=== PATIENT | male | born 1950 | race Caucasian/White ===

== ENCOUNTER → 2017-07-25 16:22 | Outpatient (CLI) | payer MEDICARE, OTHER, SELFPAY ==
[2017-07-25 18:49] LABS: Absolute Lymphocyte Count 0.92 X10^3/ul (0.83-4.51); Absolute Neutrophil Count 8.2 X10^3/uL (2.0-7.7); Basophil# 0.02 X10^3/uL; Basophil% 0.2 % (0-1); Eosinophil# 0.01 X10^3/uL; Eosinophils% 0.1 % (0-5); Hematocrit 38.4 % (40-54); Hemoglobin 12.5 g/dl (13.0-16.5); Lymphocyte # 0.92 X10^3/ul (4.0); Lymphocyte % 9.8 % (19-41); Mean Corp Hgb Conc 32.6 g/gl (32-36); Mean Corpuscular Hgb 31.5 pg (27.0-32.0); Mean Corpuscular Volume 96.7 fL (80-94); Mean Platelet Vol. 11.9 fl (6.2-12.0); Monocyte# 0.27 X10^3/uL; Monocyte% 2.9 % (0-10); Neutrophil # 8.15 X10^3/uL (2.7-7.7); Neutrophil % 86.5 % (47-70); Platelet Count 220 K/mm3 (150-450); RBC Distribution Width CV 15.6 % (11.6-14.6); RBC Distribution Width SD 52.8 fl (35.1-43.9); Red Blood Count 3.97 M/mm3 (4.6-6.2); White Blood Count 9.4 K/mm3 (4.4-11.0)
[2017-07-25 18:53] LABS: ALB/GLOB Ratio 1.2 RATIO (0.9-2.4); AST(SGOT) 24 U/L (15-37); Alanine Aminotransfer ALT/SGPT 33 U/L (16-61); Albumin, Serum 3.8 g/dL (3.2-5.0); Alkaline Phosphatase 80 U/L (45-117); Anion Gap 8 (5-15); BUN 20 mg/dL (7-18); BUN/Creat Ratio 25.3 RATIO (10-20); Calcium,Total 9.5 mg/dL (8.5-10.1); Chloride 109 mmol/L (98-107); Creatinine, Serum 0.79 mg/dL (0.70-1.30); EST Glomerular Filtration Rate 104 mL/min (>60); Est Glom Filt Rate - Afr Amer 126 mL/min (>60); Globulin 3.3 g/dL (2.2-4.2); Glucose 105 mg/dL (74-106); Potassium 4.1 mmol/L (3.5-5.1); Protein, Total 7.1 g/dL (6.4-8.2); Sodium Level 142 mmol/L (136-145)
[2017-07-25 18:59] LABS: POSITIVE COUNT NO; POSITIVE DIFFERENTIAL NO; POSITIVE MORPHOLOGY NO
== END ==
PROVIDERS: Family Provider Family Medicine; PCP Family Medicine; Visit Provider Internal Medicine Rheumatology
DX: M06.032 Rheumatoid arthritis without rheumatoid factor, left wrist (principal); Z79.899 Other long term (current) drug therapy; M50.30 Other cervical disc degeneration, unspecified cervical region; M51.87 Other intervertebral disc disorders, lumbosacral region
CPT/HCPCS: 36415; 80053; 85025

== ENCOUNTER → 2017-08-31 15:03 | Outpatient (CLI) | payer MEDICARE, OTHER, SELFPAY ==
--- NOTE | 2017-08-31 15:20 | HPBD_ITS ---
STUDY: DUAL ENERGY X-RAY ABSORPTIOMETRY / DXA REASON FOR EXAM: Male, 67 years old. KAY OF 1.5 INCHES HX OF SMOKING USES PREDNISONE DAILY HX OF TAKING ANTI-SEIZURE MEDS DOES LITTLE EXERCISE- HAS AN AMPUTATED LEG- LIMITED MOBILITY HX OF LUMBAR DISCECTOMY TECHNIQUE: Bone Mineral Density (BMD) measurements of lumbar spine and bilateral hips were obtained. COMPARISON: None. FINDINGS: Lumbar Spine (L1-L4): g/cm2 (1.081) / T-score (-1) / Z-score (-0.5) Findings are suggestive of normal bone density . Left Femoral Neck: g/cm2 (0.787) / T-score (-2.2) / Z-score (-1.1) consistent with severe osteopenia Right Femoral Neck: g/cm2 (0.548) / T-score (-4) / Z-score (-4.3) consistent with osteoporosis. HPBD/Dexa Bone Density Study (HP) IMPRESSION: The patient is considered osteoporotic as outlined below according to World Melo Organization (WHO) . Reference Information: The T-score is the number of standard deviations above or below the standard which is normal for young adults at their peak bone mineral density. The World Health Organization (WHO) interprets the T-scores as follows: Above -1 Normal bone density Between -1 and -2.5 Osteopenia Equal to / or below -2.5 Osteoporosis As a practical clinical guideline, osteopenia may be graded as follows: Mild -1 through -1.5 Moderate -1.6 through -2.0 Severe -2.1 through -2.4 The Z-score is the number of standard deviations above or below age-matched controls. A Z-score of less than -1.5 would be considered abnormal. References: 1. NIH Osteoporosis and Related Bone Diseases http://www.osteo.org 2. International Society for Clinical Densitometry http://www.iscd.org 3. National Osteoporosis Foundation http://www.nof.org Electronically Signed: Trent Hylton MD at 10:46 EDT Tel , Service support ,
== END ==
PROVIDERS: Family Provider Family Medicine; PCP Family Medicine; Visit Provider Orthopaedic Surgery
DX: M85.88 Other specified disorders of bone density and structure, other site (principal)
CPT/HCPCS: 77080

== ENCOUNTER → 2017-10-16 11:41 | Outpatient (CLI) | payer MEDICARE, OTHER, SELFPAY ==
[2017-10-16 14:01] LABS: Absolute Lymphocyte Count 1.49 X10^3/ul (0.83-4.51); Absolute Neutrophil Count 7.1 X10^3/uL (2.0-7.7); Basophil# 0.03 X10^3/uL; Basophil% 0.3 % (0-1); Eosinophil# 0.18 X10^3/uL; Eosinophils% 1.9 % (0-5); Hematocrit 37.1 % (40-54); Hemoglobin 12.1 g/dl (13.0-16.5); Lymphocyte # 1.49 X10^3/ul (4.0); Lymphocyte % 15.5 % (19-41); Mean Corp Hgb Conc 32.6 g/gl (32-36); Mean Corpuscular Hgb 31.6 pg (27.0-32.0); Mean Corpuscular Volume 96.9 fL (80-94); Mean Platelet Vol. 11.8 fl (6.2-12.0); Monocyte# 0.82 X10^3/uL; Monocyte% 8.5 % (0-10); Neutrophil # 7.09 X10^3/uL (2.7-7.7); Neutrophil % 73.5 % (47-70); Platelet Count 215 K/mm3 (150-450); RBC Distribution Width CV 14.2 % (11.6-14.6); Red Blood Count 3.83 M/mm3 (4.6-6.2); White Blood Count 9.6 K/mm3 (4.4-11.0)
[2017-10-16 14:03] LABS: POSITIVE COUNT NO; POSITIVE DIFFERENTIAL NO; POSITIVE MORPHOLOGY NO
[2017-10-16 14:30] LABS: ALB/GLOB Ratio 0.9 RATIO (0.9-2.4); AST(SGOT) 24 U/L (15-37); Alanine Aminotransfer ALT/SGPT 26 U/L (16-61); Albumin, Serum 3.4 g/dL (3.2-5.0); Alkaline Phosphatase 74 U/L (45-117); Anion Gap 9 (5-15); BUN 25 mg/dL (7-18); BUN/Creat Ratio 31.2 RATIO (10-20); Calcium,Total 9.5 mg/dL (8.5-10.1); Chloride 108 mmol/L (98-107); EST Glomerular Filtration Rate 103 mL/min (>60); Est Glom Filt Rate - Afr Amer 124 mL/min (>60); Globulin 3.8 g/dL (2.2-4.2); Glucose 77 mg/dL (74-106); Potassium 3.5 mmol/L (3.5-5.1); Protein, Total 7.2 g/dL (6.4-8.2); Sodium Level 141 mmol/L (136-145)
== END ==
PROVIDERS: Family Provider Family Medicine; PCP Family Medicine; Visit Provider Internal Medicine Rheumatology
DX: M06.032 Rheumatoid arthritis without rheumatoid factor, left wrist (principal); Z79.899 Other long term (current) drug therapy; M50.30 Other cervical disc degeneration, unspecified cervical region; M51.87 Other intervertebral disc disorders, lumbosacral region
CPT/HCPCS: 36415; 80053; 85025

== ENCOUNTER → 2017-12-27 14:44 | Outpatient (CLI) | payer MEDICARE, OTHER, SELFPAY ==
[2017-12-27 16:02] LABS: Absolute Lymphocyte Count 1.79 X10^3/ul (0.83-4.51); Absolute Neutrophil Count 5.4 X10^3/uL (2.0-7.7); Basophil# 0.03 X10^3/uL; Basophil% 0.4 % (0-1); Eosinophil# 0.41 X10^3/uL; Hematocrit 38.3 % (40-54); Hemoglobin 12.2 g/dl (13.0-16.5); Lymphocyte # 1.79 X10^3/ul (4.0); Lymphocyte % 21.6 % (19-41); Mean Corp Hgb Conc 31.9 g/gl (32-36); Mean Corpuscular Hgb 30.8 pg (27.0-32.0); Mean Corpuscular Volume 96.7 fL (80-94); Mean Platelet Vol. 11.4 fl (6.2-12.0); Monocyte# 0.66 X10^3/uL; Neutrophil # 5.36 X10^3/uL (2.7-7.7); Neutrophil % 64.8 % (47-70); Platelet Count 211 K/mm3 (150-450); RBC Distribution Width CV 15.5 % (11.6-14.6); RBC Distribution Width SD 52.4 fl (35.1-43.9); Red Blood Count 3.96 M/mm3 (4.6-6.2); White Blood Count 8.3 K/mm3 (4.4-11.0)
[2017-12-27 16:11] LABS: POSITIVE COUNT NO; POSITIVE DIFFERENTIAL NO; POSITIVE MORPHOLOGY NO
[2017-12-27 16:30] LABS: ALB/GLOB Ratio 1.1 RATIO (0.9-2.4); AST(SGOT) 25 U/L (15-37); Alanine Aminotransfer ALT/SGPT 31 U/L (16-61); Albumin, Serum 3.8 g/dL (3.2-5.0); Alkaline Phosphatase 92 U/L (45-117); BUN 22 mg/dL (7-18); BUN/Creat Ratio 29.2 RATIO (10-20); Calcium,Total 9.7 mg/dL (8.5-10.1); Chloride 106 mmol/L (98-107); Creatinine, Serum 0.75 mg/dL (0.70-1.30); EST Glomerular Filtration Rate 110 mL/min (>60); Est Glom Filt Rate - Afr Amer 133 mL/min (>60); Globulin 3.6 g/dL (2.2-4.2); Glucose 83 mg/dL (74-106); Potassium 3.7 mmol/L (3.5-5.1); Protein, Total 7.4 g/dL (6.4-8.2); Sodium Level 141 mmol/L (136-145)
[2017-12-27 16:31] LABS: Anion Gap 9 (5-15)
== END ==
PROVIDERS: Family Provider Family Medicine; PCP Family Medicine; Visit Provider Internal Medicine Rheumatology
DX: M06.032 Rheumatoid arthritis without rheumatoid factor, left wrist (principal); Z79.899 Other long term (current) drug therapy; M50.30 Other cervical disc degeneration, unspecified cervical region; M51.87 Other intervertebral disc disorders, lumbosacral region
CPT/HCPCS: 36415; 80053; 85025

== ENCOUNTER → 2018-02-20 10:04 | Outpatient (CLI) | payer MEDICARE, OTHER, SELFPAY ==
[2018-02-16 17:55] LABS: EST Glomerular Filtration Rate 102 mL/min (>60); Est Glom Filt Rate - Afr Amer 124 mL/min (>60)
--- NOTE | 2018-02-20 10:10 | MRI_ITS ---
STUDY: MR LEFT HIP ARTHROGRAPHY REASON FOR EXAM: Pain in groin, recent fall. TECHNIQUE: Standardized fat and water weighted pulse sequences were obtained in all 3 orthogonal planes after intra-articular instillation of dilute Magnevist. COMPARISON: Fluoroscopic view from arthrogram. FINDINGS: There is coxa plana and coxa magna (T2 coronal images 12-14) with deformity of the acetabulum, likely sequelae of Xpam-Jrfyh-Dkssmva disease. There is thinning of the articular cartilage (T2 coronal image 12). There is a tear of the left superior labrum (T1 coronal images 12, 13). There is no bone edema of the femoral neck and intratrochanteric region. There is a tear of the gluteus medius tendon at the greater trochanteric insertion (T2 coronal images 6, 7; T2 sagittal image 7). Normal gluteus minimus and iliopsoas tendons and distal insertions. There is mild left greater trochanteric bursitis (T2 coronal image 7). Normal ischial tuberosity. Normal origin of the hamstring tendons. Normal visualized iliac wing, sacroiliac joint, and sacral ala. There is contrast in the iliopsoas bursa and iliopsoas muscle. MRI/Lower Ext/Jt Only/W Contrast IMPRESSION: Left superior labral tear. 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 Tear of the left gluteus medius tendon with mild left greater trochanteric bursitis. Electronically Signed: Teo Bowers MD at 12:50 EDT Tel , Service support ,
--- NOTE | 2018-02-20 10:40 | RAD_ITS ---
CLINICAL HISTORY: Male, 67 years old. Chronic left hip pain. PROCEDURE: ARTHROGRAM - LEFT HIP CONSENT: The procedure as well as the benefits and possible complications including infection and bleeding were explained to the patient. Informed consent was obtained. FLUOROSCOPY TIME (if supplied): (25 seconds) minutes/seconds Injection Information: 10 cc of dilute Magnevist Number of images obtained: 1 TECHNIQUE: (All elements of maximal sterile barrier technique followed, including US elements as applicable) The patient was in the supine position. Skin was prepped and draped in usual sterile fashion. Following local anesthetic application and under direct fluoroscopic guidance, a 22-gauge spinal needle was placed into the left hip joint. 2 cc of Isovue-300 was injected for confirmation. Following this, 10 cc of dilute Magnevist was injected. The patient tolerated the procedure well. MRI will follow. RAD/Arthrogram Hip IMPRESSION: Left hip arthrogram with injection of 10 cc of dilute Magnevist for MRI examination. Electronically Signed: Cain Oliveros MD at 12:25 EDT Tel [phone], Service support ,
== END ==
PROVIDERS: Family Provider Family Medicine; PCP Family Medicine; Visit Provider Specialist
DX: M25.552 Pain in left hip (principal); G89.29 Other chronic pain
CPT/HCPCS: 27093; 36415; 73525; 73722; 82565; A9577; Q9967

== ENCOUNTER → 2018-03-26 12:03 | Outpatient (CLI) | payer MEDICARE, OTHER, SELFPAY ==
[2018-03-26 14:01] LABS: Absolute Lymphocyte Count 1.94 X10^3/ul (0.83-4.51); Absolute Neutrophil Count 4.4 X10^3/uL (2.0-7.7); Basophil# 0.05 X10^3/uL; Basophil% 0.6 % (0-1); Eosinophil# 0.81 X10^3/uL; Eosinophils% 10.4 % (0-5); Hematocrit 38.3 % (40-54); Hemoglobin 12.2 g/dl (13.0-16.5); Lymphocyte # 1.94 X10^3/ul (4.0); Lymphocyte % 24.8 % (19-41); Mean Corp Hgb Conc 31.9 g/gl (32-36); Mean Corpuscular Hgb 30.1 pg (27.0-32.0); Mean Corpuscular Volume 94.6 fL (80-94); Mean Platelet Vol. 11.9 fl (6.2-12.0); Monocyte# 0.59 X10^3/uL; Monocyte% 7.6 % (0-10); Neutrophil # 4.41 X10^3/uL (2.7-7.7); Neutrophil % 56.5 % (47-70); Platelet Count 235 K/mm3 (150-450); RBC Distribution Width CV 15.4 % (11.6-14.6); RBC Distribution Width SD 51.4 fl (35.1-43.9); Red Blood Count 4.05 M/mm3 (4.6-6.2); White Blood Count 7.8 K/mm3 (4.4-11.0)
[2018-03-26 14:07] LABS: POSITIVE COUNT NO; POSITIVE DIFFERENTIAL NO; POSITIVE MORPHOLOGY NO
[2018-03-26 14:30] LABS: ALB/GLOB Ratio 0.9 RATIO (0.9-2.4); AST(SGOT) 30 U/L (15-37); Alanine Aminotransfer ALT/SGPT 32 U/L (16-61); Albumin, Serum 3.4 g/dL (3.2-5.0); Alkaline Phosphatase 88 U/L (45-117); Anion Gap 9 (5-15); BUN 16 mg/dL (7-18); Calcium,Total 9.3 mg/dL (8.5-10.1); Chloride 110 mmol/L (98-107); Creatinine, Serum 0.76 mg/dL (0.70-1.30); EST Glomerular Filtration Rate 109 mL/min (>60); Est Glom Filt Rate - Afr Amer 132 mL/min (>60); Globulin 3.6 g/dL (2.2-4.2); Glucose 83 mg/dL (74-106); Potassium 3.8 mmol/L (3.5-5.1); Sodium Level 145 mmol/L (136-145)
== END ==
PROVIDERS: Family Provider Family Medicine; PCP Family Medicine; Referring Provider Internal Medicine Rheumatology; Visit Provider Internal Medicine Rheumatology
DX: M06.032 Rheumatoid arthritis without rheumatoid factor, left wrist (principal); Z79.899 Other long term (current) drug therapy; M50.30 Other cervical disc degeneration, unspecified cervical region; M51.87 Other intervertebral disc disorders, lumbosacral region
CPT/HCPCS: 36415; 80053; 85025

== ENCOUNTER → 2018-06-18 11:50 | Outpatient (CLI) | payer MEDICARE, OTHER, SELFPAY ==
[2018-06-18 14:22] LABS: Absolute Lymphocyte Count 2.68 X10^3/ul (0.83-4.51); Absolute Neutrophil Count 4.1 X10^3/uL (2.0-7.7); Basophil# 0.06 X10^3/uL; Basophil% 0.8 % (0-1); Eosinophil# 0.19 X10^3/uL; Eosinophils% 2.5 % (0-5); Hematocrit 40.2 % (40-54); Hemoglobin 12.9 g/dl (13.0-16.5); Lymphocyte # 2.68 X10^3/ul (4.0); Lymphocyte % 35.7 % (19-41); Mean Corp Hgb Conc 32.1 g/gl (32-36); Mean Corpuscular Hgb 30.5 pg (27.0-32.0); Mean Platelet Vol. 12.1 fl (6.2-12.0); Monocyte# 0.42 X10^3/uL; Monocyte% 5.6 % (0-10); Neutrophil # 4.12 X10^3/uL (2.7-7.7); Platelet Count 209 K/mm3 (150-450); RBC Distribution Width CV 15.1 % (11.6-14.6); RBC Distribution Width SD 50.3 fl (35.1-43.9); Red Blood Count 4.23 M/mm3 (4.6-6.2); White Blood Count 7.5 K/mm3 (4.4-11.0)
[2018-06-18 14:28] LABS: ALB/GLOB Ratio 0.9 RATIO (0.9-2.4); AST(SGOT) 22 U/L (15-37); Alanine Aminotransfer ALT/SGPT 29 U/L (16-61); Albumin, Serum 3.4 g/dL (3.2-5.0); Alkaline Phosphatase 85 U/L (45-117); Anion Gap 8 (5-15); BUN 25 mg/dL (7-18); BUN/Creat Ratio 34.3 RATIO (10-20); Chloride 108 mmol/L (98-107); Creatinine, Serum 0.73 mg/dL (0.70-1.30); EST Glomerular Filtration Rate 114 mL/min (>60); Est Glom Filt Rate - Afr Amer 138 mL/min (>60); Globulin 3.6 g/dL (2.2-4.2); Glucose 82 mg/dL (74-106); POSITIVE COUNT NO; POSITIVE DIFFERENTIAL NO; POSITIVE MORPHOLOGY NO; Potassium 3.6 mmol/L (3.5-5.1); Sodium Level 142 mmol/L (136-145)
== END ==
PROVIDERS: Family Provider Family Medicine; PCP Family Medicine; Referring Provider Internal Medicine Rheumatology; Visit Provider Internal Medicine Rheumatology
DX: M06.032 Rheumatoid arthritis without rheumatoid factor, left wrist (principal); Z79.899 Other long term (current) drug therapy; M50.30 Other cervical disc degeneration, unspecified cervical region; M51.87 Other intervertebral disc disorders, lumbosacral region; G56.01 Carpal tunnel syndrome, right upper limb
CPT/HCPCS: 36415; 80053; 85025

== ENCOUNTER → 2018-07-20 11:21 | Outpatient (CLI) | payer MEDICARE, OTHER, SELFPAY ==
[2018-07-06 13:06] VITALS: BMI 27.3
[2018-07-20 12:37] LABS: Albumin, Serum 3.7 g/dL (3.2-5.0)
== END ==
PROVIDERS: Family Provider Specialist; PCP Specialist; Referring Provider Specialist; Visit Provider Specialist
DX: Z01.812 Encounter for preprocedural laboratory examination (principal)
CPT/HCPCS: 36415; 82040

== ENCOUNTER 2018-07-25 09:35 | Inpatient (IN) | payer MEDICARE, OTHER, SELFPAY ==
[2018-07-06 13:06] VITALS: BP 119/65; PULSE 99; RESP 16; TEMP 37.3; O2SAT 96; BMI 27.3
--- NOTE | 2018-07-06 13:20 | SDCEKG_ITS ---
Test Reason : Blood Pressure : / mmHG Vent. Rate : 086 BPM Atrial Rate : 086 BPM P-R Int : 154 ms QRS Dur : 096 ms QT Int : 366 ms P-R-T Axes : 056 109 052 degrees QTc Int : 437 ms Sinus rhythm with occasional Premature ventricular complexes Low voltage QRS (limb leads) Rightward axis Borderline ECG Confirmed by YUNIOR MYERS, CLYDE ([id number]), subeditor SOFIA SARAVIA ([id number]) on 07/12/2018 8:21:25 AM Referred By: Peewee Daigle Confirmed By:CLYDE MOJICA MD
[2018-07-06 14:04] LABS: Absolute Neutrophil Count 9.3 X10^3/uL (2.0-7.7); Basophil# 0.02 X10^3/uL; Basophil% 0.2 % (0-1); Eosinophil# 0.14 X10^3/uL; Eosinophils% 1.4 % (0-5); Hemoglobin 12.5 g/dl (13.0-16.5); Lymphocyte % 5.8 % (19-41); Mean Corp Hgb Conc 31.3 g/gl (32-36); Mean Corpuscular Hgb 30.1 pg (27.0-32.0); Mean Corpuscular Volume 96.4 fL (80-94); Mean Platelet Vol. 10.7 fl (6.2-12.0); Monocyte# 0.25 X10^3/uL; Monocyte% 2.4 % (0-10); Neutrophil # 9.29 X10^3/uL (2.7-7.7); Neutrophil % 90.1 % (47-70); Platelet Count 250 K/mm3 (150-450); RBC Distribution Width CV 15.9 % (11.6-14.6); RBC Distribution Width SD 54.3 fl (35.1-43.9); Red Blood Count 4.15 M/mm3 (4.6-6.2); White Blood Count 10.3 K/mm3 (4.4-11.0)
[2018-07-06 14:06] LABS: Differential Indicated SCAN CRITERIA MET; POSITIVE COUNT NO; POSITIVE DIFFERENTIAL YES; POSITIVE MORPHOLOGY NO
[2018-07-06 14:21] LABS: Anion Gap 7 (5-15); BUN 12 mg/dL (7-18); BUN/Creat Ratio 16.8 RATIO (10-20); Calcium,Total 9.5 mg/dL (8.5-10.1); Chloride 109 mmol/L (98-107); Creatinine, Serum 0.71 mg/dL (0.70-1.30); EST Glomerular Filtration Rate 117 mL/min (>60); Est Glom Filt Rate - Afr Amer 142 mL/min (>60); Glucose 92 mg/dL (74-106); Potassium 4.1 mmol/L (3.5-5.1); Sodium Level 141 mmol/L (136-145)
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
[2018-07-06 16:00] LABS: Differential Comment SCANNED
--- NOTE | 2018-07-23 12:42 | CASEMGMT ---
Call placed to patient to discuss discharge needs after upcoming surgery. Patient plans to return home with assistance from and in laws. Patient does not have outpatient physical therapy set up, would prefer home health PT through [facility], wants to assist with setting up. Patient has a walker, shower seat, grab bars, and a toilet riser. Bed room and bathroom are on the 1st level of the home. There are 2 steps to get into home. Informed patient that RN-CM will follow up with patient after surgery. Denice Mandel LPN Clinical Support
[2018-07-25] VITALS (11 sets, daily range): BP systolic 94–123; BP diastolic 53–75; PULSE 68–96; RESP 16–18; TEMP 36.4–37.1; O2SAT 93–98; BMI 27.3; BMI 25.7
--- NOTE | 2018-07-25 | HIP_PTH ---
PATIENT: FRANCHESKA AGUERO MAYE LOC: 3 U#:[id number] AGE/SX: 67/M [place] [facility] [place]25/[address]: Dr. Uche Hernandez MD : [id number] BED: 1 DIS: 07/26/2018 SPEC #: [id number] RECD: 07/25/18 15:24 STATUS: KEARA REQ #: [id number] ASIA: 07/25/18 00:[address]: Peewee Daigle DEPT: SURGICAL PATHOLOGY RECD BY: Juarez Oneill ENTERED: 07/26/18 07:49 SP TYPE: TOTAL HIP OTHR DR: MD Dr. Romel Villa MD Dr. Prakash Chand, MD Dr. Steven Widmer, MD Tissues: Hip, NOS Procedures: Decalcification bone/plaque Surgery Specimen Level IV Comments: @ Ordering doctor for DEC edited from to @ by LOBO at 07/26/18 1503 @ Ordering doctor for SUIV edited from to @ by LOBO at 07/26/18 1503 @ Submitting doctor edited from to @ by LOBO at 07/26/18 1503 HEADER OPERATION: Total hip anterior approach PRE-OP DIAGNOSIS: Left hip osteoarthritis TISSUE SUBMITTED: Femoral head MICROSCOPIC DIAGNOSIS Left femoral head, total hip replacement/resection: Femoral head with degenerative osteoarthritic changes. Fragments of dense fibroconnective tissue. AMELIA:shannon 08/01/18 MICROSCOPIC DESCRIPTION Slides are reviewed. GROSS DESCRIPTION Received is one container designated bone and soft tissue, left femoral head. The specimen consists of a markedly deformed femoral head measuring 6 x 5 x 3 cm. The portion of femoral neck measures 0.5 cm in width. The articular surface displays prominent osteophyte formation and bone erosion. Also present in the specimen container are multiple irregular fragments of bone reamings and pink-yellow soft tissue measuring in aggregate 7 x 6 x 3 cm and predominantly consists of bone reamings. Chief Data Officer sections are submitted in two cassettes after decalcification as follows: 1 - soft tissue including bone reamings, 2 - femoral head. / AMELIA:shannon 07/26/18 TC:5 CPT: 94850, 65127
[2018-07-25] MEDS: Celecoxib 200 MG Capsule 400 MG PO (10:30)
[2018-07-25] MEDS: Acetaminophen 500 MG Tablet 1000 MG PO ×3 (10:31→21:48)
[2018-07-25] MEDS: oxyCODONE HCl Cr 10 MG Tablet PO (10:31)
[2018-07-25] MEDS: Vancomycin IV 1,000 MG/200 ML BAG 200 MG IV (10:33)
[2018-07-25] MEDS: Lactated Ringers 1,000 ML 999 ML IV (10:34)
[2018-07-25] MEDS: Cefazolin 2 GM in 0.9% Normal Saline 100 ML IV (11:39)
--- NOTE | 2018-07-25 12:00 | RAD_ITS ---
STUDY: X-RAY - LEFT HIP REASON FOR EXAM: Male, 67 years old. Hip replacement TECHNIQUE: 3 C-arm views of the hip. 2.8 seconds fluoroscopy time. COMPARISON: None. FINDINGS: 3 C-arm views show placement of a left hip arthroplasty refractory appearance. Correlate with procedure note. Electronically Signed: Steven Awad MD at 21:02 EST , Service support , RAD/Hip 1 view with Pelvis
--- NOTE | 2018-07-25 13:23 | PCM.OPRPT ---
Report of Operation Date of Procedure: 07/25/18 Pre-Operative Diagnosis: Left hip secondary osteoarthritis, history of Perthes disease Post-Operative Diagnosis: Left hip secondary osteoarthritis, history of Perthes disease Surgery/Procedure Performed:: Left direct anterior total hip replacement Description of Surgical Findings:: Stable hip manager of merchandising: Carlos Alberto Perez Type of Anesthesia:: General Anesthesiologist: Manjeet Ruff Special Medications: 2 g Ancef, 1 g TXA at incision, 1 g TXA closure, 10 mg Decadron, joint cocktail (5 mg Duramorph, 30 mL of 0.5% Ropivicaine, 1000 units of epinephrine, 30 mg of Toradol), IV vancomycin Specimen's removed: Bony cuts, femoral head was sent Estimated Blood Loss (mL): 150 Fluids Replaced: 1000 mL crystalloid Description of Procedure: Components used: 1. Accolade 2 [place] femoral stem size 2 127? 2. Abdon trident 2 acetabular shell size 46 mm 3. Abdon X3 polyethylene c 4. Abdon Biolox delta 32mm, -4mm femoral head Brief history operative indications: 67 yo M who failed conservative measures for their hip osteoarthritis. X-rays were consistent with osteoarthritis including joint space narrowing, osteophyte formation and subchondral cysts. Total hip replacement was discussed with the patient with risks and benefits including but not limited to blood loss, DVTs, PEs, neurovascular damage, dislocation, general risks of anesthesia including loss of life. Patient demonstrated an understanding medical clearance is obtained the patient was consented for surgery. Procedure: On the date of procedure the patient's L hip was marked in the preoperative area. Patient was then taken back to the operating room where anesthesia assumed control of the C-spine and airway and administered anesthetic. Patient was transferred to the operating table and placed in the supine position. The hips were placed at the break of the bed and a sacral bump was placed. The L lower extremity was then prepped out in a sterile fashion using chlorhexidine while the surgeon scrubbed. The PA was vital in the positioning of the patient. Upon reentering the room the L lower extremity was draped in the standard orthopedic fashion and the incision was marked. A timeout was called and everyone agreed upon the side, the site, the procedure be performed, antibody given, and patient's identity. At this time incision was made through skin, subcutaneous tissue, and fat down to fascia. The fascia was then incised and the TFL was retracted laterally. A retractor was placed on the lateral border of the femoral neck. Attention was directed to the inferior portion of the approach and all crossing vessels were identified and appropriately coagulated. A retractor was then placed on the medial portion of the femoral neck. The anterior capsule was then cleared of all soft tissue and then H shaped capsulotomy was made. The retractors were then placed inside the capsule. The femoral neck was identified and a cleanup cut was made. At this time a power corkscrew was used to remove the femoral head. Attention was then turned toward the acetabulum where the soft tissues were appropriately retracted and the acetabulum was sequentially reamed to 46 mm using fluoroscopy to guide the depth and coverage of the acetabular component. Once we are happy with our appropriate reaming, A 46 mm cup was then selected and impacted into place. Acetabular liner trial was then put into place. The position of the acetabular cup was then verified under live fluoroscopy. Attention was then turned to the femur. Soft tissue releases on the medial and lateral femoral neck were appropriately done, the leg was externally rotated and lateralized. A Singer retractor was placed medially and proximally to the greater trochanter this allowed appropriate visualization and exposure of the femoral canal. Rongeour was then used to remove excess lateral bone. A canal finder and entry broach were used to open the proximal canal. Once we verified we were down the femoral canal we subsequently broached up to a size 2 femur. The appropriate neck was placed in the previously selected head was trialed with a -4 mm neck. Traction was pulled and the hip was reduced with internal rotation. Once it was appropriately reduced and stability was checked. There was minimal shuck, equal leg lengths and appropriate stability with hyperextension and external rotation as well as with 90? flexion and internal rotation. Fluoroscopy was then also used to verify the position of the components and leg lengths ensuring that we did not over lengthen the patient. Based on the x-rays we lengthen the patient by about 2 cm that he has a amputation on the contralateral side. The trial components were then dislocated the proximal femur was again exposed and the components were removed from the wound. The final components were verified and opened. The wound was copiously irrigated out with normal saline. The acetabulum was again exposed and 2 screws were placed orthogonally in the acetabulum. A 32 mm liner was then impacted into place and acetabulum was checked for any residual debris. The mechanism was verified. Femur was again exposed and the final femoral component placed and impacted. Knee was cleaned and the femoral head was impacted into place traction and internal rotation were again used to reduce the hip. After adequate reduction the hip remained stable with appropriate leg lengths. The final components were once again checked with live fluoroscopy and were found to be satisfactory. The wound was then copiously irrigated with normal saline once more, and hemostasis was obtained. Closure was then done using #1 Vicryl runner to close the fascia. A 2-0 vicryl interuppted sutures were used to close the subcutaneous skin. A 3-0 Monocryl and Steri-Strips were used for final skin closure. A Silverlon dressing was placed. Patient was awakened by anesthesia and [facility] Patient was then transferred to the PACU for recovery. Postoperative plan: Patient will get 24 hours postop antibiotics. Patient will get in-house physical therapy and will be weight-bear as tolerated. Patient will follow up in office in 2 weeks for a wound check and x-rays. During the course of the procedure the physician facilities assistant played a vital role. His intimate knowledge of my steps in the procedure aided in safe and expedient completion of the procedure. The PA played a vital rolls in positioning particularly in obtaining the appropriate positioning of the sacral bump. The PA was also vital in the retraction of soft tissues during the exposure and especially the femoral work as this is a vital part of the procedure to prevent complications and fractures. The PA was also vital and protecting soft tissues during times of bony cuts and reaming. He also played a vital role in closure with my direct supervision. The PA was also important during reduction and dislocation of the joint and trials intraoperatively. Grafts/Implants Used: [place] Trident 2, Accolade 2 - Complications No intraoperative complications - Admit VTE Documentation VTE Present on Admission: No VTE Mechan Device Prophylaxis: SCD's, Thigh High YOUNG Hose VTE Pharm Prophylaxis ordered?: Yes
--- NOTE | 2018-07-25 14:11 | RAD_ITS ---
STUDY: X-RAY - LEFT HIP REASON FOR EXAM: Male, 67 years old. Postoperative TECHNIQUE: Frontal pelvis, crosstable lateral left hip. COMPARISON: 07/25/2017, 02/20/2018, 12/23/2014 FINDINGS: Development of dysplasia of the right hip joint with wide shallow acetabulum and chronic deformity of the femoral head. Amputation of the distal thigh on the right. Left hip arthroplasty. The prosthetic components appear to be normally seated and articulated. There is no acute fracture. Medullary olga hardware distal femur on the left. RAD/Hip Min 2 Views (Portable) IMPRESSION: Left hip arthroplasty components exhibit appropriate postsurgical features. Correlate with operative technique. Electronically Signed: Tesfaye Flores MD at 17:38 EST Tel , Service support ,
[2018-07-25] MEDS: Gabapentin 800 MG Tablet PO (16:56)
[2018-07-25] MEDS: Aspirin 81 MG TAB.CHEW PO (16:56)
[2018-07-25] MEDS: Hydroxychloroquine 200 MG Tablet PO (16:57)
[2018-07-25] MEDS: Cefazolin 1 GM/50 ML BAG IV (18:59)
[2018-07-25] MEDS: oxyCODONE 5 MG Tablet PO (19:56)
[2018-07-25] MEDS: Lactated Ringers 1,000 ML 75 ML IV (19:57)
--- NOTE | 2018-07-25 20:39 | CON.PCM_ITS ---
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 Qualifiers: Encounter type: subsequent encounter Qualified Code(s): T84.093D - Other mechanical complication of internal left knee prosthesis, subsequent encounter Reason for Consult Date of Consultation: 07/25/18 Reason for Consultation: For medical management after left hip replacement History of Present Illness: The patient is a 67 year old M with protracted history of rheumatological disease including Perthes disease, rheumatoid arthritis, right shoulder arthritis and rotator cuff with multiple joint surgeries in the past was admitted after elective left hip anterior total hip replacement. Patient denies chronic cardiac disease, pulmonary disease or GI issues. He denies a stroke Patient quit smoking about 30 years ago. Denies chest pain, shortness of breath, palpitation, abdominal pain. Denies lower urinary tract symptoms. Denies change in bowel movement. Past Medical History Past Medical History (Chronic Problems): Chronic Problems Osteomyelitis of toe of left foot (Chronic) Hallux rigidus, left foot (Chronic) Decubitus ulcer of foot, unstageable (Chronic) Failed total left knee replacement (Chronic) Allergies No Known Allergies Allergy (Verified 07/06/18 12:57) Home Medications: Ambulatory Orders Medication Instructions Recorded Folic Acid 1 tablet PO DAILY 11/08/13 Hydroxychloroquine [Plaquenil] 200 mg PO BIDCM 11/08/13 Gabapentin [Neurontin] 800 mg PO TID 04/07/15 Methotrexate 15 mg PO Q7D 12/11/15 Famotidine [Pepcid] 20 mg PO PRN PRN 07/06/18 Meloxicam [Mobic] 15 mg BC QODAY 07/06/18 Prednisone 10 mg PO DAILY PRN 07/06/18 traMADol [Ultram (G)] 100 mg PO TID 07/06/18 Surgical History: - - History of right below the knee amputation left knee replacement right rotator cuff repair right shoulder replacement left knee revision Smoking Status: Never smoker - *Family History Paternal History Items: No pertinent history Review of Systems Constitutional: Denies: Chills, Fever, Weight Change HEENT: Denies: Head Aches, Sinus Congestion, Sinus Drainage Cardiovascular: Denies: Chest Pain, Palpitations Respiratory: Denies: Cough, Shortness of breath at rest, Sputum production Gastrointestinal: Denies: Abdominal Pain, Nausea, Vomiting Genitourinary: Denies: Dysuria Musculoskeletal: Reports: Joint Pain, Joint stiffness, Joint Tenderness, Muscle pain Skin: Denies: Rash, Wounds Neurological: Denies: Numbness, Tingling, Focal weakness Psychiatric: Denies: Anxiety, Depression, Homicidal Ideations, Suicidal Ideations Hematologic/ Lymphatic: Denies: Easy Bruising, Easy Bleeding - Physical Exam General: Alert, Oriented x3, Cooperative HEENT: Atraumatic, PERRLA, EOMI, Normocephalic Neck: Supple, No JVD, Negative Carotid Bruits Lungs: Clear to auscultation, Normal air movement, No rhonchi, No wheeze, No rales Cardiovascular: Regular rate, Regular Rhythm, Normal S1, Normal S2, No murmurs Abdomen: Bowel Sounds Present, Soft, Non Tender, Non-Distended Extremities: No edema, Capillary Refill Less than 3 Seconds Skin: No rashes, No breakdown Musculoskeletal: Arthritic Changes, Tenderness - Mild expected tenderness over left hip joint. Left hip surgical dressing is dry. Neurological: Cranial nerves II-XII grossly intact Psych/Mental Status: Normal Affect, Appropriate Vital Signs Temp Pulse Resp BP Pulse Ox 98.8 F 68 18 94/54 L 95 07/25/18 19:50 07/25/18 19:50 07/25/18 19:50 07/25/18 19:50 07/25/18 19:50 Oxygen Flow Rate (L/min) 2 Oxygen Delivery Method Room Air Weight: 131 lb 13.383 oz Body Mass Index (BMI) 25.7 Intake and Output for Last 24 Hours 07/23/18 07/24/18 07/25/18 23:59 23:59 23:59 Intake Total 1500 / 1500 Output Total 0 / 0 Balance 1500 / 1500 Assessment/Plan The patient is a 67 year old M with protracted history of rheumatological disease including Perthes disease, rheumatoid arthritis, right shoulder arthritis and rotator cuff with multiple joint surgeries in the past was admitted after elective left hip anterior total hip replacement. Patient denies chronic cardiac disease, pulmonary disease or GI issues. He denies a stroke Patient quit smoking about 30 years ago. Denies chest pain, shortness of breath, palpitation, abdominal pain. Denies lower urinary tract symptoms. Denies change in bowel movement. 1. Advanced left hip osteoarthritis status post total hip replacement: Postop day 0. DVT prophylaxis as per orthopedic surgeon. PT and OT as ordered. Pain control. 2. Chronic rheumatological conditions: Perthe's Disease, osteoarthritis, rotator cuff tear and right shoulder replacement, left TKR, history of osteomyelitis and osteoporosis. 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 Patient had right leg amputation in 1996 after numerous surgeries on right leg for osteomyelitis. 3. DVT prophylaxis: On aspirin twice daily. Code Visit Inpatient E&M: 00089 Init Hosp L2
[2018-07-25] MEDS: Senna/Docusate Sodium 1 Tablet 2 TABLET PO (21:50)
[2018-07-26] MEDS: oxyCODONE 5 MG Tablet PO ×3 (00:06→11:57)
[2018-07-26] MEDS: Famotidine 20 MG Tablet PO (00:06)
[2018-07-26] MEDS: Cefazolin 1 GM/50 ML BAG IV (02:36)
[2018-07-26 02:38] VITALS: BP 106/65; PULSE 68; RESP 16; TEMP 36.9; O2SAT 100
[2018-07-26] MEDS: Acetaminophen 500 MG Tablet 1000 MG PO ×2 (05:05→13:35)
[2018-07-26 06:25] LABS: Hematocrit 32.1 % (40-54); Mean Corp Hgb Conc 31.2 g/gl (32-36); Mean Corpuscular Hgb 30.3 pg (27.0-32.0); Mean Corpuscular Volume 97.3 fL (80-94); Mean Platelet Vol. 11.9 fl (6.2-12.0); Platelet Count 174 K/mm3 (150-450); RBC Distribution Width CV 14.9 % (11.6-14.6); RBC Distribution Width SD 50.1 fl (35.1-43.9); White Blood Count 8.8 K/mm3 (4.4-11.0)
[2018-07-26 06:26] LABS: Scan Indicated on CBC? Y/N NO
[2018-07-26 06:43] LABS: Anion Gap 7 (5-15); BUN 16 mg/dL (7-18); BUN/Creat Ratio 23.2 RATIO (10-20); Calcium,Total 8.6 mg/dL (8.5-10.1); Chloride 109 mmol/L (98-107); Creatinine, Serum 0.69 mg/dL (0.70-1.30); EST Glomerular Filtration Rate 122 mL/min (>60); Est Glom Filt Rate - Afr Amer 147 mL/min (>60); Estimated Creatinine Clearance 51.39 ml/min; Glucose 82 mg/dL (74-106); Potassium 3.9 mmol/L (3.5-5.1); Sodium Level 141 mmol/L (136-145)
[2018-07-26 07:51] VITALS: BP 113/60; PULSE 96; RESP 18; TEMP 37.3; O2SAT 94
[2018-07-26] MEDS: Aspirin 81 MG TAB.CHEW PO (07:56)
[2018-07-26] MEDS: Folic Acid 1 MG Tablet PO (07:57)
[2018-07-26] MEDS: Gabapentin 800 MG Tablet PO ×2 (07:57→11:53)
[2018-07-26] MEDS: Hydroxychloroquine 200 MG Tablet PO (07:58)
[2018-07-26] MEDS: Senna/Docusate Sodium 1 Tablet 2 TABLET PO (07:59)
--- NOTE | 2018-07-26 08:57 | PN.ORTHO_ITS ---
Subjective: The patient was sitting in bed upon examination. Patient denies any chest pain, shortness of breath, dizziness, lightheadedness, nausea or vomiting, or calf pain. Pain is controlled on medications. No adverse overnight events. Overall patient has been doing well. Patient wants to try to go home today but will see how he does with physical therapy. Patient will require home health therapy. Objective: Vital signs stable and afebrile. Patient is able to plantarflex and dorsiflex actively. Sensation is intact to light touch to saphenous, sural, superficial and deep peroneal, and tibial distribution. Dressing is clean dry and intact. Negative Homans bilaterally, negative signs and symptoms of DVT. - Physical Exam General: Alert, Oriented x3, Cooperative, No apparent distress Vital Signs Temp Pulse Resp BP Pulse Ox 99.2 F H 96 18 113/60 94 07/26/18 07:51 07/26/18 07:51 07/26/18 07:51 07/26/18 07:51 07/26/18 07:51 Oxygen Flow Rate (L/min) 2 Oxygen Delivery Method Room Air Weight: 59.8 kg Body Mass Index (BMI) 25.7 Intake and Output for Last 24 Hours 07/24/18 07/25/18 07/26/18 23:59 23:59 23:59 Intake Total 1500 / 1500 674 / 674 Output Total 0 / 0 2650 / 2650 Balance 1500 / 1500 -1975 / Laboratory Tests Past 24 Hrs 07/26/18 07/26/18 05:50 05:50 WBC 8.8 RBC 3.30 L Hgb 10.0 L Hct 32.1 L MCV 97.3 H MCH 30.3 MCHC 31.2 L RDW 14.9 H RDW Differential 50.1 H Plt Count 174 MPV 11.9 Sodium 141 Potassium 3.9 Chloride 109 H Carbon Dioxide 25.0 Anion Gap 7 BUN 16 Creatinine 0.69 L Estim Creat Clear Calc 51.39 Est GFR (MDRD) Af Amer 147 Est GFR (MDRD) Non-Af 122 BUN/Creatinine Ratio 23.2 H Glucose 82 Calcium 8.6 Medical Necessity - Tobacco Use Smoking Status: Never smoker Assessment/Plan 1. S/P left direct anterior total hip arthroplasty POD #1 2. Continue Pain Medications: Tylenol and OxyIR 3. DVT Prophylaxis: Aspirin 81 mg twice daily for 4 weeks postoperatively 4. PT/OT: Weightbearing as tolerated 5. H & H: 10.0/32.1, asymptomatic 6. Encouraged Incentive Spirometry 7. Continue postoperative medical management per medicine 8. Disposition: Overall patient is doing well. Patient does wish to try to go home today if he tolerates physical therapy. Prescriptions will be E scribed to [facility]. Patient will follow-up per postop instructions. Patient will require home health physical therapy. If patient does well with physical therapy plan will be for discharge home today.
--- NOTE | 2018-07-26 09:04 | DCINST_ITS ---
Discharge Diet: No Restrictions Discharge Activity: May Not Drive - while taking narcotic pain medications. May shower in (days): 1 - Turned dressing away from water. Ice area for (Minutes): 20 - Every 1-2 hours while awake Weight Bearing Status: Weight bearing as tolerated Elevate: Operative Extremity Additional Activity Instructions:: Wear elastic stockings for 2 weeks. DO NOT use alcohol with narcotic pain medication. DO NOT make important decisions while taking narcotic medication. If you have problems with taking your medication (rash, itching, nausea, etc.) call the office at once. Call your doctor if your incision/area has: Increased Pain/ Swelling, Increased Redness, Foul Smelling Discharge Call your doctor if you observe: Fever of 101 or Higher Remove Dressing in (days):: 3 Allergies/Adverse Reactions: Allergies No Known Allergies Allergy (Verified 07/06/18 12:57) Medications to take at Discharge Folic Acid 1 tablet PO DAILY 11/08/13 Hydroxychloroquine [Plaquenil] 200 mg PO BIDCM 11/08/13 Gabapentin [Neurontin] 800 mg PO TID 04/07/15 Methotrexate 15 mg PO Q7D 12/11/15 Prednisone 10 mg PO DAILY PRN 07/06/18 Acetaminophen [Tylenol] 1,000 mg PO Q8 #90 tablet 07/26/18 Aspirin [Aspirin, Baby] 81 mg PO BIDCM tab.chew 07/26/18 Famotidine [Pepcid] 20 mg PO PRN PRN #30 tablet 07/26/18 Meloxicam [Mobic] 7.5 mg PO BID #0 tablet 07/26/18 Oxycodone [Oxyir] 5 - 10 mg PO Q4H PRN PRN 5 Days #60 tablet 07/26/18 Senna/Docusate Sodium [Senokot-S] 2 tablet PO BID tablet 07/26/18 The following prescriptions were given: Oxycodone [Oxyir] 5 - 10 mg PO Q4H PRN PRN 5 Days #60 tablet PRN Reason: Mod-Severe Pain (4-03/21) Acetaminophen [Tylenol] 1,000 mg PO Q8 #90 tablet Famotidine [Pepcid] 20 mg PO PRN PRN #30 tablet PRN Reason: GERD Primary Care Physician: Romel Jiang MD [Primary Care Provider] - Test Results: Test results from this visit will be discussed in further detail at your follow- up appointment, if applicable. Please Follow Up With: Carlos Alberto Perez PA-C When: 08/06/18 @ 3:00 pm
--- NOTE | 2018-07-26 09:17 | PCM.PN.HOSP ---
Subjective: Patient is a 67-year-old gentleman with significant past medical history including Perthes disease, rheumatoid arthritis as well as generalized osteoarthritis who underwent left hip arthroplasty on 07/25/2018. The hospitalist service was consulted to assist with management of patient medical comorbidities Objective: GENERAL: cooperative HEENT: Atraumatic; moist oral mucosa EYES; Anicteric, Normal Conjunctiva NECK; supple, normal thyroid, no distended JVD. RESPIRATORY: Diminished to auscultation bilaterally, CARDIOVASCULAR: Regular S1 S2, no audible murmurs GI: soft, non-tender, normoactive bowel sounds, : No Renal angle tenderness; EXTREMITIES: Right lower extremity prosthesis NEURO: Awake; no lateralizing signs. SKIN: No Rash PSYCH; Normal affect Vitals/I&O's: Vital Signs Temp Pulse Resp BP Pulse Ox 99.2 F H 96 18 113/60 94 07/26/18 07:51 07/26/18 07:51 07/26/18 07:51 07/26/18 07:51 07/26/18 07:51 Oxygen Flow Rate (L/min) 2 Oxygen Delivery Method Room Air Weight: 59.8 kg Body Mass Index (BMI) 25.7 Intake and Output for Last 24 Hours 07/24/18 07/25/18 07/26/18 23:59 23:59 23:59 Intake Total 1500 / 1500 674 / 674 Output Total 0 / 0 2650 / 2650 Balance 1500 / 1500 -1975 / Laboratory Results 07/26/18 05:50: WBC 8.8, RBC 3.30 L, Hgb 10.0 L, Hct 32.1 L, MCV 97.3 H, MCH 30.3, MCHC 31.2 L, RDW 14.9 H, RDW Differential 50.1 H, Plt Count 174, MPV 11.9 07/26/18 05:50: Sodium 141, Potassium 3.9, Chloride 109 H, Carbon Dioxide 25.0, Anion Gap 7, BUN 16, Creatinine 0.69 L, Estim Creat Clear Calc 51.39, Est GFR (MDRD) Af Amer 147, Est GFR (MDRD) Non-Af 122, BUN/Creatinine Ratio 23.2 H, Glucose 82, Calcium 8.6 Current Medications Acetaminophen (Tylenol) 1,000 mg PO Q8 [facility] Last Admin: 07/26/18 05:05 Dose: 1,000 mg [facility] Last Admin: 07/26/18 07:56 Dose: 81 mg Famotidine (Pepcid) 20 mg PO DAILY PRN PRN Reason: GERD Last Admin: 07/26/18 00:06 Dose: 20 mg [facility] Acid) [facility] Last Admin: 07/26/18 07:57 Dose: 1 mg Gabapentin (Neurontin) 800 mg PO TIDCM [facility] Last Admin: 07/26/18 07:57 Dose: 800 mg Hydroxychloroquine Sulfate ([facility]enil) [facility] Last Admin: 07/26/18 07:58 Dose: 200 mg Ketorolac Tromethamine (Toradol) 15 mg IV Q6H PRN PRN PRN Reason: MILD-MOD PAIN (1-5/10) Meloxicam (Mobic) 7.5 mg PO BID [facility] Methotrexate (Methotrexate) 15 mg PO Q7D [facility] Morphine Sulfate () 2 - 4 mg IV Q2H PRN PRN PRN Reason: SEVERE PAIN (6-10/10) Morphine Sulfate () 2 - 4 mg IV Q2H PRN PRN PRN Reason: SEVERE PAIN (6-10/10) Nutritional Formula (Lactose Free) (Ensure Clear) [facility] Last Admin: 07/25/18 16:58 Dose: 120 ml Ondansetron HCl (Zofran) 4 mg IV Q8H PRN PRN PRN Reason: NAUSEA Oxycodone HCl (Oxyir) 5 - 10 mg PO Q4H PRN PRN PRN Reason: MOD-SEVERE PAIN (4-10/10) Last Admin: 07/26/18 05:06 Dose: 10 mg Prednisone () 10 mg PO DAILY PRN PRN Reason: RHEUMATOID ARTHRITIS Promethazine HCl (Phenergan) 12.5 mg IM Q6H PRN PRN; Protocol PRN Reason: NAUSEA/VOMITING Senna/Docusate Sodium (Senokot-S, Lisy-Colace) 2 tablet PO BID [facility] Last Admin: 07/26/18 07:59 Dose: 2 tablet Sodium Chloride () 5 - 15 ml IV UD PRN PRN Reason: SALINE FLUSH Medical Necessity - Tobacco Use Smoking Status: Never smoker Assessment/Plan Patient is a 67-year-old gentleman with significant past medical history including Perthes disease, rheumatoid arthritis as well as generalized osteoarthritis who underwent left hip arthroplasty on 07/25/2018. The hospitalist service was consulted to assist with management of patient medical comorbidities 1. Status post left total hip arthroplasty on 07/25/2018 was admitted to regular nursing floor following his procedure. Patient postoperative management regarding pain management, DVT prophylaxis as well as PT OT orders advised by primary service 2. Rheumatoid arthritis patient is on Plaquenil and methotrexate did continue 3. Perthes disease 4. History of left total knee replacement 5. Prosthesis involving the right lower extremity 6. DVT prophylaxis as per primary service Active Medications Acetaminophen (Tylenol) 1,000 mg PO Q8 [facility] Last Admin: 07/26/18 05:05 Dose: 1,000 mg Aspirin ([facility]in, Baby) [facility] Last Admin: 07/26/18 07:56 Dose: 81 mg Famotidine (Pepcid) 20 mg PO DAILY PRN PRN Reason: GERD Last Admin: 07/26/18 00:06 Dose: 20 mg Folic Acid (Folic Acid) [facility] Last Admin: 07/26/18 07:57 Dose: 1 mg Gabapentin (Neurontin) 800 mg PO TIDCM [facility] Last Admin: 07/26/18 07:57 Dose: 800 mg Hydroxychloroquine Sulfate (Plaquenil) [facility] Last Admin: 07/26/18 07:58 Dose: 200 mg Ketorolac Tromethamine (Toradol) 15 mg IV Q6H PRN PRN PRN Reason: MILD-MOD PAIN (1-5/10) Meloxicam (Mobic) 7.5 mg PO BID [facility] Methotrexate (Methotrexate) 15 mg PO Q7D [facility] Morphine Sulfate () 2 - 4 mg IV Q2H PRN PRN PRN Reason: SEVERE PAIN (6-10/10) Morphine Sulfate () 2 - 4 mg IV Q2H PRN PRN PRN Reason: SEVERE PAIN (6-10/10) Nutritional Formula (Lactose Free) (Ensure Clear) 120 ml PO TIDCM [facility] Last Admin: 07/25/18 16:58 Dose: 120 ml Ondansetron HCl (Zofran) 4 mg IV Q8H PRN PRN PRN Reason: NAUSEA Oxycodone HCl (Oxyir) 5 - 10 mg PO Q4H PRN PRN PRN Reason: MOD-SEVERE PAIN (4-03/21) Last Admin: 07/26/18 05:06 Dose: 10 mg Prednisone () 10 mg PO DAILY PRN PRN Reason: RHEUMATOID ARTHRITIS Promethazine HCl (Phenergan) 12.5 mg IM Q6H PRN PRN; Protocol PRN Reason: NAUSEA/VOMITING Senna/Docusate Sodium (Senokot-S, Lisy-Colace) 2 tablet PO BID [facility] Last Admin: 07/26/18 07:59 Dose: 2 tablet Sodium Chloride () 5 - 15 ml IV UD PRN PRN Reason: SALINE FLUSH Code Visit Inpatient E&M: 41683 Subs Hosp L3
--- NOTE | 2018-07-26 09:26 | PN_ITS ---
Subjective: Patient is a 67-year-old gentleman with significant past medical history including Perthes disease, rheumatoid arthritis as well as generalized osteoarthritis who underwent left hip arthroplasty on 07/25/2018. The hospitalist service was consulted to assist with management of patient medical comorbidities Objective: GENERAL: cooperative HEENT: Atraumatic; moist oral mucosa EYES; Anicteric, Normal Conjunctiva NECK; supple, normal thyroid, no distended JVD. RESPIRATORY: Diminished to auscultation bilaterally, CARDIOVASCULAR: Regular S1 S2, no audible murmurs GI: soft, non-tender, normoactive bowel sounds, : No Renal angle tenderness; EXTREMITIES: Right lower extremity prosthesis NEURO: Awake; no lateralizing signs. SKIN: No Rash PSYCH; Normal affect Vitals/I&O's: Vital Signs Temp Pulse Resp BP Pulse Ox 99.2 F H 96 18 113/60 94 07/26/18 07:51 07/26/18 07:51 07/26/18 07:51 07/26/18 07:51 07/26/18 07:51 Oxygen Flow Rate (L/min) 2 Oxygen Delivery Method Room Air Weight: 59.8 kg Body Mass Index (BMI) 25.7 Intake and Output for Last 24 Hours 07/24/18 07/25/18 07/26/18 23:59 23:59 23:59 Intake Total 1500 / 1500 674 / 674 Output Total 0 / 0 2650 / 2650 Balance 1500 / 1500 -1975 / Laboratory Results 07/26/18 05:50: WBC 8.8, RBC 3.30 L, Hgb 10.0 L, Hct 32.1 L, MCV 97.3 H, MCH 30.3, MCHC 31.2 L, RDW 14.9 H, RDW Differential 50.1 H, Plt Count 174, MPV 11.9 07/26/18 05:50: Sodium 141, Potassium 3.9, Chloride 109 H, Carbon Dioxide 25.0, Anion Gap 7, BUN 16, Creatinine 0.69 L, Estim Creat Clear Calc 51.39, Est GFR (MDRD) Af Amer 147, Est GFR (MDRD) Non-Af 122, BUN/Creatinine Ratio 23.2 H, Glucose 82, Calcium 8.6 Current Medications Acetaminophen (Tylenol) 1,000 mg PO Q8 [facility] Last Admin: 07/26/18 05:05 Dose: 1,000 mg [facility] Last Admin: 07/26/18 07:56 Dose: 81 mg Famotidine (Pepcid) 20 mg PO DAILY PRN PRN Reason: GERD Last Admin: 07/26/18 00:06 Dose: 20 mg Folic Acid (Folic Acid) [facility] Last Admin: 07/26/18 07:57 Dose: 1 mg Gabapentin (Neurontin) 800 mg PO TIDCM [facility] Last Admin: 07/26/18 07:57 Dose: 800 mg Hydroxychloroquine Sulfate (Plaquenil) [facility] Last Admin: 07/26/18 07:58 Dose: 200 mg Ketorolac Tromethamine (Toradol) 15 mg IV Q6H PRN PRN PRN Reason: MILD-MOD PAIN (1-5/10) Meloxicam (Mobic) 7.5 mg PO BID [facility] Methotrexate (Methotrexate) 15 mg PO Q7D [facility] Morphine Sulfate () 2 - 4 mg IV Q2H PRN PRN PRN Reason: SEVERE PAIN (6-10/10) Morphine Sulfate () 2 - 4 mg IV Q2H PRN PRN PRN Reason: SEVERE PAIN (6-10/10) Nutritional Formula (Lactose Free) (Ensure Clear) [facility] Last Admin: 07/25/18 16:58 Dose: 120 ml Ondansetron HCl (Zofran) 4 mg IV Q8H PRN PRN PRN Reason: NAUSEA Oxycodone HCl (Oxyir) 5 - 10 mg PO Q4H PRN PRN PRN Reason: MOD-SEVERE PAIN (4-10/10) Last Admin: 07/26/18 05:06 Dose: 10 mg Prednisone () 10 mg PO DAILY PRN PRN Reason: RHEUMATOID ARTHRITIS Promethazine HCl (Phenergan) 12.5 mg IM Q6H PRN PRN; Protocol PRN Reason: NAUSEA/VOMITING Senna/Docusate Sodium (Senokot-S, Lisy-Colace) 2 tablet PO BID [facility] Last Admin: 07/26/18 07:59 Dose: 2 tablet Sodium Chloride () 5 - 15 ml IV UD PRN PRN Reason: SALINE FLUSH Medical Necessity - Tobacco Use Smoking Status: Never smoker Assessment/Plan Patient is a 67-year-old gentleman with significant past medical history including Perthes disease, rheumatoid arthritis as well as generalized osteoarthritis who underwent left hip arthroplasty on 07/25/2018. The hospitalist service was consulted to assist with management of patient medical comorbidities 1. Status post left total hip arthroplasty on 07/25/2018 was admitted to regular nursing floor following his procedure. Patient postoperative management regarding pain management, DVT prophylaxis as well as PT OT orders advised by primary service 2. Rheumatoid arthritis patient is on Plaquenil and methotrexate did continue 3. Perthes disease 4. History of left total knee replacement 5. Prosthesis involving the right lower extremity 6. DVT prophylaxis as per primary service Active Medications Acetaminophen (Tylenol) 1,000 mg PO Q8 [facility] Last Admin: 07/26/18 05:05 Dose: 1,000 mg Aspirin ([facility]in, Baby) [facility] Last Admin: 07/26/18 07:56 Dose: 81 mg Famotidine (Pepcid) 20 mg PO DAILY PRN PRN Reason: GERD Last Admin: 07/26/18 00:06 Dose: 20 mg Folic Acid (Folic Acid) [facility] Last Admin: 07/26/18 07:57 Dose: 1 mg Gabapentin (Neurontin) 800 mg PO TIDCM [facility] Last Admin: 07/26/18 07:57 Dose: 800 mg Hydroxychloroquine Sulfate (Plaquenil) [facility] Last Admin: 07/26/18 07:58 Dose: 200 mg Ketorolac Tromethamine (Toradol) 15 mg IV Q6H PRN PRN PRN Reason: MILD-MOD PAIN (1-5/10) Meloxicam (Mobic) 7.5 mg PO BID [facility] Methotrexate (Methotrexate) 15 mg PO Q7D [facility] Morphine Sulfate () 2 - 4 mg IV Q2H PRN PRN PRN Reason: SEVERE PAIN (6-10/10) Morphine Sulfate () 2 - 4 mg IV Q2H PRN PRN PRN Reason: SEVERE PAIN (6-10/10) Nutritional Formula (Lactose Free) (Ensure Clear) 120 ml PO TIDCM [facility] Last Admin: 07/25/18 16:58 Dose: 120 ml Ondansetron HCl (Zofran) 4 mg IV Q8H PRN PRN PRN Reason: NAUSEA Oxycodone HCl (Oxyir) 5 - 10 mg PO Q4H PRN PRN PRN Reason: MOD-SEVERE PAIN (4-03/21) Last Admin: 07/26/18 05:06 Dose: 10 mg Prednisone () 10 mg PO DAILY PRN PRN Reason: RHEUMATOID ARTHRITIS Promethazine HCl (Phenergan) 12.5 mg IM Q6H PRN PRN; Protocol PRN Reason: NAUSEA/VOMITING Senna/Docusate Sodium (Senokot-S, Lisy-Colace) 2 tablet PO BID [facility] Last Admin: 07/26/18 07:59 Dose: 2 tablet Sodium Chloride () 5 - 15 ml IV UD PRN PRN Reason: SALINE FLUSH Code Visit Inpatient E&M: 20510 Subs Hosp L3
--- NOTE | 2018-07-26 10:05 | CASEMGMT ---
CAROLEE MARMOLEJO Face to Face with patient for initial transition planning/care coordination assessment. RN JALEEL introduced self and role at [facility]. Patient sitting in chair, alert and oriented, at bedside. Patient willing to participate in assessment and is able to answer all questions appropriately. Care providers, pharmacy, and demographics verified. Patient wishes to discharge home with [facility] with [facility]. Patient has shower chair, raised toilet seat, lift chair, grab bars, walker, rollator, and nebulizer at home. Patient states he has no further needs or concerns at this time. RN CM sent referral to [facility] and they are able to accept the patient. CM to follow for discharge planning needs that may arise. Disposition Plan: Patient to discharge home with [facility], family support, and follow-up plans in place. Coarl BOLAÑOS, RN, CM
[2018-07-26] MEDS: Methotrexate 2.5 MG Tablet 15 MG PO (10:45)
[2018-07-26 13:30] VITALS: BP 114/67; PULSE 105; RESP 18; TEMP 38.5; O2SAT 100
[2018-07-26 13:32] VITALS: BP 114/67; PULSE 105; RESP 18; TEMP 38.5; O2SAT 100
--- NOTE | 2018-07-26 13:45 | NURSING ---
PTS TEMP 101.3 ORAL. SHREYA BRANDON NOTIFIED. INSTRUCTED TO HAVE PT MONITOR TEMPS @ HOME, CONTINUE SCHED TYLENOL & CALL OFFICE IF TEMP PERSISTS.
== END 2018-07-26 13:52 | disposition home health service (06) | DRG 470 ==
LOC: ACINP 09:39 → MS3 11:15
PROVIDERS: Admitting Provider Specialist; Family Provider Family Medicine; PCP Family Medicine; Referring Provider Specialist; Visit Provider Internal Medicine
PROC: 0SRB04A Replacement of Left Hip Joint with Ceramic on Polyethylene Synthetic Substitute, Uncemented, Open Approach (ICD-10-PCS; CPT 27284; principal; 2018-07-25 11:35)
DX: M16.12 Unilateral primary osteoarthritis, left hip (principal); M06.9 Rheumatoid arthritis, unspecified; M91.12 Juvenile osteochondrosis of head of femur [Legg-Calve-Perthes], left leg; Z96.652 Presence of left artificial knee joint; Z89.611 Acquired absence of right leg above knee
CPT/HCPCS: 36415; 73501; 73502; 76000; 80048; 85025; 85027; 87077; 87081; 88305; 88311; 93005; 97110; 97162; 97165; 97530; 99251; C1776; J7120; G0463; J2405; J8610

== ENCOUNTER → 2018-09-20 14:16 | Outpatient (CLI) | payer MEDICARE, OTHER, SELFPAY ==
[2018-07-25 15:52] VITALS: BMI 25.7
[2018-09-20 15:39] LABS: Absolute Neutrophil Count 7.5 X10^3/uL (2.0-7.7); Basophil# 0.03 X10^3/uL; Basophil% 0.3 % (0-1); Eosinophil# 0.03 X10^3/uL; Eosinophils% 0.3 % (0-5); Hematocrit 38.4 % (40-54); Hemoglobin 12.2 g/dl (13.0-16.5); Lymphocyte % 12.2 % (19-41); Mean Corp Hgb Conc 31.8 g/gl (32-36); Mean Corpuscular Volume 94.6 fL (80-94); Mean Platelet Vol. 11.8 fl (6.2-12.0); Monocyte# 0.33 X10^3/uL; Monocyte% 3.7 % (0-10); Neutrophil # 7.48 X10^3/uL (2.7-7.7); Neutrophil % 83.4 % (47-70); POSITIVE COUNT NO; POSITIVE DIFFERENTIAL NO; POSITIVE MORPHOLOGY NO; Platelet Count 250 K/mm3 (150-450); RBC Distribution Width CV 16.3 % (11.6-14.6); RBC Distribution Width SD 55.4 fl (35.1-43.9); Red Blood Count 4.06 M/mm3 (4.6-6.2)
[2018-09-20 16:00] LABS: ALB/GLOB Ratio 1.1 RATIO (0.9-2.4); AST(SGOT) 33 U/L (15-37); Alanine Aminotransfer ALT/SGPT 40 U/L (16-61); Albumin, Serum 4.2 g/dL (3.2-5.0); Alkaline Phosphatase 106 U/L (45-117); Anion Gap 9 (5-15); BUN 21 mg/dL (7-18); BUN/Creat Ratio 25.7 RATIO (10-20); Calcium,Total 10.3 mg/dL (8.5-10.1); Chloride 111 mmol/L (98-107); Creatinine, Serum 0.82 mg/dL (0.70-1.30); EST Glomerular Filtration Rate 100 mL/min (>60); Est Glom Filt Rate - Afr Amer 121 mL/min (>60); Globulin 3.8 g/dL (2.2-4.2); Glucose 108 mg/dL (74-106); Sodium Level 141 mmol/L (136-145)
== END ==
PROVIDERS: Family Provider Family Medicine; PCP Family Medicine; Referring Provider Internal Medicine Rheumatology; Visit Provider Internal Medicine Rheumatology
DX: M06.032 Rheumatoid arthritis without rheumatoid factor, left wrist (principal); Z79.899 Other long term (current) drug therapy; G56.01 Carpal tunnel syndrome, right upper limb; M50.30 Other cervical disc degeneration, unspecified cervical region; M51.87 Other intervertebral disc disorders, lumbosacral region
CPT/HCPCS: 36415; 80053; 85025

== ENCOUNTER → 2018-12-10 09:17 | Outpatient (CLI) | payer MEDICARE, OTHER, SELFPAY ==
[2018-07-25 15:52] VITALS: BMI 25.7
[2018-12-10 10:30] LABS: Creatinine, Serum 0.96 mg/dL (0.70-1.30); EST Glomerular Filtration Rate 83 mL/min (>60); Est Glom Filt Rate - Afr Amer 100 mL/min (>60)
== END ==
PROVIDERS: Family Provider Family Medicine; PCP Family Medicine; Referring Provider Nurse Practitioner Acute Care; Visit Provider Nurse Practitioner Acute Care
DX: M48.062 Spinal stenosis, lumbar region with neurogenic claudication (principal)
CPT/HCPCS: 36415; 82565

== ENCOUNTER → 2018-12-21 10:58 | Outpatient (CLI) | payer MEDICARE, OTHER, SELFPAY ==
[2018-07-25 15:52] VITALS: BMI 25.7
[2018-12-21 12:46] LABS: Absolute Lymphocyte Count 2.56 X10^3/ul (0.83-4.51); Absolute Neutrophil Count 6.9 X10^3/uL (2.0-7.7); Basophil# 0.02 X10^3/uL; Basophil% 0.2 % (0-1); Eosinophil# 0.33 X10^3/uL; Eosinophils% 3.1 % (0-5); Hematocrit 38.6 % (40-54); Hemoglobin 12.4 g/dl (13.0-16.5); Lymphocyte # 2.56 X10^3/ul (4.0); Lymphocyte % 24.3 % (19-41); Mean Corp Hgb Conc 32.1 g/gl (32-36); Mean Corpuscular Hgb 30.7 pg (27.0-32.0); Mean Corpuscular Volume 95.5 fL (80-94); Mean Platelet Vol. 11.6 fl (6.2-12.0); Monocyte# 0.68 X10^3/uL; Monocyte% 6.5 % (0-10); Neutrophil # 6.92 X10^3/uL (2.7-7.7); Neutrophil % 65.6 % (47-70); Platelet Count 200 K/mm3 (150-450); Red Blood Count 4.04 M/mm3 (4.6-6.2); White Blood Count 10.5 K/mm3 (4.4-11.0)
[2018-12-21 12:52] LABS: POSITIVE COUNT NO; POSITIVE DIFFERENTIAL NO; POSITIVE MORPHOLOGY NO
[2018-12-21 13:20] LABS: ALB/GLOB Ratio 1.2 RATIO (0.9-2.4); AST(SGOT) 23 U/L (15-37); Alanine Aminotransfer ALT/SGPT 33 U/L (16-61); Albumin, Serum 3.8 g/dL (3.2-5.0); Alkaline Phosphatase 68 U/L (45-117); Anion Gap 8 (5-15); BUN 24 mg/dL (7-18); BUN/Creat Ratio 30.7 RATIO (10-20); Calcium,Total 9.9 mg/dL (8.5-10.1); Chloride 109 mmol/L (98-107); Creatinine, Serum 0.78 mg/dL (0.70-1.30); EST Glomerular Filtration Rate 105 mL/min (>60); Est Glom Filt Rate - Afr Amer 127 mL/min (>60); Globulin 3.3 g/dL (2.2-4.2); Glucose 89 mg/dL (74-106); Potassium 3.7 mmol/L (3.5-5.1); Protein, Total 7.1 g/dL (6.4-8.2); Sodium Level 140 mmol/L (136-145)
== END ==
PROVIDERS: Family Provider Family Medicine; PCP Family Medicine; Referring Provider Internal Medicine Rheumatology; Visit Provider Internal Medicine Rheumatology
DX: M06.032 Rheumatoid arthritis without rheumatoid factor, left wrist (principal); Z79.899 Other long term (current) drug therapy; G56.01 Carpal tunnel syndrome, right upper limb; M50.30 Other cervical disc degeneration, unspecified cervical region; M51.87 Other intervertebral disc disorders, lumbosacral region
CPT/HCPCS: 36415; 80053; 85025

== ENCOUNTER → 2019-01-22 16:39 | Outpatient (CLI) | payer MEDICARE, OTHER, SELFPAY ==
[2018-07-25 15:52] VITALS: BMI 25.7
[2019-01-23 09:38] LABS: Hepatitis C Antibody Non-Reactive (Nonreactive)
== END ==
PROVIDERS: Family Provider Family Medicine; PCP Family Medicine; Referring Provider Family Medicine; Visit Provider Family Medicine
DX: Z01.818 Encounter for other preprocedural examination (principal); Z11.59 Encounter for screening for other viral diseases
CPT/HCPCS: 36415; 86803

== ENCOUNTER → 2019-03-22 13:11 | Outpatient (CLI) | payer MEDICARE, OTHER, SELFPAY ==
[2018-07-25 15:52] VITALS: BMI 25.7
[2019-03-22 13:50] LABS: Absolute Lymphocyte Count 1.54 X10^3/uL (0.83-4.51); Absolute Neutrophil Count 3.8 X10^3/uL (2.0-7.7); Basophil# 0.07 X10^3/uL; Basophil% 1.1 % (0-1); Eosinophil# 0.56 X10^3/uL; Eosinophils% 8.6 % (0-5); Hematocrit 37.5 % (40-54); Lymphocyte # 1.54 X10^3/ul (4.0); Lymphocyte % 23.8 % (19-41); Mean Corpuscular Hgb 30.1 pg (27.0-32.0); Mean Platelet Vol. 10.8 fl (6.2-12.0); Monocyte# 0.52 X10^3/uL; NRBC Flagged by Analyzer 0 % (0-5); Neutrophil # 3.77 X10^3/uL (2.7-7.7); Neutrophil % 58.2 % (47-70); Platelet Count 274 K/mm3 (150-450); RBC Distribution Width CV 14.2 % (11.6-14.6); RBC Distribution Width SD 48.4 fl (35.1-43.9); Red Blood Count 3.99 M/mm3 (4.6-6.2); White Blood Count 6.5 K/mm3 (4.4-11.0)
[2019-03-22 14:18] LABS: AST(SGOT) 26 U/L (15-37); Alanine Aminotransfer ALT/SGPT 22 U/L (16-61); Albumin, Serum 3.8 g/dL (3.2-5.0); Alkaline Phosphatase 133 U/L (45-117); Anion Gap 9 (5-15); BUN 26 mg/dL (7-18); BUN/Creat Ratio 27.8 RATIO (10-20); Calcium,Total 9.8 mg/dL (8.5-10.1); Chloride 107 mmol/L (98-107); Creatinine, Serum 0.94 mg/dL (0.70-1.30); EST Glomerular Filtration Rate 85 mL/min (>60); Est Glom Filt Rate - Afr Amer 103 mL/min (>60); Glucose 80 mg/dL (74-106); Potassium 4.3 mmol/L (3.5-5.1); Protein, Total 7.8 g/dL (6.4-8.2); Sodium Level 139 mmol/L (136-145)
== END ==
PROVIDERS: Family Provider Family Medicine; PCP Family Medicine; Referring Provider Internal Medicine Rheumatology; Visit Provider Internal Medicine Rheumatology
DX: M06.00 Rheumatoid arthritis without rheumatoid factor, unspecified site (principal); Z79.899 Other long term (current) drug therapy; G56.01 Carpal tunnel syndrome, right upper limb; M50.30 Other cervical disc degeneration, unspecified cervical region; M51.87 Other intervertebral disc disorders, lumbosacral region
CPT/HCPCS: 36415; 80053; 85025

== ENCOUNTER → 2019-06-14 13:35 | Outpatient (CLI) | payer MEDICARE, OTHER, SELFPAY ==
[2018-07-25 15:52] VITALS: BMI 25.7
[2019-06-14 15:30] LABS: Absolute Lymphocyte Count 1.65 X10^3/uL (0.83-4.51); Absolute Neutrophil Count 4.7 X10^3/uL (2.0-7.7); Basophil# 0.05 X10^3/uL; Basophil% 0.7 % (0-1); Eosinophil# 0.47 X10^3/uL; Eosinophils% 6.3 % (0-5); Hematocrit 34.3 % (40-54); Hemoglobin 10.8 g/dL (13.0-16.5); Lymphocyte # 1.65 X10^3/ul (4.0); Lymphocyte % 22.2 % (19-41); Mean Corp Hgb Conc 31.5 g/dL (32-36); Mean Corpuscular Hgb 30.1 pg (27.0-32.0); Mean Corpuscular Volume 95.5 fL (80-94); Mean Platelet Vol. 11.2 fl (6.2-12.0); Monocyte# 0.54 X10^3/uL; Monocyte% 7.3 % (0-10); NRBC Flagged by Analyzer 0 % (0-5); Neutrophil # 4.69 X10^3/uL (2.7-7.7); Neutrophil % 63.2 % (47-70); Platelet Count 245 K/mm3 (150-450); RBC Distribution Width CV 16.6 % (11.6-14.6); RBC Distribution Width SD 57.7 fl (35.1-43.9); Red Blood Count 3.59 M/mm3 (4.6-6.2); White Blood Count 7.4 K/mm3 (4.4-11.0)
[2019-06-14 15:53] LABS: ALB/GLOB Ratio 1.1 RATIO (0.9-2.4); AST(SGOT) 32 U/L (15-37); Alanine Aminotransfer ALT/SGPT 35 U/L (16-61); Albumin, Serum 3.6 g/dL (3.2-5.0); Alkaline Phosphatase 102 U/L (45-117); Anion Gap 4 (5-15); BUN 20 mg/dL (7-18); Calcium,Total 9.3 mg/dL (8.5-10.1); Chloride 107 mmol/L (98-107); EST Glomerular Filtration Rate 102 mL/min (>60); Est Glom Filt Rate - Afr Amer 124 mL/min (>60); Globulin 3.4 g/dL (2.2-4.2); Glucose 75 mg/dL (74-106); Potassium 4.2 mmol/L (3.5-5.1); Sodium Level 138 mmol/L (136-145)
== END ==
PROVIDERS: Family Provider Family Medicine; PCP Family Medicine; Referring Provider Internal Medicine Rheumatology; Visit Provider Internal Medicine Rheumatology
DX: M06.00 Rheumatoid arthritis without rheumatoid factor, unspecified site (principal); Z79.899 Other long term (current) drug therapy; G56.01 Carpal tunnel syndrome, right upper limb; M50.30 Other cervical disc degeneration, unspecified cervical region; M51.87 Other intervertebral disc disorders, lumbosacral region
CPT/HCPCS: 36415; 80053; 85025

== ENCOUNTER → 2019-08-30 12:27 | Outpatient (CLI) | payer MEDICARE, OTHER, SELFPAY ==
[2018-07-25 15:52] VITALS: BMI 25.7
[2019-08-30 15:50] LABS: Absolute Lymphocyte Count 1.31 X10^3/uL (0.83-4.51); Absolute Neutrophil Count 3.7 X10^3/uL (2.0-7.7); Basophil# 0.05 X10^3/uL; Basophil% 0.8 % (0-1); Eosinophil# 0.53 X10^3/uL; Eosinophils% 8.7 % (0-5); Hematocrit 35.4 % (40-54); Hemoglobin 11.4 g/dL (13.0-16.5); Lymphocyte # 1.31 X10^3/ul (4.0); Lymphocyte % 21.4 % (19-41); Mean Corp Hgb Conc 32.2 g/dL (32-36); Mean Corpuscular Hgb 31.5 pg (27.0-32.0); Mean Corpuscular Volume 97.8 fL (80-94); Mean Platelet Vol. 11.2 fl (6.2-12.0); Monocyte# 0.51 X10^3/uL; Monocyte% 8.3 % (0-10); NRBC Flagged by Analyzer 0 % (0-5); Neutrophil % 60.5 % (47-70); Platelet Count 247 K/mm3 (150-450); RBC Distribution Width CV 14.8 % (11.6-14.6); RBC Distribution Width SD 53.1 fl (35.1-43.9); Red Blood Count 3.62 M/mm3 (4.6-6.2); White Blood Count 6.1 K/mm3 (4.4-11.0)
[2019-08-30 15:57] LABS: AST(SGOT) 17 U/L (15-37); Alanine Aminotransfer ALT/SGPT 21 U/L (16-61); Albumin, Serum 3.7 g/dL (3.2-5.0); Alkaline Phosphatase 97 U/L (45-117); Anion Gap 8 (5-15); BUN 25 mg/dL (7-18); BUN/Creat Ratio 28.9 RATIO (10-20); Calcium,Total 9.6 mg/dL (8.5-10.1); Chloride 108 mmol/L (98-107); Creatinine, Serum 0.87 mg/dL (0.70-1.30); EST Glomerular Filtration Rate 93 mL/min (>60); Est Glom Filt Rate - Afr Amer 113 mL/min (>60); Globulin 3.8 g/dL (2.2-4.2); Glucose 79 mg/dL (74-106); Potassium 4.1 mmol/L (3.5-5.1); Protein, Total 7.5 g/dL (6.4-8.2); Sodium Level 142 mmol/L (136-145)
== END ==
PROVIDERS: PCP Family Medicine; Referring Provider Internal Medicine Rheumatology; Visit Provider Internal Medicine Rheumatology
DX: M06.00 Rheumatoid arthritis without rheumatoid factor, unspecified site (principal); Z79.899 Other long term (current) drug therapy; G56.01 Carpal tunnel syndrome, right upper limb; M50.30 Other cervical disc degeneration, unspecified cervical region; M51.87 Other intervertebral disc disorders, lumbosacral region
CPT/HCPCS: 36415; 80053; 85025

== ENCOUNTER → 2019-12-04 10:16 | Outpatient (CLI) | payer MEDICARE, OTHER, SELFPAY ==
[2018-07-25 15:52] VITALS: BMI 25.7
[2019-12-04 12:41] LABS: Absolute Lymphocyte Count 1.28 X10^3/uL (0.83-4.51); Absolute Neutrophil Count 6.9 X10^3/uL (2.0-7.7); Basophil# 0.05 X10^3/uL; Basophil% 0.5 % (0-1); Eosinophil# 0.33 X10^3/uL; Eosinophils% 3.5 % (0-5); Hematocrit 32.3 % (40-54); Lymphocyte # 1.28 X10^3/ul (4.0); Lymphocyte % 13.5 % (19-41); Mean Corpuscular Hgb 31.3 pg (27.0-32.0); Mean Corpuscular Volume 101.3 fL (80-94); Mean Platelet Vol. 11.2 fl (6.2-12.0); Monocyte% 9.5 % (0-10); NRBC Flagged by Analyzer 0 % (0-5); Neutrophil # 6.92 X10^3/uL (2.7-7.7); Neutrophil % 72.7 % (47-70); Platelet Count 253 K/mm3 (150-450); RBC Distribution Width CV 16.9 % (11.6-14.6); RBC Distribution Width SD 61.7 fl (35.1-43.9); Red Blood Count 3.19 M/mm3 (4.6-6.2); White Blood Count 9.5 K/mm3 (4.4-11.0)
[2019-12-04 12:56] LABS: ALB/GLOB Ratio 0.9 RATIO (0.9-2.4); AST(SGOT) 17 U/L (15-37); Alanine Aminotransfer ALT/SGPT 18 U/L (16-61); Albumin, Serum 3.4 g/dL (3.2-5.0); Alkaline Phosphatase 97 U/L (45-117); Anion Gap 6 (5-15); BUN 16 mg/dL (7-18); BUN/Creat Ratio 18.7 RATIO (10-20); Calcium,Total 9.5 mg/dL (8.5-10.1); Chloride 104 mmol/L (98-107); Creatinine, Serum 0.86 mg/dL (0.70-1.30); EST Glomerular Filtration Rate 94 mL/min (>60); Est Glom Filt Rate - Afr Amer 114 mL/min (>60); Globulin 3.9 g/dL (2.2-4.2); Glucose 81 mg/dL (74-106); Potassium 3.9 mmol/L (3.5-5.1); Protein, Total 7.3 g/dL (6.4-8.2); Sodium Level 137 mmol/L (136-145)
== END ==
PROVIDERS: PCP Family Medicine; Referring Provider Internal Medicine Rheumatology; Visit Provider Internal Medicine Rheumatology
DX: M06.00 Rheumatoid arthritis without rheumatoid factor, unspecified site (principal); Z79.899 Other long term (current) drug therapy; G56.01 Carpal tunnel syndrome, right upper limb; M50.30 Other cervical disc degeneration, unspecified cervical region; M51.87 Other intervertebral disc disorders, lumbosacral region
CPT/HCPCS: 36415; 80053; 85025; 94799

== ENCOUNTER → 2020-01-03 11:44 | Outpatient (CLI) | payer MEDICARE, OTHER, SELFPAY ==
[2018-07-25 15:52] VITALS: BMI 25.7
[2020-01-03 15:25] LABS: Absolute Lymphocyte Count 2.21 X10^3/uL (0.83-4.51); Basophil% 1.2 % (0-1); Eosinophil# 0.76 X10^3/uL; Eosinophils% 8.8 % (0-5); Hematocrit 33.6 % (40-54); Hemoglobin 10.6 g/dL (13.0-16.5); Lymphocyte # 2.21 X10^3/ul (4.0); Lymphocyte % 25.5 % (19-41); Mean Corp Hgb Conc 31.5 g/dL (32-36); Mean Corpuscular Hgb 31.6 pg (27.0-32.0); Mean Corpuscular Volume 100.3 fL (80-94); Mean Platelet Vol. 11.9 fl (6.2-12.0); Monocyte# 0.61 X10^3/uL; NRBC Flagged by Analyzer 0 % (0-5); Neutrophil # 4.97 X10^3/uL (2.7-7.7); Neutrophil % 57.3 % (47-70); Platelet Count 228 K/mm3 (150-450); RBC Distribution Width CV 14.8 % (11.6-14.6); RBC Distribution Width SD 54.1 fl (35.1-43.9); Red Blood Count 3.35 M/mm3 (4.6-6.2); White Blood Count 8.7 K/mm3 (4.4-11.0)
[2020-01-03 15:53] LABS: AST(SGOT) 21 U/L (15-37); Alanine Aminotransfer ALT/SGPT 18 U/L (16-61); Albumin, Serum 3.6 g/dL (3.2-5.0); Alkaline Phosphatase 108 U/L (45-117); Anion Gap 6 (5-15); BUN 13 mg/dL (7-18); BUN/Creat Ratio 16.2 RATIO (10-20); Calcium,Total 9.6 mg/dL (8.5-10.1); Chloride 106 mmol/L (98-107); EST Glomerular Filtration Rate 102 mL/min (>60); Est Glom Filt Rate - Afr Amer 124 mL/min (>60); Globulin 3.7 g/dL (2.2-4.2); Glucose 70 mg/dL (74-106); Potassium 3.8 mmol/L (3.5-5.1); Protein, Total 7.3 g/dL (6.4-8.2); Sodium Level 138 mmol/L (136-145)
== END ==
PROVIDERS: PCP Family Medicine; Referring Provider Internal Medicine Rheumatology; Visit Provider Internal Medicine Rheumatology
DX: M06.00 Rheumatoid arthritis without rheumatoid factor, unspecified site (principal); Z79.899 Other long term (current) drug therapy; G56.01 Carpal tunnel syndrome, right upper limb; M50.30 Other cervical disc degeneration, unspecified cervical region; M51.87 Other intervertebral disc disorders, lumbosacral region
CPT/HCPCS: 36415; 80053; 85025

== ENCOUNTER → 2020-02-19 12:27 | Outpatient (CLI) | payer MEDICARE, OTHER, SELFPAY ==
[2018-07-25 15:52] VITALS: BMI 25.7
[2020-02-12 16:07] LABS: Absolute Lymphocyte Count 1.73 X10^3/uL (0.83-4.51); Absolute Neutrophil Count 3.7 X10^3/uL (2.0-7.7); Basophil# 0.06 X10^3/uL; Basophil% 0.9 % (0-1); Eosinophil# 0.64 X10^3/uL; Eosinophils% 9.9 % (0-5); Hemoglobin 10.1 g/dL (13.0-16.5); Lymphocyte # 1.73 X10^3/ul (4.0); Lymphocyte % 26.7 % (19-41); Mean Corp Hgb Conc 31.6 g/dL (32-36); Mean Corpuscular Hgb 30.6 pg (27.0-32.0); Mean Platelet Vol. 11.3 fl (6.2-12.0); Monocyte# 0.37 X10^3/uL; Monocyte% 5.7 % (0-10); NRBC Flagged by Analyzer 0 % (0-5); Neutrophil # 3.68 X10^3/uL (2.7-7.7); Neutrophil % 56.6 % (47-70); Platelet Count 238 K/mm3 (150-450); RBC Distribution Width CV 13.6 % (11.6-14.6); RBC Distribution Width SD 47.9 fl (35.1-43.9); White Blood Count 6.5 K/mm3 (4.4-11.0)
[2020-02-12 16:18] LABS: Creatinine, Serum 0.83 mg/dL (0.70-1.30); EST Glomerular Filtration Rate 98 mL/min (>60); Est Glom Filt Rate - Afr Amer 118 mL/min (>60)
[2020-02-12 16:39] LABS: Erythrocyte Sedimentation Rate 44 mm/hr (0-20)
--- NOTE | 2020-02-19 12:34 | MRI_ITS ---
STUDY: MRI LUMBAR SPINE WITH AND WITHOUT CONTRAST REASON FOR EXAM: Male, 69 years old. stenosis,s/p lumbar fusion TECHNIQUE: Standardized fat and water weighted pulse sequences were obtained in the sagittal and axial planes. IV dotarem 11ml was administered for the contrast portion of the examination. COMPARISON: None FINDINGS: There are low signal changes seen within the inferior endplate of T12 and superior endplate of L1 on T1-weighted imaging sequence which increases in signal intensity on T2 and STIR imaging sequence and enhances following contrast administration. This is consistent with nonspecific bone marrow edema. Osteomyelitis and discitis is not likely due to lack of involvement of the disc. Neoplasm is less likely. There is no definitive evidence for focal fracture. T12-L1: Postop change status post laminectomy and unilateral right posterior fusion. There are degenerative endplate changes. There is bulging of the annulus with a very large left posterolateral/foraminal disc/osteophyte protrusion. There is mild narrowing of the central canal. There is moderate narrowing the right lateral recess and nerve root foramen with more severe narrowing on the left Normal lumbar lordosis. There is no substantial scoliosis. Normal conus medullaris that terminates at T12-L1 L1-2: Status post laminectomy and unilateral right posterior fusion. Narrowed disc space. Large left posterolateral/foraminal osteophyte protrusion with superior extension creating severe left lateral recess and neuroforaminal stenosis. L2-3: .Post laminectomy and unilateral right posterior fusion. Narrowed disc space. No focal disc protrusion. Mild facet arthrosis. Normal central canal and bilateral recesses. Mild bilateral neural foraminal encroachment L3-4: Normal endplates. Normal disc height desiccation and minimal annular bulge. Postop change status post laminectomy, facetectomy and posterior fusion on the left. Normal central canal and bilateral recesses. Moderate to severe bilateral neuroforaminal stenosis exaggerated by shortened pedicles L4-5: Normal endplates. Normal disc height, desiccation and minimal annular bulge.. Bilateral facet arthropathy and thickening of ligamenta flava.. Normal central canal. Severe bilateral recess and neuroforaminal stenosis exaggerated by shortened pedicles. L5-S1: Normal endplates. Normal disc height, hydration and morphology. Bilateral facet arthropathy and thickening of ligamenta flava greater on the right.. Normal central canal and bilateral lateral recesses. Mild bilateral neural foraminal encroachment.. Normal visualized sacral ala. Normal visualized paraspinous soft tissue structures. Incidental finding of multiple bilateral parapelvic renal cysts MRI/Spine Lumbar W/WO Contrast IMPRESSION: No evidence for acute fracture or subluxation.. Multilevel postsurgical changes. Advanced spondylosis and multilevel spinal stenosis secondary to disc disease and bony hypertrophy most severe on the left at T12-L1, L1-2 with bilateral involvement at L3-4 and L4-5 Nonspecific intramedullary bone marrow edema involving the endplates at T12-L1 of uncertain etiology. Clinical correlation recommended Electronically Signed: Grady George MD at 16:40 EDT , Service support ,
== END ==
PROVIDERS: PCP Family Medicine; Referring Provider Nurse Practitioner Acute Care; Visit Provider Nurse Practitioner Acute Care
DX: M51.36 Other intervertebral disc degeneration, lumbar region (principal); M43.16 Spondylolisthesis, lumbar region; Z98.1 Arthrodesis status
CPT/HCPCS: 36415; 72158; 82565; 85025; 85652; 86140; A9575

== ENCOUNTER → 2020-03-05 08:52 | Outpatient (CLI) | payer MEDICARE, OTHER, SELFPAY ==
[2018-07-25 15:52] VITALS: BMI 25.7
--- NOTE | 2020-03-05 09:10 | NM_ITS ---
CLINICAL: 69-year-old male with history of low back discomfort. WHOLE BODY 99m Tc MDP RADIONUCLIDE BONE SCINTIGRAPHY COMPARISON: MRI of the lumbar spine report 02/19/2020 FINDINGS: Following the intravenous administration of 26.0 mCi of 99m Tc MDP, whole body bone images reveal: 1. Increased radiopharmaceutical concentration is identified in the left posterior ninth-10th ribs, left anterior first, third-fourth ribs at the costochondral junction. 2. Facilitated tracer concentration is observed in the 11th thoracic vertebra posteriorly on the left and right, second-fifth lumbar vertebra heterogeneously defined, lower cervical spine posteriorly on the left, right posterior sacrum, acromioclavicular and glenohumeral compartment of the left shoulder, bilateral wrist articulations. 3. There is enhanced tracer uptake observed in the glenoid and proximal humeral, medial femoral and medial-lateral tibial components of the right shoulder and left knee presumably asymptomatic arthroplasties respectively most consistent with normal postsurgical change. 4. The remaining skeletal structures are scintigraphically unremarkable with normal-appearing renal images and urinary bladder activity identified. 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 Intense increased radiopharmaceutical distribution is visualized in the mandible diffusely which may be secondary to severe periodontal disease and/or periostitis. NM/Bone Scan Whole Body IMPRESSION: 1. The increase in radiopharmaceutical concentration identified in the left anterior and posterior ribs is consistent with trauma-fracture. 2. 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 3. Increased tracer distribution defined in the mandible may necessitate further evaluation with plain film radiography if clinically indicated secondary to the intensity of uptake. 4. Meticulous attention paid to the 12th thoracic, first lumbar vertebra demonstrates no definitive abnormal increase in radiotracer uptake to correlate with findings described on MRI of the lumbar spine report dated 02/19/2020. Electronically Signed: Tesfaye Bridges DO at 23:38 EDT Tel , Service support ,
[2020-03-06 16:08] LABS: PROEL- Albumin 3.7 g/dL (2.9-4.4); PROEL- Alpha-1 Globulin 0.3 g/dL (0.0-0.4); PROEL- Alpha-2 Globulin 1.1 g/dL (0.4-1.0); PROEL- Beta Globulin 1.3 g/dL (0.7-1.3); PROEL- Globulin, Total 3.8 g/dL (2.2-3.9); PROEL- TOTAL PROTEIN 7.5 g/dL (6.0-8.5)
== END ==
PROVIDERS: PCP Family Medicine; Referring Provider Nurse Practitioner; Visit Provider Nurse Practitioner
DX: R93.7 Abnormal findings on diagnostic imaging of other parts of musculoskeletal system (principal)
CPT/HCPCS: 36415; 78306; 84165

== ENCOUNTER → 2020-03-06 10:03 | Outpatient (CLI) | payer MEDICARE, OTHER, SELFPAY ==
[2018-07-25 15:52] VITALS: BMI 25.7
[2020-03-06 12:26] LABS: Absolute Lymphocyte Count 2.05 X10^3/uL (0.83-4.51); Absolute Neutrophil Count 4.4 X10^3/uL (2.0-7.7); Basophil# 0.05 X10^3/uL; Basophil% 0.7 % (0-1); Eosinophil# 0.34 X10^3/uL; Eosinophils% 4.6 % (0-5); Hematocrit 40.4 % (40-54); Hemoglobin 12.9 g/dL (13.0-16.5); Lymphocyte # 2.05 X10^3/ul (4.0); Mean Corp Hgb Conc 31.9 g/dL (32-36); Mean Corpuscular Hgb 30.7 pg (27.0-32.0); Mean Corpuscular Volume 96.2 fL (80-94); Monocyte# 0.43 X10^3/uL; Monocyte% 5.9 % (0-10); NRBC Flagged by Analyzer 0 % (0-5); Neutrophil # 4.44 X10^3/uL (2.7-7.7); Neutrophil % 60.7 % (47-70); Platelet Count 359 K/mm3 (150-450); RBC Distribution Width CV 13.6 % (11.6-14.6); RBC Distribution Width SD 47.7 fl (35.1-43.9); White Blood Count 7.3 K/mm3 (4.4-11.0)
[2020-03-06 12:41] LABS: ALB/GLOB Ratio 0.9 RATIO (0.9-2.4); AST(SGOT) 33 U/L (15-37); Alanine Aminotransfer ALT/SGPT 33 U/L (16-61); Albumin, Serum 3.9 g/dL (3.2-5.0); Alkaline Phosphatase 123 U/L (45-117); Anion Gap 5 (5-15); BUN 18 mg/dL (7-18); BUN/Creat Ratio 20.3 RATIO (10-20); Calcium,Total 10.4 mg/dL (8.5-10.1); Chloride 106 mmol/L (98-107); Creatinine, Serum 0.89 mg/dL (0.70-1.30); EST Glomerular Filtration Rate 91 mL/min (>60); Est Glom Filt Rate - Afr Amer 110 mL/min (>60); Globulin 4.5 g/dL (2.2-4.2); Glucose 94 mg/dL (74-106); Potassium 4.3 mmol/L (3.5-5.1); Protein, Total 8.4 g/dL (6.4-8.2); Sodium Level 137 mmol/L (136-145)
== END ==
PROVIDERS: PCP Family Medicine; Referring Provider Internal Medicine Rheumatology; Visit Provider Internal Medicine Rheumatology
DX: M06.00 Rheumatoid arthritis without rheumatoid factor, unspecified site (principal); Z79.899 Other long term (current) drug therapy; G56.01 Carpal tunnel syndrome, right upper limb; M50.30 Other cervical disc degeneration, unspecified cervical region; M51.87 Other intervertebral disc disorders, lumbosacral region
CPT/HCPCS: 36415; 80053; 85025

== ENCOUNTER → 2020-06-01 11:00 | Outpatient (CLI) | payer MEDICARE, OTHER, SELFPAY ==
[2018-07-25 15:52] VITALS: BMI 25.7
[2020-06-01 12:33] LABS: Absolute Lymphocyte Count 1.68 X10^3/uL (0.83-4.51); Absolute Neutrophil Count 4.1 X10^3/uL (2.0-7.7); Basophil# 0.06 X10^3/uL; Basophil% 0.9 % (0-1); Eosinophil# 0.63 X10^3/uL; Eosinophils% 9.3 % (0-5); Hematocrit 32.1 % (40-54); Hemoglobin 10.1 g/dL (13.0-16.5); Lymphocyte # 1.68 X10^3/ul (4.0); Lymphocyte % 24.9 % (19-41); Mean Corp Hgb Conc 31.5 g/dL (32-36); Mean Corpuscular Hgb 30.1 pg (27.0-32.0); Mean Corpuscular Volume 95.8 fL (80-94); Mean Platelet Vol. 10.8 fl (6.2-12.0); Monocyte# 0.32 X10^3/uL; Monocyte% 4.7 % (0-10); NRBC Flagged by Analyzer 0 % (0-5); Neutrophil # 4.05 X10^3/uL (2.7-7.7); Neutrophil % 59.9 % (47-70); Platelet Count 245 K/mm3 (150-450); RBC Distribution Width SD 53.1 fl (35.1-43.9); Red Blood Count 3.35 M/mm3 (4.6-6.2); White Blood Count 6.8 K/mm3 (4.4-11.0)
[2020-06-01 13:05] LABS: ALB/GLOB Ratio 0.9 RATIO (0.9-2.4); AST(SGOT) 41 U/L (15-37); Alanine Aminotransfer ALT/SGPT 58 U/L (16-61); Albumin, Serum 3.6 g/dL (3.2-5.0); Alkaline Phosphatase 125 U/L (45-117); Anion Gap 9 (5-15); BUN 25 mg/dL (7-18); BUN/Creat Ratio 29.6 RATIO (10-20); Calcium,Total 9.6 mg/dL (8.5-10.1); Chloride 107 mmol/L (98-107); Creatinine, Serum 0.84 mg/dL (0.70-1.30); EST Glomerular Filtration Rate 96 mL/min (>60); Est Glom Filt Rate - Afr Amer 116 mL/min (>60); Globulin 3.8 g/dL (2.2-4.2); Glucose 86 mg/dL (74-106); Potassium 3.9 mmol/L (3.5-5.1); Protein, Total 7.4 g/dL (6.4-8.2); Sodium Level 141 mmol/L (136-145)
== END ==
PROVIDERS: PCP Family Medicine; Referring Provider Internal Medicine Rheumatology; Visit Provider Internal Medicine Rheumatology
DX: M06.00 Rheumatoid arthritis without rheumatoid factor, unspecified site (principal); Z79.899 Other long term (current) drug therapy; G56.01 Carpal tunnel syndrome, right upper limb; M50.30 Other cervical disc degeneration, unspecified cervical region; M51.87 Other intervertebral disc disorders, lumbosacral region
CPT/HCPCS: 80053; 85025

== ENCOUNTER → 2020-07-30 13:35 | Outpatient (CLI) | payer MEDICARE, OTHER, SELFPAY ==
[2018-07-25 15:52] VITALS: BMI 25.7
[2020-07-30 15:11] LABS: Absolute Lymphocyte Count 1.88 X10^3/uL (0.83-4.51); Absolute Neutrophil Count 4.5 X10^3/uL (2.0-7.7); Basophil# 0.05 X10^3/uL; Basophil% 0.7 % (0-1); Eosinophil# 0.46 X10^3/uL; Eosinophils% 6.1 % (0-5); Hemoglobin 11.5 g/dL (13.0-16.5); Lymphocyte # 1.88 X10^3/ul (4.0); Lymphocyte % 24.9 % (19-41); Mean Corp Hgb Conc 31.9 g/dL (32-36); Mean Corpuscular Hgb 30.3 pg (27.0-32.0); Mean Platelet Vol. 10.8 fl (6.2-12.0); Monocyte# 0.64 X10^3/uL; Monocyte% 8.5 % (0-10); NRBC Flagged by Analyzer 0 % (0-5); Neutrophil % 59.4 % (47-70); Platelet Count 258 K/mm3 (150-450); RBC Distribution Width CV 15.7 % (11.6-14.6); RBC Distribution Width SD 53.4 fl (35.1-43.9); Red Blood Count 3.79 M/mm3 (4.6-6.2); White Blood Count 7.6 K/mm3 (4.4-11.0)
[2020-07-30 15:47] LABS: ALB/GLOB Ratio 1.1 RATIO (0.9-2.4); AST(SGOT) 29 U/L (15-37); Alanine Aminotransfer ALT/SGPT 37 U/L (16-61); Alkaline Phosphatase 119 U/L (45-117); Anion Gap 5 (5-15); BUN 29 mg/dL (7-18); BUN/Creat Ratio 29.8 RATIO (10-20); Calcium,Total 9.7 mg/dL (8.5-10.1); Chloride 108 mmol/L (98-107); Creatinine, Serum 0.97 mg/dL (0.70-1.30); EST Glomerular Filtration Rate 81 mL/min (>60); Est Glom Filt Rate - Afr Amer 98 mL/min (>60); Globulin 3.6 g/dL (2.2-4.2); Glucose 95 mg/dL (74-106); Potassium 4.2 mmol/L (3.5-5.1); Protein, Total 7.6 g/dL (6.4-8.2); Sodium Level 139 mmol/L (136-145)
== END ==
PROVIDERS: PCP Family Medicine; Referring Provider Internal Medicine Rheumatology; Visit Provider Internal Medicine Rheumatology
DX: M06.00 Rheumatoid arthritis without rheumatoid factor, unspecified site (principal); Z79.899 Other long term (current) drug therapy; G56.01 Carpal tunnel syndrome, right upper limb; M50.30 Other cervical disc degeneration, unspecified cervical region; M51.87 Other intervertebral disc disorders, lumbosacral region
CPT/HCPCS: 36415; 80053; 85025

== ENCOUNTER → 2020-10-28 14:21 | Outpatient (CLI) | payer MEDICARE, OTHER, SELFPAY ==
[2018-07-25 15:52] VITALS: BMI 25.7
[2020-10-28 17:40] LABS: Absolute Lymphocyte Count 1.74 X10^3/uL (0.83-4.51); Absolute Neutrophil Count 4.7 X10^3/uL (2.0-7.7); Basophil# 0.06 X10^3/uL; Basophil% 0.8 % (0-1); Eosinophil# 0.49 X10^3/uL; Eosinophils% 6.5 % (0-5); Hematocrit 37.2 % (40-54); Hemoglobin 11.7 g/dL (13.0-16.5); Lymphocyte # 1.74 X10^3/ul (0.83-4.51); Lymphocyte % 23.1 % (19-41); Mean Corp Hgb Conc 31.5 g/dL (32-36); Mean Corpuscular Hgb 31.2 pg (27.0-32.0); Mean Corpuscular Volume 99.2 fL (80-94); Mean Platelet Vol. 11.3 fl (6.2-12.0); Monocyte# 0.53 X10^3/uL; NRBC Flagged by Analyzer 0 % (0-5); Neutrophil % 62.5 % (47-70); Platelet Count 273 K/mm3 (150-450); RBC Distribution Width CV 15.5 % (11.6-14.6); RBC Distribution Width SD 55.7 fl (35.1-43.9); Red Blood Count 3.75 M/mm3 (4.6-6.2); White Blood Count 7.5 K/mm3 (4.4-11.0)
[2020-10-28 18:32] LABS: ALB/GLOB Ratio 1.1 RATIO (0.9-2.4); AST(SGOT) 22 U/L (15-37); Alanine Aminotransfer ALT/SGPT 24 U/L (16-61); Albumin, Serum 4.1 g/dL (3.2-5.0); Alkaline Phosphatase 107 U/L (45-117); Anion Gap 7 (5-15); BUN 24 mg/dL (7-18); BUN/Creat Ratio 25.1 RATIO (10-20); Calcium,Total 9.8 mg/dL (8.5-10.1); Chloride 110 mmol/L (98-107); Creatinine, Serum 0.96 mg/dL (0.70-1.30); EST Glomerular Filtration Rate 83 mL/min (>60); Est Glom Filt Rate - Afr Amer 100 mL/min (>60); Globulin 3.6 g/dL (2.2-4.2); Glucose 88 mg/dL (74-106); Potassium 4.3 mmol/L (3.5-5.1); Protein, Total 7.7 g/dL (6.4-8.2); Sodium Level 140 mmol/L (136-145)
== END ==
PROVIDERS: PCP Family Medicine; Referring Provider Internal Medicine Rheumatology; Visit Provider Internal Medicine Rheumatology
DX: M06.00 Rheumatoid arthritis without rheumatoid factor, unspecified site (principal); Z79.899 Other long term (current) drug therapy; G56.01 Carpal tunnel syndrome, right upper limb; M50.30 Other cervical disc degeneration, unspecified cervical region; M51.87 Other intervertebral disc disorders, lumbosacral region
CPT/HCPCS: 36415; 80053; 85025

== ENCOUNTER → 2021-01-27 13:22 | Outpatient (CLI) | payer MEDICARE, OTHER, SELFPAY ==
[2021-01-27 15:02] LABS: Absolute Lymphocyte Count 1.28 X10^3/uL (0.83-4.51); Absolute Neutrophil Count 2.8 X10^3/uL (2.0-7.7); Basophil# 0.06 X10^3/uL; Basophil% 1.1 % (0-1); Eosinophil# 0.75 X10^3/uL; Eosinophils% 14.1 % (0-5); Hematocrit 32.4 % (40-54); Hemoglobin 10.6 g/dL (13.0-16.5); Lymphocyte # 1.28 X10^3/ul (0.83-4.51); Mean Corp Hgb Conc 32.7 g/dL (32-36); Mean Corpuscular Hgb 31.9 pg (27.0-32.0); Mean Corpuscular Volume 97.6 fL (80-94); Mean Platelet Vol. 10.5 fl (6.2-12.0); Monocyte# 0.43 X10^3/uL; Monocyte% 8.1 % (0-10); NRBC Flagged by Analyzer 0 % (0-5); Neutrophil # 2.79 X10^3/uL (2.7-7.7); Neutrophil % 52.3 % (47-70); Platelet Count 236 K/mm3 (150-450); RBC Distribution Width SD 53.1 fl (35.1-43.9); Red Blood Count 3.32 M/mm3 (4.6-6.2); White Blood Count 5.3 K/mm3 (4.4-11.0)
[2021-01-27 15:23] LABS: ALB/GLOB Ratio 1.2 RATIO (0.9-2.4); AST(SGOT) 18 U/L (15-37); Alanine Aminotransfer ALT/SGPT 24 U/L (16-61); Albumin, Serum 3.7 g/dL (3.2-5.0); Alkaline Phosphatase 88 U/L (45-117); Anion Gap 7 (5-15); BUN 21 mg/dL (7-18); BUN/Creat Ratio 21.1 RATIO (10-20); Calcium,Total 9.8 mg/dL (8.5-10.1); Chloride 108 mmol/L (98-107); EST Glomerular Filtration Rate 79 mL/min (>60); Est Glom Filt Rate - Afr Amer 96 mL/min (>60); Globulin 3.1 g/dL (2.2-4.2); Glucose 86 mg/dL (74-106); Protein, Total 6.8 g/dL (6.4-8.2); Sodium Level 140 mmol/L (136-145)
== END ==
PROVIDERS: PCP Family Medicine; Referring Provider Internal Medicine Rheumatology; Visit Provider Internal Medicine Rheumatology
DX: M06.00 Rheumatoid arthritis without rheumatoid factor, unspecified site (principal); Z79.899 Other long term (current) drug therapy; G56.01 Carpal tunnel syndrome, right upper limb; M50.30 Other cervical disc degeneration, unspecified cervical region; M51.87 Other intervertebral disc disorders, lumbosacral region
CPT/HCPCS: 36415; 80053; 85025

== ENCOUNTER → 2021-04-23 10:14 | Outpatient (CLI) | payer MEDICARE, OTHER, SELFPAY ==
[2021-04-23 12:29] LABS: Absolute Lymphocyte Count 1.81 X10^3/uL (0.83-4.51); Absolute Neutrophil Count 4.7 X10^3/uL (2.0-7.7); Basophil# 0.07 X10^3/uL; Basophil% 0.9 % (0-1); Eosinophil# 0.58 X10^3/uL; Eosinophils% 7.7 % (0-5); Hematocrit 36.1 % (40-54); Hemoglobin 11.6 g/dL (13.0-16.5); Lymphocyte # 1.81 X10^3/ul (0.83-4.51); Mean Corp Hgb Conc 32.1 g/dL (32-36); Mean Corpuscular Hgb 31.7 pg (27.0-32.0); Mean Corpuscular Volume 98.6 fL (80-94); Mean Platelet Vol. 10.6 fl (6.2-12.0); Monocyte# 0.37 X10^3/uL; Monocyte% 4.9 % (0-10); NRBC Flagged by Analyzer 0 % (0-5); Neutrophil # 4.68 X10^3/uL (2.7-7.7); Neutrophil % 62.1 % (47-70); Platelet Count 338 K/mm3 (150-450); RBC Distribution Width CV 14.5 % (11.6-14.6); Red Blood Count 3.66 M/mm3 (4.6-6.2); White Blood Count 7.5 K/mm3 (4.4-11.0)
[2021-04-23 13:01] LABS: ALB/GLOB Ratio 0.9 RATIO (0.9-2.4); AST(SGOT) 23 U/L (15-37); Alanine Aminotransfer ALT/SGPT 20 U/L (16-61); Albumin, Serum 3.4 g/dL (3.2-5.0); Alkaline Phosphatase 94 U/L (45-117); Anion Gap 5 (5-15); BUN 22 mg/dL (7-18); BUN/Creat Ratio 24.7 RATIO (10-20); Chloride 107 mmol/L (98-107); Creatinine, Serum 0.89 mg/dL (0.70-1.30); EST Glomerular Filtration Rate 90 mL/min (>60); Est Glom Filt Rate - Afr Amer 109 mL/min (>60); Globulin 3.7 g/dL (2.2-4.2); Glucose 89 mg/dL (74-106); Potassium 3.9 mmol/L (3.5-5.1); Protein, Total 7.1 g/dL (6.4-8.2); Sodium Level 140 mmol/L (136-145)
== END ==
PROVIDERS: PCP Family Medicine; Referring Provider Internal Medicine Rheumatology; Visit Provider Internal Medicine Rheumatology
DX: M06.00 Rheumatoid arthritis without rheumatoid factor, unspecified site (principal); G56.01 Carpal tunnel syndrome, right upper limb; M51.87 Other intervertebral disc disorders, lumbosacral region; M50.30 Other cervical disc degeneration, unspecified cervical region; Z79.899 Other long term (current) drug therapy
CPT/HCPCS: 36415; 80053; 85025

== ENCOUNTER 2021-07-28 11:08 | Outpatient (CLI) | payer MEDICARE, OTHER, SELFPAY ==
[2021-07-28 12:38] LABS: Absolute Lymphocyte Count 1.44 X10^3/uL (0.83-4.51); Absolute Neutrophil Count 2.8 X10^3/uL (2.0-7.7); Basophil# 0.05 X10^3/uL; Basophil% 0.9 % (0-1); Eosinophil# 0.82 X10^3/uL; Eosinophils% 14.5 % (0-5); Hematocrit 33.5 % (40-54); Hemoglobin 10.7 g/dL (13.0-16.5); Lymphocyte # 1.44 X10^3/ul (0.83-4.51); Lymphocyte % 25.4 % (19-41); Mean Corp Hgb Conc 31.9 g/dL (32-36); Mean Corpuscular Hgb 31.4 pg (27.0-32.0); Mean Corpuscular Volume 98.2 fL (80-94); Mean Platelet Vol. 11.2 fl (6.2-12.0); Monocyte# 0.56 X10^3/uL; Monocyte% 9.9 % (0-10); NRBC Flagged by Analyzer 0 % (0-5); Neutrophil # 2.78 X10^3/uL (2.7-7.7); Neutrophil % 49.1 % (47-70); Platelet Count 235 K/mm3 (150-450); RBC Distribution Width CV 15.4 % (11.6-14.6); RBC Distribution Width SD 55.1 fl (35.1-43.9); Red Blood Count 3.41 M/mm3 (4.6-6.2); White Blood Count 5.7 K/mm3 (4.4-11.0)
[2021-07-28 13:15] LABS: AST(SGOT) 39 U/L (15-37); Alanine Aminotransfer ALT/SGPT 50 U/L (16-61); Albumin, Serum 3.6 g/dL (3.2-5.0); Alkaline Phosphatase 83 U/L (45-117); Anion Gap 5 (5-15); BUN 31 mg/dL (7-18); BUN/Creat Ratio 26.3 RATIO (10-20); Calcium,Total 9.3 mg/dL (8.5-10.1); Chloride 107 mmol/L (98-107); Creatinine, Serum 1.18 mg/dL (0.70-1.30); EST Glomerular Filtration Rate 65 mL/min (>60); Est Glom Filt Rate - Afr Amer 79 mL/min (>60); Globulin 3.5 g/dL (2.2-4.2); Glucose 97 mg/dL (74-106); Potassium 4.4 mmol/L (3.5-5.1); Protein, Total 7.1 g/dL (6.4-8.2); Sodium Level 138 mmol/L (136-145)
== END 2021-07-28 23:59 | disposition home or self-care (01) ==
LOC: MTLAB 11:11
PROVIDERS: PCP Family Medicine; Referring Provider Internal Medicine Rheumatology; Visit Provider Internal Medicine Rheumatology
DX: M06.00 Rheumatoid arthritis without rheumatoid factor, unspecified site (principal); Z79.899 Other long term (current) drug therapy; M50.30 Other cervical disc degeneration, unspecified cervical region; M51.87 Other intervertebral disc disorders, lumbosacral region
CPT/HCPCS: 36415; 80053; 85025

== ENCOUNTER → 2021-11-01 | Outpatient (CLI) | payer MEDICARE, OTHER, SELFPAY ==
[2021-11-01 15:20] LABS: Absolute Lymphocyte Count 1.36 X10^3/uL (0.83-4.51); Absolute Neutrophil Count 3.3 X10^3/uL (2.0-7.7); Basophil# 0.07 X10^3/uL; Basophil% 1.2 % (0-1); Eosinophil# 0.63 X10^3/uL; Eosinophils% 10.7 % (0-5); Hematocrit 34.3 % (40-54); Hemoglobin 11.4 g/dL (13.0-16.5); Lymphocyte # 1.36 X10^3/ul (0.83-4.51); Mean Corp Hgb Conc 33.2 g/dL (32-36); Mean Corpuscular Hgb 32.5 pg (27.0-32.0); Mean Corpuscular Volume 97.7 fL (80-94); Mean Platelet Vol. 11.3 fl (6.2-12.0); Monocyte# 0.58 X10^3/uL; Monocyte% 9.8 % (0-10); NRBC Flagged by Analyzer 0 % (0-5); Neutrophil # 3.25 X10^3/uL (2.7-7.7); Platelet Count 285 K/mm3 (150-450); RBC Distribution Width CV 15.6 % (11.6-14.6); RBC Distribution Width SD 55.1 fl (35.1-43.9); Red Blood Count 3.51 M/mm3 (4.6-6.2); White Blood Count 5.9 K/mm3 (4.4-11.0)
[2021-11-01 15:50] LABS: ALB/GLOB Ratio 1.1 RATIO (0.9-2.4); AST(SGOT) 23 U/L (15-37); Alanine Aminotransfer ALT/SGPT 49 U/L (16-61); Albumin, Serum 3.6 g/dL (3.2-5.0); Alkaline Phosphatase 90 U/L (45-117); Anion Gap 6 (5-15); BUN 26 mg/dL (7-18); Calcium,Total 9.8 mg/dL (8.5-10.1); Chloride 110 mmol/L (98-107); Creatinine, Serum 1.04 mg/dL (0.70-1.30); EST Glomerular Filtration Rate 75 mL/min (>60); Est Glom Filt Rate - Afr Amer 91 mL/min (>60); Globulin 3.4 g/dL (2.2-4.2); Glucose 104 mg/dL (74-106); Potassium 3.9 mmol/L (3.5-5.1); Sodium Level 139 mmol/L (136-145)
== END | disposition home or self-care (01) ==
PROVIDERS: PCP Family Medicine; Referring Provider Internal Medicine Rheumatology; Visit Provider Internal Medicine Rheumatology
DX: M06.00 Rheumatoid arthritis without rheumatoid factor, unspecified site (principal); Z79.899 Other long term (current) drug therapy; M50.30 Other cervical disc degeneration, unspecified cervical region; M51.87 Other intervertebral disc disorders, lumbosacral region
CPT/HCPCS: 36415; 80053; 85025

== ENCOUNTER → 2022-01-28 | Outpatient (CLI) | payer MEDICARE, OTHER, SELFPAY ==
[2022-01-28 12:31] LABS: Absolute Lymphocyte Count 1.87 X10^3/uL (0.83-4.51); Absolute Neutrophil Count 3.5 X10^3/uL (2.0-7.7); Basophil# 0.06 X10^3/uL; Basophil% 0.9 % (0-1); Eosinophil# 0.77 X10^3/uL; Eosinophils% 11.7 % (0-5); Hematocrit 34.3 % (40-54); Hemoglobin 11.2 g/dL (13.0-16.5); Lymphocyte # 1.87 X10^3/ul (0.83-4.51); Lymphocyte % 28.5 % (19-41); Mean Corp Hgb Conc 32.7 g/dL (32-36); Mean Corpuscular Hgb 32.2 pg (27.0-32.0); Mean Corpuscular Volume 98.6 fL (80-94); Mean Platelet Vol. 11.1 fl (6.2-12.0); Monocyte# 0.34 X10^3/uL; Monocyte% 5.2 % (0-10); NRBC Flagged by Analyzer 0 % (0-5); Neutrophil # 3.51 X10^3/uL (2.7-7.7); Neutrophil % 53.4 % (47-70); Platelet Count 264 K/mm3 (150-450); RBC Distribution Width CV 14.6 % (11.6-14.6); RBC Distribution Width SD 52.3 fl (35.1-43.9); Red Blood Count 3.48 M/mm3 (4.6-6.2); White Blood Count 6.6 K/mm3 (4.4-11.0)
[2022-01-28 13:14] LABS: AST(SGOT) 32 U/L (15-37); Alanine Aminotransfer ALT/SGPT 35 U/L (16-61); Albumin, Serum 3.4 g/dL (3.2-5.0); Alkaline Phosphatase 100 U/L (45-117); Anion Gap 6 (5-15); BUN 20 mg/dL (7-18); BUN/Creat Ratio 21.9 RATIO (10-20); Chloride 108 mmol/L (98-107); Creatinine, Serum 0.91 mg/dL (0.70-1.30); EST Glomerular Filtration Rate 87 mL/min (>60); Est Glom Filt Rate - Afr Amer 105 mL/min (>60); Globulin 3.4 g/dL (2.2-4.2); Glucose 91 mg/dL (74-106); Protein, Total 6.8 g/dL (6.4-8.2); Sodium Level 138 mmol/L (136-145)
== END | disposition home or self-care (01) ==
LOC: MTLAB 11:10
PROVIDERS: PCP Family Medicine; Referring Provider Internal Medicine Rheumatology; Visit Provider Internal Medicine Rheumatology
DX: M06.00 Rheumatoid arthritis without rheumatoid factor, unspecified site (principal); Z79.899 Other long term (current) drug therapy; M50.30 Other cervical disc degeneration, unspecified cervical region; M51.87 Other intervertebral disc disorders, lumbosacral region
CPT/HCPCS: 36415; 80053; 85025

== ENCOUNTER → 2022-04-27 | Outpatient (CLI) | payer MEDICARE, OTHER, SELFPAY ==
[2022-04-27 15:31] LABS: Absolute Lymphocyte Count 1.57 X10^3/uL (0.83-4.51); Absolute Neutrophil Count 3.5 X10^3/uL (2.0-7.7); Basophil# 0.09 X10^3/uL; Basophil% 1.4 % (0-1); Eosinophils% 12.5 % (0-5); Hemoglobin 12.2 g/dL (13.0-16.5); Lymphocyte # 1.57 X10^3/ul (0.83-4.51); Lymphocyte % 24.6 % (19-41); Mean Corpuscular Volume 97.1 fL (80-94); Mean Platelet Vol. 11.5 fl (6.2-12.0); Monocyte% 6.3 % (0-10); NRBC Flagged by Analyzer 0 % (0-5); Neutrophil % 54.9 % (47-70); Platelet Count 240 K/mm3 (150-450); RBC Distribution Width SD 49.8 fl (35.1-43.9); Red Blood Count 3.81 M/mm3 (4.6-6.2); White Blood Count 6.4 K/mm3 (4.4-11.0)
[2022-04-27 15:54] LABS: ALB/GLOB Ratio 1.1 RATIO (0.9-2.4); AST(SGOT) 21 U/L (15-37); Alanine Aminotransfer ALT/SGPT 21 U/L (16-61); Albumin, Serum 3.7 g/dL (3.2-5.0); Alkaline Phosphatase 105 U/L (45-117); Anion Gap 9 (5-15); BUN 24 mg/dL (7-18); BUN/Creat Ratio 24.8 RATIO (10-20); Chloride 109 mmol/L (98-107); Creatinine, Serum 0.97 mg/dL (0.70-1.30); EST Glomerular Filtration Rate 82 mL/min (>60); Est Glom Filt Rate - Afr Amer 99 mL/min (>60); Globulin 3.5 g/dL (2.2-4.2); Glucose 88 mg/dL (74-106); PSA,Total - Annual Screen 1.24 ng/mL (0.00-4.00); Protein, Total 7.2 g/dL (6.4-8.2); Sodium Level 142 mmol/L (136-145)
== END | disposition home or self-care (01) ==
LOC: MTLAB 13:11
PROVIDERS: PCP Family Medicine; Referring Provider Internal Medicine Rheumatology; Visit Provider Internal Medicine Rheumatology
DX: M06.00 Rheumatoid arthritis without rheumatoid factor, unspecified site (principal); S78.119A Complete traumatic amputation at level between unspecified hip and knee, initial encounter; Z79.899 Other long term (current) drug therapy; M50.30 Other cervical disc degeneration, unspecified cervical region; M51.87 Other intervertebral disc disorders, lumbosacral region; Z12.5 Encounter for screening for malignant neoplasm of prostate
CPT/HCPCS: 36415; 80053; 84153; 85025; G0103

== ENCOUNTER → 2022-07-19 | Outpatient (CLI) | payer MEDICARE, OTHER, SELFPAY ==
[2022-07-19 14:42] LABS: Absolute Lymphocyte Count 1.76 X10^3/uL (0.83-4.51); Absolute Neutrophil Count 3.8 X10^3/uL (2.0-7.7); Basophil# 0.07 X10^3/uL; Eosinophil# 0.58 X10^3/uL; Eosinophils% 8.5 % (0-5); Hematocrit 38.9 % (40-54); Hemoglobin 12.4 g/dL (13.0-16.5); Lymphocyte # 1.76 X10^3/ul (0.83-4.51); Lymphocyte % 25.8 % (19-41); Mean Corp Hgb Conc 31.9 g/dL (32-36); Mean Corpuscular Hgb 31.7 pg (27.0-32.0); Mean Corpuscular Volume 99.5 fL (80-94); Monocyte# 0.57 X10^3/uL; Monocyte% 8.4 % (0-10); NRBC Flagged by Analyzer 0 % (0-5); Neutrophil # 3.82 X10^3/uL (2.7-7.7); Platelet Count 253 K/mm3 (150-450); RBC Distribution Width CV 15.3 % (11.6-14.6); RBC Distribution Width SD 54.4 fl (35.1-43.9); Red Blood Count 3.91 M/mm3 (4.6-6.2); White Blood Count 6.8 K/mm3 (4.4-11.0)
[2022-07-19 15:11] LABS: ALB/GLOB Ratio 1.2 RATIO (0.9-2.4); AST(SGOT) 27 U/L (15-37); Alanine Aminotransfer ALT/SGPT 36 U/L (16-61); Albumin, Serum 4.2 g/dL (3.2-5.0); Alkaline Phosphatase 105 U/L (45-117); Anion Gap 8 (5-15); BUN 29 mg/dL (7-18); BUN/Creat Ratio 25.4 RATIO (10-20); Calcium,Total 10.5 mg/dL (8.5-10.1); Chloride 112 mmol/L (98-107); Creatinine, Serum 1.14 mg/dL (0.70-1.30); EST Glomerular Filtration Rate 67 mL/min (>60); Est Glom Filt Rate - Afr Amer 81 mL/min (>60); Globulin 3.6 g/dL (2.2-4.2); Glucose 86 mg/dL (74-106); Potassium 3.8 mmol/L (3.5-5.1); Protein, Total 7.8 g/dL (6.4-8.2); Sodium Level 142 mmol/L (136-145)
== END | disposition home or self-care (01) ==
LOC: MTLAB 11:58
PROVIDERS: PCP Family Medicine; Referring Provider Internal Medicine Rheumatology; Visit Provider Internal Medicine Rheumatology
DX: M06.00 Rheumatoid arthritis without rheumatoid factor, unspecified site (principal); Z79.899 Other long term (current) drug therapy
CPT/HCPCS: 36415; 80053; 85025

== ENCOUNTER → 2022-07-29 | Outpatient (CLI) | payer MEDICARE, OTHER, SELFPAY ==
[2022-08-01 07:44] LABS: PTHIN 225.5 pg/mL (18.4-80.1)
== END | disposition home or self-care (01) ==
LOC: MTLAB 15:34
PROVIDERS: PCP Family Medicine; Referring Provider Internal Medicine Rheumatology; Visit Provider Internal Medicine Rheumatology
DX: M06.00 Rheumatoid arthritis without rheumatoid factor, unspecified site (principal); Z79.899 Other long term (current) drug therapy; M50.30 Other cervical disc degeneration, unspecified cervical region; M51.87 Other intervertebral disc disorders, lumbosacral region
CPT/HCPCS: 36415; 83970

== ENCOUNTER → 2022-10-20 | Outpatient (CLI) | payer MEDICARE, OTHER, SELFPAY ==
[2022-10-20 12:08] LABS: Absolute Neutrophil Count 5.2 X10^3/uL (2.0-7.7); Basophil# 0.04 X10^3/uL; Basophil% 0.6 % (0-1); Eosinophil# 0.27 X10^3/uL; Hemoglobin 11.8 g/dL (13.0-16.5); Lymphocyte % 16.1 % (19-41); Mean Corp Hgb Conc 31.9 g/dL (32-36); Mean Corpuscular Hgb 32.5 pg (27.0-32.0); Mean Corpuscular Volume 101.9 fL (80-94); Mean Platelet Vol. 11.1 fl (6.2-12.0); Monocyte# 0.19 X10^3/uL; Monocyte% 2.8 % (0-10); NRBC Flagged by Analyzer 0 % (0-5); Neutrophil % 76.1 % (47-70); Platelet Count 201 K/mm3 (150-450); RBC Distribution Width CV 14.3 % (11.6-14.6); RBC Distribution Width SD 53.4 fl (35.1-43.9); Red Blood Count 3.63 M/mm3 (4.6-6.2); White Blood Count 6.8 K/mm3 (4.4-11.0)
[2022-10-20 12:25] LABS: AST(SGOT) 38 U/L (15-37); Alanine Aminotransfer ALT/SGPT 44 U/L (16-61); Albumin, Serum 3.5 g/dL (3.2-5.0); Alkaline Phosphatase 77 U/L (45-117); Anion Gap 10 (5-15); BUN 26 mg/dL (7-18); BUN/Creat Ratio 20.6 RATIO (10-20); Calcium,Total 10.2 mg/dL (8.5-10.1); Chloride 110 mmol/L (98-107); Creatinine, Serum 1.26 mg/dL (0.70-1.30); EST Glomerular Filtration Rate 60 mL/min (>60); Est Glom Filt Rate - Afr Amer 73 mL/min (>60); Globulin 3.5 g/dL (2.2-4.2); Glucose 138 mg/dL (74-106); Potassium 3.7 mmol/L (3.5-5.1); Sodium Level 141 mmol/L (136-145)
== END | disposition home or self-care (01) ==
LOC: MTLAB 10:14
PROVIDERS: PCP Family Medicine; Referring Provider Internal Medicine Rheumatology; Visit Provider Internal Medicine Rheumatology
DX: M06.00 Rheumatoid arthritis without rheumatoid factor, unspecified site (principal); Z79.899 Other long term (current) drug therapy; M50.30 Other cervical disc degeneration, unspecified cervical region; M51.87 Other intervertebral disc disorders, lumbosacral region
CPT/HCPCS: 36415; 80053; 85025

== ENCOUNTER → 2022-11-18 | Outpatient (CLI) | payer MEDICARE, OTHER, SELFPAY ==
[2022-11-18 18:15] LABS: Calcium,Total 9.5 mg/dL (8.5-10.1)
[2022-11-18 18:26] LABS: Vitamin D,25 Hydroxy 32.7 ng/mL
== END | disposition home or self-care (01) ==
LOC: MTLAB 15:09
PROVIDERS: PCP Family Medicine; Referring Provider Internal Medicine Endocrinology, Diabetes & Metabolism; Visit Provider Internal Medicine Endocrinology, Diabetes & Metabolism
DX: E21.3 Hyperparathyroidism, unspecified (principal); E55.9 Vitamin D deficiency, unspecified
CPT/HCPCS: 36415; 82306; 82310

== ENCOUNTER → 2022-12-23 | Outpatient (CLI) | payer MEDICARE, OTHER, SELFPAY ==
[2022-12-23 17:53] LABS: Absolute Lymphocyte Count 0.75 X10^3/uL (0.83-4.51); Absolute Neutrophil Count 7.1 X10^3/uL (2.0-7.7); Basophil# 0.04 X10^3/uL; Basophil% 0.5 % (0-1); Eosinophil# 0.05 X10^3/uL; Eosinophils% 0.6 % (0-5); Hematocrit 38.5 % (40-54); Hemoglobin 12.2 g/dL (13.0-16.5); Lymphocyte # 0.75 X10^3/ul (0.83-4.51); Lymphocyte % 9.4 % (19-41); Mean Corp Hgb Conc 31.7 g/dL (32-36); Mean Corpuscular Hgb 31.9 pg (27.0-32.0); Mean Corpuscular Volume 100.8 fL (80-94); Mean Platelet Vol. 11.3 fl (6.2-12.0); Monocyte# 0.06 X10^3/uL; Monocyte% 0.8 % (0-10); NRBC Flagged by Analyzer 0 % (0-5); Neutrophil # 7.06 X10^3/uL (2.7-7.7); Neutrophil % 88.2 % (47-70); POSITIVE MORPHOLOGY YES; Platelet Count 270 K/mm3 (150-450); RBC Distribution Width CV 14.6 % (11.6-14.6); RBC Distribution Width SD 52.8 fl (35.1-43.9); Red Blood Count 3.82 M/mm3 (4.6-6.2)
[2022-12-23 18:02] LABS: Differential Indicated SCAN CRITERIA MET
[2022-12-23 18:12] LABS: ALB/GLOB Ratio 1.1 RATIO (0.9-2.4); AST(SGOT) 31 U/L (15-37); Alanine Aminotransfer ALT/SGPT 49 U/L (16-61); Albumin, Serum 3.8 g/dL (3.2-5.0); Alkaline Phosphatase 86 U/L (45-117); Anion Gap 6 (5-15); BUN 25 mg/dL (7-18); BUN/Creat Ratio 23.8 RATIO (10-20); Calcium,Total 10.1 mg/dL (8.5-10.1); Chloride 110 mmol/L (98-107); Creatinine, Serum 1.05 mg/dL (0.70-1.30); EST Glomerular Filtration Rate 74 mL/min (>60); Est Glom Filt Rate - Afr Amer 89 mL/min (>60); Globulin 3.5 g/dL (2.2-4.2); Glucose 111 mg/dL (74-106); Potassium 4.2 mmol/L (3.5-5.1); Protein, Total 7.3 g/dL (6.4-8.2); Sodium Level 141 mmol/L (136-145)
[2022-12-23 18:26] LABS: Vitamin D,25 Hydroxy 31.9 ng/mL
[2022-12-23 18:34] LABS: Differential Comment SCANNED
[2022-12-26 08:05] LABS: PTHIN 211.9 pg/mL (18.4-80.1)
== END | disposition home or self-care (01) ==
LOC: MTLAB 14:24
PROVIDERS: Internal Medicine Endocrinology, Diabetes & Metabolism; PCP Family Medicine; Referring Provider Internal Medicine Rheumatology; Visit Provider Internal Medicine Rheumatology
DX: M06.00 Rheumatoid arthritis without rheumatoid factor, unspecified site (principal); E21.3 Hyperparathyroidism, unspecified; Z79.899 Other long term (current) drug therapy; E55.9 Vitamin D deficiency, unspecified
CPT/HCPCS: 36415; 80053; 82306; 83970; 85025

== ENCOUNTER → 2023-01-05 | Outpatient (CLI) | payer MEDICARE, OTHER, SELFPAY ==
--- NOTE | 2023-01-05 09:54 | BD_ITS ---
STUDY: DUAL ENERGY X-RAY ABSORPTIOMETRY / DXA REASON FOR EXAM: Male, 72 years old. HYPERPARATHYROIDISM TECHNIQUE: Bone Mineral Density (BMD) measurements of both forearms were obtained. Patient has a history of bilateral hip replacement as well as lumbar spinal fusion. COMPARISON: Comparison is made with prior study dated August 31, 2017. FINDINGS: Right Forearm: g/cm2 (0.526) / T-score (-3.1) / Z-score (-1.8) Left Forearm: g/cm2 (0.626) / T-score (minus 1.) / Z-score (0.1) BD/Dexa Bone Density/Append Skel IMPRESSION: The patient is considered osteoporotic as outlined below according to World [employer] Organization (WHO) criteria with a high fracture risk. Reference Information: The T-score is the number of standard deviations above or below the standard which is normal for young adults at their peak bone mineral density. The World Health Organization (WHO) interprets the T-scores as follows: Above -1 Normal bone density Between -1 and -2.5 Osteopenia Equal to / or below -2.5 Osteoporosis As a practical clinical guideline, osteopenia may be graded as follows: Mild -1 through -1.5 Moderate -1.6 through -2.0 Severe -2.1 through -2.4 The Z-score is the number of standard deviations above or below age-matched controls. A Z-score of less than -1.5 would be considered abnormal. References: 1. NIH Osteoporosis and Related Bone Diseases www osteo.org 2. International Society for Clinical Densitometry www iscd.org 3. National Osteoporosis Foundation www nof.org Electronically Signed: Cain Oliveros MD at 10:00 EDT ,
== END | disposition home or self-care (01) ==
LOC: OPBD 09:50
PROVIDERS: PCP Family Medicine; Referring Provider Internal Medicine Endocrinology, Diabetes & Metabolism; Visit Provider Internal Medicine Endocrinology, Diabetes & Metabolism
DX: E21.3 Hyperparathyroidism, unspecified (principal)
CPT/HCPCS: 77081

== ENCOUNTER 2023-02-16 14:41 | Outpatient (CLI) | payer MEDICARE, OTHER, SELFPAY ==
[2023-02-16] MEDS: DENOSUMAB 60 MG/ML SC (14:55)
[2023-02-16 14:57] VITALS: BP 115/80; PULSE 101; RESP 16; TEMP 36.7; O2SAT 98; BMI 26.9
== END 2023-02-16 14:42 | disposition home or self-care (01) ==
LOC: MEDOUTP 14:42
PROVIDERS: PCP Family Medicine; Referring Provider Internal Medicine Endocrinology, Diabetes & Metabolism; Visit Provider Internal Medicine Endocrinology, Diabetes & Metabolism
DX: M81.0 Age-related osteoporosis without current pathological fracture (principal)
CPT/HCPCS: 96372; J0897

== ENCOUNTER → 2023-03-22 | Outpatient (CLI) | payer MEDICARE, OTHER, SELFPAY ==
[2023-03-22 18:00] LABS: Absolute Lymphocyte Count 1.11 X10^3/uL (0.83-4.51); Absolute Neutrophil Count 3.7 X10^3/uL (2.0-7.7); Basophil# 0.05 X10^3/uL; Basophil% 0.9 % (0-1); Eosinophil# 0.26 X10^3/uL; Eosinophils% 4.6 % (0-5); Hemoglobin 11.2 g/dL (13.0-16.5); Lymphocyte # 1.11 X10^3/ul (0.83-4.51); Lymphocyte % 19.6 % (19-41); Mean Corpuscular Hgb 31.9 pg (27.0-32.0); Mean Corpuscular Volume 99.7 fL (80-94); Mean Platelet Vol. 11.1 fl (6.2-12.0); Monocyte# 0.53 X10^3/uL; Monocyte% 9.3 % (0-10); NRBC Flagged by Analyzer 0 % (0-5); Neutrophil # 3.71 X10^3/uL (2.7-7.7); Neutrophil % 65.4 % (47-70); Platelet Count 212 K/mm3 (150-450); RBC Distribution Width CV 14.4 % (11.6-14.6); RBC Distribution Width SD 51.9 fl (35.1-43.9); Red Blood Count 3.51 M/mm3 (4.6-6.2); White Blood Count 5.7 K/mm3 (4.4-11.0)
[2023-03-22 18:18] LABS: ALB/GLOB Ratio 0.9 RATIO (0.9-2.4); AST(SGOT) 22 U/L (15-37); Alanine Aminotransfer ALT/SGPT 22 U/L (16-61); Albumin, Serum 3.5 g/dL (3.2-5.0); Alkaline Phosphatase 75 U/L (45-117); Anion Gap 5 (5-15); BUN 19 mg/dL (7-18); BUN/Creat Ratio 20.1 RATIO (10-20); Calcium,Total 8.8 mg/dL (8.5-10.1); Chloride 114 mmol/L (98-107); Creatinine, Serum 0.94 mg/dL (0.70-1.30); EST Glomerular Filtration Rate 84 mL/min (>60); Est Glom Filt Rate - Afr Amer 101 mL/min (>60); Globulin 3.7 g/dL (2.2-4.2); Glucose 91 mg/dL (74-106); Potassium 3.7 mmol/L (3.5-5.1); Protein, Total 7.2 g/dL (6.4-8.2); Sodium Level 140 mmol/L (136-145)
== END | disposition home or self-care (01) ==
PROVIDERS: PCP Family Medicine; Referring Provider Internal Medicine Rheumatology; Visit Provider Internal Medicine Rheumatology
DX: Z00.00 Encounter for general adult medical examination without abnormal findings (principal); M06.00 Rheumatoid arthritis without rheumatoid factor, unspecified site; Z12.5 Encounter for screening for malignant neoplasm of prostate; Z79.899 Other long term (current) drug therapy; M50.30 Other cervical disc degeneration, unspecified cervical region; M51.87 Other intervertebral disc disorders, lumbosacral region
CPT/HCPCS: 36415; 80053; 85025

== ENCOUNTER → 2023-05-15 | Outpatient (CLI) | payer MEDICARE, OTHER, SELFPAY | END | disposition home or self-care (01) | PROVIDERS: PCP Family Medicine; Referring Provider Family Medicine; Visit Provider Family Medicine | DX: Z12.5 Encounter for screening for malignant neoplasm of prostate (principal) | CPT/HCPCS: 36415; 84153; G0103 ==

== ENCOUNTER → 2023-06-21 | Outpatient (CLI) | payer MEDICARE, SELFPAY ==
--- OUTSIDE RECORDS SUMMARY | 2023-06-21 15:08 | XMS RPT_ITS | CCD ---
Author Name Unknown Address [address] [place] [address] Organization [facility] Care Team Providers Care Machine Stamper Name Role Phone September Unavailable Unavailable Rachel Giron A Unavailable Unavailbarbara Whitten Mahi L Unavailable Unavailable Uche Menon Unavailable Unavailable Mahi Whitten L Unavailable Unavailable Raquel Martinez Unavailable Unavailable Oz Jiang Unavailable Unavailable Mack [employer]ANT, Rachel Unavailable Zhang Vargas MD Unavailable Davis [employer] SAL[employer] CONSULTANTJenn Unavailable Pavan Hunt DO Unavailable Oz Jiang Unavailable Unavailable Unavailable OZ JIANG Referring Unavailable OZ JIANG Attending Unavailable OZ JIANG Primary Care Unavailable Oz Jiang MD Primary Care Provider Oz Jiang MD Unavailable [phone] OZ JIANG Attending Unavailable OZ JIANG Primary Care Unavailable WARD MOELLER Attending Unavailable OZ JIANG Primary Care Unavailable OZ JIANG Attending Unavailable OZ JIANG Primary Care Unavailable Allergies Allergy Classification Reported Allergen(s) Allergy Type Date of Onset Reaction(s) Facility (8 sources) Cat; Translations: [CATS] allergy to substance 8 [facility] Work Phone: (8 sources) [facility]; Translations: [ANIMALS] allergy to substance 8 [facility] Work Phone: Medications Current Medications Medication Drug Class(es) Dates Sig (Normalized) Sig (Original) acetaminophen 325 mg / HYDROcodone bitartrate 5 mg oral tablet (1 source) Opioid Agonist Start: 11-02-2017 End: 11-22-2017 take 1 tablet by mouth every six hours as needed for pain NORCO 5-325 MG TABS Take 1 tablet by mouth every 6 hours as needed for pain HYDROCODONE-ACETAM INOPHEN [id number] Rachel Giron [employer] [facility] [facility] [id number] actuat albuterol 0.09 mg/actuat metered dose inhaler (11 sources) beta2-Adrenergic Agonist Start: 03-20-2023 End: 03-19-2024 take 2 puff(s) by inhalation four times daily albuterol 90 mcg/actuation inhaler Indications: Asthma, unspecified asthma severity, unspecified whether complicated, unspecified whether persistent Inhale 2 puffs 4 times a day. 18 g 2 03/20/2023 03/19/2024 Active Completed/Discontinued Medications Medication Drug Class(es) Dates Sig (Normalized) Sig (Original) alendronic acid 70 mg oral tablet (8 sources) Bisphosphonate Start: 04-26-2019 take 1 tablet by mouth every week Alendronate Sodium 70 MG Oral Tablet TAKE 1 TABLET ONCE WEEKLY. Quantity: 4 Refills: 11 Jalen Jianglas Start : 26-Apr-2019 Active Problems Active Problems Problem Classification Problem Date Documented Date Episodic/Chronic Asthma (5 sources) Mild intermittent asthma; Translations: [Asthma, unspecified type, unspecified] Onset: 03-20-2023 Resolved: 03-20-2023 03-20-2023 Chronic Immunizations and screening for infectious disease (3 sources) Patient encounter status; Translations: [Other specified vaccination] 03-20-2023 Episodic Open wounds of extremities (2 sources) Amputated above knee; Translations: [Traumatic amputation of leg(s) (complete) (partial), unilateral, at or above knee, without mention of complication] Onset: 03-20-2023 03-20-2023 Chronic Osteoarthritis (7 sources) Unilateral primary osteoarthritis, left hip; Translations: [Osteoarthrosis, localized, primary, pelvic region and thigh] Onset: 03-20-2018 03-20-2018 Chronic Osteoporosis (6 sources) Osteoporosis; Translations: [Osteoporosis, unspecified] Onset: 03-20-2023 03-20-2023 Chronic Other non-traumatic joint disorders (11 sources) Joint pain; Translations: [Pain in joint] Episodic Other nutritional; endocrine; and metabolic disorders (1 source) Overweight in adulthood with body mass index of 25 or more but less than 30; Translations: [Body Mass Index 26.0-26.9, adult] Episodic Other screening for suspected conditions (not mental disorders or infectious disease) (2 sources) Encounter for screening for malignant neoplasm of prostate; Translations: [Encounter for screening for malignant neoplasm of prostate] Onset: 03-20-2023 Episodic Rheumatoid arthritis and related disease (4 sources) Rheumatoid arthritis; Translations: [Rheumatoid arthritis, unspecified] Onset: 03-20-2023 03-20-2023 Chronic Spondylosis; intervertebral disc disorders; other back problems (1 source) Degeneration of lumbar intervertebral disc; Translations: [Other intervertebral disc degeneration, lumbar region] Onset: 02-11-2020 02-11-2020 Chronic Spondylosis; intervertebral disc disorders; other back problems (20 sources) Low back pain; Translations: [Spinal stenosis, lumbar region with neurogenic claudication] Onset: 08-22-2017 08-22-2017 Episodic Sprains and strains (3 sources) Strain of neck muscle; Translations: [Strain of muscle, fascia and tendon at neck level, initial encounter] Onset: 02-07-2023 02-07-2023 Episodic Viral infection (1 source) Disease caused by 2019-nCoV; Translations: [COVID-19] 02-17-2023 Episodic Viral infection (2 sources) COVID-19; Translations: [COVID-19] Onset: 02-17-2023 Past or Other Problems Problem Classification Problem Date Documented Da te Episodic/Chronic Other acquired deformities (14 sources) Spondylolisthesis ; Translations: [Spondylolisthesi s, lumbar region] Onset: 08-22-2017 08-22-2017 Episodic Other bone disease and musculoskeletal deformities (8 sources) Osteopenia; Translations: [Other specified disorders of bone density and structure, other site] Onset: 08-22-2017 08-22-2017 Episodic Other connective tissue disease (8 sources) History of lumbar fusion; Translations: [Arthrodesis status] Onset: 10-24-2017 10-24-2017 Episodic Unclassified (8 sources) Problem Unclassified (3 sources) Onset: 02-07-2023 Resolved: 03-20-2023 02-07-2023 NEGATED: Highlighted row has not occurred!Residual codes; unclassified (20 sources) Disease Episodic Results Test Name Value Interpretation Reference Range Facil ity Vital Signs Date Time Vital Sign Value Performing Clinician Facility 03-20-2023 12:51-0400 Body height 149.9 cm Oz Jiang MD Work Phone: [facility] 03-20-2023 12:51-0400 Body mass index (BMI) [Ratio] 26.96 kg/m2 Oz Jiang MD Work Phone: [facility] 03-20-2023 12:51-0400 Body weight 60.55 kg Oz Jiang MD Work Phone: [facility] 03-20-2023 12:51-0400 Diastolic blood pressure 80 mm[Hg] Oz Jiang MD Work Phone: [facility] 03-20-2023 12:51-0400 Heart rate 108 /min Oz Jiang MD Work Phone: [facility] 03-20-2023 12:51-0400 SaO2% (BldA) [Mass fraction] 98 % Oz Jiang MD Work Phone: [facility] 03-20-2023 12:51-0400 Systolic blood pressure 120 mm[Hg] Oz Jiang MD Work Phone: [facility] 02-07-2023 11:18-0400 Body height 149.9 cm Oz Jiang MD Work Phone: [facility] 02-07-2023 11:18-0400 Body mass index (BMI) [Ratio] 26.9 kg/m2 Oz Jiang MD Work Phone: [facility] 02-07-2023 11:18-0400 Body weight 60.42 kg Oz Jiang MD Work Phone: [facility] 02-07-2023 11:18-0400 Diastolic blood pressure 82 mm[Hg] Oz Jiang MD Work Phone: [facility] 02-07-2023 11:18-0400 Heart rate 102 /min Oz Jiang MD Work Phone: [facility] 02-07-2023 11:18-0400 SaO2% (BldA) [Mass fraction] 97 % Oz Jiang MD Work Phone: [facility] 02-07-2023 11:18-0400 Systolic blood pressure 130 mm[Hg] Oz Jiang MD Work Phone: [facility] 03-17-2022 14:23-0400 Body height 149.86 cm Oz Jiang Work Phone: [facility] Work Phone: 03-17-2022 14:23-0400 Body mass index (BMI) [Ratio] 26.3 kg/m2 Oz Ayouber Work Phone: [facility] Work Phone: 03-17-2022 14:23-0400 Body surface area Derived from formula 1.54 m2 Oz Ayouber Work Phone: [facility] Work Phone: 03-17-2022 14:23-0400 Body weight 59.05 kg Oz Barnes Deidre Work Phone: [facility] Work Phone: 03-17-2022 14:23-0400 Diastolic blood pressure 88 mm[Hg] Oz Ayouber Work Phone: [facility] Work Phone: 03-17-2022 14:23-0400 Heart rate 99 /min Oz Molly Deidre Work Phone: [facility] Work Phone: 03-17-2022 14:23-0400 SaO2% (BldA) [Mass fraction] 98 % Oz Jiang Work Phone: [facility] Work Phone: 03-17-2022 14:23-0400 Systolic blood pressure 128 mm[Hg] Oz Jiang Work Phone: [facility] Work Phone: NEGATED: Highlighted [id number] 13:06-0400 Body height 149.86 cm Kimberly Savanah AT [facility] Work Phone: NEGATED: Highlighted [id number] 13:06-0400 Body height 150 cm Kimberly Savanah AT [facility] Work Phone: NEGATED: Highlighted [id number] 13:06-0400 Body mass index (BMI) [Ratio] 25.14 kg/m2 Kimberly Savanah AT [facility] Work Phone: NEGATED: Highlighted [id number] 13:06-0400 Body weight 56.25 kg Kimberly Savanah AT [facility] Work Phone: NEGATED: Highlighted [id number] 13:06-0400 Body weight 56 kg Kimberly Savanah AT [facility] Work Phone: NEGATED: Highlighted [id number] 14:13-0500 Body height 149.86 cm Stefaniele Collins AT [facility] Work Phone: NEGATED: Highlighted [id number] 14:13-0500 Body height 150 cm Stefanie Dennis AT [facility] Work Phone: NEGATED: Highlighted [id number] 14:13-0500 Body mass index (BMI) [Ratio] 27.57 kg/m2 Stefanie Dennis AT [facility] Work Phone: NEGATED: Highlighted [id number] 14:13-0500 Body weight 61.69 kg Stefanie Collins AT [facility] Work Phone: NEGATED: Highlighted [id number] 14:13-0500 Body weight 62 kg Stefanie Collins AT [facility] Work Phone: NEGATED: Highlighted [id number] 14:13-0500 Diastolic blood pressure 82 mm[Hg] Stefanie Collins AT [facility] Work Phone: NEGATED: Highlighted [id number] 14:13-0500 Heart rate 92 /min Stefanie Collins AT [facility] Work Phone: NEGATED: Highlighted [id number] 14:13-0500 Systolic blood pressure 122 mm[Hg] Stefanie Collins AT [facility] Work Phone: NEGATED: Highlighted [id number] 14:43-0500 Body height 149.86 cm Radha Chahal FRANCISCO [facility] Work Phone: NEGATED: Highlighted [id number] 14:43-0500 Body height 150 cm Radha Chahal MANAGER WELLNESS [facility] Work Phone: NEGATED: Highlighted [id number] 14:43-0500 Body mass index (BMI) [Ratio] 27.57 kg/m2 Radha Chahal FRANCISCO [facility] Work Phone: NEGATED: Highlighted [id number] 14:43-0500 Body weight 61.69 kg Radha Chahal LPN [facility] Work Phone: NEGATED: Highlighted [id number] 14:43-0500 Body weight 62 kg Radha Chahal FRANCISCO [facility] Work Phone: NEGATED: Highlighted [id number] 14:43-0500 Diastolic blood pressure 81 mm[Hg] Radha Chahal LPN [facility] Work Phone: NEGATED: Highlighted [id number] 14:43-0500 Heart rate 74 /min Radha Chahal LPN [facility] Work Phone: NEGATED: Highlighted [id number] 14:43-0500 Systolic blood pressure 129 mm[Hg] Radha Chahal LPN [facility] Work Phone: NEGATED: Highlighted [id number] 15:07-0400 Body height 149.86 cm Luisito Andrews AT [facility] Work Phone: NEGATED: Highlighted [id number] 15:07-0400 Body height 150 cm Luisito Andrews AT [facility] Work Phone: NEGATED: Highlighted [id number] 15:07-0400 Body mass index (BMI) [Ratio] 27.57 kg/m2 Luisito Andrews AT [facility] Work Phone: NEGATED: Highlighted [id number] 15:07-0400 Body weight 61.69 kg Luisito Andrews AT [facility] Work Phone: NEGATED: Highlighted [id number] 15:07-0400 Body weight 62 kg Luisito Andrews AT [facility] Work Phone: NEGATED: Highlighted [id number] 15:07-0400 Diastolic blood pressure 76 mm[Hg] Luisito Andrews AT [facility] Work Phone: NEGATED: Highlighted [id number] 15:07-0400 Heart rate 103 /min Luisito Andrews AT [facility] Work Phone: NEGATED: Highlighted [id number] 15:07-0400 Systolic blood pressure 116 mm[Hg] Luisito Andrews AT [facility] Work Phone: NEGATED: Highlighted [id number] 13:11-0400 Body height 150 cm Kimberly Savanah AT [facility] Work Phone: NEGATED: Highlighted [id number] 13:11-0400 Body height 149.86 cm Kimberly Savanah AT [facility] Work Phone: NEGATED: Highlighted [id number] 13:11-0400 Body mass index (BMI) [Ratio] 27.57 kg/m2 Kimberly Savanah AT [facility] Work Phone: NEGATED: Highlighted [id number] 13:11-0400 Body weight 62 kg Kimberly Savanah AT [facility] Work Phone: NEGATED: Highlighted [id number] 13:11-0400 Body weight 61.69 kg Kimberly Savanah AT [facility] Work Phone: NEGATED: Highlighted [id number] 13:11-0400 Diastolic blood pressure 83 mm[Hg] Kimberly Savanah AT [facility] Work Phone: NEGATED: Highlighted [id number] 13:11-0400 Heart rate 102 /min Kimberly Savanah AT [facility] Work Phone: NEGATED: Highlighted [id number] 13:11-0400 Systolic blood pressure 129 mm[Hg] Kimberly Savanah AT [facility] Work Phone: NEGATED: Highlighted [id number] 15:13-0400 Body height 149.86 cm Kimberly Savanah AT [facility] Work Phone: NEGATED: Highlighted [id number] 15:13-0400 Body height 150 cm Kimberly Savanah AT [facility] Work Phone: NEGATED: Highlighted [id number] 15:13-0400 Body mass index (BMI) [Ratio] 25.95 kg/m2 Kimberly Savanah AT [facility] Work Phone: NEGATED: Highlighted [id number] 15:13-0400 Body weight 58.06 kg Kimberly Savanah AT [facility] Work Phone: NEGATED: Highlighted [id number] 15:13-0400 Body weight 58 kg Kimberly Savanah AT [facility] Work Phone: NEGATED: Highlighted [id number] 15:13-0400 Diastolic blood pressure 90 mm[Hg] Kimberly Savanah AT [facility] Work Phone: NEGATED: Highlighted [id number] 15:13-0400 Diastolic blood pressure 85 mm[Hg] Kimberly Savanah AT [facility] Work Phone: NEGATED: Highlighted [id number] 15:13-0400 Heart rate 92 /min Kimberly Savanah AT [facility] Work Phone: NEGATED: Highlighted [id number] 15:13-0400 Systolic blood pressure 129 mm[Hg] Ikmberly Savanah AT [facility] Work Phone: NEGATED: Highlighted [id number] 15:13-0400 Systolic blood pressure 125 mm[Hg] Kimberly Savanah AT [facility] Work Phone: NEGATED: Highlighted [id number] 12:48-0400 Body height 149.86 cm Kiana Henry LPN [facility] Work Phone: NEGATED: Highlighted [id number] 12:48-0400 Body height 150 cm Kiana Carl MANAGER WELLNESS [facility] Work Phone: NEGATED: Highlighted [id number] 12:48-0400 Body mass index (BMI) [Ratio] 26.35 kg/m2 Kiana [place] MANAGER WELLNESS [facility] Work Phone: NEGATED: Highlighted [id number] 12:48-0400 Body weight 58.97 kg Kiana [place] MANAGER WELLNESS [facility] Work Phone: NEGATED: Highlighted [id number] 12:48-0400 Body weight 59 kg Kiana Carl MANAGER WELLNESS [facility] Work Phone: NEGATED: Highlighted [id number] 12:48-0400 Diastolic blood pressure 75 mm[Hg] Kiana Carl MANAGER WELLNESS [facility] Work Phone: NEGATED: Highlighted [id number] 12:48-0400 Heart rate 93 /min [facility] [place] MANAGER WELLNESS [facility] Work Phone: NEGATED: Highlighted [id number] 12:48-0400 Systolic blood pressure 111 mm[Hg] Kiana Carl MANAGER WELLNESS [facility] Work Phone: NEGATED: Highlighted [id number] 10:35-0400 Body height 149.86 cm Kimberly Savanah AT [facility] Work Phone: NEGATED: Highlighted [id number] 10:35-0400 Body height 150 cm Kimberly Savanah AT [facility] Work Phone: NEGATED: Highlighted [id number] 10:35-0400 Body mass index (BMI) [Ratio] 26.35 kg/m2 Kimberly Savanah AT [facility] Work Phone: NEGATED: Highlighted [id number] 10:35-0400 Body weight 58.97 kg Kibmerly Pavon AT [facility] Work Phone: NEGATED: Highlighted [id number] 10:35-0400 Body weight 59 kg Kimberly Pavon AT [facility] Work Phone: NEGATED: Highlighted [id number] 10:35-0400 Diastolic blood pressure 64 mm[Hg] Kimberly Pavon AT [facility] Work Phone: NEGATED: Highlighted [id number] 10:35-0400 Heart rate 82 /min Kimberly Pavon AT [facility] Work Phone: NEGATED: Highlighted [id number] 10:35-0400 Systolic blood pressure 105 mm[Hg] Kimberly Pavon AT [facility] Work Phone: Encounters Encounter Date Encounter Type Care Provider Facility Start: 03-20-2023 End: 03-20-2023 ambulatory [facility] Start: 03-20-2023 End: 03-20-2023 Encounter for general adult medical examination without abnormal findings [facility] Start: 03-20-2023 End: 03-20-2023 Assay of hemosiderin, quant Oz Jiang MD Work Phone: [facility] Work Phone: Start: 03-20-2023 End: 03-20-2023 Patient encounter procedure Oz Jiang MD Work Phone: [facility] Procedures Date Procedure Procedure Detail Performing Clinician Start: 02-11-2020 End: 02-11-2020 BP scrn no perf at interval Rachel Giron [employer] Work Phone: Start: 02-11-2020 End: 02-11-2020 Calc BMI abv up jayashree f/u Rachel garcia [employer] Work Phone: Start: 02-11-2020 End: 02-11-2020 Current tobacco non-user cad cap copd pv dm Rachel Giron APRN-[employer]SULTANT Work Phone: Start: 02-11-2020 End: 02-11-2020 Docrev cur meds by toby cardenas Rachel Cravenjose [employer] Work Phone: Start: 02-11-2020 End: 02-11-2020 Falls plan of care documented Rachel Giron APRN-[employer]SULTANT Work Phone: Start: 02-11-2020 End: 02-11-2020 Falls risk assessment documented Rachel Giron [employer] Work Phone: Start: 02-11-2020 End: 02-11-2020 Pain doc pos and plan Rachel Giron [employer] Work Phone: Start: 02-11-2020 End: 02-11-2020 Patient encounter procedure Rachel Giron [employer] CONSULTANT Work Phone: Start: 02-11-2020 End: 02-11-2020 Pt falls assess docd 2/> falls/fall w/injury/yr Rachel Cravenjose [employer] Work Phone: Start: 08-06-2019 End: 08-12-2019 BP scrn perf rec interval Pavan Hunt DO Work Phone: Start: 08-06-2019 End: 08-12-2019 Calc BMI abv up jayashree f/u Pavan Hunt DO Work Phone: Start: 08-06-2019 End: 08-12-2019 Current tobacco non-user cad cap copd pv dm Pavan Hunt DO Work Phone: Start: 08-06-2019 End: 08-12-2019 Docrev cur meds by toby Hunt DO Work Phone: Start: 08-06-2019 End: 08-12-2019 Falls plan of care documented Pavan Hunt DO Work Phone: Start: 08-06-2019 End: 08-12-2019 Falls risk assessment documented Pavan Hunt DO Work Phone: Start: 08-06-2019 End: 08-12-2019 Pain doc pos and plan Pavan Hunt DO Work Phone: Start: 08-06-2019 End: 08-12-2019 Patient encounter procedure Pavan Hunt DO Work Phone: Start: 08-06-2019 End: 08-12-2019 Pt falls assess docd 2/> falls/fall w/injury/yr Pavan Hunt DO Work Phone: Start: 08-06-2019 End: 08-08-2019 Radex spine lumbosacral minimum 4 views Pavan Hunt DO Work Phone: Start: 04-22-2019 End: 04-24-2019 BP scrn perf rec interval Jenn Hernández ield [employer] Work Phone: Start: 04-22-2019 End: 04-24-2019 Calc BMI abv up jayashree f/u Jenn Hernández ield [employer] Work Phone: Start: 04-22-2019 End: 04-24-2019 Current tobacco non-user cad cap copd pv dm Jenn Elliott [employer] Work Phone: Start: 04-22-2019 End: 04-24-2019 Docrev cur meds by elig clin Jenn Elliott [employer] Work Phone: Start: 04-22-2019 End: 04-24-2019 Pain neg no plan Jenn Elliott [employer] Work Phone: Start: 04-22-2019 End: 04-24-2019 Patient encounter procedure eJnn Elliott [employer] Work Phone: Start: 04-22-2019 End: 04-22-2019 Radex spine lumbosacral 2/3 views Jenn Elliott [employer] Work Phone: Start: 02-21-2019 End: 02-21-2019 BP scrn perf rec interval Rachel garcia [facility] [facility] Work Phone: Start: 02-21-2019 End: 02-21-2019 Calc BMI out nrm jayashree nof/u Rachel Giron APRN-[employer] CONSULTANT Work Phone: Start: 02-21-2019 End: 02-21-2019 Current tobacco non-user cad cap copd pv dm Rachel Phoenixed [employer] [facility] Work Phone: Start: 02-21-2019 End: 02-21-2019 Docrev cur meds by [facility] Rachel Phoenixdamienjose [facility] Work Phone: Start: 02-21-2019 End: 02-21-2019 Pain doc pos and plan Rachel Giron [employer] Work Phone: Start: 02-21-2019 End: 02-21-2019 Patient encounter procedure Rachel Giron [facility] Work Phone: Start: 12-27-2018 End: 01-02-2019 BP scrn perf rec interval Scot D Hunt DO Work Phone: Start: 12-27-2018 End: 01-02-2019 Calc BMI abv up jayashree f/u Scot D Hunt DO Work Phone: Start: 12-27-2018 End: 01-02-2019 Current tobacco non-user cad cap copd pv dm Scot D Hunt DO Work Phone: Start: 12-27-2018 End: 01-02-2019 Docrev cur meds by [facility] clin Scot D Hunt DO Work Phone: Start: 12-27-2018 End: 01-02-2019 Falls plan of care documented Scot D Hunt DO Work Phone: Start: 12-27-2018 End: 01-02-2019 Falls risk assessment documented Scot D Hunt DO Work Phone: Start: 12-27-2018 End: 01-02-2019 Pain doc pos and plan Scot D Hunt DO Work Phone: Start: 12-27-2018 End: 01-02-2019 Patient encounter procedure Pavan Hunt DO Work Phone: Start: 12-27-2018 End: 01-02-2019 Pt falls assess docd 2/> falls/fall w/injury/yr Pavan Hunt DO Work Phone: Start: 11-13-2018 End: 11-15-2018 Calc BMI abv up jayashree f/u Jenn Bossenriqueta ield [employer] Work Phone: Start: 11-13-2018 End: 11-15-2018 Current tobacco non-user cad cap copd pv dm Jenn Bradley Earl [employer] Work Phone: Start: 11-13-2018 End: 11-15-2018 Docrev cur meds by toby clin Jenn Bradley Earl [employer] Work Phone: Start: 11-13-2018 End: 11-15-2018 Falls plan of care documented Jenn Elliott [employer] Work Phone: Start: 11-13-2018 End: 11-15-2018 Falls risk assessment documented Jenn Mirna BossDavis [employer] Work Phone: Start: 11-13-2018 End: 11-15-2018 Pain doc pos and plan Jennkarma BossDavis [employer] Work Phone: Start: 11-13-2018 End: 11-15-2018 Patient encounter procedure Jenn Elliott [employer] Work Phone: Start: 11-13-2018 End: 11-15-2018 Pt falls assess docd 2/> falls/fall w/injury/yr Jenn Elliott [employer] Work Phone: Start: 11-13-2018 End: 11-13-2018 Radex spine lumbosacral minimum 4 views Jenn Elliott [employer] Work Phone: Start: 03-20-2018 End: 03-20-2018 BP scrn perf rec interval Zhang torrez MD Work Phone: Start: 03-20-2018 End: 03-20-2018 Calc BMI abv up jayashree f/u Zhang torrez MD Work Phone: Start: 03-20-2018 End: 03-20-2018 Current tobacco non-user cad cap copd pv dm Zhang Vargas MD Work Phone: Start: 03-20-2018 End: 03-20-2018 Docrev cur meds by toby Vargas MD Work Phone: Start: 03-20-2018 End: 03-20-2018 Falls plan of care documented Zhang Vargas MD Work Phone: Start: 03-20-2018 End: 03-20-2018 Falls risk assessment documented Zhang Vargas MD Work Phone: Start: 03-20-2018 End: 03-20-2018 Osteoarthritis symptoms&funcjal status asses Zhang Vargas MD Work Phone: Start: 03-20-2018 End: 03-20-2018 Pain doc pos and plan Zhang Vargas MD Work Phone: Start: 03-20-2018 End: 03-20-2018 Patient encounter procedure Zhang Vargas MD Work Phone: Start: 03-20-2018 End: 03-20-2018 Pt falls assess docd 2/> falls/fall w/injury/yr Zhang Vargas MD Work Phone: Start: 11-02-2017 End: 11-02-2017 BP scrn perf rec interval Rachel garcia [employer] Work Phone: Start: 11-02-2017 End: 11-02-2017 Calc BMI abv up jayashree f/u Rachel garcia [employer] Work Phone: Start: 11-02-2017 End: 11-02-2017 Current tobacco non-user cad cap copd pv dm Rachel Giron [employer] Work Phone: Start: 11-02-2017 End: 11-02-2017 Docrev cur meds by toby cardenas Rachel Giron [employer] Work Phone: Start: 11-02-2017 End: 11-02-2017 Falls plan of care documented Rachel Giron [employer] Work Phone: Start: 11-02-2017 End: 11-02-2017 Falls risk assessment documented Rachel Giron [employer] Work Phone: Start: 11-02-2017 End: 11-02-2017 Pain doc pos and plan Rachel Giron [employer] Work Phone: Start: 11-02-2017 End: 11-02-2017 Patient encounter procedure Rachel Giron [employer] Work Phone: Start: 11-02-2017 End: 11-02-2017 Pt falls assess docd 2/> falls/fall w/injury/yr Rachel Giron [employer] Work Phone: Start: 05-19-2014 Colonoscopy Oz brothers MD Work Phone: Amputation of lower limb Mikaela marc Jiang Work Phone: Arthroplasty of knee Oz Jiang Work Phone: Decompression of med ruben nerve Oz Jiang Work Phone: Prosthetic arthropla sty of shoulder Oz Jiang Work Phone: NEGATED: Highlighted rowStart: 02-11-2020 End: 02-11-2020 Documentation of current medications Kimberly Pavon AT NEGATED: Highlighted rowStart: 08-06-2019 End: 08-06-2019 Documentation of current medications Stefanie Collins AT NEGATED: Highlighted rowStart: 08-06-2019 End: 08-06-2019 Pedal pulse taking Stefaniele Collins AT NEGATED: Highlighted rowStart: 04-22-2019 End: 04-22-2019 Documentation of current medications Radha Tirso MANAGER WELLNESS NEGATED: Highlighted rowStart: 02-21-2019 End: 02-21-2019 Documentation of current medications Luisito Andrews AT NEGATED: Highlighted rowStart: 12-27-2018 End: 12-27-2018 Documentation of current medications Kimberly Savanah AT NEGATED: Highlighted rowStart: 12-27-2018 End: 12-27-2018 Pedal pulse taking Kimberly Savanah AT NEGATED: Highlighted rowStart: 11-13-2018 End: 11-13-2018 Documentation of current medications Kimberly Savanah AT NEGATED: Highlighted rowStart: 11-13-2018 End: 11-13-2018 Pedal pulse taking Kimberly Savanah AT NEGATED: Highlighted rowStart: 03-20-2018 End: 03-20-2018 Documentation of current medications Kiana Carl SANTAN NEGATED: Highlighted rowStart: 11-02-2017 End: 11-02-2017 Documentation of current medications Kimberly Savanah AT Plan of Treatment Date Care Activity Detail Author Start: 05-19-2024 Screening for malignant neoplasm of [facility] Start: 03-20-2023 FUV, Provider: Oz Jiang, Status: Pen, Time: 1:00 PM FUV, Provider: Oz Jiang, Status: Pen, Time: 1:00 PM [facility] Work Phone: Start: 03-20-2023 End: 03-20-2024 Prostate specific Ag [Mass/volume] in Serum or Plasma Prostate Specific Antigen, Screen Lab Routine Encounter for screening for malignant neoplasm of prostate Healthcare maintenance Expected: 03/20/2023 (Approximate), Expires: 03/20/2024 [facility] Service Area Work Phone: Immunizations Immunization Date Immunization Notes Care Provider Mario nava 03-17-2022 Fluzone High-Dose Quadrivalent 0.7 ML Intramuscular Suspension Prefilled Syringe; Translations: [Fluzone High-Dose Quadrivalent 0.7 ML Intramuscular Suspension Prefilled Syringe] Oz Jiang Work Phone: [facility] Work Phone: Payers Date Payer Category Payer Unknown [id number] 2016 Medicare [id number] 2016 Medicare [id number] 1950 Unknown [id number] 1950 Unknown [id number] 1950 Unknown [id number] 1950 Unknown [id number] Unknown Social History Date Type Detail Facility Assertion Unknown if ever smoked [facility] Work Phone: Start: 11-02-2017 End: 02-11-2020 Assertion Unknown if ever smoked [facility] Work Phone: Start: 02-07-2023 No recent foreign travel No recent foreign travel [facility] Work Phone: Start: 02-07-2023 Tobacco smoking stat NHIS Ex-smoker [facility] Work Phone: History of tobacco use Current smoker [facility] Work Phone: History of tobacco use Cigarette Smoker [facility] Work Phone: Start: 02-07-2023 Tobacco use and exposure Smokeless tobacco non-user [facility] Work Phone: Start: 02-07-2023 Tobacco use panel [facility] Work Phone: Start: 1950 Sex Assigned At Not on file [facility] Work Phone: Start: 03-20-2023 Alcohol intake Lifetime non-d rox (finding) [facility] Work Phone: Start: 03-10-2023 End: 03-20-2023 Exposure to SARS-CoV-2 (event) Not sure [facility] Functional Status Date Assessment Result Facility NEGATED: Highlighted row Functional performance Functional status health issues are not documented [facility] Work Phone: Mental Status Date Assessment Result Facility NEGATED: Highlighted row Cognitive function [Interpretation] Cognitive status health issues are not documented [facility] Work Phone: Clinical Notes 01-02-2019 to 03-20-2023 Oz Jiang MD - 03/20/2023 1:00 PM EDTPatient InstructionsWard Moeller APRN-GALINDO - 02/17/2023 2:30 PM EDTDosusana Jiang MD - 02/07/2023 11:20 AM EDT Note Date & Type Note Facility 03-20-2023 History of Present illness Narrative Subjective Reason for Visit: Olvin Harmon is an 72 y.o. male here for a Medicare Wellness visit. Past Medical, Surgical, and Family History reviewed and updated in chart. Reviewed all medications by prescribing practitioner or clinical pharmacist (such as prescriptions, OTCs, herbal therapies and supplements) and documented in the medical record. HPI Advance directives:. Advanced Care Planning discussed and documented advance care plan or surrogate decision maker documented in the medical record. Patient has no living will. Patient has no healthcare POA. Patient's End of Life Decisions: End of life decisions were not reviewed with the patient. I do not agree to follow the patient's decisions. Concerns with the patient's end of life decisions: Full code. Dr King ortega for thyroid Started Vitamin D and prolia based on arm dexa Started 02/2023 Osteoporosis History of right above knee amputation had Left THR 2018 RhA - Rheumatoid arthritis per Dr Diehl labs per Dr Diehl left knee revision 2017 [facility] 2018 h.o discectomy 2004 walker insufficient when not using leg wheelchair adl s in house outside shopping are self propel no cp no sob some cough from covid but get better usles albuterol for uri no nocturia 2019 pt had undetected left mandibular fx which has now been fixed Had covid 1 month ago Recommend covid in 2 to 3 months Influenza: today Pneumovax 23/Prevnar 15: Pneumovax 23/Prevnar 15 vaccine was previously given and 10/28/2019. Shingles Vaccine: Shingles vaccine was recommended Prostate cancer screening: Screening ordered. Colorectal Cancer Screening: screening is current and 05/19/14. Abdominal Aortic Aneurysm screening: screening is current and Jjune 2019. Patient Care Team: Oz Jiang MD as PCP - General Oz Jiang MD as PCP - [facility] Attributed Provider Review of Systems Objective Vitals: BP 120/80 Pulse 108 Ht 1.499 m (4' 11 ) Wt 60.6 kg (133 lb 8 oz) SpO2 98% BMI 26.96 kg/m Physical Exam Constitutional: Appearance: Normal appearance. HENT: Head: Normocephalic and atraumatic. Eyes: Conjunctiva/sclera: Conjunctivae normal. Pupils: Pupils are equal, round, and reactive to light. Cardiovascular: Rate and Rhythm: Normal rate and regular rhythm. Heart sounds: Normal heart sounds. Pulmonary: Effort: Pulmonary effort is normal. Breath sounds: Normal breath sounds. Musculoskeletal: Comments: Right leg prosthesis Lymphadenopathy: Cervical: No cervical adenopathy. Skin: Coloration: Skin is not jaundiced. Neurological: General: No focal deficit present. Mental Status: He is alert and oriented to person, place, and time. Psychiatric: Mood and Affect: Mood normal. Behavior: Behavior normal. Thought Content: Thought content normal. Judgment: Judgment normal. Assessment/Plan Problem List Items Addressed This Visit RESOLVED: Asthma Relevant Medications albuterol 90 mcg/actuation inhaler Age-related osteoporosis without current pathological fracture Rheumatoid arthritis (CMS/HCC) Other Visit Diagnoses Routine general medical examination at health care facility - Primary Encounter for screening for malignant neoplasm of prostate Relevant Orders Prostate Specific Antigen, Screen Healthcare maintenance Relevant Orders Prostate Specific Antigen, Screen Patient was identified as a fall risk. Risk prevention instructions provided. documented in this encounter [facility] Work Phone: 03-20-2023 Instructions Oz Jiang MD - 03/20/2023 1:00 PM EDT Ways to Help Prevent Falls at Home Quick Tips ? Ask for help if you need it. Most people want to help! ? Get up slowly after sitting or laying down ? Wear a medical alert device or keep cell phone in your pocket ? Use night lights, especially areas near a bathroom ? Keep the items you use often within reach on a small stool or end table ? Use an assistive device such as walker or cane, as directed by provider/physical therapy ? Use a non-slip mat and grab bars in your bathroom. Look for home health sections for best options Other Areas to Focus On ? Exercise and nutrition: Regular exercise or taking a falls prevention class are great ways improve strength and balance. Don t forget to stay hydrated and bring a snack! ? Medicine side effects: Some medicines can make you sleepy or dizzy, which could cause a fall. Ask your healthcare provider about the side effects your medicines could cause. Be sure to let them know if you take any vitamins or supplements as well. ? Tripping hazards: Remove items you could trip on, such as loose mats, rugs, cords, and clutter. Wear closed toe shoes with rubber soles. ? Health and wellness: Get regular checkups with your healthcare provider, plus routine vision and hearing screenings. Talk with your healthcare provider about: o Your medicines and the possible side effects - bring them in a bag if that is easier! o Problems with balance or feeling dizzy o Ways to promote bone health, such as Vitamin D and calcium supplements o Questions or concerns about falling *Ask your healthcare team if you have questions [facility] 2021 documented in this encounter [facility] Work Phone: 02-17-2023 History of Present illness Narrative Subjective Patient ID: Olvin Harmon is a 72 y.o. male who presents for covid. Covid Sx onset: today Covid +: 02/17/2023 Sx include: TEJEDA, 102.1 fever, nasal/sinus congestion, sore throat. 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 Negative for activity change, chills and fatigue. HENT: Positive for congestion, sinus pressure and sore throat. Respiratory: Negative for cough, shortness of breath and wheezing. Cardiovascular: Negative for chest pain and palpitations. Musculoskeletal: Positive for myalgias. Negative for arthralgias. Skin: Negative. Neurological: Positive for headaches. Negative for dizziness and light-headedness. Objective There were no vitals taken for this visit. Physical Exam Constitutional: General: He is not in acute distress. Comments: Unable to perform complete physical exam due to virtual visit (audio only), spoke with patient on phone, alert and clear conversation. Neurological: Mental Status: He is alert and oriented to person, place, and time. Assessment/Plan Diagnoses and all orders for this visit: COVID-19 - nirmatrelvir-ritonavir (Paxlovid) 300 mg (150 mg x 2)-100 mg tablet therapy pack; Take 3 tablets by mouth 2 times a day for 5 days. Follow the instructions on the package -Prescribed Paxlovid, Use OTC Tylenol as needed for pain/fever and Mucinex or Robitussin as needed for cough/congestion. Advised do not take any NSAID's while on Mobic Follow CDC guidelines for quarantine and masking. documented in this encounter [facility] Work Phone: 02-07-2023 History of Present illness Narrative Subjective Patient ID: Olvin Harmon is a 72 y.o. male who presents for Neck Pain (Pt. C/o neck pain x 1 week.). 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 He has right neck stiffness. Has had right shoulder replacement history of rheumatoid arthritis on multiple rheumatological medications. He is tried ice heat. He has tried home exercises. Review of Systems Objective BP 130/82 Pulse 102 Ht 1.499 m (4' 11 ) Wt 60.4 kg (133 lb 3.2 oz) SpO2 97% BMI 26.90 kg/m Physical Exam Constitutional: Appearance: Normal appearance. HENT: Head: Normocephalic and atraumatic. Cardiovascular: Rate and Rhythm: Regular rhythm. Heart sounds: Normal heart sounds. Musculoskeletal: Comments: Upper extremities DTRs equal bilaterally has severely reduced range of motion of the right shoulder with only about 20 degrees of AB duction. Tenderness to palpation of the right cervical paraspinals. Lymphadenopathy: Cervical: No cervical adenopathy. Skin: Coloration: Skin is not jaundiced. Neurological: General: No focal deficit present. Mental Status: He is alert and oriented to person, place, and time. Psychiatric: Mood and Affect: Mood normal. Behavior: Behavior normal. Thought Content: Thought content normal. Judgment: Judgment normal. Assessment/Plan Diagnoses and all orders for this visit: Strain of neck muscle, initial encounter - cyclobenzaprine (Flexeril) 5 mg tablet; Take 1 tablet (5 mg) by mouth 3 times a day as needed for muscle spasms. documented in this encounter [facility] Work Phone: [facility] Work Phone: [phone] 602-765403-02-2020 Instructions* Instruction Description Start Date CompletedPatient advised to follow-up with Primary Care Physician for BMI management. [facility] Work Phone: [phone] Instructions* Instruction Description Start Date Completed [facility] Work Phone: [phone] Instructions* Instruction Description Start Date CompletedPatient advised to follow-up with Primary Care Physician for BMI management. [facility] Work Phone: Evaluation noteThere may be information available, but it has not been provided by the sender.[facility] Work Phone: Evaluation note* Diagnosis Strain of neck muscle, initial encounter- Primary documented in this encounter [facility] Work Phone: Evaluation note* Diagnosis COVID-19- Primary documented in this encounter [facility] Work Phone: Evaluation note* Diagnosis Routine general medical examination at health care facility- Primary Routine general medical examination at a health care facility Asthma, unspecified asthma severity, unspecified whether complicated, unspecified whether persistent Encounter for screening for malignant neoplasm of prostate Healthcare maintenance Age-related osteoporosis without current pathological fracture Rheumatoid arthritis, involving unspecified site, unspecified whether rheumatoid factor present ([facility]) documented in this encounter [facility] Work Phone: History of Present illness Narrative* The patient is being seen for the subsequent annual wellness visit. * Past Medical, Surgical and Family History: reviewed and updated in chart. * Medications and Supplements: Review of all medications by a prescribing practitioner or clinical pharmacist (such as prescriptions, OTCs, herbal therapies and supplements) documented in the medical record. * Yes, the patient is using opioids. * Patient Self Assessment of Health Status: good. * Tobacco use: Non-User * Alcohol use: Non-User * Illicit drug use: Non-User * Current diet: does consume caffeine. * Exercise Frequency: the patient does not exercise. * Depression/Suicide Screening: . * During the past 2 weeks, the patient has not felt down, depressed or hopeless. * During the past 2 weeks, the patient has not felt little interest or pleasure in doing things. * Hearing Impairment: none. * Cognitive Impairment: No cognitive impairment observed. * clock correct. * Bathing: performs independently. * Dressing: performs independently. * Walking: needs assistance. * Bladder: continent. * Managing Finances: performs independently. * Shopping: performs independently. * Managing Medications: performs independently. * Housework / Basic Home Maintenance: performs independently. * Falls Risk Screening:. OLVIN has fallen in the last 6 months. His fall did not result in injury. * Fall risk factors: polypharmacy and mobility impairment, but no sedative use, no urinary incontinence, no visual impairment, no alcohol use, no deconditioning, no cognitive impairment, no antihypertensive use, no postural hypotension, up and go test was normal and no antidepressant use. * Care Plan Low/Moderate Risk: Regular physical activity such as walking, water aerobics or susu chi to improve strength, balance, coordination and flexibility. Wear appropriate, sensible shoe wear. Remove fall hazards at home such as loose rugs, obstacles, use non-slip surface in bath or shower. Keep living space well lit. * Home safety risk factors: loose rugs. * Advance directives:. Advanced Care Planning discussed and documented advance care plan or surrogatedecision maker documented in the medical record. Patient has no living will. Patient has no healthcare POA. * Patient's End of Life Decisions: End of life decisions were not reviewed with the patient. I do notagree to follow the patient's decisions. Concerns with the patient's end of life decisions: Full code. * Epilepsy * last sz 1969 * on no sz med except gabapentin which is used for chronic pain * History of right above knee amputation * had Left THR 2018 * RhA - Rheumatoid arthritis per Dr Diehl * stopped med 2 weeks prior to surgrey * labs per Dr Diehl * left knee revision 2016 * Lumbar fusion [facility] 2017 * h.o discectomy 2003 * walker insufficient when not using leg * wheelchair adl s in house * outside shopping are self propel * no h/o PA, CHF, CVA, TIA * no cp no sob no cough * usles albuterol for uri * no nocturia * 2019 pt had undetected left mandibular fx which has now been fixed [facility] Work Phone: Instructions* Instruction Description Start Date CompletedPatient advised to follow-up with Primary Care Physician for BMI management. [facility] Work Phone: Instructions* Instruction Description Start Date CompletedPatient advised to follow-up with Primary Care Physician for BMI management. [facility] Work Phone: Instructions* Instruction Description Start Date CompletedPlease follow-up wi Primary Care Physician or Tassel Maker for treatment or adjustment of medication regarding elevated blood pressure.Patient advised to follow-up with Primary Care Physician for BMI management. [facility] Work Phone: Instructions* Instruction Description Start Date CompletedPatient advised to follow-up with Primary Care Physician for BMI management. [facility] Work Phone: Summary Purpose Family History No Family History Records FoundThere may be information available, but it has not been provided by the sender.There may be information available, but it has not been provided by the sender.There may be information available, but it has not been provided by the sender.There may be information available, but it has not been provided by the sender.There may be information available, but it has not been provided by the sender.There may be information available, but it has not been provided by the sender.There may be information available, but it has not been provided by the sender.There may be information available, but it has not been provided by the sender.No Family History Records FoundNo Family History Records FoundNo Family History Records Found Advance Directives No Advanced Directives Records FoundThere may be information available, but it has not been provided by the sender.There may be information available, but it has not been provided by the sender.There may be information available, but it has not been provided by the sender.There may be information available, but it has not been provided by the sender.There may be information available, but it has not been provided by the sender.There may be information available, but it has not been provided by the sender.There may be information available, but it has not been provided by the sender.There may be information available, but it has not been provided by the sender.No Advanced Directives Records FoundNo Advanced Directives Records FoundNo Advanced Directives Records Found Chief Complaint Chief Complaint Description Start Date lower back post Posterolater al fusion L1-3 on 10/23/2017 Preliminary chief co mplaint data, not yet signed by the author as of Chief Complaint Description Start Date left hip pain Preliminary chief co mplaint data, not yet signed by the author as of Chief Complaint Description Start Date lower back post Posterolater al fusion L1-3 on 10/23/2017 Preliminary chief co mplaint data, not yet signed by the author as of Chief Complaint Description Start Date lower back pain Preliminary chief co mplaint data, not yet signed by the author as of Chief Complaint Description Start Date back post Lateral minimally invasive left discectomy L3-L4 in preparation PEEK interbody cage preparation for fusion Extreme left lateral interbody fusion L3-L4. on 02/06/2019 Preliminary chief co mplaint data, not yet signed by the author as of Chief Complaint Description Start Date lower back post Lateral mini benjamin invasive left discectomy L3-L4 in preparation PEEK interbody cage preparation for fusion Extreme left lateral interbody fusion L3-L4. on 02/06/2019 Preliminary chief co mplaint data, not yet signed by the author as of Chief Complaint Description Start Date lower back post Lateral mini benjamin invasive left discectomy L3-L4 in preparation PEEK interbody cage preparation for fusion Extreme left lateral interbody fusion L3-L4. on 02/06/2019 Preliminary chief co mplaint data, not yet signed by the author as of Chief Complaint Description Start Date lower back post Lateral mini benjamin invasive left discectomy L3-L4 in preparation PEEK interbody cage preparation for fusion Extreme left lateral interbody fusion L3-L4. on 02/06/2019 Preliminary chief co mplaint data, not yet signed by the author as of Additional Source Comments (unrecognized sect ion and content) No Status Records FoundNo Status Records FoundNo Status Records FoundNo Status Records Found INFORMATION SOURCE (unrecogn ized section and content) DATE CREATED AUTHOR AUTHOR'S ORGANIZ ATION 03/18/2022 [facility] DATE CREATED AUTHOR AUTHOR'S ORGANIZ ATION 03/18/2022 [facility] DATE CREATED AUTHOR AUTHOR'S ORGANIZ ATION 03/22/2023 [facility] Reason for Visit (unrecogniz ed section and content) Reason For Visit Description Start Date New/Est - 1st visit with physician 03/20 Preliminary reason f or visit data, not yet signed by the author as of left hip pain Reason For Visit Description Start Date Postop - subsequent visit Preliminary reason f or visit data, not yet signed by the author as of lower back post Posterolater al fusion L1-3 on 10/23/2017 Reason For Visit Description Start Date Test Result Preliminary reason f or visit data, not yet signed by the author as of lower back pain Reason For Visit Description Start Date Postop - 1st visit Preliminary reason f or visit data, not yet signed by the author as of back post Lateral minimally invasive left discectomy L3-L4 in preparation PEEK interbody cage preparation for fusion Extreme left lateral interbody fusion L3-L4. on 02/06/2019 Reason For Visit Description Start Date Postop - subsequent visit Preliminary reason f or visit data, not yet signed by the author as of lower back post Lateral mini benjamin invasive left discectomy L3-L4 in preparation PEEK interbody cage preparation for fusion Extreme left lateral interbody fusion L3-L4. on 02/06/2019 Reason For Visit Description Start Date Postop - subsequent visit Preliminary reason f or visit data, not yet signed by the author as of lower back post Lateral mini benjamin invasive left discectomy L3-L4 in preparation PEEK interbody cage preparation for fusion Extreme left lateral interbody fusion L3-L4. on 02/06/2019 Reason For Visit Description Start Date Postop - subsequent visit Preliminary reason f or visit data, not yet signed by the author as of lower back post Lateral mini benjamin invasive left discectomy L3-L4 in preparation PEEK interbody cage preparation for fusion Extreme left lateral interbody fusion L3-L4. on 02/06/2019 Reason Comments Neck Pain Pt. C/o neck pain x 1 week. Reason Comments covid Reason Comments Medicare Annual Wellness Visit Subsequen t 1 year mdck. Care Teams (unrecognized sec tion and content) Machine Stamper Relationship Specialty Start Date End Date Oz Jiang MD [address] [facility] [place]note 2], [facility] [address] [id number] PCP - General 10/22/19 Oz Jiang MD [address] [facility] [place]note 2], [facility] [address] [place] [address] PCP - MSSP ACO Attributed Provider 03/12/22 Machine Stamper Relationship Specialty Start Date End Date Oz Jiang MD [address] [facility] [place]note 2], [facility] [address] [place] [address] PCP - General 10/22/19 Oz Jiang MD [address] [facility] [place]note 2], [address] [place] [address] PCP - MSSP ACO Attributed Provider 03/12/22 FOR RECORDS PERTAINING TO PATIENTS WHO ARE OR HAVE BEEN ENROLLED IN A CHEMICAL DEPENDENCY/SUBSTANCEABUSE PROGRAM, SOME INFORMATION MAY BE OMITTED. This clinical summary was aggregated from multiple sources. Caution should be exercised in using it in the provision of clinical care. This summary normalizes information from multiple sources, and as a consequence, information in this document may materially change the coding, format and clinical context of patient data. In addition, data may be omitted in some cases. CLINICAL DECISIONS SHOULD BE BASED ON THE PRIMARY CLINICAL RECORDS. [facility] [employer] [facility]. provides no warranty or guarantee of the accuracy or completeness of information in this document.
[2023-06-21 17:45] LABS: Absolute Lymphocyte Count 1.61 X10^3/uL (0.83-4.51); Absolute Neutrophil Count 4.3 X10^3/uL (2.0-7.7); Basophil# 0.07 X10^3/uL; Eosinophil# 0.49 X10^3/uL; Hematocrit 37.4 % (40-54); Hemoglobin 11.9 g/dL (13.0-16.5); Lymphocyte # 1.61 X10^3/ul (0.83-4.51); Lymphocyte % 23.1 % (19-41); Mean Corp Hgb Conc 31.8 g/dL (32-36); Mean Corpuscular Hgb 32.1 pg (27.0-32.0); Mean Corpuscular Volume 100.8 fL (80-94); Mean Platelet Vol. 10.9 fl (6.2-12.0); Monocyte# 0.51 X10^3/uL; Monocyte% 7.3 % (0-10); NRBC Flagged by Analyzer 0 % (0-5); Neutrophil # 4.25 X10^3/uL (2.7-7.7); Neutrophil % 61.2 % (47-70); Platelet Count 233 K/mm3 (150-450); RBC Distribution Width CV 14.4 % (11.6-14.6); Red Blood Count 3.71 M/mm3 (4.6-6.2)
[2023-06-21 18:05] LABS: ALB/GLOB Ratio 1.1 RATIO (0.9-2.4); AST(SGOT) 24 U/L (15-37); Alanine Aminotransfer ALT/SGPT 25 U/L (16-61); Albumin, Serum 3.7 g/dL (3.2-5.0); Alkaline Phosphatase 57 U/L (45-117); Anion Gap 5 (5-15); BUN 25 mg/dL (7-18); BUN/Creat Ratio 25.7 RATIO (10-20); Calcium,Total 9.1 mg/dL (8.5-10.1); Chloride 114 mmol/L (98-107); Creatinine, Serum 0.97 mg/dL (0.70-1.30); EST Glomerular Filtration Rate 81 mL/min (>60); Est Glom Filt Rate - Afr Amer 98 mL/min (>60); Globulin 3.3 g/dL (2.2-4.2); Glucose 83 mg/dL (74-106); Potassium 4.2 mmol/L (3.5-5.1); Sodium Level 142 mmol/L (136-145)
== END | disposition home or self-care (01) ==
PROVIDERS: PCP Family Medicine; Referring Provider Internal Medicine Rheumatology; Visit Provider Internal Medicine Rheumatology
DX: M06.00 Rheumatoid arthritis without rheumatoid factor, unspecified site (principal); Z79.899 Other long term (current) drug therapy
CPT/HCPCS: 36415; 80053; 85025

== ENCOUNTER 2023-08-17 14:49 | Outpatient (CLI) | payer MEDICARE, SELFPAY ==
[2023-08-17 15:02] VITALS: BP 153/99; PULSE 107; RESP 16; TEMP 36.9; O2SAT 98
[2023-08-17] MEDS: DENOSUMAB 60 MG/ML SC (15:13)
--- OUTSIDE RECORDS SUMMARY | 2023-08-17 19:42 | XMS RPT_ITS | CCD ---
Author Name Unknown Address [address] [place] [address] Organization [facility] Care Team Providers Care Supervisor Coffee Name Role Phone September Unavailable Unavailable OpsRachel ward Unavailable Unavailabl Mahi Finch Unavailable Unavailable Uche Menon Unavailable Unavailable Mahi Whitten Unavailable Unavailable Raquel Martinez Unavailable Unavailable Oz Jiang Unavailable Unavailable Opsitjose HOTEL RESERVATION AGENT-ART GLASS SETTER, Rachel Unavailable Zhang Vargas MD Unavailable [place] HOTEL RESERVATION AGENT-ART GLASS SETTER, Jenn Bradley Unavailable Paavn Hunt DO Unavailable Oz Jiang Unavailable Unavailable Unavailable OZ JIANG Referring Unavailable OZ JIANG Attending Unavailable OZ JIANG Primary Care Unavailable Oz Jiang MD Primary Care Provider Oz Jiang MD Unavailable [phone] OZ JIANG Attending Unavailable OZ JIANG Primary Care Unavailable STANISLAV MOELLER Attending Unavailable OZ JIANG Primary Care Unavailable OZ JIANG Attending Unavailable OZ JIANG Primary Care Unavailable YEYO BRANDON Referring Unavail able OZ JIANG Primary Care Unavailable Allergies Allergy Classification Reported Allergen(s) Allergy Type Date of Onset Reaction(s) Facility (8 sources) Cat; Translations: [CATS] allergy to substance [address] [facility] Work Phone: (8 sources) [facility]; Translations: [ANIMALS] allergy to substance [address] [facility] Work Phone: [...] hours as needed for pain HYDROCODONE-ACETAM INOPHEN [phone] Rachel Giron HOTEL RESERVATION AGENT-[facility] [id number] 200 actuat albuterol 0.09 mg/actuat metered dose [...] TABLET ONCE WEEKLY. Quantity: 4 Refills: 11 Oz Jiang Start : 26-Apr-2019 Active Problems Active Problems [...] [Osteoporosis, unspecified] Onset: 03-20-2023 03-20-2023 Chronic Other connective tissue disease (2 sources) Presence of left artificial hip joint; Translations: [Presence of left artificial hip joint] Onset: 08-03-2023 Chronic Other non-traumatic joint disorders (11 sources) [...] level, initial encounter] Onset: 02-07-2023 02-07-2023 Episodic Unclassified (1 source) Low back pain, unspecified; Translations: [Low back pain, unspecified] Onset: 08-03-2023 Viral infection (1 source) Disease caused by [...] (3 sources) Onset: 02-07-2023 Resolved: 03-20-2023 02-07-2023 Unclassified (1 source) Low back pain, unspecified; Translations: [Low back pain, unspecified] Onset: 08-03-2023 NEGATED: Highlighted row has not occurred!Residual codes; unclassified (20 sources) Disease Episodic Results Test Name Value Interpretation Reference Range Facil ity Vital Signs Date Time Vital Sign Value Performing Clinician Facility 03-20-2023 12:51-0400 Body height 149.9 cm Oz Jiang MD Work Phone: [facility] 03-20-2023 12:51-0400 Body mass index (BMI) [Ratio] 26.96 kg/m2 Oz Jiang MD Work Phone: [facility] 03-20-2023 12:51-0400 Body weight 60.55 kg Oz Jiang MD Work Phone: [facility] 03-20-2023 12:51-0400 Diastolic blood pressure 80 mm[Hg] Oz Jiang MD Work Phone: [facility] 03-20-2023 12:51-0400 Heart rate 108 /min Oz Jiang MD Work Phone: [facility] 03-20-2023 12:51-0400 SaO2% (BldA) [Mass fraction] 98 % Oz Jiang MD Work Phone: [facility] 03-20-2023 12:51-0400 Systolic blood pressure 120 mm[Hg] Oz Jiang MD Work Phone: [facility] 02-07-2023 11:18-0400 Body height 149.9 cm Oz Jiang MD Work Phone: [facility] 02-07-2023 11:18-0400 Body mass index (BMI) [Ratio] 26.9 kg/m2 Oz Jiang MD Work Phone: [facility] 02-07-2023 11:18-0400 Body weight 60.42 kg Oz Jiang MD Work Phone: [facility] 02-07-2023 11:18-0400 Diastolic blood pressure 82 mm[Hg] Oz Jiang MD Work Phone: [facility] 02-07-2023 11:18-0400 Heart rate 102 /min Oz Jiang MD Work Phone: [facility] 02-07-2023 11:18-0400 SaO2% (BldA) [Mass fraction] 97 % Oz Jiang MD Work Phone: [facility] 02-07-2023 11:18-0400 Systolic blood pressure 130 mm[Hg] Oz Jiang MD Work Phone: [facility] 03-17-2022 14:23-0400 Body height 149.86 cm Oz Jiang Work Phone: [facility] Work Phone: 03-17-2022 14:23-0400 Body mass index (BMI) [Ratio] 26.3 kg/m2 Oz Jiang Work Phone: [facility] Work Phone: 03-17-2022 14:23-0400 Body surface area Derived from formula 1.54 m2 Oz Jiang Work Phone: [facility] Work Phone: 03-17-2022 14:23-0400 Body weight 59.05 kg Oz Jiang Work Phone: [facility] Work Phone: 03-17-2022 14:23-0400 Diastolic blood pressure 88 mm[Hg] Oz Ayouber Work Phone: [facility] Work Phone: 03-17-2022 14:23-0400 Heart rate 99 /min Oz Ayouber Work Phone: [facility] Work Phone: 03-17-2022 14:23-0400 SaO2% (BldA) [Mass fraction] 98 % Ozdajuan Ayouber Work Phone: [facility] Work Phone: 03-17-2022 14:23-0400 Systolic blood pressure 128 mm[Hg] Oz Ayouber Work Phone: [facility] Work Phone: NEGATED: Highlighted [id number] 13:06-0400 Body height 149.86 cm Kimberly Savanah AT [facility] Work Phone: NEGATED: Highlighted [id number] 13:06-0400 Body height 150 cm Kimberly Savanah AT [facility] Work Phone: NEGATED: Highlighted [id number] 13:06-0400 Body mass index (BMI) [Ratio] 25.14 kg/m2 Kmiberly Savanah AT [facility] Work Phone: NEGATED: Highlighted [id number] 13:06-0400 Body weight 56.25 kg Kimberly Savanah AT [facility] Work Phone: NEGATED: Highlighted [id number] 13:06-0400 Body weight 56 kg Kimberly Savanah AT [facility] Work Phone: NEGATED: Highlighted [id number] 14:13-0500 Body height 149.86 cm Stefanie Collins AT [facility] Work Phone: NEGATED: Highlighted [id number] 14:13-0500 Body height 150 cm Stefanie Collins AT [facility] Work Phone: NEGATED: Highlighted [id number] 14:13-0500 Body mass index (BMI) [Ratio] 27.57 kg/m2 Stefanie Collins AT [facility] Work Phone: NEGATED: Highlighted [id number] 14:13-0500 Body weight 61.69 kg Stefanie Collins AT [facility] Work Phone: NEGATED: Highlighted [id number] 14:13-0500 Body weight 62 kg Stefanie Collins AT [facility] Work Phone: NEGATED: Highlighted [id number] 14:13-0500 Diastolic blood pressure 82 mm[Hg] Stefanie Collins AT [facility] Work Phone: NEGATED: Highlighted [id number] 14:13-0500 Heart rate 92 /min Stefanie Collins AT [facility] Work Phone: NEGATED: Highlighted [id number] 14:13-0500 Systolic blood pressure 122 mm[Hg] Stefanie Collins AT [facility] Work Phone: NEGATED: Highlighted [id number] 14:43-0500 Body height 149.86 cm Radha Chahal FINANCIAL OPERATIONS CLERK [facility] Work Phone: NEGATED: Highlighted [id number] 14:43-0500 Body height 150 cm Radha Chahal LPN [facility] Work Phone: NEGATED: Highlighted [id number] 14:43-0500 Body mass index (BMI) [Ratio] 27.57 kg/m2 Radha Chahal LPN [facility] Work Phone: NEGATED: Highlighted [id number] 14:43-0500 Body weight 61.69 kg Radha Chahal LPN [facility] Work Phone: NEGATED: Highlighted [id number] 14:43-0500 Body weight 62 kg Radha Chahal LPN [facility] Work Phone: NEGATED: Highlighted [id number] 14:43-0500 Diastolic blood pressure 81 mm[Hg] Radha Chahal LPN [facility] Work Phone: NEGATED: Highlighted [id number] 14:43-0500 Heart rate 74 /min Radha Chahal LPN [facility] Work Phone: NEGATED: Highlighted [id number] 14:43-0500 Systolic blood pressure 129 mm[Hg] Radha Chahal LPN [facility] Work Phone: NEGATED: Highlighted [id number] 15:07-0400 Body height 149.86 cm Luisito Andrews AT [facility] Work Phone: NEGATED: Highlighted [id number] 15:07-0400 Body height 150 cm Luisito Andrews AT [facility] Work Phone: NEGATED: Highlighted [id number] 15:07-0400 Body mass index (BMI) [Ratio] 27.57 kg/m2 Luisito Andrews AT [facility] Work Phone: NEGATED: Highlighted [id number] 15:07-0400 Body weight 61.69 kg Luisito Andrews AT [facility] Work Phone: NEGATED: Highlighted [id number] 15:07-0400 Body weight 62 kg Luisito Andrews AT [facility] Work Phone: NEGATED: Highlighted [id number] 15:07-0400 Diastolic blood pressure 76 mm[Hg] Luisito Juliana AT [facility] Work Phone: NEGATED: Highlighted [id number] 15:07-0400 Heart rate 103 /min Luisito Hammondswski AT [facility] Work Phone: NEGATED: Highlighted [id number] 15:07-0400 Systolic blood pressure 116 mm[Hg] Luisito ReillyJuliana AT [facility] Work Phone: NEGATED: Highlighted [id number] 13:11-0400 Body height 150 cm Kimberly Savanah AT [facility] Work Phone: NEGATED: Highlighted [id number] 13:11-0400 Body height 149.86 cm Kimberly Savanah AT [facility] [place] [facility] Work Phone: NEGATED: Highlighted [id number] 13:11-0400 Body mass index (BMI) [Ratio] 27.57 kg/m2 Kimberly Savanah AT [facility] Work Phone: NEGATED: Highlighted [id number] Body weight 62 kg Kimberly Savanah AT [facility] [place] [facility] Work Phone: NEGATED: Highlighted [id number] 13:11-0400 Body weight 61.69 kg Kimberly Savanah AT [facility] Work Phone: NEGATED: Highlighted [id number] 13:11-0400 Diastolic blood pressure 83 mm[Hg] Kimberly Savanah AT [facility] Work Phone: NEGATED: Highlighted [id number] 13:11-0400 Heart rate 102 /min Kimberly Savanah AT [facility] [place] [facility] Work Phone: NEGATED: Highlighted [id number] 13:11-0400 Systolic blood pressure 129 mm[Hg] Kimberly Savanah AT [facility] [place] [facility] Work Phone: NEGATED: Highlighted [id number] 15:13-0400 Body height 149.86 cm Kimberly Savanah AT [facility] [place] [facility] Work Phone: NEGATED: Highlighted [id number] 15:13-0400 Body height 150 cm Kimberly Savanah AT [facility] [place] [facility] Work Phone: NEGATED: Highlighted [id number] 15:13-0400 Body mass index (BMI) [Ratio] 25.95 kg/m2 Kimberly Savanah AT [facility] [place] [facility] Work Phone: NEGATED: Highlighted [id number] 15:13-0400 Body weight 58.06 kg Kimberly Savanah AT [facility] [place] [facility] Work Phone: NEGATED: Highlighted [id number] 15:13-0400 Body weight 58 kg Kimberly Savanah AT [facility] [place] [facility] Work Phone: NEGATED: Highlighted [id number] 15:13-0400 Diastolic blood pressure 90 mm[Hg] Kimberly Savanah AT [facility] [place] [facility] Work Phone: NEGATED: Highlighted [id number] 15:13-0400 Diastolic blood pressure 85 mm[Hg] Kimberly Savanah AT [facility] Work Phone: NEGATED: Highlighted [id number] 15:13-0400 Heart rate 92 /min Ikmberly Savanah AT [facility] Work Phone: NEGATED: Highlighted [id number] 15:13-0400 Systolic blood pressure 129 mm[Hg] Kimberly Pavon AT [facility] Work Phone: NEGATED: Highlighted [id number] 15:13-0400 Systolic blood pressure 125 mm[Hg] Kimberly Pavon AT [facility] Work Phone: NEGATED: Highlighted [id number] 12:48-0400 Body height 149.86 cm [facility] Work Phone: NEGATED: Highlighted [id number] 12:48-0400 Body height 150 cm [facility] Work Phone: NEGATED: Highlighted [id number] 12:48-0400 Body mass index (BMI) [Ratio] 26.35 kg/m2 [facility] Work Phone: NEGATED: Highlighted [id number] 12:48-0400 Body weight 58.97 kg [facility] Work Phone: NEGATED: Highlighted [id number] 12:48-0400 Body weight 59 kg [facility] Work Phone: NEGATED: Highlighted [id number] 12:48-0400 Diastolic blood pressure 75 mm[Hg] [facility] Work Phone: NEGATED: Highlighted [id number] 12:48-0400 Heart rate 93 /min [facility] Work Phone: NEGATED: Highlighted [id number] 12:48-0400 Systolic blood pressure 111 mm[Hg] [facility] Work Phone: NEGATED: Highlighted [id number] 10:35-0400 Body height 149.86 cm Kimberly Pavon AT [facility] Work Phone: NEGATED: Highlighted [id number] 10:35-0400 Body height 150 cm Kimberly Savanah AT [facility] Work Phone: NEGATED: Highlighted [id number] 10:35-0400 Body mass index (BMI) [Ratio] 26.35 kg/m2 Kimberly Savanah AT [facility] Work Phone: NEGATED: Highlighted [id number] 10:35-0400 Body weight 58.97 kg Kimberly Savanah AT [facility] Work Phone: NEGATED: Highlighted [id number] 10:35-0400 Body weight 59 kg Kimberly Savanah AT [facility] Work Phone: NEGATED: Highlighted [id number] 10:35-0400 Diastolic blood pressure 64 mm[Hg] Kimberly Savanah AT [facility] Work Phone: NEGATED: Highlighted [id number] 10:35-0400 Heart rate 82 /min Kimberly Savanah AT [facility] Work Phone: NEGATED: Highlighted [id number] 10:35-0400 Systolic blood pressure 105 mm[Hg] Kimberly Savanah AT [facility] Work Phone: Encounters Encounter Date Encounter Type Care Provider Facility Start: 08-03-2023 End: 08-03-2023 ambulatory [facility] Start: 03-20-2023 End: 03-20-2023 ambulatory [facility] Start: 03-20-2023 End: 03-20-2023 Encounter for general adult medical examination without abnormal findings [facility] Start: 03-20-2023 End: 03-20-2023 Assay of hemosiderin, quant Oz Jiang MD Work Phone: [facility] Work Phone: Start: 03-20-2023 End: 03-20-2023 Patient encounter procedure Oz Jiang MD Work Phone: [facility] Procedures Date Procedure Procedure Detail Performing Clinician Start: 08-03-2023 AMB REFERRAL TO PHYS ICAL THERAPY YEYO BRANDON Start: 02-11-2020 End: 02-11-2020 BP scrn no perf at interval Rachel Giron HOTEL RESERVATION AGENT-[employer]TER Work Phone: Start: 02-11-2020 End: 02-11-2020 Calc BMI abv up jayashree f/u Rachel garcia HOTEL RESERVATION AGENT-ART GLASS [employer]TER Work Phone: Start: 02-11-2020 End: 02-11-2020 Current tobacco non-user cad cap copd pv dm Rachel Giron HOTEL RESERVATION AGENT-[employer] Work Phone: Start: 02-11-2020 End: 02-11-2020 Docrev cur meds by toby Giron HOTEL RESERVATION AGENT-ART GLASS SETTER Work Phone: Start: 02-11-2020 End: 02-11-2020 Falls plan of care documented Rachel Giron HOTEL RESERVATION AGENT-[employer] Work Phone: Start: 02-11-2020 End: 02-11-2020 Falls risk assessment documented Rachel Giron HOTEL RESERVATION AGENT-[employer] Work Phone: Start: 02-11-2020 End: 02-11-2020 Pain doc pos and plan Rachel Giron HOTEL RESERVATION AGENT-[employer] Work Phone: Start: 02-11-2020 End: 02-11-2020 Patient encounter procedure Rachel Giron APRN-ART GLASS SETTER Work Phone: Start: 02-11-2020 End: 02-11-2020 Pt falls assess docd 2/> falls/fall w/injury/yr Rachel Giron HOTEL RESERVATION AGENT-[employer] Work Phone: Start: 08-06-2019 End: 08-12-2019 BP scrn perf rec interval Pavan Hunt DO Work Phone: Start: 08-06-2019 End: 08-12-2019 Calc BMI abv up jayashree f/u Pavan Hunt DO Work Phone: Start: 08-06-2019 End: 08-12-2019 Current tobacco non-user cad cap copd pv dm Pavan Hunt DO Work Phone: Start: 08-06-2019 End: 08-12-2019 Docrev cur meds by toby cardenas Pavan Hunt DO Work Phone: Start: 08-06-2019 [...] scrn perf rec interval Jenn Hernández ield HOTEL RESERVATION AGENT-ART GLASS [employer]TER Work Phone: Start: 04-22-2019 End: 04-24-2019 Calc BMI abv up jayashree f/u Jenn Hernández ield HOTEL RESERVATION AGENT-ART [employer]TER Work Phone: Start: 04-22-2019 End: 04-24-2019 Current tobacco non-user cad cap copd pv dm Jenn Elliott HOTEL RESERVATION AGENT-ART [employer]TER Work Phone: Start: 04-22-2019 End: 04-24-2019 Docrev cur meds by toby Sandhukarma Elliott HOTEL RESERVATION AGENT-ART GL[employer]TER Work Phone: Start: 04-22-2019 End: 04-24-2019 Pain neg no plan Jenn Elliott HOTEL RESERVATION AGENT-[employer]TER Work Phone: Start: 04-22-2019 End: 04-24-2019 Patient encounter procedure Jenn Elliott HOTEL RESERVATION AGENT-[employer] Work Phone: Start: 04-22-2019 End: 04-22-2019 Radex spine lumbosacral 2/3 views Jenn Elliott HOTEL RESERVATION AGENT-ART GLASS [employer]TER Work Phone: Start: 02-21-2019 End: 02-21-2019 BP scrn perf rec interval Rachelglenda Garibayit jose HOTEL RESERVATION AGENT-ART GLASS [employer]TER Work Phone: Start: 02-21-2019 End: 02-21-2019 Calc BMI out nrm jayashree nof/u Rachel Garibaydamienjose HOTEL RESERVATION AGENT-ART [employer]TER Work Phone: Start: 02-21-2019 End: 02-21-2019 Current tobacco non-user cad cap copd pv dm Rachel Garibaydamienjose HOTEL RESERVATION AGENT-ART [employer]TER Work Phone: Start: 02-21-2019 End: 02-21-2019 Docrev cur meds by toby Garibaydamienjose HOTEL RESERVATION AGENT-[employer] Work Phone: Start: 02-21-2019 End: 02-21-2019 Pain doc pos and plan Rachel Garibaydamienjose HOTEL RESERVATION AGENT-[employer]TER Work Phone: Start: 02-21-2019 End: 02-21-2019 Patient encounter procedure Rachelcuate Cravenjose HOTEL RESERVATION AGENT-[employer] Work Phone: Start: 12-27-2018 End: 01-02-2019 BP scrn perf rec interval Scot D Hunt DO Work Phone: Start: 12-27-2018 End: 01-02-2019 Calc BMI abv up jayashree f/u Scot D Hunt DO Work Phone: Start: 12-27-2018 End: 01-02-2019 Current tobacco non-user cad cap copd pv dm Pavan Hunt DO Work Phone: Start: 12-27-2018 End: 01-02-2019 Docrev cur meds by toby cardenas Pavan Hunt DO Work Phone: Start: 12-27-2018 End: 01-02-2019 Falls plan of care documented Pavan Hunt DO Work Phone: Start: 12-27-2018 End: 01-02-2019 Falls risk assessment documented Pavan Hunt DO Work Phone: Start: 12-27-2018 End: 01-02-2019 Pain doc pos and plan Pavan Hunt DO [employer] Phone: Start: 12-27-2018 End: 01-02-2019 Patient encounter procedure Pavan Hunt DO [employer] Phone: Start: 12-27-2018 End: 01-02-2019 Pt falls assess docd 2/> falls/fall w/injury/yr Pavan Hunt DO Work Phone: Start: 11-13-2018 End: 11-15-2018 Calc BMI abv up jayashree f/u Jenn Hernández ield HOTEL RESERVATION AGENT-[employer]TER Work Phone: Start: 11-13-2018 End: 11-15-2018 Current tobacco non-user cad cap copd pv dm Jenn Elliott HOTEL RESERVATION AGENT-[employer]TER Work Phone: Start: 11-13-2018 End: 11-15-2018 Docrev cur meds by alvarado ronald Elliott HOTEL RESERVATION AGENT-[employer] Work Phone: Start: 11-13-2018 End: 11-15-2018 Falls plan of care documented Jenn Elliott HOTEL RESERVATION AGENT-[employer] Work Phone: Start: 11-13-2018 End: 11-15-2018 Falls risk assessment documented Jenn Elliott HOTEL RESERVATION AGENT-[employer] Work Phone: Start: 11-13-2018 End: 11-15-2018 Pain doc pos and plan Jenn Elliott HOTEL RESERVATION AGENT-[employer] Work Phone: Start: 11-13-2018 End: 11-15-2018 Patient encounter procedure Jenn Elliott HOTEL RESERVATION AGENT-[employer] Work Phone: Start: 11-13-2018 End: 11-15-2018 Pt falls assess docd 2/> falls/fall w/injury/yr Jenn Elliott HOTEL RESERVATION AGENT-[employer] Work Phone: Start: 11-13-2018 End: 11-13-2018 Radex spine lumbosacral minimum 4 views Jenn Elliott HOTEL RESERVATION AGENT-[employer] Work Phone: Start: 03-20-2018 End: 03-20-2018 BP [...] BP scrn perf rec interval Rachel garcia HOTEL RESERVATION AGENT-[employer] Work Phone: Start: 11-02-2017 End: 11-02-2017 Calc BMI abv up jayashree f/u Rachel garcia HOTEL RESERVATION AGENT-[employer] Work Phone: Start: 11-02-2017 End: 11-02-2017 Current tobacco non-user cad cap copd pv dm Rachel Giron HOTEL RESERVATION AGENT-[employer] Work Phone: Start: 11-02-2017 End: 11-02-2017 Docrev cur meds by toby cardenas Rachel Giron HOTEL RESERVATION AGENT-[employer] Work Phone: Start: 11-02-2017 End: 11-02-2017 Falls plan of care documented Rachel Giron HOTEL RESERVATION AGENT-[employer] Work Phone: Start: 11-02-2017 End: 11-02-2017 Falls risk assessment documented Rachel Giron HOTEL RESERVATION AGENT-[employer] Work Phone: Start: 11-02-2017 End: 11-02-2017 Pain doc pos and plan Rachel Giron HOTEL RESERVATION AGENT-[employer] Work Phone: Start: 11-02-2017 End: 11-02-2017 Patient encounter procedure Rachel Giron HOTEL RESERVATION AGENT-[employer] Work Phone: Start: 11-02-2017 End: 11-02-2017 Pt falls assess docd 2/> falls/fall w/injury/yr Rachel Giron HOTEL RESERVATION AGENT-[employer] Work Phone: Start: 05-19-2014 Colonoscopy Oz brothers MD Work Phone: Amputation of lower limb Mikaela marc Jiang Work Phone: Arthroplasty of knee Oz Jiang Work Phone: Decompression of med ruben nerve Oz Jiang Work Phone: Prosthetic arthropla sty of shoulder Oz Jiang Work Phone: NEGATED: Highlighted rowStart: 02-11-2020 End: 02-11-2020 Documentation of current medications Kimberly Savanah AT NEGATED: Highlighted rowStart: 08-06-2019 End: 08-06-2019 Documentation of current medications Stefanie Dennis AT NEGATED: Highlighted rowStart: 08-06-2019 End: 08-06-2019 Pedal pulse taking Stefanie Dennis AT NEGATED: Highlighted rowStart: 04-22-2019 End: 04-22-2019 Documentation of current medications Radha Chahal LPN NEGATED: Highlighted rowStart: 02-21-2019 End: 02-21-2019 Documentation of current medications Luisito Andrews AT NEGATED: Highlighted rowStart: 12-27-2018 End: 12-27-2018 Documentation of current medications Kimberly Savanah AT NEGATED: Highlighted rowStart: 12-27-2018 End: 12-27-2018 Pedal pulse taking Kimberly Savanah AT NEGATED: Highlighted rowStart: 11-13-2018 End: 11-13-2018 Documentation of current medications Kimberly Savanah AT NEGATED: Highlighted rowStart: 11-13-2018 End: 11-13-2018 Pedal pulse taking Ikmberly Savanah AT NEGATED: Highlighted rowStart: 03-20-2018 End: 03-20-2018 Documentation of current medications Kiana Henry LPN NEGATED: Highlighted rowStart: 11-02-2017 End: 11-02-2017 Documentation of current medications Kimberly Savanah AT Plan of Treatment Date Care Activity Detail Author Start: 05-19-2024 Screening for malignant neoplasm of [facility] Start: 03-20-2023 FUV, Provider: Oz Jiang, Status: Pen, Time: 1:00 PM FUV, Provider: Oz Jiang, Status: Pen, Time: 1:00 PM [facility] Work Phone: Start: 03-20-2023 End: 03-20-2024 Prostate specific Ag [Mass/volume] in Serum or Plasma Prostate Specific Antigen, Screen Lab Routine Encounter for screening for malignant neoplasm of prostate Healthcare maintenance Expected: 03/20/2023 (Approximate), Expires: 03/20/2024 [facility] Service Area Work Phone: Immunizations Immunization Date Immunization Notes Care Provider Mario nava 03-17-2022 Fluzone High-Dose Quadrivalent 0.7 ML Intramuscular Suspension Prefilled Syringe; Translations: [Fluzone High-Dose Quadrivalent 0.7 ML Intramuscular Suspension Prefilled Syringe] Oz Molly Jiang Work Phone: [facility] Work Phone: Payers Date Payer Category Payer Medicare [id number] 2021 Unknown [id number] 2016 Medicare [id number] 2016 Medicare [id number] 1950 Unknown [id number] 1950 Unknown [id number] [id number] [id number] 1950 Unknown [id number] [id number] [id number] 1950 Unknown [id number] [id number] [id number] 1950 Unknown [id number] Unknown Social History Date Type Detail Facility Assertion Unknown if ever smoked [facility] Work Phone: Start: 11-02-2017 End: 02-11-2020 Assertion Unknown if ever smoked [facility] Work Phone: Start: 02-07-2023 No recent foreign travel No recent foreign travel [facility] Work Phone: Start: 02-07-2023 Tobacco smoking stat us NHIS Ex-smoker [facility] Work Phone: History of tobacco use Current smoker [facility] Work Phone: History of tobacco use Cigarette Smoker [facility] Work Phone: Start: 02-07-2023 Tobacco use and exposure Smokeless tobacco non-user [facility] Work Phone: Start: 02-07-2023 [facility] Work Phone: Start: 1950 Sex Assigned At Not on file [facility] Work Phone: Start: 03-20-2023 Alcohol intake Lifetime non-d rox (finding) [facility] Work Phone: Start: 03-10-2023 End: 03-20-2023 Exposure to SARS-CoV-2 (event) Not sure [facility] Functional Status Date Assessment Result Facility NEGATED: Highlighted row Functional performance Functional status health issues are not documented [facility]: Mental Status Date Assessment Result Facility NEGATED: Highlighted row Cognitive function [Interpretation] Cognitive status health issues are not documented [facility] Work Phone: Clinical Notes 01-02-2019 to 03-20-2023 Oz Jiang MD - 03/20/2023 1:00 PM EDTPatient Kelly Moeller APRN-GALINDO - 02/17/2023 2:30 PM EDTDosusana [...] General Oz Jiang MD as PCP - [facility] Attributed Provider Review of Systems Objective [...] prevention instructions provided. documented in this encounter [facility] Work Phone: 03-20-2023 Instructions Oz Jiang MD [...] your healthcare team if you have questions [facility] 2021 documented in this encounter [facility] Work Phone: 02-17-2023 History of Present illness [...] quarantine and masking. documented in this encounter [facility] Work Phone: 02-07-2023 History of Present illness Narrative Subjective Patient ID: Olvin Harmon is a 72 y.o. male who presents for Neck Pain (Pt. C/o neck pain x 1 week.). HPI Patient and his removing landscape rock about a week ago he was [...] for muscle spasms. documented in this encounter [facility] Work Phone: [facility] Work Phone: 1(160) 755-659803-02-2020 Instructions* Instruction Description Start Date CompletedPatient advised to follow-up with Primary Care Physician for BMI management. [facility] Work Phone: [phone]) 480-182709-12-2019 Instructions* Instruction Description Start Date Completed [facility] Work Phone: [phone]) 532-349707-24-2019 Instructions* Instruction Description Start Date CompletedPatient advised to follow-up with Primary Care Physician for BMI management. [facility] Work Phone: Evaluation noteThere may be information available, but it has not been provided by the sender.[facility] Work Phone: Evaluation note* Diagnosis Strain of neck muscle, initial encounter- Primary documented in this encounter [facility] Work Phone: Evaluation note* Diagnosis COVID-19- Primary documented in this encounter [facility] Work Phone: Evaluation note* Diagnosis Routine general medical examination at health care facility- Primary Routine general medical examination at a health care facility Asthma, unspecified asthma severity, unspecified whether complicated, unspecified whether persistent Encounter for screening for malignant neoplasm of prostate Healthcare maintenance Age-related osteoporosis without current pathological fracture Rheumatoid arthritis, involving unspecified site, unspecified whether rheumatoid factor present ([facility]) documented in this encounter [facility] Work Phone: History of Present illness Narrative* [...] left knee revision 2016 * Lum[facility] 2018 * h.o discectomy 2004 * walker insufficient when not using leg * wheelchair adl s in house * outside shopping are self propel * no h/o AL, CHF, CVA, TIA * no cp no sob no cough * usles albuterol for uri * no nocturia * 2019 pt had undetected left mandibular fx which has now been fixed [facility] Work Phone: Instructions* Instruction Description Start Date CompletedPatient advised to follow-up with Primary Care Physician for BMI management. [facility] Work Phone: Instructions* Instruction Description Start Date CompletedPatient advised to follow-up with Primary Care Physician for BMI management. [facility] Work Phone: Instructions* Instruction Description Start Date CompletedPlease follow-up [facility] Primary Care Physician or [employer] Analyst for treatment or adjustment of medication regarding elevated blood pressure.Patient advised to follow-up with Primary Care Physician for BMI management. [facility] Work Phone: Instructions* Instruction Description Start Date CompletedPatient advised to follow-up with Primary Care Physician for BMI management. [facility] Work Phone: Summary Purpose Family History No [...] DATE CREATED AUTHOR AUTHOR'S ORGANIZ ATION 03/18/2022 [facility] DATE CREATED AUTHOR AUTHOR'S ORGANIZ ATION 03/18/2022 [employer] DATE CREATED AUTHOR AUTHOR'S ORGANIZ ATION 03/22/2023 [facility] DATE CREATED AUTHOR AUTHOR'S ORGANIZ ATION 08/11/2023 [facility] Reason for Visit (unrecogniz ed section and [...] as of lower back post Lateral mini benjamni invasive left discectomy L3-L4 in preparation PEEK [...] Care Teams (unrecognized sec tion and content) Supervisor Coffee Relationship Specialty Start Date End Date Oz Jiang MD [address] [facility], [facility] [address] [place] [address] PCP - General 10/22/19 Oz Jiang MD [address] [facility], [place] [address] [place] [id number] PCP - [facility] Attributed Provider 03/12/22 Supervisor Coffee Relationship Specialty Start Date End Date Oz Jiang MD [address] [facility], [place] [address] [place] [address] PCP - General 10/22/19 Oz Jiang MD [address] [facility] [place] [address] [place] [id number] PCP - [facility] Attributed Provider 03/12/22 [...] BE BASED ON THE PRIMARY CLINICAL RECORDS. [employer] [facility]. provides no warranty or guarantee of the accuracy or completeness of information in this document.
== END 2023-08-17 14:50 | disposition home or self-care (01) ==
LOC: MEDOUTP 14:49
PROVIDERS: PCP Family Medicine; Referring Provider Internal Medicine Endocrinology, Diabetes & Metabolism; Visit Provider Internal Medicine Endocrinology, Diabetes & Metabolism
DX: M81.0 Age-related osteoporosis without current pathological fracture (principal)
CPT/HCPCS: 96372; J0897

== ENCOUNTER → 2023-09-15 | Outpatient (CLI) | payer MEDICARE, SELFPAY ==
[2023-09-15 15:53] LABS: Absolute Lymphocyte Count 1.42 X10^3/uL (0.83-4.51); Absolute Neutrophil Count 5.7 X10^3/uL (2.0-7.7); Basophil# 0.04 X10^3/uL; Basophil% 0.5 % (0-1); Eosinophil# 0.36 X10^3/uL; Eosinophils% 4.5 % (0-5); Hematocrit 31.9 % (40-54); Hemoglobin 10.2 g/dL (13.0-16.5); Lymphocyte # 1.42 X10^3/ul (0.83-4.51); Lymphocyte % 17.8 % (19-41); Mean Corpuscular Hgb 32.3 pg (27.0-32.0); Mean Corpuscular Volume 100.9 fL (80-94); Mean Platelet Vol. 10.8 fl (6.2-12.0); Monocyte# 0.41 X10^3/uL; Monocyte% 5.1 % (0-10); NRBC Flagged by Analyzer 0 % (0-5); Neutrophil # 5.72 X10^3/uL (2.7-7.7); Neutrophil % 71.5 % (47-70); Platelet Count 269 K/mm3 (150-450); RBC Distribution Width CV 15.4 % (11.6-14.6); RBC Distribution Width SD 55.4 fl (35.1-43.9); Red Blood Count 3.16 M/mm3 (4.6-6.2)
[2023-09-15 16:39] LABS: AST(SGOT) 23 U/L (15-37); Alanine Aminotransfer ALT/SGPT 20 U/L (16-61); Albumin, Serum 3.3 g/dL (3.2-5.0); Alkaline Phosphatase 61 U/L (45-117); Anion Gap 4 (5-15); BUN 26 mg/dL (7-18); BUN/Creat Ratio 24.8 RATIO (10-20); Calcium,Total 9.5 mg/dL (8.5-10.1); Chloride 114 mmol/L (98-107); Creatinine, Serum 1.05 mg/dL (0.70-1.30); EST Glomerular Filtration Rate 74 mL/min (>60); Est Glom Filt Rate - Afr Amer 89 mL/min (>60); Globulin 3.3 g/dL (2.2-4.2); Glucose 93 mg/dL (74-106); Protein, Total 6.6 g/dL (6.4-8.2); Sodium Level 141 mmol/L (136-145)
== END | disposition home or self-care (01) ==
LOC: MTLAB 13:21
PROVIDERS: PCP Family Medicine; Referring Provider Internal Medicine Rheumatology; Visit Provider Internal Medicine Rheumatology
DX: M06.00 Rheumatoid arthritis without rheumatoid factor, unspecified site (principal); Z79.899 Other long term (current) drug therapy
CPT/HCPCS: 36415; 80053; 85025

== ENCOUNTER → 2023-12-18 | Outpatient (CLI) | payer MEDICARE, SELFPAY ==
[2023-12-18 15:03] LABS: Absolute Lymphocyte Count 1.75 X10^3/uL (0.83-4.51); Absolute Neutrophil Count 6.7 X10^3/uL (2.0-7.7); Basophil# 0.09 X10^3/uL; Basophil% 0.9 % (0-1); Eosinophil# 0.49 X10^3/uL; Hematocrit 36.4 % (40-54); Hemoglobin 11.6 g/dL (13.0-16.5); Lymphocyte # 1.75 X10^3/ul (0.83-4.51); Lymphocyte % 17.9 % (19-41); Mean Corp Hgb Conc 31.9 g/dL (32-36); Mean Corpuscular Volume 100.3 fL (80-94); Monocyte# 0.67 X10^3/uL; Monocyte% 6.9 % (0-10); NRBC Flagged by Analyzer 0 % (0-5); Neutrophil # 6.69 X10^3/uL (2.7-7.7); Neutrophil % 68.5 % (47-70); Platelet Count 279 K/mm3 (150-450); RBC Distribution Width CV 13.8 % (11.6-14.6); RBC Distribution Width SD 50.1 fl (35.1-43.9); Red Blood Count 3.63 M/mm3 (4.6-6.2); White Blood Count 9.8 K/mm3 (4.4-11.0)
[2023-12-18 15:27] LABS: AST(SGOT) 23 U/L (15-37); Alanine Aminotransfer ALT/SGPT 22 U/L (16-61); Albumin, Serum 3.7 g/dL (3.2-5.0); Alkaline Phosphatase 70 U/L (45-117); Anion Gap 4 (5-15); BUN 19 mg/dL (7-18); Calcium,Total 9.7 mg/dL (8.5-10.1); Chloride 110 mmol/L (98-107); Creatinine, Serum 1.12 mg/dL (0.70-1.30); EST Glomerular Filtration Rate 68 mL/min (>60); Est Glom Filt Rate - Afr Amer 83 mL/min (>60); Globulin 3.7 g/dL (2.2-4.2); Glucose 94 mg/dL (74-106); Potassium 4.2 mmol/L (3.5-5.1); Protein, Total 7.4 g/dL (6.4-8.2); Sodium Level 140 mmol/L (136-145)
== END | disposition home or self-care (01) ==
PROVIDERS: PCP Family Medicine; Referring Provider Internal Medicine Rheumatology; Visit Provider Internal Medicine Rheumatology
DX: M06.00 Rheumatoid arthritis without rheumatoid factor, unspecified site (principal); Z79.899 Other long term (current) drug therapy
CPT/HCPCS: 36415; 80053; 85025

== ENCOUNTER → 2024-03-27 | Outpatient (CLI) | payer MEDICARE, SELFPAY ==
[2024-03-27 17:40] LABS: Absolute Lymphocyte Count 0.98 X10^3/uL (0.83-4.51); Absolute Neutrophil Count 6.3 X10^3/uL (2.0-7.7); Basophil# 0.07 X10^3/uL; Basophil% 0.8 % (0-1); Eosinophil# 0.43 X10^3/uL; Eosinophils% 5.2 % (0-5); Hematocrit 31.8 % (40-54); Hemoglobin 10.1 g/dL (13.0-16.5); Lymphocyte # 0.98 X10^3/ul (0.83-4.51); Lymphocyte % 11.8 % (19-41); Mean Corp Hgb Conc 31.8 g/dL (32-36); Mean Corpuscular Hgb 31.5 pg (27.0-32.0); Mean Corpuscular Volume 99.1 fL (80-94); Monocyte# 0.52 X10^3/uL; Monocyte% 6.3 % (0-10); NRBC Flagged by Analyzer 0 % (0-5); Neutrophil # 6.26 X10^3/uL (2.7-7.7); Neutrophil % 75.3 % (47-70); Platelet Count 283 K/mm3 (150-450); RBC Distribution Width CV 15.4 % (11.6-14.6); RBC Distribution Width SD 55.3 fl (35.1-43.9); Red Blood Count 3.21 M/mm3 (4.6-6.2); White Blood Count 8.3 K/mm3 (4.4-11.0)
[2024-03-27 18:01] LABS: ALB/GLOB Ratio 0.9 RATIO (0.9-2.4); AST(SGOT) 21 U/L (15-37); Alanine Aminotransfer ALT/SGPT 24 U/L (16-61); Albumin, Serum 3.7 g/dL (3.2-5.0); Alkaline Phosphatase 101 U/L (45-117); Anion Gap 8 (5-15); BUN 25 mg/dL (7-18); BUN/Creat Ratio 21.7 RATIO (10-20); Calcium,Total 10.6 mg/dL (8.5-10.1); Chloride 106 mmol/L (98-107); Creatinine, Serum 1.15 mg/dL (0.70-1.30); EST Glomerular Filtration Rate 66 mL/min (>60); Est Glom Filt Rate - Afr Amer 80 mL/min (>60); Glucose 83 mg/dL (74-106); Potassium 3.9 mmol/L (3.5-5.1); Protein, Total 7.7 g/dL (6.4-8.2); Sodium Level 137 mmol/L (136-145)
== END | disposition home or self-care (01) ==
LOC: MTLAB 13:55
PROVIDERS: PCP Family Medicine; Referring Provider Internal Medicine Rheumatology; Visit Provider Internal Medicine Rheumatology
DX: M06.00 Rheumatoid arthritis without rheumatoid factor, unspecified site (principal); Z79.899 Other long term (current) drug therapy
CPT/HCPCS: 36415; 80053; 85025

== ENCOUNTER → 2024-04-30 | Outpatient (CLI) | payer MEDICARE, SELFPAY ==
[2024-04-30 12:25] LABS: PTHIN 169.5 pg/mL (18.4-80.1)
[2024-04-30 12:47] LABS: ALB/GLOB Ratio 1.2 RATIO (0.9-2.4); AST(SGOT) 23 U/L (15-37); Alanine Aminotransfer ALT/SGPT 30 U/L (16-61); Albumin, Serum 3.8 g/dL (3.2-5.0); Alkaline Phosphatase 103 U/L (45-117); Anion Gap 7 (5-15); BUN 34 mg/dL (7-18); BUN/Creat Ratio 32.4 RATIO (10-20); Calcium,Total 10.1 mg/dL (8.5-10.1); Chloride 112 mmol/L (98-107); Creatinine, Serum 1.05 mg/dL (0.70-1.30); EST Glomerular Filtration Rate 74 mL/min (>60); Est Glom Filt Rate - Afr Amer 89 mL/min (>60); Globulin 3.3 g/dL (2.2-4.2); Glucose 97 mg/dL (74-106); Potassium 3.9 mmol/L (3.5-5.1); Protein, Total 7.1 g/dL (6.4-8.2); Sodium Level 140 mmol/L (136-145)
== END | disposition home or self-care (01) ==
LOC: MTLAB 10:22
PROVIDERS: PCP Family Medicine; Referring Provider Internal Medicine Rheumatology; Visit Provider Internal Medicine Rheumatology
DX: M06.00 Rheumatoid arthritis without rheumatoid factor, unspecified site (principal); Z79.899 Other long term (current) drug therapy; M50.30 Other cervical disc degeneration, unspecified cervical region; M51.87 Other intervertebral disc disorders, lumbosacral region; M81.0 Age-related osteoporosis without current pathological fracture
CPT/HCPCS: 36415; 80053; 83970

== ENCOUNTER → 2024-05-22 | Outpatient (CLI) | payer MEDICARE, SELFPAY ==
[2024-05-22 18:04] LABS: PSA,Total - Annual Screen 2.23 ng/mL (0.00-4.00)
== END | disposition home or self-care (01) ==
LOC: MTLAB 14:24
PROVIDERS: PCP Family Medicine; Referring Provider Family Medicine; Visit Provider Family Medicine
DX: Z00.00 Encounter for general adult medical examination without abnormal findings (principal); Z12.5 Encounter for screening for malignant neoplasm of prostate
CPT/HCPCS: 36415; 84153; G0103

== ENCOUNTER → 2024-07-24 | Outpatient (CLI) | payer MEDICARE, SELFPAY ==
[2024-07-24 15:28] LABS: Absolute Lymphocyte Count 1.27 X10^3/uL (0.83-4.51); Absolute Neutrophil Count 3.9 X10^3/uL (2.0-7.7); Basophil# 0.07 X10^3/uL; Basophil% 1.1 % (0-1); Eosinophil# 0.46 X10^3/uL; Eosinophils% 7.5 % (0-5); Hemoglobin 9.8 g/dL (13.0-16.5); Lymphocyte # 1.27 X10^3/ul (0.83-4.51); Lymphocyte % 20.6 % (19-41); Mean Corp Hgb Conc 31.6 g/dL (32-36); Mean Corpuscular Hgb 32.5 pg (27.0-32.0); Mean Corpuscular Volume 102.6 fL (80-94); Monocyte# 0.45 X10^3/uL; Monocyte% 7.3 % (0-10); NRBC Flagged by Analyzer 0 % (0-5); Neutrophil # 3.91 X10^3/uL (2.7-7.7); Neutrophil % 63.3 % (47-70); Platelet Count 245 K/mm3 (150-450); RBC Distribution Width CV 15.1 % (11.6-14.6); RBC Distribution Width SD 54.9 fl (35.1-43.9); Red Blood Count 3.02 M/mm3 (4.6-6.2); White Blood Count 6.2 K/mm3 (4.4-11.0)
[2024-07-24 15:34] LABS: PTHIN 131.7 pg/mL (18.4-80.1)
[2024-07-24 15:48] LABS: ALB/GLOB Ratio 1.1 RATIO (0.9-2.4); AST(SGOT) 25 U/L (15-37); Alanine Aminotransfer ALT/SGPT 37 U/L (16-61); Albumin, Serum 3.6 g/dL (3.2-5.0); Alkaline Phosphatase 91 U/L (45-117); Anion Gap 9 (5-15); BUN 28 mg/dL (7-18); BUN/Creat Ratio 24.3 RATIO (10-20); Calcium,Total 10.1 mg/dL (8.5-10.1); Chloride 106 mmol/L (98-107); Creatinine, Serum 1.15 mg/dL (0.70-1.30); EST Glomerular Filtration Rate 66 mL/min (>60); Est Glom Filt Rate - Afr Amer 80 mL/min (>60); Globulin 3.3 g/dL (2.2-4.2); Glucose 89 mg/dL (74-106); Potassium 4.2 mmol/L (3.5-5.1); Protein, Total 6.9 g/dL (6.4-8.2); Sodium Level 138 mmol/L (136-145)
== END | disposition home or self-care (01) ==
LOC: MTLAB 11:51
PROVIDERS: PCP Family Medicine; Referring Provider Internal Medicine Rheumatology; Visit Provider Internal Medicine Rheumatology
DX: M06.00 Rheumatoid arthritis without rheumatoid factor, unspecified site (principal); Z79.899 Other long term (current) drug therapy
CPT/HCPCS: 36415; 80053; 83970; 85025

== ENCOUNTER → 2024-10-14 | Outpatient (CLI) | payer MEDICARE, SELFPAY ==
[2024-10-14 13:03] LABS: Vitamin D,25 Hydroxy 35.3 ng/mL (30-100)
[2024-10-14 13:45] LABS: PTHIN 163 pg/mL (11-61)
== END | disposition home or self-care (01) ==
LOC: MTLAB 10:51
PROVIDERS: PCP Family Medicine; Referring Provider Internal Medicine Endocrinology, Diabetes & Metabolism; Visit Provider Internal Medicine Endocrinology, Diabetes & Metabolism
DX: E55.9 Vitamin D deficiency, unspecified (principal)
CPT/HCPCS: 36415; 82306; 83970

== ENCOUNTER → 2024-10-22 | Outpatient (CLI) | payer MEDICARE, SELFPAY ==
[2024-10-22 15:26] LABS: Absolute Lymphocyte Count 0.98 X10^3/uL (0.83-4.51); Absolute Neutrophil Count 4.6 X10^3/uL (2.0-7.7); Basophil# 0.07 X10^3/uL; Eosinophil# 0.72 X10^3/uL; Hematocrit 30.2 % (40-54); Lymphocyte # 0.98 X10^3/ul (0.83-4.51); Lymphocyte % 13.6 % (19-41); Mean Corp Hgb Conc 33.1 g/dL (32-36); Mean Corpuscular Hgb 34.1 pg (27.0-32.0); Mean Corpuscular Volume 103.1 fL (80-94); Mean Platelet Vol. 11.8 fl (6.2-12.0); Monocyte# 0.82 X10^3/uL; Monocyte% 11.4 % (0-10); NRBC Flagged by Analyzer 0 % (0-5); Neutrophil # 4.56 X10^3/uL (2.7-7.7); Neutrophil % 63.6 % (47-70); Platelet Count 239 K/mm3 (150-450); RBC Distribution Width CV 14.4 % (11.6-14.6); RBC Distribution Width SD 53.8 fl (35.1-43.9); Red Blood Count 2.93 M/mm3 (4.6-6.2); White Blood Count 7.2 K/mm3 (4.4-11.0)
[2024-10-22 15:48] LABS: ALB/GLOB Ratio 1.5 RATIO (0.9-2.4); AST(SGOT) 30 U/L (<=37); Alanine Aminotransfer ALT/SGPT 26 U/L (<=46); Alkaline Phosphatase 102 U/L (40-129); Anion Gap 11 (5-15); BUN 19 mg/dL (4-19); BUN/Creat Ratio 16.7 RATIO (10-20); Calcium,Total 10.1 mg/dL (7.6-11.0); Carbon Dioxide 22.7 mmol/L (21.0-32.0); Chloride 103 mmol/L (98-108); Creatinine, Serum 1.12 mg/dL (0.70-1.20); EST Glomerular Filtration Rate 69 (>60); Globulin 2.7 g/dL (2.2-4.2); Glucose 72 mg/dL (70-99); Potassium 3.7 mmol/L (3.3-5.1); Protein, Total 6.7 g/dL (5.9-8.4); Sodium Level 137 mmol/L (133-145)
== END | disposition home or self-care (01) ==
LOC: MTLAB 12:58
PROVIDERS: PCP Family Medicine; Referring Provider Internal Medicine Rheumatology; Visit Provider Internal Medicine Rheumatology
DX: M06.00 Rheumatoid arthritis without rheumatoid factor, unspecified site (principal); Z79.899 Other long term (current) drug therapy
CPT/HCPCS: 36415; 80053; 85025

== ENCOUNTER → 2025-01-29 | Outpatient (CLI) | payer MEDICARE, SELFPAY ==
[2025-01-29 17:51] LABS: Hematocrit 32.1 % (40-54); Hemoglobin 10.7 g/dL (13.0-16.5); Immature Granulocytes Count 0.020 X10^3/uL (0.0-0.0); Mean Corp Hgb Conc 33.3 g/dL (32-36); Mean Corpuscular Volume 101.6 fL (80-94); Mean Platelet Vol. 10.7 fl (6.2-12.0); NRBC Flagged by Analyzer 0 % (0-5); Platelet Count 285 K/mm3 (150-450); RBC Distribution Width CV 14.6 % (11.6-14.6); RBC Distribution Width SD 52.6 fl (35.1-43.9); Red Blood Count 3.16 M/mm3 (4.6-6.2); White Blood Count 6.5 K/mm3 (4.4-11.0)
[2025-01-29 18:15] LABS: AST(SGOT) 41 U/L (<=37); Alanine Aminotransfer ALT/SGPT 58 U/L (<=46); Albumin, Serum 4.4 g/dL (3.4-4.8); Alkaline Phosphatase 101 U/L (40-129); Anion Gap 13 (5-15); BUN 21 mg/dL (4-19); BUN/Creat Ratio 17.3 RATIO (10-20); Calcium,Total 10.4 mg/dL (7.6-11.0); Carbon Dioxide 21.4 mmol/L (21.0-32.0); Chloride 104 mmol/L (98-108); Globulin 2.6 g/dL (2.2-4.2); Glucose 84 mg/dL (70-99); Potassium 4.4 mmol/L (3.3-5.1)
--- OUTSIDE RECORDS SUMMARY | 2025-01-29 19:54 | XMS RPT_ITS | CCD ---
Author Organization [facility] Care Team Providers Care Marine Specialist Name Role Phone September Unavailable Unavailable Opsitnick, Rachel A Unavailable Unavailbarbara Whitten, Mahi L Unavailable Unavailable Uche Menon Unavailable Unavailable Maria Dolores, Mahi L Unavailable Unavailable Raquel Martinez Unavailable Unavailable Oz Jiang Unavailable Unavailable [place]itjose VISUAL ARTS TEACHER-ELECTRON BEAM MACHINE WELDER SETTER, Rachel Unavailable Zhang Vargas MD Unavailable [place] VISUAL ARTS TEACHER-ELECTRON BEAM MACHINE WELDER SETTER, Jenn Bradley Unavailable Pavan Hunt DO Unavailable Oz Jiang Unavailable Unavailable Unavailable OZ JIANG Referring Unavailable OZ JIANG Attending Unavailable OZ JIANG Primary Care Unavailable Dr. Oz Jiang Primary Care Provider José Miguel Moore Attending Provider Unavailable Dr. Oz Jiang Referring Provider Dr. Dave Carpenter Attending Provider [phone] Oz Jiang Primary Care Provider Oz Jiang MD Primary Care Provider Oz Jiang MD Unavailable Oz Jiang MD Unavailable Oz Jiang MD Primary Care Provider Oz Jiang MD Unavailable Oz Jiang MD Unavailable Dr. Oz Jiang MD Primary Care Provider Shanita MYERS, Dr. Tomas Attending Provider Shanita MYERS, Dr. Tomas Referring Provider Deidre MYERS, Dr. Urena Other Provider King [place], Dr. Acosta Attending Provider [phone] [place], Dr. Acosta Referring Provider TRAVIS CESPEDES Attending Unavailable TRAVIS CESPEDES Referring Unavailable DEIDRE, OZ L Primary Care Unavailable Jayden, Dave Attending Unavailable Deidre, Oz Referring Unavailable Deidre, Oz Primary Care Unavailable Vellanki, Genoveva Attending Unavailable Deidre, Oz Primary Care Unavailable Vellanki, Genoveva Referring Unavailable Jayden, Dave Attending Unavailable Jayden, Dave Referring Unavailable Deidre, Oz Primary Care Unavailable Jayden, Dave Attending Unavailable Jayden, Dave Referring Unavailable Deidre, Oz Primary Care Unavailable Deidre, Oz Consulting Unavailable Vellanki, Genoveva Referring Unavailable Deidre, Oz Primary Care Unavailable Vellanki, Genoveva Attending Unavailable Vellanki, Genoveva Attending Unavailable Deidre, Oz Primary Care Unavailable Vellanki, Genoveva Referring Unavailable Vellanki, Genoveva Referring Unavailable Vellanki, Genoveva Attending Unavailable Deidre, Oz Primary Care Unavailable Vellanki, Genoveva Referring Unavailable Deidre, Oz Primary Care Unavailable Vellanki, Genoveva Attending Unavailable Deidre, Oz Attending Unavailable Deidre, Oz Referring Unavailable Deidre, Oz Primary Care Unavailable CHRISSY PATRICK Attending Unavailable DEIDRE, OZ L Primary Care Unavailable DEIDRE, OZ L Attending Unavailable DEIDRE, OZ L Primary Care Unavailable DEIDRE, OZ L Attending Unavailable DEIDRE, OZ L Primary Care Unavailable PATTEN, HIEN K Attending Unavailable DEIDRE, OZ L Primary Care Unavailable TAVALLAEETRAVIS M Attending Unavailable DEIDRE, OZ L Primary Care Unavailable AIYANAALLTRAVIS LARIOS M Attending Unavailable DEIDRE, OZ L Primary Care Unavailable DEIDRE, OZ L Attending Unavailable PATTEN, HIEN K Referring Unavailable DEIDRE, OZ L Primary Care Unavailable Allergies Allergy Classification Reported Allergen(s) Allergy Type Date of Onset Reaction(s) Facility (8 sources) Cat; Translations: [CATS] allergy to substance 8 [facility] Work Phone: (8 sources) [place]; Translations: [ANIMALS] allergy to substance 8 [facility] Work Phone: (8 sources) [place]; Translations: [CAT DANDER] Propensity to adverse reactions 4 Other [facility] Medications Current Medications Medication Drug Class(es) Dates Sig (Normalized) Sig (Original) acetaminophen 325 mg / HYDROcodone bitartrate 5 mg oral tablet (1 source) Opioid Agonist Start: 11-02-2017 End: 11-22-2017 take 1 tablet by mouth every six hours as needed for pain NORCO 5-325 MG TABS Take 1 tablet by mouth every 6 hours as needed for pain HYDROCODONE-ACETAM INOPHEN [id number] Rachel Giron VISUAL ARTS TEACHER-ELECTRON BEAM MACHINE WELDER SETTER [id number] 200 actuat albuterol 0.09 mg/actuat metered dose inhaler (20 sources) beta2-Adrenergic Agonist Start: 03-20-2023 End: 03-21-2025 take 2 puff(s) by inhalation four times daily albuterol 90 mcg/actuation inhaler Indications: Asthma, unspecified asthma severity, unspecified whether complicated, unspecified whether persistent ([facility]) Inhale 2 puffs 4 times a day. 18 g 2 03/21/2024 03/21/2025 Active Start: 09-05-2022 Albuterol Sulf ate 90 mcg/actuation HFA aerosol inhaler Active 2 NMA INHALATION EVERY 6 HOURS as needed for shortness of breath September 05, 2022 12:00am Start: 09-05-2022 take 1 puff(s) by in halation every six hours Albuterol Sulfate Active 2 PUFF INHALATION EVERY 6 HOURS September 05, 2022 12:00am Start: 02-03-2019 take 2 puff(s) by in halation four times daily Ventolin HFA 108 (90 Base) MCG/ACT Inhalation Aerosol Solution INHALE 2 PUFFS 4 times daily Quantity: 1 Refills: 1 Ordered: 17-Mar-2022 Oz Jiang MD Start : 03-Feb-2019 Active Start: 11-13-2018 ALBUTEROL SULF ATE HFA 108 (90 Base) MCG/ACT AERS 2 puffs 4 times daily ALBUTEROL SULFATE [id number] Jenn Elliott VISUAL ARTS TEACHER-ELECTRON BEAM MACHINE WELDER SETTER End: 03-20-2023 take 2 puff(s) by inhalation four times daily albuterol 90 mcg/actuation inhaler Inhale 2 puffs 4 times a day. 0 03/20/2023 Discontinued (Reorder) calcium chloride 0.0014 meq/ml / potassium chloride 0.004 meq/ml / sodium chloride 0.103 meq/ml / sodium lactate 0.028 meq/ml injectable solution (1 source) Start: 10-17-2024 End: 10-18-2024 take 20 mL intravenously every hour 20 mL/hr, intravenous, Continuous, Starting on [facility] 10/17/24 at 1015, For 1 day, Preprocedure cholecalciferol 0.125 mg oral tablet (3 sources) Vitamin D cholecalciferol (Vitamin D3) 125 mcg (5,000 units) tablet Take by mouth once daily. Active cyclobenzaprine hydrochloride 5 mg oral tablet (3 sources) Muscle Relaxant Start: 02-07-2023 End: 04-08-2023 take 1 tablet by mouth three times daily as needed for muscle spasms cyclobenzaprine (Flexeril) 5 mg tablet Indications: Strain of neck muscle, initial encounter Take 1 tablet (5 mg) by mouth 3 times a day as needed for muscle spasms. 30 tablet 0 02/07/2023 03/20/2023 Discontinued (Therapy completed) 1 ml denosumab 60 mg/ml prefilled syringe (10 sources) RANK Ligand Inhibitor Start: 01-17-2023 Denosumab (Prolia) 60 mg/mL syringe Active 60 mg SC every 6 months January 17, 2023 12:00am denosumab (PROLI A SUBQ) Inject under the skin. Active denosumab (PROLI A SUBQ) Inject under the skin. 0 Active ferrous gluconate 240 mg ora l tablet (13 sources) Start: 08-17-2023 Ferrous Glucon ate (Ferate) 240 mg (27 mg iron) tablet Active 240 mg PO .MWF August 17, 2023 1:00am ferrous gluconat e 236 mg (27 mg iron) tablet Take by mouth. Active ferrous gluconat e 236 mg (27 mg iron) tablet Take by mouth. 0 Active folic acid 1 mg oral tablet (20 sources) Start: 11-08-2013 take 1 tablet by mouth once daily Folic Acid Active 1 TABLET PO DAILY November 08, 2013 12:00am Start: 11-08-2013 Folic Acid 1 M G tablet Active 1 {tbl} PO DAILY November 08, 2013 12:00am Folic Acid CAPS Quantity: 0 Refills: 0 Ordered: 17-Mar-2022 DO Active gabapentin 400 mg oral capsule (20 sources) Anti-epileptic Agent Start: 10-25-2024 take 1 capsule by mouth every twelve hours gabapentin (Neurontin) 400 mg capsule Take 1 capsule (400 mg) by mouth every 12 hours. 10/25/2024 Active Start: 09-05-2022 End: 09-05-2022 take 2 tablets by mouth once daily Gabapentin 600 mg tablet Discontinued 1200 mg PO DAILY September 05, 2022 3:07pm September 05, 2022 3:12pm Start: 09-05-2022 End: 09-05-2022 take 1200 mg by mouth once daily Gabapentin Discontinued 1200 MG PO DAILY September 05, 2022 3:07pm September 05, 2022 3:12pm Start: 09-05-2022 End: 01-15-2024 take 2 tablets by mouth once daily Gabapentin 800 mg tablet Discontinued 0 PO DAILY September 05, 2022 12:00am January 15, 2024 1:01pm 2 tabs orally daily; Start: 10-02-2019 End: 11-28-2024 take 1 tablet by mouth twice daily Gabapentin 800 mg tablet Active 800 mg PO TWICE A DAY January 15, 2024 1:00pm Start: 08-18-2017 GABAPENTIN 800 MG TABS 1 tablet three times daily as needed GABAPENTIN [id number] Jenn Elliott VISUAL ARTS TEACHER-ELECTRON BEAM MACHINE WELDER SETTER Start: 08-18-2017 GABAPENTIN 400 MG CAPS 1 capsule three times daily GABAPENTIN [id number] Celia Mendiola LPN Start: 04-07-2015 End: 09-05-2022 Gabapentin 600 MG tablet Discontinued 800 mg PO THREE TIMES A DAY April 07, 2015 12:00am September 05, 2022 3:11pm Start: 04-07-2015 End: 09-05-2022 take 800 mg by mouth three times daily Gabapentin Discontinued 800 MG PO THREE TIMES A DAY April 07, 2015 12:00am September 05, 2022 3:11pm Start: 11-08-2013 End: 04-09-2015 take 1 capsule by mouth once daily Gabapentin 300 MG capsule Discontinued 1 CAPSULE PO DAILY November 08, 2013 12:00am April 09, 2015 1:28pm meloxicam 15 mg oral tablet (20 sources) Nonsteroidal Anti-inflammatory Drug Start: 09-05-2022 End: 01-15-2024 take 1 tablet by mouth once daily as needed Meloxicam 15 mg tablet Active 15 mg PO DAILY as needed January 15, 2024 1:00pm Start: 09-22-2019 Meloxicam 15 M G Oral Tablet Quantity: 30 Refills: 0 Ordered: 22-Sep-2019 DO Start : 22-Sep-2019 Active Start: 07-26-2018 End: 09-05-2022 take 1 tablet by mouth twice daily Meloxicam 7.5 MG tablet Discontinued 7.5 mg PO TWICE A DAY 0 July 26, 2018 1:00am September 05, 2022 3:09pm Start: 07-06-2018 End: 07-26-2018 Meloxicam 15 MG tablet Disco ntinued 15 mg BC EVERY OTHER DAY July 06, 2018 1:00am July 26, 2018 10:00am Start: 08-18-2017 MOBIC 15 MG TA BS 1 tablet as directed MELOXICAM [id number] Tiana Chandler RN Start: 08-18-2017 MELOXICAM 15 M G TABS 1 tablet every other day MELOXICAM [id number] Celia Mendiola LPN Start: 05-01-2017 End: 05-17-2017 take 1 tablet by mouth once daily Meloxicam (Mobic) 15 MG tablet Discontinued 15 mg PO DAILY May 01, 2017 1:00am May 17, 2017 8:38am methotrexate 2.5 mg oral tablet (20 sources) Folate Analog Metabolic Inhibitor Start: 06-19-2019 Methotrexate 2.5 MG Oral Tablet Quantity: 78 Refills: 0 Ordered: 19-Jun-2019 DO Start : 19-Jun-2019 Active Start: 08-18-2017 METHOTREXATE S ODIUM 2.5 MG TABS 6 tablets (15mg) once weekly on METHOTREXATE SODIUM [id number] Tiana Chandler RN Start: 12-11-2015 End: 01-15-2024 Methotrexate Sodium 2.5 mg t ablet Active 15 mg PO Q7D January 15, 2024 1:01pm Start: 12-11-2015 take 15 mg by mouth every week Methotrexate Sodium Active 15 MG PO Q7D December 11, 2015 12:00am Start: 11-08-2013 End: 04-09-2015 take 6 tablets by mouth every week Methotrexate Sodium Discontinued 6 TABLET PO EVERY WEEK November 08, 2013 12:00am April 09, 2015 1:28pm Start: 11-08-2013 End: 04-09-2015 Methotrexate Sodium 2.5 MG t ablet Discontinued 6 {tbl} PO EVERY WEEK November 08, 2013 12:00am April 09, 2015 1:28pm methylPREDNISolone 4 mg oral tablet (1 source) Corticosteroid Start: 11-13-2018 End: 11-19-2018 take 4 mg by mouth once daily MEDROL 4 MG TBPK Take by mouth daily as directed METHYLPREDNISOLONE [id number] Jenn Elliott VISUAL ARTS TEACHER-ELECTRON BEAM MACHINE WELDER SETTER nirmatrelvir-ritonavir (Paxlovid) 300 mg (150 mg x 2)-100 mg tablet therapy pack (1 source) Start: 02-17-2023 End: 02-22-2023 take 3 tablets by mouth twice daily nirmatrelvir-ritonavir (Paxlovid) 300 mg (150 mg x 2)-100 mg tablet therapy pack Indications: COVID-19 Take 3 tablets by mouth 2 times a day for 5 days. Follow the instructions on the package 5 Dose pack 0 02/17/2023 02/22/2023 Active oxyCODONE hydrochloride 5 mg oral tablet (20 sources) Opioid Agonist Start: 02-21-2019 End: 03-08-2019 take 1 tablet by mouth every six hours as needed for pain OXYCODONE HCL 5 MG TABS Take 1 tablet by mouth every 6 hours as needed for pain OXYCODONE HCL [id number] Rachel Giron VISUAL ARTS TEACHER-ELECTRON BEAM MACHINE WELDER SETTER Start: 07-26-2018 End: 07-31-2018 take 5-10 mg by mouth every four hours as needed for pain Oxycodone 5 MG tablet Discontinued 5 - 10 mg PO EVERY 4 HOURS NEEDED as needed for Mod-Severe Pain (4-03/21) 60 5 July 26, 2018 1:00am July 30, 2018 1:00am July 31, 2018 1:07am Start: 04-09-2015 End: 12-11-2015 take 1 tablet by mouth every four hours as needed for pain Oxycodone 5 MG tablet Discontinued 5 mg PO EVERY 4 HOURS NEEDED as needed for PAIN 60 April 09, 2015 12:00am December 11, 2015 11:17am Start: 04-09-2015 End: 12-11-2015 take 1 tablet by mouth twice daily Oxycodone (Oxycontin) 10 MG tablet Discontinued 10 mg PO TWICE A DAY 4 April 09, 2015 12:00am December 11, 2015 11:17am predniSONE 10 mg oral tablet (20 sources) Start: 08-18-2017 take 1 tablet by mouth once daily as needed for arthritis Prednisone 10 MG tablet Active 10 mg PO DAILY as needed for RHEUMATOID ARTHRITIS July 06, 2018 1:00am predniSONE 10 MG Oral Tablet take PRN Quantity: 0 Refills: 0 Ordered: 17-Mar-2022 DO Active tiZANidine 4 mg oral tablet (1 source) Central alpha-2 Adrenergic Agonist Start: 12-27-2018 End: 01-16-2019 TIZANIDINE HCL 4 MG TABS Take 1 tablet every 12 hours prn pain or spasm TIZANIDINE HCL [id number] Pavan D Gilbert DO traMADol hydrochloride 50 mg oral tablet (20 sources) Opioid Agonist Start: 09-05-2022 take 2 tablets by mouth three times daily Tramadol 50 mg tablet Active 100 mg PO THREE TIMES A DAY September 05, 2022 12:00am Start: 09-05-2022 take 100 mg by mouth three times daily Tramadol Active 100 MG PO THREE TIMES A DAY September 05, 2022 12:00am Start: 10-14-2019 traMADol HCl - 50 MG Oral Tablet Quantity: 180 Refills: 0 Ordered: 14-Oct-2019 DO Start : 14-Oct-2019 Active Start: 07-06-2018 End: 07-26-2018 take 100 mg by mouth three times daily Tramadol Discontinued 100 MG PO THREE TIMES A DAY July 06, 2018 1:00am July 26, 2018 10:01am Start: 02-01-2018 End: 07-26-2018 take 2 tablets by mouth three times daily Tramadol 50 MG tablet Discontinued 100 mg PO THREE TIMES A DAY July 06, 2018 1:00am July 26, 2018 10:01am Start: 12-11-2015 End: 05-17-2017 take 2 tablets by mouth three times daily Tramadol 50 MG tablet Discontinued 100 mg PO THREE TIMES A DAY December 11, 2015 12:00am May 17, 2017 8:38am Start: 12-11-2015 End: 05-17-2017 take 100 mg by mouth three times daily Tramadol Discontinued 100 MG PO THREE TIMES A DAY December 11, 2015 12:00am May 17, 2017 8:38am Start: 04-24-2014 End: 04-09-2015 take 2 tablets by mouth three times daily as needed for pain Tramadol 50 MG tablet Discontinued 100 mg PO 3 TIMES DAILY NEEDED as needed for Pain April 24, 2014 1:00am April 09, 2015 1:29pm Start: 04-24-2014 End: 04-09-2015 take 100 mg by mouth three times daily as needed Tramadol Discontinued 100 MG PO 3 TIMES DAILY NEEDED April 24, 2014 1:00am April 09, 2015 1:29pm traMADol (Ultram ) 50 mg tablet 1 tablet (50 mg). Active Completed/Discontinued Medications Medication Drug Class(es) Dates Sig (Normalized) Sig (Original) acetaminophen 500 mg oral tablet (20 sources) Start: 09-05-2022 End: 01-15-2024 take 2 tablets by mouth once daily at bedtime Acetaminophen 500 mg tablet Discontinued 1000 mg PO .COMPLEX September 05, 2022 3:08pm January 15, 2024 1:00pm 1,000 mg orally QHS; Start: 09-05-2022 take 1000 mg by mout h once daily at bedtime Acetaminophen Active 1000 MG PO .COMPLEX September 05, 2022 3:08pm 1,000 mg orally QHS; Start: 07-26-2018 End: 09-05-2022 take 2 tablets by mouth every eight hours Acetaminophen 500 MG tablet Discontinued 1000 mg PO EVERY 8 HOURS 90 July 26, 2018 1:00am September 05, 2022 3:11pm Start: 07-26-2018 End: 09-05-2022 take 1000 mg by mouth every eight hours Acetaminophen Discontinued 1000 MG PO EVERY 8 HOURS 90 July 26, 2018 1:00am September 05, 2022 3:11pm acetaminophen 500 mg / diphenhydrAMINE hydrochloride 25 mg oral tablet (13 sources) Histamine-1 Receptor Antagonist Start: 04-07-2015 End: 05-17-2017 take 1 tablet by mouth at bedtime Diphenhydramine-Acetaminophen (Tylenol Pm Extra Strength) 1 EACH tablet Discontinued 2 NMA PO AT BEDTIME April 07, 2015 12:00am May 17, 2017 8:38am alendronic acid 70 mg oral tablet (8 sources) Bisphosphonate Start: 04-26-2019 take 1 tablet by mouth every week Alendronate Sodium 70 MG Oral Tablet TAKE 1 TABLET ONCE WEEKLY. Quantity: 4 Refills: 11 Oz Jiang Start : 26-Apr-2019 Active Start: 11-13-2018 FOSAMAX 70 MG TABS 1 tab daily ALENDRONATE SODIUM [id number] Jenn Elliott VISUAL ARTS TEACHER-ELECTRON BEAM MACHINE WELDER SETTER Start: 11-02-2017 FOSAMAX 70 MG TABS 1 tablet weekly ALENDRONATE SODIUM [id number] Rachel Giron VISUAL ARTS TEACHER-ELECTRON BEAM MACHINE WELDER SETTER aspirin 81 mg chewable tablet (20 sources) Platelet Aggregation Inhibitor, Nonsteroidal Anti-inflammatory Drug Start: 07-26-2018 End: 09-05-2022 take 1 tablet by mouth twice daily at mealtime Aspirin 81 MG tablet,chewable Discontinued 81 mg PO TWICE DAILY WITH MEALS July 26, 2018 1:00am September 05, 2022 3:08pm Start: 04-09-2015 End: 12-11-2015 take 1 tablet by mouth twice daily Aspirin 325 MG tablet Discontinued 325 mg PO TWICE A DAY 0 April 09, 2015 12:00am December 11, 2015 11:18am docusate sodium 50 mg / sennosides, fci 8.6 mg oral tablet (13 sources) Start: 07-26-2018 End: 09-05-2022 take 1 tablet by mouth twice daily as needed Sennosides-Docusate Sodium (Stool Softener-Stimulant Laxat) 1 TABLET tablet Discontinued 2 {tbl} PO TWICE A DAY July 26, 2018 1:00am September 05, 2022 3:10pm Take until first bowel movement, then as needed famotidine 20 mg oral tablet (20 sources) Histamine-2 Receptor Antagonist Start: 05-17-2017 End: 09-05-2022 Famotidine 20 MG tablet Discontinued 20 mg PO NEEDED as needed for GERD July 26, 2018 10:01am September 05, 2022 3:11pm 1 ml fentaNYL 0.05 mg/ml injection (2 sources) Opioid Agonist Start: 10-17-2024 End: 10-17-2024 intravenous, As needed, Starting on Prabha 10/17/24 at 1023, Intraprocedure hydroxychloroquine sulfate 200 mg oral tablet (20 sources) Antimalarial, Antirheumatic Agent Start: 09-18-2019 Hydroxychloroquine Sulfate 200 MG Oral Tablet Quantity: 90 Refills: 0 Ordered: 18-Sep-2019 DO Start : 18-Sep-2019 Active Start: 08-18-2017 HYDROXYCHLOROQ UINE SULFATE 200 MG TABS 1.5 tablet as directed HYDROXYCHLOROQUINE SULFATE [id number] Pavan Hunt DO Start: 11-08-2013 take 1 tablet by debra once daily Hydroxychloroquine 200 MG tablet Active 200 mg PO DAILY November 08, 2013 12:00am Start: 11-08-2013 take 200 mg by mouth twice daily at mealtime Hydroxychloroquine Active 200 MG PO TWICE DAILY WITH MEALS November 08, 2013 12:00am Iron (10 sources) Start: 09-05-2022 End: 11-18-2022 iron Discontinued PO August [id number] 11:00pm November 18, 2022 1:14pm 25 mg Every mon/mon/mon Start: 09-05-2022 End: 11-18-2022 iron Discontinued PO August [id number] 12:00am November 18, 2022 2:14pm 25 mg Every mon/wed/fri Iron TABS Quanti ty: 0 Refills: 0 Ordered: 17-Mar-2022 DO Active 2 ml midazolam 5 mg/ml injection (2 sources) Benzodiazepine Start: 10-17-2024 End: 10-17-2024 intravenous, Administer over 5 Minutes, As needed, Starting on Prabha 10/17/24 at 1020, Intraprocedure omeprazole 20 mg delayed release oral tablet (1 source) Proton Pump Inhibitor Start: 08-18-2017 OMEPRAZO LE 20 MG TBEC 1 tablet daily as needed OMEPRAZOLE [id number] Celia Mendiola LEAN MANAGER sulfamethoxazole 800 mg / trimethoprim 160 mg oral tablet (13 sources) Dihydrofolate Reductase Inhibitor Antibacterial, Sulfonamide Antimicrobial Start: 04-09-2015 End: 12-11-2015 Sulfamethoxazole-Trim ethoprim 1 TABLET tablet Discontinued 1 {tbl} PO TWICE A DAY April 09, 2015 12:00am December 11, 2015 11:17am Start: 04-09-2015 End: 12-11-2015 take 1 tablet by mouth twice daily Sulfamethoxazole-Trimethoprim Discontinu ed 1 TABLET PO TWICE A DAY April 09, 2015 12:00am December 11, 2015 11:17am Problems Active Problems Problem Classification Problem Date Documented Date Episodic/Chronic Acquired foot deformities (13 sources) Toe joint rigid; Translations: [Hallux rigidus, left foot] 07-25-2018 Chronic Asthma (12 sources) Mild intermittent asthma; Translations: [Asthma, unspecified type, unspecified] Onset: 03-20-2023 Resolved: 03-20-2023 03-20-2023 Chronic Chronic ulcer of skin (13 sources) Ulcer of foot; Translations: [Pressure ulcer of other site, unstageable] 07-25-2018 Chronic Complication of device; implant or graft (13 sources) Disorder of prosthetic joint; Translations: [Other mechanical complication of internal left knee prosthesis, initial encounter] 07-25-2018 Episodic Deficiency and other anemia (1 source) Anemia of chronic disease; Translations: [Anemia in other chronic diseases classified elsewhere] 10-28-2024 Chronic Deficiency and other anemia (2 sources) Anemia in other chronic diseases classified elsewhere; Translations: [Anemia in other chronic diseases classified elsewhere] Onset: 10-28-2024 Chronic Deficiency and other anemia (13 sources) Anemia; Translations: [Anemia, unspecified] Onset: 09-10-2024 08-21-2024 Episodic Deficiency and other anemia (4 sources) Anemia, unspecified; Translations: [Anemia, unspecified] Onset: 09-10-2024 Episodic Diverticulosis and diverticulitis (3 sources) Diverticular disease; Translations: [Diverticulosis of intestine, part unspecified, without perforation or abscess without bleeding] Onset: 10-28-2024 10-28-2024 Chronic Hemorrhoids (3 sources) Internal hemorrhoids; Translations: [Other hemorrhoids] Onset: 10-28-2024 10-28-2024 Episodic Infective arthritis and osteomyelitis (except that caused by tuberculosis or sexually transmitted disease) (13 sources) Osteomyelitis of forefoot; Translations: [Osteomyelitis, unspecified] 07-25-2018 Chronic Nutritional deficiencies (1 source) Vitamin D deficiency, unspecified; Translations: [Vitamin D deficiency, unspecified] Onset: 10-17-2024 Chronic Open wounds of extremities (17 sources) Amputated above knee; Translations: [Traumatic amputation of leg(s) (complete) (partial), unilateral, at or above knee, without mention of complication] Onset: 03-20-2023 09-05-2022 Chronic Comment on above: 1997 Osteoarthritis (7 sources) Unilateral primary osteoarthritis, left hip; Translations: [Osteoarthrosis, localized, primary, pelvic region and thigh] Onset: 03-20-2018 03-20-2018 Chronic Osteoporosis (16 sources) Osteoporosis; Translations: [Osteoporosis, unspecified] Onset: 03-20-2023 03-20-2023 Chronic Other connective tissue disease (6 sources) Hip joint prosthesis present; Translations: [Presence of left artificial hip joint] Onset: 08-03-2023 08-03-2023 Chronic Other endocrine disorders (16 sources) Hyperparathyroidism; Translations: [Hyperparathyroidism, unspecified] Onset: 08-21-2024 11-18-2022 Chronic Other endocrine disorders (7 sources) Hyperparathyroidism, unspecified; Translations: [Hyperparathyroidism, unspecified] Onset: 01-15-2024 11-18-2022 Chronic Other non-traumatic joint disorders (11 sources) Joint pain; Translations: [Pain in joint] Episodic Other nutritional; endocrine; and metabolic disorders (1 source) Overweight in adulthood with body mass index of 25 or more but less than 30; Translations: [Body Mass Index 26.0-26.9, adult] Episodic Rheumatoid arthritis and related disease (13 sources) Rheumatoid arthritis; Translations: [Rheumatoid arthritis, unspecified] Onset: 03-20-2023 03-20-2023 Chronic Spondylosis; intervertebral disc disorders; other back problems (1 source) Degeneration of lumbar intervertebral disc; Translations: [Other intervertebral disc degeneration, lumbar region] Onset: 02-11-2020 02-11-2020 Chronic Sprains and strains (1 source) Strain of neck muscle; Translations: [Strain of muscle, fascia and tendon at neck level, initial encounter] 02-07-2023 Episodic Unclassified (2 sources) Pre-op Exam; Translations: [Pre-op Exam] Onset: 01-15-2024 Viral infection (1 source) Disease caused by 2019-nCoV; Translations: [COVID-19] 02-17-2023 Episodic Past or Other Problems Problem Classification Problem Date Documented Da te Episodic/Chronic Immunizations and screening for infectious disease (7 sources) Patient encounter status; Translations: [Other specified vaccination] Onset: 03-21-2024 03-20-2023 Episodic Other acquired deformities (14 sources) Spondylolisthesis; Translations: [Spondylolisthesis , lumbar region] Onset: 08-22-2017 08-22-2017 Episodic Other bone disease and musculoskeletal deformities (8 sources) Osteopenia; Translations: [Other specified disorders of bone density and structure, other site] Onset: 08-22-2017 08-22-2017 Episodic Other connective tissue disease (8 sources) History of lumbar fusion; Translations: [Arthrodesis status] Onset: 10-24-2017 10-24-2017 Episodic Other screening for suspected conditions (not mental disorders or infectious disease) (7 sources) Decreased vitamin D; Translations: [Other specified abnormal findings of blood chemistry] Onset: 03-21-2024 08-21-2024 Episodic Spondylosis; intervertebral disc disorders; other back problems (20 sources) Low back pain; Translations: [Spinal stenosis, lumbar region with neurogenic claudication] Onset: 08-22-2017 08-22-2017 Episodic Unclassified (8 sources) Problem Unclassified (9 sources) Onset: 02-07-2023 Resolved: 10-28-2024 02-07-2023 NEGATED: Highlighted row has not occurred!Residual codes; unclassified (20 sources) Disease Episodic Results Test Name Value Interpretation Reference Range Facility HELICOBACTER PYLORI, UREA BR EATH TESTon 12-03-2024 HELICOBACTER PYLORI, UREA BREATH TEST Not detected Normal NOT DETECTED [facility] Comment on above: Result Comment: Antimicrobials, proton pump inhibitors, and bismuth preparations are known to suppress H. pylori, and ingestion of these prior to H. pylori diagnostic testing may lead to false negative results. If clinically indicated, the test may be repeated on a new specimen obtained two weeks after discontinuing treatment. However, a positive result is still clinically valid. Performed By: #### 1 [id number] #### [facility] [address], [address] [place] [address] Corporate Receptionist: Alessandro Shepard MD Absolute lymphocyte countOrd ered By: Genoveva Diehl on 10-22-2024 Lymphocytes Auto (Unsp spec) [#/Vol] 0.98 10*3/uL 0.83-4.51 [facility] Absolute neutrophil countOrd ered By: Genoveva Diehl on 10-22-2024 Neutrophils (Bld) [#/Vol] 4.6 10*3/uL 2.0-7.7 [facility] Anion gap in Serum or Plasma Ordered By: Genoveva Diehl on 10-22-2024 Anion gap [Moles/Vol] 11 mmol/L 5-15 [facility] Automated lymphocyte count a s percentage of total leukocytesOrdered By: Genoveva Diehl on 10-22-2024 Lymphocytes/100 WBC Auto (Unsp spec) 13.6 % Low 19-41 [facility] BUN/creatinine ratioOrdered By: [facility] Shanita on 10-22-2024 Urea nitrogen/Creatinine [Mass ratio] 16.7 mg/mg 10-20 [facility] Basophil percentageOrdered B y: Genoveva Diehl on 10-22-2024 Basophils/100 WBC (Bld) 1.0 % 0-1 [facility] Bilirubin, totalOrdered By: Genovevaari Diehl on 10-22-2024 Bilirubin [Mass/Vol] 0.20 mg/dL 0.00-1.30 [facility] CBC W/Diff, Automatedon 10-10 Absolute Lymph 0.98 X10 3/uL Normal 0.83-4.51 [facility] Comment on above: Performed By: #### L 100.0100, L509.1000, L500.4050 #### [facility] [address] [place], [place], [address] Absolute Neut 4.6 X10 3/uL Normal 2.0-7.7 [facility] Comment on above: Performed By: #### L 100.0100, L509.1000, L500.4050 #### [facility] [address] [place], [address] Basophils/100 WBC (Bld) 1.0 % Normal 0-1 [facility] Comment on above: Performed By: #### L 100.0100, L509.1000, L500.4050 #### [facility] [address] [place], [address] Eosinophils/100 WBC (Bld) 10.0 % High 0-5 [facility] Comment on above: Performed By: #### L 100.0100, L509.1000, L500.4050 #### [facility] [address] [place], [address] Erythrocyte distribution width (RBC) [Ratio] 14.4 % Normal 11.6-14.6 [facility] Comment on above: Performed By: #### L 100.0100, L509.1000, L500.4050 #### [facility] [address] [place], [address] Hematocrit (Bld) [Volume fraction] 30.2 % Low 40-54 [facility] Comment on above: Performed By: #### L 100.0100, L509.1000, L500.4050 #### [facility] [address] [place], [address] Hemoglobin (Bld) [Mass/Vol] 10.0 g/dL Low 13.0-16.5 [facility] Comment on above: Performed By: #### L 100.0100, L509.1000, L500.4050 #### [facility] [address] [place], [address] IG% 0.400 Normal 0.0-0.9 [facility] Comment on above: Result Comment: IG% - Immature Granulocytes (promyelocytes, myelocytes and metamyelocytes) > 1% indicates that a LEFT SHIFT is Present. Performed By: #### L 100.0100, L509.1000, L500.4050 #### [facility] [address] [place], [address] Lymphocytes/100 WBC (Bld) 13.6 % Low 19-41 [facility] Comment on above: Performed By: #### L 100.0100, L509.1000, L500.4050 #### [facility] [address] [place], [address] MCH (RBC) [Entitic mass] 34.1 pg High 27.0-32.0 [facility] Comment on above: Performed By: #### L 100.0100, L509.1000, L500.4050 #### [facility] [address] [place], [address] MCHC (RBC) [Mass/Vol] 33.1 g/dL Normal 32-36 [facility] Comment on above: Performed By: #### L 100.0100, L509.1000, L500.4050 #### [facility] [address] [place], [address] MCV (RBC) [Entitic vol] 103.1 fL High 80-94 [facility] Comment on above: Performed By: #### L 100.0100, L509.1000, L500.4050 #### [facility] [address] [place], [address] Monocytes/100 WBC (Bld) 11.4 % High 0-10 [facility] Comment on above: Performed By: #### L 100.0100, L509.1000, L500.4050 #### [facility] [address] [place], [address] Neutrophils/100 WBC (Bld) 63.6 % Normal 47-70 [facility] Comment on above: Performed By: #### L 100.0100, L509.1000, L500.4050 #### [facility] [address] [place], [address] Nucleated RBC (Bld) [#/Vol] 0 10*3/uL Normal 0-5 [facility] Comment on above: Performed By: #### L 100.0100, L509.1000, L500.4050 #### [facility] [address] [place], [address] Platelet mean volume (Bld) [Entitic vol] 11.8 fL Normal 6.2-12.0 [facility] Comment on above: Performed By: #### L 100.0100, L509.1000, L500.4050 #### [facility] [address] [place], [address] Platelets (Bld) [#/Vol] 239 10*3/uL Normal 150-450 [facility] Comment on above: Performed By: #### L 100.0100, L509.1000, L500.4050 #### [facility] [address] [place], [address] RBC (Bld) [#/Vol] 2.93 10*6/uL Low 4.6-6.2 [facility] Comment on above: Performed By: #### L 100.0100, L509.1000, L500.4050 #### [facility] [address] [place], [address] RDW SD 53.8 fl High 35.1-43.9 [facility] Comment on above: Performed By: #### L 100.0100, L509.1000, L500.4050 #### [facility] [address] [place], [address] WBC (Bld) [#/Vol] 7.2 10*3/uL Normal 4.4-11.0 [facility] Comment on above: Performed By: #### L 100.0100, L509.1000, L500.4050 #### [facility] [address] [place], [address] Carbon dioxide, total [Moles /volume] in Central venous bloodOrdered By: Genoveva Diehl on 10-22-2024 CO2 [Moles/Vol] 22.7 mmol/L 21.0-32.0 [facility] Chloride assayOrdered By: Wilmar Diehl on 10-22-2024 Chloride [Moles/Vol] 103 mmol/L 98-108 [facility] Comprehensive Metabolic Prof ilon 10-22-2024 Albumin [Mass/Vol] 4.0 g/dL Normal 3.4-4.8 [facility] Comment on above: Performed By: #### L 100.0100, L509.1000, L500.4050 #### [facility] [address] [place], [address] Albumin/Globulin [Mass ratio] 1.5 {ratio} Normal 0.9-2.4 [facility] Comment on above: Performed By: #### L 100.0100, L509.1000, L500.4050 #### [facility] [address] [place], [address] ALK PHOS 102 U/L Normal 40-129 [facility] Comment on above: Performed By: #### L 100.0100, L509.1000, L500.4050 #### [facility] [address] [place], [address] ALT [Catalytic activity/Vol] 26 U/L Normal <=46 [facility] Comment on above: Performed By: #### L 100.0100, L509.1000, L500.4050 #### [facility] [address] [place], [address] AST [Catalytic activity/Vol] 30 U/L Normal <=37 [facility] Comment on above: Performed By: #### L 100.0100, L509.1000, L500.4050 #### [facility] [address] [place], [address] Bilirubin [Mass/Vol] 0.20 mg/dL Normal 0.00-1.30 [facility] Comment on above: Performed By: #### L 100.0100, L509.1000, L500.4050 #### [facility] [address] [place], [address] BUN/CRE 16.7 RATIO Normal 10-20 [facility] Comment on above: Performed By: #### L 100.0100, L509.1000, L500.4050 #### [facility] [address] [place], [address] Calcium [Mass/Vol] 10.1 mg/dL Normal 7.6-11.0 [facility] Comment on above: Performed By: #### L 100.0100, L509.1000, L500.4050 #### [facility] [address] [place], [address] Chloride [Moles/Vol] 103 mmol/L Normal 98-108 [facility] Comment on above: Performed By: #### L 100.0100, L509.1000, L500.4050 #### [facility] [address] [place], [address] CO2 [Moles/Vol] 22.7 mmol/L Normal 21.0-32.0 [facility] Comment on above: Performed By: #### L 100.0100, L509.1000, L500.4050 #### [facility] [address] [place], [address] Creatinine [Mass/Vol] 1.12 mg/dL Normal 0.70-1.20 [facility] Comment on above: Performed By: #### L 100.0100, L509.1000, L500.4050 #### [facility] [address] [place], [address] GAP 11 Normal 5-15 [facility] Comment on above: Performed By: #### L 100.0100, L509.1000, L500.4050 #### [facility] [address] [place], [address] GFR/1.73 sq M.predicted among non-blacks MDRD (S/P/Bld) [Vol rate/Area] 69 mL/min/{1.73_m2} Normal >60 [facility] Comment on above: Result Comment: mL/m in/1.73m2 CKD-EPI Creatinine Equation (2020) Performed By: #### L 100.0100, L509.1000, L500.4050 #### [facility] [address] [place], [address] Globulin (S) [Mass/Vol] 2.7 g/dL Normal 2.2-4.2 [facility] Comment on above: Performed By: #### L 100.0100, L509.1000, L500.4050 #### [facility] [address] [place], [address] Glucose [Mass/Vol] 72 mg/dL Normal 70-99 [facility] Comment on above: Performed By: #### L 100.0100, L509.1000, L500.4050 #### [facility] [address] [place], [address] Potassium [Moles/Vol] 3.7 mmol/L Normal 3.3-5.1 [facility] Comment on above: Performed By: #### L 100.0100, L509.1000, L500.4050 #### [facility] [address] [place], [address] Sodium [Moles/Vol] 137 mmol/L Normal 133-145 [facility] Comment on above: Performed By: #### L 100.0100, L509.1000, L500.4050 #### [facility] [address] [place], [address] T PROT 6.7 g/dL Normal 5.9-8.4 [facility] Comment on above: Performed By: #### L 100.0100, L509.1000, L500.4050 #### [facility] [address] [place], [address] Urea nitrogen [Mass/Vol] 19 mg/dL Normal 4-19 [facility] Comment on above: Performed By: #### L 100.0100, L509.1000, L500.4050 #### [facility] [address] [place], [address] Eosinophil percentageOrdered By: Genoveva Diehl on 10-22-2024 Eosinophils/100 WBC (Bld) 10.0 % High 0-5 [facility] Erythrocyte distribution wid th ratioOrdered By: Genoveva Diehl on 10-22-2024 Erythrocyte distribution width (RBC) [Ratio] 14.4 % 11.6-14.6 [facility] Erythrocyte distribution wid th standard deviationOrdered By: Genoveva Diehl on 10-22-2024 Erythrocyte distribution width (RBC) [Ratio] 53.8 fl High 35.1-43.9 [facility] Glomerular filtration rate ( GFR) estimation/1.73 sq m using serum, plasma, or whole bOrdered By: Genoveva Diehl on 10-22-2024 GFR/1.73 sq M.predicted among non-blacks MDRD (S/P/Bld) [Vol rate/Area] 69 mL/min/{1.73_m2} >60 [facility] Comment on above: mL/min/1.73m2 CKD-EP I Creatinine Equation (2020) Hematocrit Auto (Bld) [Volum e fraction]Ordered By: Genoveva Diehl on 10-22-2024 Hematocrit (Bld) [Volume fraction] 30.2 % Low 40-54 [facility] Hemoglobin measurementOrdere d By: Genoveva Diehl on 10-22-2024 Hemoglobin (Bld) [Mass/Vol] 10.0 g/dL Low 13.0-16.5 [facility] Immature granulocytes/100 WB C Auto (Bld)Ordered By: Genoveva Diehl on 10-22-2024 Immature granulocytes/100 WBC (Bld) 0.400 % 0.0-0.9 [facility] Comment on above: IG% - Immature Granu locytes (promyelocytes, myelocytes and metamyelocytes) > 1% indicates that a LEFT SHIFT is Present. Laboratory - Chemistry and C hemistry - challengeOrdered By: Genoveva Diehl on 10-22-2024 AST [Catalytic activity/Vol] 30 U/L <38 [facility] MCV (mean corpuscular volume ) determinationOrdered By: Genoveva Diehl on 10-22-2024 MCV (RBC) [Entitic vol] 103.1 fL High 80-94 [facility] Mean corpuscular hemoglobin (MCH) determinationOrdered By: Genoveva Diehl on 10-22-2024 MCH (RBC) [Entitic mass] 34.1 pg High 27.0-32.0 [facility] Mean corpuscular hemoglobin concentration (MCHC) determinationOrdered By: Genoveva Diehl on 10-22-2024 MCHC (RBC) [Mass/Vol] 33.1 g/dL 32-36 [facility] Mean platelet volume determi nationOrdered By: Genoveva Diehl on 10-22-2024 Platelet mean volume (Bld) [Entitic vol] 11.8 fL 6.2-12.0 [facility] Monocyte percentageOrdered B y: Genoveva Diehl on 10-22-2024 Monocytes/100 WBC (Bld) 11.4 % High 0-10 [facility] Neutrophil percentageOrdered By: Genoveva Diehl on 10-22-2024 Neutrophils/100 WBC (Bld) 63.6 % 47-70 [facility] Nucleated red blood cell per centageOrdered By: Genoveva Diehl on 10-22-2024 Nucleated RBC/100 WBC (Bld) [Ratio] 0 % 0-5 [facility] Platelet countOrdered By: Wilmar Diehl on 10-22-2024 Platelets (Bld) [#/Vol] 239 10*3/uL 150-450 [facility] Potassium measurement (mass/ volume)Ordered By: Genoveva Diehl on 10-22-2024 Potassium (Unsp spec) [Mass/Vol] 3.7 mmol/L 3.3-5.1 [facility] RBC Auto (Bld) [#/Vol]Ordere d By: Genoveva Diehl on 10-22-2024 RBC (Bld) [#/Vol] 2.93 10*6/uL Low 4.6-6.2 [facility] Serum creatinine measurement (mass/volume)Ordered By: Genoveva Diehl on 10-22-2024 Creatinine [Mass/Vol] 1.12 mg/dL 0.70-1.20 [facility] Serum globulin measurementOr dered By: Genoveva Diehl on 10-22-2024 Globulin (S) [Mass/Vol] 2.7 g/dL 2.2-4.2 [facility] Serum glucose measurement (m ass/volume)Ordered By: Genoveva Diehl on 10-22-2024 Glucose [Mass/Vol] 72 mg/dL 70-99 [facility] Serum or plasma alanine hernandez otransferase (ALT) measurementOrdered By: Genoveva Diehl on 10-22-2024 ALT [Catalytic activity/Vol] 26 U/L <47 [facility] Serum or plasma albumin alena urement (mass/volume)Ordered By: Genoveva Diehl on 10-22-2024 Albumin [Mass/Vol] 4.0 g/dL 3.4-4.8 [facility] Serum or plasma albumin/glob ulin mass ratioOrdered By: Genoveva Diehl on 10-22-2024 Albumin/Globulin [Mass ratio] 1.5 {ratio} 0.9-2.4 [facility] Serum or plasma alkaline gregoria sphatase measurementOrdered By: Genoveva Diehl on 10-22-2024 ALP [Catalytic activity/Vol] 102 U/L 40-129 [facility] Serum or plasma calcium alena urement (mass/volume)Ordered By: Genoveva Diehl on 10-22-2024 Calcium [Mass/Vol] 10.1 mg/dL 7.6-11.0 [facility] Serum or plasma urea nitroge n measurement (mass/volume)Ordered By: Genoveva Chaviraki on 10-22-2024 Urea nitrogen [Mass/Vol] 19 mg/dL 4-19 [facility] Sodium levelOrdered By: Karlos nur Shanita on 10-22-2024 Sodium [Moles/Vol] 137 mmol/L 133-145 [facility] Total proteinOrdered By: Shiela ari Shanita on 10-22-2024 Protein [Mass/Vol] 6.7 g/dL 5.9-8.4 [facility] White blood cell (WBC) count Ordered By: Genoveva Shanita on 10-22-2024 WBC (Bld) [#/Vol] 7.2 10*3/uL 4.4-11.0 [facility] COLONOSCOPYon 10-17-2024 Colonoscopy Table formatting fro m the original result was not included. Impression Scattered diverticulosis of moderate severity in the sigmoid colon Medium hemorrhoids Findings Multiple medium, scattered diverticula of moderate severity with no inflammation containing no content in the sigmoid colon; no bleeding was observed Internal medium hemorrhoids observed during retroflexion; no bleeding was observed Recommendation Follow up with PCP May consider EGD for further evaluation of anemia Indication Anemia, unspecified type Post-Op Diagnosis None Staff Staff Role No Staff Documented Medications midazolam PF (Versed) injection 5 mg fentaNYL PF (Sublimaze) injection 50 mcg (Totals for administrations occurring from 1013 to 1042 on 10/17/24) Preprocedure A history and physical has been performed, and patient medication allergies have been reviewed. The patient's tolerance of previous anesthesia has been reviewed. The risks and benefits of the procedure and the sedation options and risks were discussed with the patient. All questions were answered and informed consent obtained. Details of the Procedure The patient underwent moderate sedation, which was administered by a sedation nurse and the procedural nurse. The patient's blood pressure, ECG, ETCO2, heart rate, respirations, oxygen and level of consciousness were monitored throughout the procedure. A digital rectal exam was performed. The scope was introduced through the anus and advanced to the cecum. Retroflexion was performed in the rectum. Bowel prep was adequate. The patient experienced no blood loss. The procedure was not difficult. The patient tolerated the procedure well. There were no apparent adverse events. Events Procedure Events Event Event Time ENDO SCOPE IN TIME 10/17/2024 10:21 AM ENDO CECUM REACHED 10/17/2024 10:29 AM ENDO SCOPE OUT TIME 10/17/2024 10:41 AM Specimens No specimens collected Procedure Location [facility] [place] [address] [place] [phone] Referring Provider Travis Cespedes MD Procedure Provider Travis Cespedes MD [facility] Comment on above: Order Comment: DOS Colonoscopy studyon 10-18-19 Table formatting fro m the original result was not included. Impression Scattered diverticulosis of moderate severity in the sigmoid colon Medium hemorrhoids Findings Multiple medium, scattered diverticula of moderate severity with no inflammation containing no content in the sigmoid colon; no bleeding was observed Internal medium hemorrhoids observed during retroflexion; no bleeding was observed Recommendation Follow up with PCP May consider EGD for further evaluation of anemia Indication Anemia, unspecified type Post-Op Diagnosis None Staff Staff Role No Staff Documented Medications midazolam PF (Versed) injection 5 mg fentaNYL PF (Sublimaze) injection 50 mcg (Totals for administrations occurring from 1013 to 1042 on 10/17/24) Preprocedure A history and physical has been performed, and patient medication allergies have been reviewed. The patient's tolerance of previous anesthesia has been reviewed. The risks and benefits of the procedure and the sedation options and risks were discussed with the patient. All questions were answered and informed consent obtained. Details of the Procedure The patient underwent moderate sedation, which was administered by a sedation nurse and the procedural nurse. The patient's blood pressure, ECG, ETCO2, heart rate, respirations, oxygen and level of consciousness were monitored throughout the procedure. A digital rectal exam was performed. The scope was introduced through the anus and advanced to the cecum. Retroflexion was performed in the rectum. Bowel prep was adequate. The patient experienced no blood loss. The procedure was not difficult. The patient tolerated the procedure well. There were no apparent adverse events. Events Procedure Events Event Event Time ENDO SCOPE IN TIME 10/17/2024 10:21 AM ENDO CECUM REACHED 10/17/2024 10:29 AM ENDO SCOPE OUT TIME 10/17/2024 10:41 AM Specimens No specimens collected Procedure Location [facility] [place] [address] [place] [phone] Referring Provider Travis Cespedes MD Procedure Provider Travis Cespedes MD IMAGING [facility] Work Phone: Radiology Study observation (narrative) [facility] Work Phone: PTHINon 10-14-2024 PTH 163 pg/mL High 11-61 [facility] Comment on above: Performed By: #### L 506.1001, L509.1000 #### [facility] [address] [place], [place], [address] Vitamin D,25 Hydroxyon 10-14 Vitamin D 25-OH 35.3 ng/mL Normal 30-100 [facility] Comment on above: Order Comment: RESUL TS FOR VITD GO TO [facility]SO GET[facility] RESULTS FOR PTH Result Comment: Sylvia min D Status Deficiency: <20 ng/mL (50nmol/L) Insufficiency: 20-30 ng/mL (50-75 nmol/L) Sufficiency: 30-100 ng/mL (75-250 nmol/L) Toxicity: >100 ng/mL (>250 nmol/L) Performed By: #### L 506.1001, L509.1000 #### [facility] [address] [place], [place], [address] FERRITINon 08-23-2024 Ferritin [Mass/Vol] 228 ng/mL Normal 24-380 [facility] Comment on above: Performed By: #### 1 7306, 927, 457, 7573, 466 #### [facility] [address], [address] [place] [phone] Corporate Receptionist: Alessandro Shepard MD FOLATE, SERUMon 08-23-2024 Folate [Mass/Vol] ng/mL Normal [facility] Comment on above: Result Comment: Refe rence Range Low: <3.4 Borderline: 3.4-5.4 Normal: >5.4 Performed By: #### 1 7306, 927, 457, 7573, 466 #### [facility] [address], [address] [place] [address] Corporate Receptionist: Alessandro Shepard MD IRON AND TOTAL IRON BINDING CAPACITYon 08-23-2024 % SATURATION 26 % (calc) Normal 20-48 [facility] Comment on above: Order Comment: FASTI NG:YES FASTING: YES Performed By: #### 1 7306, 927, 457, 7573, 466 #### [facility] [place] [address] Corporate Receptionist: Alessandro Shepard MD IRON BINDING CAPACITY 269 mcg/dL (calc) Normal 250-425 [facility] Comment on above: Order Comment: FASTI NG:YES FASTING: YES Performed By: #### 1 7306, 927, 457, 7573, 466 #### [facility] [place] [address] Corporate Receptionist: Alessandro Shepard MD IRON, TOTAL 70 mcg/dL Normal 50-180 [facility] Comment on above: Order Comment: FASTI NG:YES FASTING: YES Performed By: #### 1 7306, 927, 457, 7573, 466 #### [facility] [place] [address] Corporate Receptionist: Alessandro Shepard MD VITAMIN B12on 08-23-2024 Cobalamin (Vitamin B12) [Mass/Vol] 442 pg/mL Normal 200-1100 [facility] Comment on above: Performed By: #### 1 7306, 927, 457, 7573, 466 #### [facility] [place] [address] Corporate Receptionist: Alessandro Shepard MD VITAMIN D,25-OH,TOTAL,IAon 0 08-23-2024 VITAMIN D,25-OH,TOTAL,IA 29 ng/mL Low 30-100 [facility] Comment on above: Result Comment: Sylvia min D Status 25-OH Vitamin D: Deficiency: <20 ng/mL Insufficiency: 20 - 29 ng/mL Optimal: > or = 30 ng/mL For 25-OH Vitamin D testing on patients on D2-supplementation and patients for whom quantitation of D2 and D3 fractions is required, the QuestAssureD(TM) 25-OH VIT D, (D2,D3), LC/MS/MS is recommended: order code 52258 (patients >2yrs). See Note 1 Note 1 For additional information, please refer to http://education.[employer]/faq/DZQ178 (This link is being provided for informational/ educational purposes only.) Performed By: #### 1 [id number], [phone], [phone] #### [facility] [address], [address] [place] [address] Corporate Receptionist: Alessandro Shepard MD Absolute lymphocyte countOrd ered By: Genoveva Diehl on 07-24-2024 Lymphocytes Auto (Unsp spec) [#/Vol] 1.27 10*3/uL 0.83-4.51 [facility] Absolute neutrophil countOrd ered By: Genovevaari Diehl on 07-24-2024 Neutrophils (Bld) [#/Vol] 3.9 10*3/uL 2.0-7.7 [facility] Albumin to globulin ratioOrd ered By: [facility] Shanita on 07-24-2024 Albumin/Globulin [Mass ratio] 1.1 {ratio} 0.9-2.4 [facility] Automated lymphocyte count a s percentage of total leukocytesOrdered By: Genoveva Diehl on 07-24-2024 Lymphocytes/100 WBC Auto (Unsp spec) 20.6 % 19-41 [facility] Basophil percentageOrdered B y: Genoveva Diehl on 07-24-2024 Basophils/100 WBC (Bld) 1.1 % High 0-1 [facility] Bilirubin, totalOrdered By: Genovevaari Diehl on 07-24-2024 Bilirubin [Mass/Vol] 0.20 mg/dL 0.20-1.00 [facility] Comment on above: For patients on eltr ombopag therapy, use of Dimension [place] TBIL is not recommended. Blood urea nitrogen (BUN)/cr eatinine ratioOrdered By: Genoveva Diehl on 07-24-2024 Urea nitrogen/Creatinine [Mass ratio] 24.3 mg/mg High 10-20 [facility] CBC W/Diff, Automatedon 07-13 Absolute Lymph 1.27 X10 3/uL Normal 0.83-4.51 [facility] Comment on above: Performed By: #### L 100.0100, L509.1000, L500.4050 #### [facility] [address] [place], [address] Absolute Neut 3.9 X10 3/uL Normal 2.0-7.7 [facility] Comment on above: Performed By: #### L 100.0100, L509.1000, L500.4050 #### [facility] [address] [place], [address] Basophils/100 WBC (Bld) 1.1 % High 0-1 [facility] Comment on above: Performed By: #### L 100.0100, L509.1000, L500.4050 #### [facility] [address] [place], [address] Eosinophils/100 WBC (Bld) 7.5 % High 0-5 [facility] Comment on above: Performed By: #### L 100.0100, L509.1000, L500.4050 #### [facility] [address] [place], [address] Erythrocyte distribution width (RBC) [Ratio] 15.1 % High 11.6-14.6 [facility] Comment on above: Performed By: #### L 100.0100, L509.1000, L500.4050 #### [facility] [address] [place], [address] Hematocrit (Bld) [Volume fraction] 31.0 % Low 40-54 [facility] Comment on above: Performed By: #### L 100.0100, L509.1000, L500.4050 #### [facility] [address] [place], [address] Hemoglobin (Bld) [Mass/Vol] 9.8 g/dL Low 13.0-16.5 [facility] Comment on above: Performed By: #### L 100.0100, L509.1000, L500.4050 #### [facility] [address] [place], [address] IG% 0.200 Normal 0.0-0.9 [facility] Comment on above: Result Comment: IG% - Immature Granulocytes (promyelocytes, myelocytes and metamyelocytes) > 1% indicates that a LEFT SHIFT is Present. Performed By: #### L 100.0100, L509.1000, L500.4050 #### [facility] [address] [place], [address] Lymphocytes/100 WBC (Bld) 20.6 % Normal 19-41 [facility] Comment on above: Performed By: #### L 100.0100, L509.1000, L500.4050 #### [facility] [address] [place], [address] MCH (RBC) [Entitic mass] 32.5 pg High 27.0-32.0 [facility] Comment on above: Performed By: #### L 100.0100, L509.1000, L500.4050 #### [facility] [address] [place], [address] MCHC (RBC) [Mass/Vol] 31.6 g/dL Low 32-36 [facility] Comment on above: Performed By: #### L 100.0100, L509.1000, L500.4050 #### [facility] [address] [place], [address] MCV (RBC) [Entitic vol] 102.6 fL High 80-94 [facility] Comment on above: Performed By: #### L 100.0100, L509.1000, L500.4050 #### [facility] [address] [place], [address] Monocytes/100 WBC (Bld) 7.3 % Normal 0-10 [facility] Comment on above: Performed By: #### L 100.0100, L509.1000, L500.4050 #### [facility] [address] [place], [address] Neutrophils/100 WBC (Bld) 63.3 % Normal 47-70 [facility] Comment on above: Performed By: #### L 100.0100, L509.1000, L500.4050 #### [facility] [address] [place], [address] Nucleated RBC (Bld) [#/Vol] 0 10*3/uL Normal 0-5 [facility] Comment on above: Performed By: #### L 100.0100, L509.1000, L500.4050 #### [facility] [address] [place], [address] Platelet mean volume (Bld) [Entitic vol] 11.0 fL Normal 6.2-12.0 [facility] Comment on above: Performed By: #### L 100.0100, L509.1000, L500.4050 #### [facility] [address] [place], [address] Platelets (Bld) [#/Vol] 245 10*3/uL Normal 150-450 [facility] Comment on above: Performed By: #### L 100.0100, L509.1000, L500.4050 #### [facility] [address] [place], [address] RBC (Bld) [#/Vol] 3.02 10*6/uL Low 4.6-6.2 [facility] Comment on above: Performed By: #### L 100.0100, L509.1000, L500.4050 #### [facility] [address] [place], [address] RDW SD 54.9 fl High 35.1-43.9 [facility] Comment on above: Performed By: #### L 100.0100, L509.1000, L500.4050 #### [facility] [address] [place], [address] WBC (Bld) [#/Vol] 6.2 10*3/uL Normal 4.4-11.0 [facility] Comment on above: Performed By: #### L 100.0100, L509.1000, L500.4050 #### [facility] [address] [place], [address] Carbon dioxide measurementOr dered By: Genoveva Diehl on 07-24-2024 CO2 [Moles/Vol] 23.0 mmol/L 21.0-32.0 [facility] Chloride measurementOrdered By: Genoveva Diehl on 07-24-2024 Chloride [Moles/Vol] 106 mmol/L 98-107 [facility] Comprehensive Metabolic Prof ilon 07-24-2024 Albumin [Mass/Vol] 3.6 g/dL Normal 3.2-5.0 [facility] Comment on above: Performed By: #### L 100.0100, L509.1000, L500.4050 #### [facility] [address] [place], [address] Albumin/Globulin [Mass ratio] 1.1 {ratio} Normal 0.9-2.4 [facility] Comment on above: Performed By: #### L 100.0100, L509.1000, L500.4050 #### [facility] [address] [place], [address] ALK P 91 U/L Normal 45-117 [facility] Comment on above: Performed By: #### L 100.0100, L509.1000, L500.4050 #### [facility] [address] [place], [address] ALT [Catalytic activity/Vol] 37 U/L Normal 16-61 [facility] Comment on above: Performed By: #### L 100.0100, L509.1000, L500.4050 #### [facility] [address] [place], [address] AST [Catalytic activity/Vol] 25 U/L Normal 15-37 [facility] Comment on above: Performed By: #### L 100.0100, L509.1000, L500.4050 #### [facility] [address] [place], [address] Bilirubin [Mass/Vol] 0.20 mg/dL Normal 0.20-1.00 [facility] Comment on above: Result Comment: For patients on eltrombopag therapy, use of Dim[facility] [place] TBIL is not recommended. Performed By: #### L 100.0100, L509.1000, L500.4050 #### [facility] [address] [place], [address] BUN/CRE 24.3 RATIO High 10-20 [facility] Comment on above: Performed By: #### L 100.0100, L509.1000, L500.4050 #### [facility] [address] [place], [address] CA,Total 10.1 mg/dL Normal 8.5-10.1 [facility] Comment on above: Performed By: #### L 100.0100, L509.1000, L500.4050 #### [facility] [address] [place], [address] Chloride [Moles/Vol] 106 mmol/L Normal 98-107 [facility] Comment on above: Performed By: #### L 100.0100, L509.1000, L500.4050 #### [facility] [address] [place], [address] CO2 [Moles/Vol] 23.0 mmol/L Normal 21.0-32.0 [facility] Comment on above: Performed By: #### L 100.0100, L509.1000, L500.4050 #### [facility] [address] [place], [address] Creatinine [Mass/Vol] 1.15 mg/dL Normal 0.70-1.30 [facility] Comment on above: Result Comment: The validity of the calculated GFR GFRAA in patients over 70 years has not been determined. Clinical correlation is essential. Performed By: #### L 100.0100, L509.1000, L500.4050 #### [facility] [address] [place], [address] EST GFR - AA 80 mL/min Normal >60 [facility] Comment on above: Result Comment: Afri can [place] GFR Calc Performed By: #### L 100.0100, L509.1000, L500.4050 #### [facility] [address] [place], [address] GAP 9 Normal 5-15 [facility] Comment on above: Performed By: #### L 100.0100, L509.1000, L500.4050 #### [facility] [address] [place], [address] GFR/1.73 sq M.predicted among non-blacks MDRD (S/P/Bld) [Vol rate/Area] 66 mL/min/{1.73_m2} Normal >60 [facility] Comment on above: Result Comment: Non- GFR Calc Performed By: #### L 100.0100, L509.1000, L500.4050 #### [facility] [address] [place], [address] Globulin (S) [Mass/Vol] 3.3 g/dL Normal 2.2-4.2 [facility] Comment on above: Performed By: #### L 100.0100, L509.1000, L500.4050 #### [facility] [address] [place], [address] Glucose [Mass/Vol] 89 mg/dL Normal 74-106 [facility] Comment on above: Performed By: #### L 100.0100, L509.1000, L500.4050 #### [facility] [address] [place], [address] Potassium [Moles/Vol] 4.2 mmol/L Normal 3.5-5.1 [facility] Comment on above: Performed By: #### L 100.0100, L509.1000, L500.4050 #### [facility] [address] [place], [address] Sodium [Moles/Vol] 138 mmol/L Normal 136-145 [facility] Comment on above: Performed By: #### L 100.0100, L509.1000, L500.4050 #### [facility] [address] [place], [address] T PROT 6.9 g/dL Normal 6.4-8.2 [facility] Comment on above: Performed By: #### L 100.0100, L509.1000, L500.4050 #### [facility] [address] [place], [address] Urea nitrogen [Mass/Vol] 28 mg/dL High 7-18 [facility] Comment on above: Performed By: #### L 100.0100, L509.1000, L500.4050 #### [facility] [address] [place], [address] Eosinophil percentageOrdered By: Genoveva Diehl on 07-24-2024 Eosinophils/100 WBC (Bld) 7.5 % High 0-5 [facility] Erythrocyte distribution wid th ratioOrdered By: Genoveva Diehl on 07-24-2024 Erythrocyte distribution width (RBC) [Ratio] 15.1 % High 11.6-14.6 [facility] Erythrocyte distribution wid th standard deviationOrdered By: Genoveva Diehl on 07-24-2024 Erythrocyte distribution width (RBC) [Ratio] 54.9 fl High 35.1-43.9 [facility] Glomerular filtration rate ( GFR) estimationOrdered By: Genoveva Diehl on 07-24-2024 GFR/1.73 sq M.predicted among non-blacks MDRD (S/P/Bld) [Vol rate/Area] 66 mL/min/{1.73_m2} >60 [facility] Comment on above: Non- GFR Calc Glucose measurementOrdered B y: Genoveva Diehl on 07-24-2024 Glucose [Mass/Vol] 89 mg/dL 74-106 [facility] Hematocrit Auto (Bld) [Volum e fraction]Ordered By: Genoveva Diehl on 07-24-2024 Hematocrit (Bld) [Volume fraction] 31.0 % Low 40-54 [facility] Hemoglobin measurementOrdere d By: Genoveva Diehl on 07-24-2024 Hemoglobin (Bld) [Mass/Vol] 9.8 g/dL Low 13.0-16.5 [facility] Immature granulocytes/100 WB C Auto (Bld)Ordered By: Genoveva Diehl 07-24-2024 Immature granulocytes/100 WBC (Bld) 0.200 % 0.0-0.9 [facility] Comment on above: IG% - Immature Granu locytes (promyelocytes, myelocytes and metamyelocytes) > 1% indicates that a LEFT SHIFT is Present. Laboratory - Chemistry and C hemistry - challengeOrdered By: Genoveva Diehl on 07-24-2024 AST [Catalytic activity/Vol] 25 U/L 15-37 [facility] MCV (mean corpuscular volume ) determinationOrdered By: Genoveva Diehl 07-24-2024 MCV (RBC) [Entitic vol] 102.6 fL High 80-94 [facility] Mean corpuscular hemoglobin (MCH) determinationOrdered By: Genoveva Diehl 07-24-2024 MCH (RBC) [Entitic mass] 32.5 pg High 27.0-32.0 [facility] Mean corpuscular hemoglobin concentration (MCHC) determinationOrdered By: Genoveva Diehl on 07-24-2024 MCHC (RBC) [Mass/Vol] 31.6 g/dL Low 32-36 [facility] Mean platelet volume determi nationOrdered By: Genoveva Diehl on 07-24-2024 Platelet mean volume (Bld) [Entitic vol] 11.0 fL 6.2-12.0 [facility] Monocyte percentageOrdered B y: Genoveva Diehl on 07-24-2024 Monocytes/100 WBC (Bld) 7.3 % 0-10 [facility] Neutrophil percentageOrdered By: Genoveva Diehl on 07-24-2024 Neutrophils/100 WBC (Bld) 63.3 % 47-70 [facility] Nucleated red blood cell per centageOrdered By: Genoveva Diehl on 07-24-2024 Nucleated RBC/100 WBC (Bld) [Ratio] 0 % 0-5 [facility] PTHINon 07-24-2024 PTH 131.7 pg/mL High 18.4-80.1 [facility] Comment on above: Performed By: #### L 100.0100, L509.1000, L500.4050 #### [facility] [address] [place] [address], [address] Platelet countOrdered By: Wilmar Diehl on 07-24-2024 Platelets (Bld) [#/Vol] 245 10*3/uL 150-450 [facility] Potassium measurementOrdered By: Genoveva Diehl on 07-24-2024 Potassium [Moles/Vol] 4.2 mmol/L 3.5-5.1 [facility] RBC Auto (Bld) [#/Vol]Ordere d By: Genoveva Diehl on 07-24-2024 RBC (Bld) [#/Vol] 3.02 10*6/uL Low 4.6-6.2 [facility] Serum anion gap measurementO rdered By: Genoveva Diehl on 07-24-2024 Anion gap [Moles/Vol] 9 mmol/L 5-15 [facility] Serum globulin measurementOr dered By: Genoveva Diehl on 07-24-2024 Globulin (S) [Mass/Vol] 3.3 g/dL 2.2-4.2 [facility] Serum or plasma alanine hernandez otransferase (ALT) measurementOrdered By: Genoveva Diehl on 07-24-2024 ALT [Catalytic activity/Vol] 37 U/L 16-61 [facility] Serum or plasma albumin alena urement (mass/volume)Ordered By: Genoveva Diehl on 07-24-2024 Albumin [Mass/Vol] 3.6 g/dL 3.2-5.0 [facility] Serum or plasma alkaline gregoria sphatase measurementOrdered By: Genoveva Diehl on 07-24-2024 ALP [Catalytic activity/Vol] 91 U/L 45-117 [facility] Serum or plasma calcium alena urement (mass/volume)Ordered By: Genoveva Diehl on 07-24-2024 Calcium [Mass/Vol] 10.1 mg/dL 8.5-10.1 [facility] Serum or plasma creatinine m easurement (mass/volume)Ordered By: Genoveva Diehl on 07-24-2024 Creatinine [Mass/Vol] 1.15 mg/dL 0.70-1.30 [facility] Comment on above: The validity of the calculated GFR & GFRAA in patients over 70 years has not been determined. Clinical correlation is essential. Serum or plasma urea nitroge n measurement (mass/volume)Ordered By: Genoveva Diehl on 07-24-2024 Urea nitrogen [Mass/Vol] 28 mg/dL High 7-18 [facility] Sodium levelOrdered By: Karlos Diehl on 07-24-2024 Sodium [Moles/Vol] 138 mmol/L 136-145 [facility] Total proteinOrdered By: Shiela Diehl on 07-24-2024 Protein [Mass/Vol] 6.9 g/dL 6.4-8.2 [facility] White blood cell (WBC) count Ordered By: Genoveva Diehl on 07-24-2024 WBC (Bld) [#/Vol] 6.2 10*3/uL 4.4-11.0 [facility] PSA,Total - Annual Screenon 05-22-2024 PSA,TOT SCREEN 2.23 ng/mL Normal 0.00-4.00 [facility] Comment on above: Result Comment: This test was performed using the TPSA assay method for the [employer] chemistry system. Values obtained with different assay methods cannot be used interchangably. When changing PSA assays in the course of monitoring a patient, additional sequential testing should be carried out to confirm baseline values. Performed By: #### L 501.9910 #### [facility] [address] [place], [address] Comprehensive Metabolic Prof ilon 04-30-2024 Albumin [Mass/Vol] 3.8 g/dL Normal 3.2-5.0 [facility] Comment on above: Order Comment: NOT Ahmet PERERA BLOODWORK ANYMORE DR. DIEHL GETS CMP PTH Performed By: #### L 509.1000, L500.4050 #### [facility] [address] [place], [address] Albumin/Globulin [Mass ratio] 1.2 {ratio} Normal 0.9-2.4 [facility] Comment on above: Order Comment: NOT Ahmet PERERA BLOODWORK ANYMORE DR. DIEHL GETS CMP PTH Performed By: #### L 509.1000, L500.4050 #### [facility] [address] [place], [address] ALK P 103 U/L Normal 45-117 [facility] Comment on above: Order Comment: NOT Ahmet PERERA BLOODWORK ANYMORE DR. DIEHL GETS CMP PTH Performed By: #### L 509.1000, L500.4050 #### [facility] [address] [place], [address] ALT [Catalytic activity/Vol] 30 U/L Normal 16-61 [facility] Comment on above: Order Comment: NOT Ahmet PERERA BLOODWORK ANYMORE DR. DIEHL GETS CMP PTH Performed By: #### L 509.1000, L500.4050 #### [facility] [address] [place], [address] AST [Catalytic activity/Vol] 23 U/L Normal 15-37 [facility] Comment on above: Order Comment: NOT Ahmet PERERA BLOODWORK ANYMORE DR. DIEHL GETS CMP PTH Performed By: #### L 509.1000, L500.4050 #### [facility] [address] [place], [address] Bilirubin [Mass/Vol] 0.20 mg/dL Normal 0.20-1.00 [facility] Comment on above: Order Comment: NOT Ahmet PERERA BLOODWORK ANYMORE DR. DIEHL GETS CMP PTH Result Comment: For patients on eltrombopag therapy, use of Dimension [place] TBIL is not recommended. Performed By: #### L 509.1000, L500.4050 #### [facility] [address] [place], [address] BUN/CRE 32.4 RATIO High 10-20 [facility] Comment on above: Order Comment: NOT Ahmet PERERA BLOODWORK ANYMORE DR. DIEHL GETS CMP PTH Performed By: #### L 509.1000, L500.4050 #### [facility] [address] [place], [address] CA,Total 10.1 mg/dL Normal 8.5-10.1 [facility] Comment on above: Order Comment: NOT Ahmet PERERA BLOODWORK ANYMORE DR. DIEHL GETS CMP PTH Performed By: #### L 509.1000, L500.4050 #### [facility] [address] [place], [address] Chloride [Moles/Vol] 112 mmol/L High 98-107 [facility] Comment on above: Order Comment: NOT Ahmet PERERA BLOODWORK ANYMORE DR. DIEHL GETS CMP PTH Performed By: #### L 509.1000, L500.4050 #### [facility] [address] [place], [address] CO2 [Moles/Vol] 21.0 mmol/L Normal 21.0-32.0 [facility] Comment on above: Order Comment: NOT Ahmet PERERA BLOODWORK ANYMORE DR. DIEHL GETS CMP PTH Performed By: #### L 509.1000, L500.4050 #### [facility] [address] [place], [address] Creatinine [Mass/Vol] 1.05 mg/dL Normal 0.70-1.30 [facility] Comment on above: Order Comment: NOT Ahmet PERERA BLOODWORK ANYMORE DR. DIEHL GETS CMP PTH Result Comment: The validity of the calculated GFR GFRAA in patients over 70 years has not been determined. Clinical correlation is essential. Performed By: #### L 509.1000, L500.4050 #### [facility] [address] [place], [address] EST GFR - AA 89 mL/min Normal >60 [facility] Comment on above: Order Comment: NOT Ahmet PERERA BLOODWORK ANYMORE DR. DIEHL GETS CMP PTH Result Comment: Afri can [place] GFR Calc Performed By: #### L 509.1000, L500.4050 #### [facility] [address] [place], [address] GAP 7 Normal 5-15 [facility] Comment on above: Order Comment: NOT Ahmet PERERA BLOODWORK ANYMORE DR. DIEHL GETS CMP PTH Performed By: #### L 509.1000, L500.4050 #### [facility] [address] [place], [address] GFR/1.73 sq M.predicted among non-blacks MDRD (S/P/Bld) [Vol rate/Area] 74 mL/min/{1.73_m2} Normal >60 [facility] Comment on above: Order Comment: NOT Ahmet PERERA BLOODWORK ANYMORE DR. DIEHL GETS CMP PTH Result Comment: Non- GFR Calc Performed By: #### L 509.1000, L500.4050 #### [facility] [address] [place], [address] Globulin (S) [Mass/Vol] 3.3 g/dL Normal 2.2-4.2 [facility] Comment on above: Order Comment: NOT Ahmet PERERA BLOODWORK ANYMORE DR. DIEHL GETS CMP PTH Performed By: #### L 509.1000, L500.4050 #### [facility] [address] [place], [address] Glucose [Mass/Vol] 97 mg/dL Normal 74-106 [facility] Comment on above: Order Comment: NOT Ahmet PERERA BLOODWORK ANYMORE DR. DIEHL GETS CMP PTH Performed By: #### L 509.1000, L500.4050 #### [facility] [address] [place], [address] Potassium [Moles/Vol] 3.9 mmol/L Normal 3.5-5.1 [facility] Comment on above: Order Comment: NOT Ahmet PERERA BLOODWORK ANYMORE DR. DIEHL GETS CMP PTH Performed By: #### L 509.1000, L500.4050 #### [facility] [address] [place], [address] Sodium [Moles/Vol] 140 mmol/L Normal 136-145 [facility] Comment on above: Order Comment: NOT Ahmet PERERA BLOODWORK ANYMORE DR. DIEHL GETS CMP PTH Performed By: #### L 509.1000, L500.4050 #### [facility] [address] [place], [address] T PROT 7.1 g/dL Normal 6.4-8.2 [facility] Comment on above: Order Comment: NOT Ahmet PERERA BLOODWORK ANYMORE DR. DIEHL GETS CMP PTH Performed By: #### L 509.1000, L500.4050 #### [facility] [address] [place], [address] Urea nitrogen [Mass/Vol] 34 mg/dL High 7-18 [facility] Comment on above: Order Comment: ALICE PERERA BLOODWORK ANYMORE DR. DIEHL GETS CMP PTH Performed By: #### L 509.1000, L500.4050 #### [facility] [address] [place], [address] PTHINon 04-30-2024 PTH 169.5 pg/mL High 18.4-80.1 [facility] Comment on above: Order Comment: DR. DIEHL GETS CMP PTH Performed By: #### L 509.1000, L500.4050 #### [facility] [address] [place], [address] CBC W/Diff, Automatedon 10- Absolute Lymph 0.98 X10 3/uL Normal 0.83-4.51 [facility] Comment on above: Performed By: #### L 100.0100, L509.1000, L500.4050 #### [facility] [address] [place], [address] Absolute Neut 6.3 X10 3/uL Normal 2.0-7.7 [facility] Comment on above: Performed By: #### L 100.0100, L509.1000, L500.4050 #### [facility] [address] [place], [address] Basophils/100 WBC (Bld) 0.8 % Normal 0-1 [facility] Comment on above: Performed By: #### L 100.0100, L509.1000, L500.4050 #### [facility] [address] [place], [address] Eosinophils/100 WBC (Bld) 5.2 % High 0-5 [facility] Comment on above: Performed By: #### L 100.0100, L509.1000, L500.4050 #### [facility] [address] [place], [address] Erythrocyte distribution width (RBC) [Ratio] 15.4 % High 11.6-14.6 [facility] Comment on above: Performed By: #### L 100.0100, L509.1000, L500.4050 #### [facility] [address] [place], [address] Hematocrit (Bld) [Volume fraction] 31.8 % Low 40-54 [facility] Comment on above: Performed By: #### L 100.0100, L509.1000, L500.4050 #### [facility] [address] [place], [address] Hemoglobin (Bld) [Mass/Vol] 10.1 g/dL Low 13.0-16.5 [facility] Comment on above: Performed By: #### L 100.0100, L509.1000, L500.4050 #### [facility] [address] [place], [address] IG% 0.600 Normal 0.0-0.9 [facility] Comment on above: Result Comment: IG% - Immature Granulocytes (promyelocytes, myelocytes and metamyelocytes) > 1% indicates that a LEFT SHIFT is Present. Performed By: #### L 100.0100, L509.1000, L500.4050 #### [facility] [address] [place], [address] Lymphocytes/100 WBC (Bld) 11.8 % Low 19-41 [facility] Comment on above: Performed By: #### L 100.0100, L509.1000, L500.4050 #### [facility] [address] [place], [address] MCH (RBC) [Entitic mass] 31.5 pg Normal 27.0-32.0 [facility] Comment on above: Performed By: #### L 100.0100, L509.1000, L500.4050 #### [facility] [address] [place], [address] MCHC (RBC) [Mass/Vol] 31.8 g/dL Low 32-36 [facility] Comment on above: Performed By: #### L 100.0100, L509.1000, L500.4050 #### [facility] [address] [place], [address] MCV (RBC) [Entitic vol] 99.1 fL High 80-94 [facility] Comment on above: Performed By: #### L 100.0100, L509.1000, L500.4050 #### [facility] [address] [place], [address] Monocytes/100 WBC (Bld) 6.3 % Normal 0-10 [facility] Comment on above: Performed By: #### L 100.0100, L509.1000, L500.4050 #### [facility] [address] [place], [address] Neutrophils/100 WBC (Bld) 75.3 % High 47-70 [facility] Comment on above: Performed By: #### L 100.0100, L509.1000, L500.4050 #### [facility] [address] [place], [address] Nucleated RBC (Bld) [#/Vol] 0 10*3/uL Normal 0-5 [facility] Comment on above: Performed By: #### L 100.0100, L509.1000, L500.4050 #### [facility] [address] [place], [address] Platelet mean volume (Bld) [Entitic vol] 11.0 fL Normal 6.2-12.0 [facility] Comment on above: Performed By: #### L 100.0100, L509.1000, L500.4050 #### [facility] [address] [place], [address] Platelets (Bld) [#/Vol] 283 10*3/uL Normal 150-450 [facility] Comment on above: Performed By: #### L 100.0100, L509.1000, L500.4050 #### [facility] [address] [place], [address] RBC (Bld) [#/Vol] 3.21 10*6/uL Low 4.6-6.2 [facility] Comment on above: Performed By: #### L 100.0100, L509.1000, L500.4050 #### [facility] [address] [place], [address] RDW SD 55.3 fl High 35.1-43.9 [facility] Comment on above: Performed By: #### L 100.0100, L509.1000, L500.4050 #### [facility] [address] [place], [address] WBC (Bld) [#/Vol] 8.3 10*3/uL Normal 4.4-11.0 [facility] Comment on above: Performed By: #### L 100.0100, L509.1000, L500.4050 #### [facility] [address] [place], [address] Comprehensive Metabolic Prof ilon 03-27-2024 Albumin [Mass/Vol] 3.7 g/dL Normal 3.2-5.0 [facility] Comment on above: Performed By: #### L 100.0100, L509.1000, L500.4050 #### [facility] [address] [place], [address] Albumin/Globulin [Mass ratio] 0.9 {ratio} Normal 0.9-2.4 [facility] Comment on above: Performed By: #### L 100.0100, L509.1000, L500.4050 #### [facility] [address] [place], [address] ALK P 101 U/L Normal 45-117 [facility] Comment on above: Performed By: #### L 100.0100, L509.1000, L500.4050 #### [facility] [address] [place], [address] ALT [Catalytic activity/Vol] 24 U/L Normal 16-61 [facility] Comment on above: Performed By: #### L 100.0100, L509.1000, L500.4050 #### [facility] [address] [place], [address] AST [Catalytic activity/Vol] 21 U/L Normal 15-37 [facility] Comment on above: Performed By: #### L 100.0100, L509.1000, L500.4050 #### [facility] [address] [place], [address] Bilirubin [Mass/Vol] 0.30 mg/dL Normal 0.20-1.00 [facility] Comment on above: Result Comment: For patients on eltrombopag therapy, use of Dimension [place] TBIL is not recommended. Performed By: #### L 100.0100, L509.1000, L500.4050 #### [facility] [address] [place], [address] BUN/CRE 21.7 RATIO High 10-20 [facility] Comment on above: Performed By: #### L 100.0100, L509.1000, L500.4050 #### [facility] [address] [place], [address] CA,Total 10.6 mg/dL High 8.5-10.1 [facility] Comment on above: Performed By: #### L 100.0100, L509.1000, L500.4050 #### [facility] [address] [place], [address] Chloride [Moles/Vol] 106 mmol/L Normal 98-107 [facility] Comment on above: Performed By: #### L 100.0100, L509.1000, L500.4050 #### [facility] [address] [place], [address] CO2 [Moles/Vol] 23.0 mmol/L Normal 21.0-32.0 [facility] Comment on above: Performed By: #### L 100.0100, L509.1000, L500.4050 #### [facility] [address] [place], [address] Creatinine [Mass/Vol] 1.15 mg/dL Normal 0.70-1.30 [facility] Comment on above: Result Comment: The validity of the calculated GFR GFRAA in patients over 70 years has not been determined. Clinical correlation is essential. Performed By: #### L 100.0100, L509.1000, L500.4050 #### [facility] [address] [place], [address] EST GFR - AA 80 mL/min Normal >60 [facility] Comment on above: Result Comment: Afri can [place] GFR Calc Performed By: #### L 100.0100, L509.1000, L500.4050 #### [facility] [address] [place], [address] GAP 8 Normal 5-15 [facility] Comment on above: Performed By: #### L 100.0100, L509.1000, L500.4050 #### [facility] [address] [place], [address] GFR/1.73 sq M.predicted among non-blacks MDRD (S/P/Bld) [Vol rate/Area] 66 mL/min/{1.73_m2} Normal >60 [facility] Comment on above: Result Comment: Non- GFR Calc Performed By: #### L 100.0100, L509.1000, L500.4050 #### [facility] [address] [place], [address] Globulin (S) [Mass/Vol] 4.0 g/dL Normal 2.2-4.2 [facility] Comment on above: Performed By: #### L 100.0100, L509.1000, L500.4050 #### [facility] [address] [place], [address] Glucose [Mass/Vol] 83 mg/dL Normal 74-106 [facility] Comment on above: Performed By: #### L 100.0100, L509.1000, L500.4050 #### [facility] [address] [place], [address] Potassium [Moles/Vol] 3.9 mmol/L Normal 3.5-5.1 [facility] Comment on above: Performed By: #### L 100.0100, L509.1000, L500.4050 #### [facility] [address] [place], [address] Sodium [Moles/Vol] 137 mmol/L Normal 136-145 [facility] Comment on above: Performed By: #### L 100.0100, L509.1000, L500.4050 #### [facility] [address] [place], [address] T PROT 7.7 g/dL Normal 6.4-8.2 [facility] Comment on above: Performed By: #### L 100.0100, L509.1000, L500.4050 #### [facility] [address] [place], [address] Urea nitrogen [Mass/Vol] 25 mg/dL High 7-18 [facility] Comment on above: Performed By: #### L 100.0100, L509.1000, L500.4050 #### [facility] [address] [place], [address] Endocrinology Visit Reporton 01-15-2024 Endocrinology Visit Report [facility] [address] [place] [address] OFFICE VISIT Date of Service: 01/15/24 MR#: [id number] Acct: [id number] Name: FRANCHESKA HARMON MAYE Rep #: [id number] : 1950 Provider: Mirna Zavala Age/Sex: 73/M Location: [facility] Status: Signed Intake Vital Signs 01/05/23 09:52 08/17/23 15:02 01/15/24 12:56 Height 5 ft 5 ft 5 ft Weight: 130 lb BMI 25.4 BP 129/83 H Blood Pressure Location Lt brachial Position Sitting Pulse 98 Pulse Source Monitor Pulse Oximetry (%) 93 Oxygen Delivery Method room air Intake Visit Reasons: 14 M FU, RS 11/16 Chief Complaint: Osteoporosis [employer] Counsel[employer] Required: No Accompanied by: Self Is patient in pain?: Yes (Low Back) Pain scale (1-10): 6 Allergies No Known Allergies Allergy (Verified 01/15/24 12:59) Medications ???Medication ???Instructions ???Recorded ???Confirmed ???Type folic acid 1 mg tablet 1 tab PO DAILY SUPPLEMENT 11/08/13 01/15/24 History hydroxychloroquine 200 mg tablet 200 mg PO DAILY RA 11/08/13 01/15/24 History prednisone 10 mg tablet 10 mg PO DAILY PRN RHEUMATOID 07/06/18 01/15/24 History ARTHRITIS albuterol sulfate 90 mcg/actuation 2 puff inhalation Q6H PRN 09/05/22 01/15/24 History aerosol inhaler shortness of breath tramadol 50 mg tablet 100 mg PO TID 09/05/22 01/15/24 History Prolia 60 mg/mL subcutaneous 60 mg subcut [id number] #1 mL 01/17/23 01/15/24 Rx syringe (denosumab) ferrous gluconate 240 mg (27 mg 240 mg PO .MWF 08/17/23 01/15/24 History iron) tablet (Ferate) gabapentin 800 mg tablet 800 mg PO BID 01/15/24 01/15/24 History meloxicam 15 mg tablet 15 mg PO DAILY PRN 01/15/24 01/15/24 History methotrexate sodium 2.5 mg tablet 15 mg PO Q7D RA 01/15/24 01/15/24 History Have you fallen in the past year?: Yes (Denies any injury) [facility] Medical History Hyperparathyroidism Osteoporosis History of blood transfusion Rheumatoid arthritis Asthma Anemia Surgical History Mandibular fracture History of left hip replacement History of lumbar fusion History of reverse total replacement of right shoulder joint H/O rotator cuff surgery H/O left wrist surgery H/O laminectomy History of left knee replacement History of cervical fracture Family History Father Cancer brain Brother Cancer kidney Sister Cancer twin sister melanoma Social History Smoking Status: Never smoker HPI HPI Chief Complaint: Osteoporosis Details: FRANCHESKA HARMON, is a 73 M who presents to the office today for follow up. I saw him for hypercalcemia a year ago. This is now resolved. Calcium 9.7 Vitamin D 31.9 T-score forearm -3.1 He had taken Fosamax for 5 years. He has received 2 injections of Prolia. He reports that his jaw has been aching intermittently and his dentist mentioned it could be from Prolia. ROS Const Constitutional: No anorexia, excessive sweating, malaise, night sweats, weight change or change in appetite Eyes Eyes: No change in vision ENT ENT: Positive for mouth pain; No hearing loss, nasal congestion or difficulty swallowing Cardio Cardiology: No chest pain at rest, excessive sweating, shortness of breath, dyspnea on exertion, irregular heart rhythm or palpitations Musc Musculoskeletal: No abnormal gait, joint pain, numbness or tingling Neuro Neurology: No abnormal gait, memory loss, numbness or tingling Psych Psychiatric: No change in appetite, No memory loss and No Thoughts of harming yourself/Others Resp Respiratory: No cough, chest congestion or shortness of breath Gastro GI: No abdominal pain, constipation, diarrhea or difficulty swallowing Genitourinary Male: No burning urination Skin Skin: No hair loss in leg, itchy eyes, rash or skin ulcer Endo Endocrine: No excessive sweating or weight change Aller/Imm Allergy/Immunologic: No itchy eyes Exam Const General: cooperative, comfortable, no acute distress, well developed, not cushingoid and frail appearing Nutritional Appearance: well nourished Orientation: alert, awake and oriented x3 HENMT Head: normal to inspection Ears: hearing grossly normal bilaterally Nose: external nose normal Mouth: oral mucosae normal Teeth and gingiva: other (apparatus as described) Eyes General: appearance normal, both eyes and all related structures Alignment and Position: alignment normal Periorbital: periorbital findings normal Eyelids: eyelids normal Conjunctivae: conjunctivae normal Neck Neck: normal visual inspection Neck mass: No Thyroid: thyroid nor (more content not included)... Normal [facility] CBC W/Diff, Automatedon 07-0 8-2023 Absolute Lymph 1.75 X10 3/uL Normal 0.83-4.51 [facility] Comment on above: Performed By: #### L 100.0100, L500.4050 #### [facility] [address] [place], [address] Absolute Neut 6.7 X10 3/uL Normal 2.0-7.7 [facility] Comment on above: Performed By: #### L 100.0100, L500.4050 #### [facility] [address] [place], [address] Basophils/100 WBC (Bld) 0.9 % Normal 0-1 [facility] Comment on above: Performed By: #### L 100.0100, L500.4050 #### [facility] [address] [place], [address] Eosinophils/100 WBC (Bld) 5.0 % Normal 0-5 [facility] Comment on above: Performed By: #### L 100.0100, L500.4050 #### [facility] [address] [place], [address] Erythrocyte distribution width (RBC) [Ratio] 13.8 % Normal 11.6-14.6 [facility] Comment on above: Performed By: #### L 100.0100, L500.4050 #### [facility] [address] [place], [address] Hematocrit (Bld) [Volume fraction] 36.4 % Low 40-54 [facility] Comment on above: Performed By: #### L 100.0100, L500.4050 #### [facility] [address] [place], [address] Hemoglobin (Bld) [Mass/Vol] 11.6 g/dL Low 13.0-16.5 [facility] Comment on above: Performed By: #### L 100.0100, L500.4050 #### [facility] [address] [place], [address] IG% 0.800 Normal 0.0-0.9 [facility] Comment on above: Result Comment: IG% - Immature Granulocytes (promyelocytes, myelocytes and metamyelocytes) > 1% indicates that a LEFT SHIFT is Present. Performed By: #### L 100.0100, L500.4050 #### [facility] [address] [place], [address] Lymphocytes/100 WBC (Bld) 17.9 % Low 19-41 [facility] Comment on above: Performed By: #### L 100.0100, L500.4050 #### [facility] [address] [place], [address] MCH (RBC) [Entitic mass] 32.0 pg Normal 27.0-32.0 [facility] Comment on above: Performed By: #### L 100.0100, L500.4050 #### [facility] [address] [place], [address] MCHC (RBC) [Mass/Vol] 31.9 g/dL Low 32-36 [facility] Comment on above: Performed By: #### L 100.0100, L500.4050 #### [facility] [address] [place], [address] MCV (RBC) [Entitic vol] 100.3 fL High 80-94 [facility] Comment on above: Performed By: #### L 100.0100, L500.4050 #### [facility] [address] [place], [address] Monocytes/100 WBC (Bld) 6.9 % Normal 0-10 [facility] Comment on above: Performed By: #### L 100.0100, L500.4050 #### [facility] [address] [place], [address] Neutrophils/100 WBC (Bld) 68.5 % Normal 47-70 [facility] Comment on above: Performed By: #### L 100.0100, L500.4050 #### [facility] [address] [place], [address] Nucleated RBC (Bld) [#/Vol] 0 10*3/uL Normal 0-5 [facility] Comment on above: Performed By: #### L 100.0100, L500.4050 #### [facility] [address] [place], [address] Platelet mean volume (Bld) [Entitic vol] 11.0 fL Normal 6.2-12.0 [facility] Comment on above: Performed By: #### L 100.0100, L500.4050 #### [facility] [address] [place], [address] Platelets (Bld) [#/Vol] 279 10*3/uL Normal 150-450 [facility] Comment on above: Performed By: #### L 100.0100, L500.4050 #### [facility] [address] [place], [address] RBC (Bld) [#/Vol] 3.63 10*6/uL Low 4.6-6.2 [facility] Comment on above: Performed By: #### L 100.0100, L500.4050 #### [facility] [address] [place], [address] RDW SD 50.1 fl High 35.1-43.9 [facility] Comment on above: Performed By: #### L 100.0100, L500.4050 #### [facility] [address] [place], [address] WBC (Bld) [#/Vol] 9.8 10*3/uL Normal 4.4-11.0 [facility] Comment on above: Performed By: #### L 100.0100, L500.4050 #### [facility] [address] [place], [address] Comprehensive Metabolic Prof [facility] 12-18-2023 Albumin [Mass/Vol] 3.7 g/dL Normal 3.2-5.0 [facility] Comment on above: Performed By: #### L 100.0100, L509.1000, L500.4050 #### [facility] [address] [place], [address] Albumin/Globulin [Mass ratio] 1.0 {ratio} Normal 0.9-2.4 [facility] Comment on above: Performed By: #### L 100.0100, L509.1000, L500.4050 #### [facility] [address] [place], [address] ALK P 70 U/L Normal 45-117 [facility] Comment on above: Performed By: #### L 100.0100, L509.1000, L500.4050 #### [facility] [address] [place], [address] ALT [Catalytic activity/Vol] 22 U/L Normal 16-61 [facility] Comment on above: Performed By: #### L 100.0100, L509.1000, L500.4050 #### [facility] [address] [place], [address] AST [Catalytic activity/Vol] 23 U/L Normal 15-37 [facility] Comment on above: Performed By: #### L 100.0100, L509.1000, L500.4050 #### [facility] [address] [place], [address] Bilirubin [Mass/Vol] 0.20 mg/dL Normal 0.20-1.00 [facility] Comment on above: Result Comment: For patients on eltrombopag therapy, use of Dimension [place] TBIL is not recommended. Performed By: #### L 100.0100, L509.1000, L500.4050 #### [facility] [address] [place], [address] BUN/CRE 17.0 RATIO Normal 10-20 [facility] Comment on above: Performed By: #### L 100.0100, L509.1000, L500.4050 #### [facility] [address] [place], [address] CA,Total 9.7 mg/dL Normal 8.5-10.1 [facility] Comment on above: Performed By: #### L 100.0100, L509.1000, L500.4050 #### [facility] [address] [place], [address] Chloride [Moles/Vol] 110 mmol/L High 98-107 [facility] Comment on above: Performed By: #### L 100.0100, L509.1000, L500.4050 #### [facility] [address] [place], [address] CO2 [Moles/Vol] 26.0 mmol/L Normal 21.0-32.0 [facility] Comment on above: Performed By: #### L 100.0100, L509.1000, L500.4050 #### [facility] [address] [place], [address] Creatinine [Mass/Vol] 1.12 mg/dL Normal 0.70-1.30 [facility] Comment on above: Result Comment: The validity of the calculated GFR GFRAA in patients over 70 years has not been determined. Clinical correlation is essential. Performed By: #### L 100.0100, L509.1000, L500.4050 #### [facility] [address] [place], [address] EST GFR - AA 83 mL/min Normal >60 [facility] Comment on above: Result Comment: Afri can [place] GFR Calc Performed By: #### L 100.0100, L509.1000, L500.4050 #### [facility] [address] [place], [address] GAP 4 Low 5-15 [facility] Comment on above: Performed By: #### L 100.0100, L509.1000, L500.4050 #### [facility] [address] [place], [address] GFR/1.73 sq M.predicted among non-blacks MDRD (S/P/Bld) [Vol rate/Area] 68 mL/min/{1.73_m2} Normal >60 [facility] Comment on above: Result Comment: Non- GFR Calc Performed By: #### L 100.0100, L509.1000, L500.4050 #### [facility] [address] [place], [address] Globulin (S) [Mass/Vol] 3.7 g/dL Normal 2.2-4.2 [facility] Comment on above: Performed By: #### L 100.0100, L509.1000, L500.4050 #### [facility] [address] [place], [address] Glucose [Mass/Vol] 94 mg/dL Normal 74-106 [facility] Comment on above: Performed By: #### L 100.0100, L509.1000, L500.4050 #### [facility] [address] [place], [address] Potassium [Moles/Vol] 4.2 mmol/L Normal 3.5-5.1 [facility] Comment on above: Performed By: #### L 100.0100, L509.1000, L500.4050 #### [facility] [address] [place], [address] Sodium [Moles/Vol] 140 mmol/L Normal 136-145 [facility] Comment on above: Performed By: #### L 100.0100, L509.1000, L500.4050 #### [facility] [address] [place], [address] T PROT 7.4 g/dL Normal 6.4-8.2 [facility] Comment on above: Performed By: #### L 100.0100, L509.1000, L500.4050 #### [facility] [address] [place], [address] Urea nitrogen [Mass/Vol] 19 mg/dL High 7-18 [facility] Comment on above: Performed By: #### L 100.0100, L509.1000, L500.4050 #### [facility] [address] [place], [address] Absolute lymphocyte countOrd ered By: Genovvea Diehl on 09-15-2023 Lymphocytes Auto (Unsp spec) [#/Vol] 1.42 10*3/uL 0.83-4.51 [facility] Automated lymphocyte count a s percentage of total leukocytesOrdered By: Genoveva Diehl on 09-15-2023 Lymphocytes/100 WBC Auto (Unsp spec) 17.8 % 19-41 [facility] Basophil percentageOrdered B y: Genoveva Diehl on 09-15-2023 Basophils/100 WBC (Bld) 0.5 % 0-1 [facility] Bilirubin [Mass/Vol] 0.30 mg/dL 0.20-1.00 [facility] Comment on above: For patients on eltr ombopag therapy, use of Dimension [place] TBIL is not recommended. Chloride [Moles/Vol] 114 mmol/L 98-107 [facility] Eosinophils/100 WBC (Bld) 4.5 % 0-5 [facility] Glucose [Mass/Vol] 93 mg/dL 74-106 [facility] Hemoglobin (Bld) [Mass/Vol] 10.2 g/dL 13.0-16.5 [facility] Monocytes/100 WBC (Bld) 5.1 % 0-10 [facility] Neutrophils (Bld) [#/Vol] 5.7 10*3/uL 2.0-7.7 [facility] Neutrophils/100 WBC (Bld) 71.5 % 47-70 [facility] Potassium [Moles/Vol] 4.0 mmol/L 3.5-5.1 [facility] Protein [Mass/Vol] 6.6 g/dL 6.4-8.2 [facility] Sodium [Moles/Vol] 141 mmol/L 136-145 [facility] WBC (Bld) [#/Vol] 8.0 10*3/uL 4.4-11.0 [facility] Determination of erythrocyte mean corpuscular volume (MCV)Ordered By: Genoveva Diehl on 09-15-2023 MCV (RBC) [Entitic vol] 100.9 fL 80-94 [facility] Erythrocyte distribution wid th ratioOrdered By: Genoveva Diehl on 09-15-2023 Erythrocyte distribution width (RBC) [Ratio] 15.4 % 11.6-14.6 [facility] Erythrocyte distribution wid th standard deviationOrdered By: Genoveva Diehl on 09-15-2023 Erythrocyte distribution width (RBC) [Entitic vol] 55.4 fL 35.1-43.9 [facility] Hematocrit Auto (Bld) [Volum e fraction]Ordered By: Genoveva Diehl on 09-15-2023 Hematocrit (Bld) [Volume fraction] 31.9 % 40-54 [facility] Immature granulocytes/100 WB C Auto (Bld)Ordered By: Genoveva Diehl on 09-15-2023 Immature granulocytes/100 WBC (Bld) 0.600 % 0.0-0.9 [facility] Comment on above: IG% - Immature Granu locytes (promyelocytes, myelocytes and metamyelocytes) > 1% indicates that a LEFT SHIFT is Present. Laboratory - Chemistry and C hemistry - challengeOrdered By: Genovevaari Diehl on 09-15-2023 Albumin/Globulin [Mass ratio] 1.0 {ratio} 0.9-2.4 [facility] ALP [Catalytic activity/Vol] 61 U/L 45-117 [facility] ALT [Catalytic activity/Vol] 20 U/L 16-61 [facility] CO2 [Moles/Vol] 23.0 mmol/L 21.0-32.0 [facility] Globulin (S) [Mass/Vol] 3.3 g/dL 2.2-4.2 [facility] Urea nitrogen/Creatinine [Mass ratio] 24.8 mg/mg 10-20 [facility] Laboratory - Hematology and Cell countsOrdered By: Genoveva Diehl on 09-15-2023 MCH (RBC) [Entitic mass] 32.3 pg 27.0-32.0 [facility] MCHC (RBC) [Mass/Vol] 32.0 g/dL 32-36 [facility] Nucleated RBC/100 WBC (Bld) [Ratio] 0 % 0-5 [facility] Platelet mean volume (Bld) [Entitic vol] 10.8 fL 6.2-12.0 [facility] Platelets (Bld) [#/Vol] 269 10*3/uL 150-450 [facility] No Panel InformationOrdered By: Genoveva Diehl on 09-15-2023 Estimated GFR (MDRD) Amer 89 mL/min >60 [facility] Comment on above: GFR Calc Estimated GFR (MDRD) Non-Af Amer 74 mL/min >60 [facility] Comment on above: Non- GFR Calc RBC Auto (Bld) [#/Vol]Ordere d By: Genoveva Diehl on 09-15-2023 RBC (Bld) [#/Vol] 3.16 10*6/uL 4.6-6.2 [facility] Serum or plasma calcium alena urement (mass/volume)Ordered By: Genoveva Diehl on 09-15-2023 Calcium [Mass/Vol] 9.5 mg/dL 8.5-10.1 [facility] Serum or plasma creatinine m easurement (mass/volume)Ordered By: Genoveva Diehl on 09-15-2023 Creatinine [Mass/Vol] 1.05 mg/dL 0.70-1.30 [facility] Comment on above: The validity of the calculated GFR & GFRAA in patients over 70 years has not been determined. Clinical correlation is essential. Serum or plasma urea nitroge n measurement (mass/volume)Ordered By: Genoveva Diehl on 09-15-2023 Urea nitrogen [Mass/Vol] 26 mg/dL 7-18 [facility] Thin prep Papanicolaou smear with manual screeningOrdered By: Genoveva Diehl on 09-15-2023 Thin prep Papanicolaou smear with manual screening 3.3 g/dL 3.2-5.0 [facility] Thin prep Papanicolaou smear with manual screening 23 U/L 15-37 [facility] Thin prep Papanicolaou smear with manual screening 4 5-15 [facility] Absolute lymphocyte countOrd ered By: Genoveva Diehl on 06-21-2023 Lymphocytes Auto (Unsp spec) [#/Vol] 1.61 10*3/uL 0.83-4.51 [facility] Basophil percentageOrdered B y: Genoveva Diehl on 06-21-2023 Basophils/100 WBC (Bld) 1.0 % 0-1 [facility] Bilirubin [Mass/Vol] 0.30 mg/dL 0.20-1.00 [facility] Comment on above: For patients on eltr ombopag therapy, use of [facility] [place] TBIL is not recommended. Chloride [Moles/Vol] 114 mmol/L 98-107 [facility] Eosinophils/100 WBC (Bld) 7.0 % 0-5 [facility] Glucose [Mass/Vol] 83 mg/dL 74-106 [facility] Neutrophils (Bld) [#/Vol] 4.3 10*3/uL 2.0-7.7 [facility] Neutrophils/100 WBC (Bld) 61.2 % 47-70 [facility] Potassium [Moles/Vol] 4.2 mmol/L 3.5-5.1 [facility] Protein [Mass/Vol] 7.0 g/dL 6.4-8.2 [facility] Sodium [Moles/Vol] 142 mmol/L 136-145 [facility] WBC (Bld) [#/Vol] 7.0 10*3/uL 4.4-11.0 [facility] Blood erythrocytes count (nu mber/volume)Ordered By: Genoveva Diehl on 06-21-2023 RBC (Bld) [#/Vol] 3.71 10*6/uL 4.6-6.2 [facility] Blood hemoglobin measurement (mass/volume)Ordered By: Genoveva Diehl on 06-21-2023 Hemoglobin (Bld) [Mass/Vol] 11.9 g/dL 13.0-16.5 [facility] Blood lymphocytes/100 leukoc ytesOrdered By: Genoveva Diehl on 06-21-2023 Lymphocytes/100 WBC (Bld) 23.1 % 19-41 [facility] Blood monocytes/100 leukocyt esOrdered By: Genoveva Diehl on 06-21-2023 Monocytes/100 WBC (Bld) 7.3 % 0-10 [facility] Blood platelet mean volumeOr dered By: Genoveva Diehl on 06-21-2023 Platelet mean volume (Bld) [Entitic vol] 10.9 fL 6.2-12.0 [facility] Determination of erythrocyte mean corpuscular volume (MCV)Ordered By: Genoveva Diehl on 06-21-2023 MCV (RBC) [Entitic vol] 100.8 fL 80-94 [facility] Hematocrit Auto (Bld) [Volum e fraction]Ordered By: Genoveva Diehl on 06-21-2023 Hematocrit (Bld) [Volume fraction] 37.4 % 40-54 [facility] Laboratory - Chemistry and C hemistry - challengeOrdered By: Genoveva Diehl on 06-21-2023 ALP [Catalytic activity/Vol] 57 U/L 45-117 [facility] ALT [Catalytic activity/Vol] 25 U/L 16-61 [facility] CO2 [Moles/Vol] 23.0 mmol/L 21.0-32.0 [facility] Globulin (S) [Mass/Vol] 3.3 g/dL 2.2-4.2 [facility] Urea nitrogen/Creatinine [Mass ratio] 25.7 mg/mg 10-20 [facility] Laboratory - Hematology and Cell countsOrdered By: Genoveva Diehl on 06-21-2023 Erythrocyte distribution width (RBC) [Entitic vol] 53.0 fL 35.1-43.9 [facility] Erythrocyte distribution width (RBC) [Ratio] 14.4 % 11.6-14.6 [facility] Immature granulocytes/100 WBC (Bld) 0.400 % 0.0-0.9 [facility] Comment on above: IG% - Immature Granu locytes (promyelocytes, myelocytes and metamyelocytes) > 1% indicates that a LEFT SHIFT is Present. MCH (RBC) [Entitic mass] 32.1 pg 27.0-32.0 [facility] Nucleated RBC/100 WBC (Bld) [Ratio] 0 % 0-5 [facility] MCHC Auto (RBC) [Mass/Vol]Or dered By: Genoveva Diehl on 06-21-2023 MCHC (RBC) [Mass/Vol] 31.8 g/dL 32-36 [facility] No Panel InformationOrdered By: Genoveva Diehl on 06-21-2023 Estimated GFR (MDRD) Amer 98 mL/min >60 [facility] Comment on above: GFR Calc Estimated GFR (MDRD) Non-Af Amer 81 mL/min >60 [facility] Comment on above: Non- GFR Calc Platelets bldOrdered By: Shiela Diehl on 06-21-2023 Platelets (Bld) [#/Vol] 233 10*3/uL 150-450 [facility] Serum or plasma albumin alena urement (mass/volume)Ordered By: Genoveva Diehl on 06-21-2023 Albumin [Mass/Vol] 3.7 g/dL 3.2-5.0 [facility] Serum or plasma albumin/glob ulin mass ratioOrdered By: Genoveva Diehl on 06-21-2023 Albumin/Globulin [Mass ratio] 1.1 {ratio} 0.9-2.4 [facility] Serum or plasma calcium alena urement (mass/volume)Ordered By: Genoveva Diehl on 06-21-2023 Calcium [Mass/Vol] 9.1 mg/dL 8.5-10.1 [facility] Serum or plasma creatinine m easurement (mass/volume)Ordered By: Genoveva Diehl on 06-21-2023 Creatinine [Mass/Vol] 0.97 mg/dL 0.70-1.30 [facility] Comment on above: The validity of the calculated GFR & GFRAA in patients over 70 years has not been determined. Clinical correlation is essential. Serum or plasma urea nitroge n measurement (mass/volume)Ordered By: Genoveva Diehl on 06-21-2023 Urea nitrogen [Mass/Vol] 25 mg/dL 7-18 [facility] Thin prep Papanicolaou smear with manual screeningOrdered By: Genoveva Diehl on 06-21-2023 Thin prep Papanicolaou smear with manual screening 24 U/L 15-37 [facility] Thin prep Papanicolaou smear with manual screening 5 5-15 [facility] No Panel InformationOrdered By: Oz Jiang on 05-15-2023 Prostate Specific Antigen Screen 1.60 ng/mL 0.00-4.00 [facility] Comment on above: This test was perfor med using the TPSA assay method [facility] the[facility]. Values obtained with differentassay methods cannot be used interchangably.When changing PSA assays in the course of monitoring apatient, additional sequential testing should be carriedout to confirm baseline values. Absolute lymphocyte countOrd ered By: Genoveva Diehl on 03-22-2023 Lymphocytes Auto (Unsp spec) [#/Vol] 1.11 10*3/uL 0.83-4.51 [facility] Basophil percentageOrdered B y: Genoveva Diehl on 03-22-2023 Basophils/100 WBC (Bld) 0.9 % 0-1 [facility] Bilirubin [Mass/Vol] 0.30 mg/dL 0.20-1.00 [facility] Comment on above: For patients on eltr ombopag therapy, use of [facility] [place] TBIL is not recommended. Chloride [Moles/Vol] 114 mmol/L 98-107 [facility] Eosinophils/100 WBC (Bld) 4.6 % 0-5 [facility] Glucose [Mass/Vol] 91 mg/dL 74-106 [facility] Neutrophils (Bld) [#/Vol] 3.7 10*3/uL 2.0-7.7 [facility] Neutrophils/100 WBC (Bld) 65.4 % 47-70 [facility] Potassium [Moles/Vol] 3.7 mmol/L 3.5-5.1 [facility] Protein [Mass/Vol] 7.2 g/dL 6.4-8.2 [facility] Sodium [Moles/Vol] 140 mmol/L 136-145 [facility] WBC (Bld) [#/Vol] 5.7 10*3/uL 4.4-11.0 [facility] Blood erythrocytes count (nu mber/volume)Ordered By: Genoveva Diehl on 03-22-2023 RBC (Bld) [#/Vol] 3.51 10*6/uL 4.6-6.2 [facility] Blood hemoglobin measurement (mass/volume)Ordered By: Genoveva Diehl on 03-22-2023 Hemoglobin (Bld) [Mass/Vol] 11.2 g/dL 13.0-16.5 [facility] Blood lymphocytes/100 leukoc ytesOrdered By: Genoveva Diehl on 03-22-2023 Lymphocytes/100 WBC (Bld) 19.6 % 19-41 [facility] Blood monocytes/100 leukocyt esOrdered By: Genoveva Diehl on 03-22-2023 Monocytes/100 WBC (Bld) 9.3 % 0-10 [facility] Blood platelet mean volumeOr dered By: Genoveva Diehl on 03-22-2023 Platelet mean volume (Bld) [Entitic vol] 11.1 fL 6.2-12.0 [facility] Determination of erythrocyte mean corpuscular volume (MCV)Ordered By: Genoveva Diehl on 03-22-2023 MCV (RBC) [Entitic vol] 99.7 fL 80-94 [facility] Hematocrit Auto (Bld) [Volum e fraction]Ordered By: Genovevaari Diehl on 03-22-2023 Hematocrit (Bld) [Volume fraction] 35.0 % 40-54 [facility] Laboratory - Chemistry and C hemistry - challengeOrdered By: Genovevaari Diehl on 03-22-2023 ALP [Catalytic activity/Vol] 75 U/L 45-117 [facility] ALT [Catalytic activity/Vol] 22 U/L 16-61 [facility] CO2 [Moles/Vol] 21.0 mmol/L 21.0-32.0 [facility] Globulin (S) [Mass/Vol] 3.7 g/dL 2.2-4.2 [facility] Urea nitrogen/Creatinine [Mass ratio] 20.1 mg/mg 10-20 [facility] Laboratory - Hematology and Cell countsOrdered By: [facility] Shanita on 03-22-2023 Erythrocyte distribution width (RBC) [Entitic vol] 51.9 fL 35.1-43.9 [facility] Erythrocyte distribution width (RBC) [Ratio] 14.4 % 11.6-14.6 [facility] Immature granulocytes/100 WBC (Bld) 0.200 % 0.0-0.9 [facility] Comment on above: IG% - Immature Granu locytes (promyelocytes, myelocytes and metamyelocytes) > 1% indicates that a LEFT SHIFT is Present. MCH (RBC) [Entitic mass] 31.9 pg 27.0-32.0 [facility] Nucleated RBC/100 WBC (Bld) [Ratio] 0 % 0-5 [facility] MCHC Auto (RBC) [Mass/Vol]Or dered By: Genovevaari Diehl on 03-22-2023 MCHC (RBC) [Mass/Vol] 32.0 g/dL 32-36 [facility] No Panel InformationOrdered By: Genoveva Diehl on 03-22-2023 Estimated GFR (MDRD) Amer 101 mL/min >60 [facility] Comment on above: GFR Calc Estimated GFR (MDRD) Non-Af Amer 84 mL/min >60 [facility] Comment on above: Non- GFR Calc Platelets bldOrdered By: Shiela Diehl on 03-22-2023 Platelets (Bld) [#/Vol] 212 10*3/uL 150-450 [facility] Serum or plasma albumin alena urement (mass/volume)Ordered By: Genoveva Diehl on 03-22-2023 Albumin [Mass/Vol] 3.5 g/dL 3.2-5.0 [facility] Serum or plasma albumin/glob ulin mass ratioOrdered By: Genoveva Diehl on 03-22-2023 Albumin/Globulin [Mass ratio] 0.9 {ratio} 0.9-2.4 [facility] Serum or plasma calcium alena urement (mass/volume)Ordered By: Genoveva Diehl on 03-22-2023 Calcium [Mass/Vol] 8.8 mg/dL 8.5-10.1 [facility] Serum or plasma creatinine m easurement (mass/volume)Ordered By: Genoveva Diehl on 03-22-2023 Creatinine [Mass/Vol] 0.94 mg/dL 0.70-1.30 [facility] Comment on above: The validity of the calculated GFR & GFRAA in patients over 70 years has not been determined. Clinical correlation is essential. Serum or plasma urea nitroge n measurement (mass/volume)Ordered By: Genoveva Diehl on 03-22-2023 Urea nitrogen [Mass/Vol] 19 mg/dL 7-18 [facility] Thin prep Papanicolaou smear with manual screeningOrdered By: Genoveva Diehl on 03-22-2023 Thin prep Papanicolaou smear with manual screening 22 U/L 15-37 [facility] Thin prep Papanicolaou smear with manual screening 5 5-15 [facility] Absolute lymphocyte countOrd ered By: Dave Carpenter on 12-23-2022 Lymphocytes Auto (Unsp spec) [#/Vol] 0.75 10*3/uL 0.83-4.51 [facility] Basophil percentageOrdered B y: Dave Carpenter on 12-23-2022 Basophils/100 WBC (Bld) 0.5 % 0-1 [facility] Bilirubin [Mass/Vol] 0.30 mg/dL 0.20-1.00 [facility] Comment on above: For patients on eltr ombopag therapy, use of [facility] [place] TBIL is not recommended. Chloride [Moles/Vol] 110 mmol/L 98-107 [facility] Eosinophils/100 WBC (Bld) 0.6 % 0-5 [facility] Glucose [Mass/Vol] 111 mg/dL 74-106 [facility] Comment on above: Fasting Glucose resu lt from 100 to 125 mg/dL suggests IMPAIRED HOMEOSTASIS per A.D.A. criteria. Neutrophils (Bld) [#/Vol] 7.1 10*3/uL 2.0-7.7 [facility] Neutrophils/100 WBC (Bld) 88.2 % 47-70 [facility] Potassium [Moles/Vol] 4.2 mmol/L 3.5-5.1 [facility] Protein [Mass/Vol] 7.3 g/dL 6.4-8.2 [facility] Sodium [Moles/Vol] 141 mmol/L 136-145 [facility] WBC (Bld) [#/Vol] 8.0 10*3/uL 4.4-11.0 [facility] Blood erythrocytes count (nu mber/volume)Ordered By: Dave Carpenter on 12-23-2022 RBC (Bld) [#/Vol] 3.82 10*6/uL 4.6-6.2 [facility] Blood hemoglobin measurement (mass/volume)Ordered By: Dave Carpenter on 12-23-2022 Hemoglobin (Bld) [Mass/Vol] 12.2 g/dL 13.0-16.5 [facility] Blood lymphocytes/100 leukoc ytesOrdered By: Dave Carpenter on 12-23-2022 Lymphocytes/100 WBC (Bld) 9.4 % 19-41 [facility] Blood manual differential co mment interpretation (narrative result)Ordered By: Dave Carpenter on 12-23-2022 Manual differential comment Vamsi (Bld) [Interp] SCANNED [facility] Comment on above: AUTO DIFF OK Blood monocytes/100 leukocyt esOrdered By: Dave Carpenter on 12-23-2022 Monocytes/100 WBC (Bld) 0.8 % 0-10 [facility] Blood platelet mean volumeOr dered By: Dave Carpenter on 12-23-2022 Platelet mean volume (Bld) [Entitic vol] 11.3 fL 6.2-12.0 [facility] Determination of erythrocyte mean corpuscular volume (MCV)Ordered By: Dave Carpenter on 12-23-2022 MCV (RBC) [Entitic vol] 100.8 fL 80-94 [facility] Hematocrit Auto (Bld) [Volum e fraction]Ordered By: Dave Carpenter on 12-23-2022 Hematocrit (Bld) [Volume fraction] 38.5 % 40-54 [facility] Laboratory - Chemistry and C hemistry - challengeOrdered By: Dave Carpenter on 12-23-2022 ALP [Catalytic activity/Vol] 86 U/L 45-117 [facility] ALT [Catalytic activity/Vol] 49 U/L 16-61 [facility] CO2 [Moles/Vol] 25.0 mmol/L 21.0-32.0 [facility] Globulin (S) [Mass/Vol] 3.5 g/dL 2.2-4.2 [facility] Urea nitrogen/Creatinine [Mass ratio] 23.8 mg/mg 10-20 [facility] Laboratory - Hematology and Cell countsOrdered By: Dave Carpenter on 12-23-2022 Erythrocyte distribution width (RBC) [Entitic vol] 52.8 fL 35.1-43.9 [facility] Erythrocyte distribution width (RBC) [Ratio] 14.6 % 11.6-14.6 [facility] Immature granulocytes/100 WBC (Bld) 0.500 % 0.0-0.9 [facility] Comment on above: IG% - Immature Granu locytes (promyelocytes, myelocytes and metamyelocytes) > 1% indicates that a LEFT SHIFT is Present. MCH (RBC) [Entitic mass] 31.9 pg 27.0-32.0 [facility] Nucleated RBC/100 WBC (Bld) [Ratio] 0 % 0-5 [facility] Auto (RBC) [Mass/Vol]Or dered By: Dave Carpenter on 12-23-2022 MCHC (RBC) [Mass/Vol] 31.7 g/dL 32-36 [facility] No Panel InformationOrdered By: Dave Carpenter on 12-23-2022 Estimated GFR (MDRD) Amer 89 mL/min >60 [facility] Comment on above: GFR Calc Estimated GFR (MDRD) Non-Af Amer 74 mL/min >60 [facility] Comment on above: Non- GFR Calc Parathyroid Hormone (Intact) 211.9 pg/mL 18.4-80.1 [facility] Vitamin D 25-Hydroxy 31.9 ng/mL [facility] Comment on above: Vitamin D 25(OH) Sta tus Range Deficiency <20 ng/mL (50nmol/L) Insufficiency 20 - 30 ng/mL (50 - 75 nmol/L) Sufficiency 30 - 100 ng/mL (75 - 250 nmol/L) Toxicity >100 ng/mL (>250 nmol/L) Platelets bldOrdered By: Ziyad Carpenter on 12-23-2022 Platelets (Bld) [#/Vol] 270 10*3/uL 150-450 [facility] Serum or plasma albumin alena urement (mass/volume)Ordered By: Dave Carpenter on 12-23-2022 Albumin [Mass/Vol] 3.8 g/dL 3.2-5.0 [facility] Serum or plasma albumin/glob ulin mass ratioOrdered By: Dave Carpenter on 12-23-2022 Albumin/Globulin [Mass ratio] 1.1 {ratio} 0.9-2.4 [facility] Serum or plasma calcium alena urement (mass/volume)Ordered By: Dave Carpenter on 12-23-2022 Calcium [Mass/Vol] 10.1 mg/dL 8.5-10.1 [facility] Serum or plasma creatinine m easurement (mass/volume)Ordered By: Dave Carpenter on 12-23-2022 Creatinine [Mass/Vol] 1.05 mg/dL 0.70-1.30 [facility] Comment on above: The validity of the calculated GFR & GFRAA in patients over 70 years has not been determined. Clinical correlation is essential. Serum or plasma urea nitroge n measurement (mass/volume)Ordered By: Dave Carpenter on 12-23-2022 Urea nitrogen [Mass/Vol] 25 mg/dL 7-18 [facility] Thin prep Papanicolaou smear with manual screeningOrdered By: Dave Carpenter on 12-23-2022 Thin prep Papanicolaou smear with manual screening 31 U/L 15-37 [facility] Thin prep Papanicolaou smear with manual screening 6 5-15 [facility] No Panel InformationOrdered By: Dr. Carpenter on 11-18-2022 Vitamin D 25-Hydroxy 32.7 ng/mL [facility] Comment on above: Vitamin D 25(OH) Sta tus Range Deficiency <20 ng/mL (50nmol/L) Insufficiency 20 - 30 ng/mL (50 - 75 nmol/L) Sufficiency 30 - 100 ng/mL (75 - 250 nmol/L) Toxicity >100 ng/mL (>250 nmol/L) Serum or plasma calcium alena urement (mass/volume)Ordered By: Dr. Carpenter on 11-18-2022 Calcium [Mass/Vol] 9.5 mg/dL 8.5-10.1 [facility] Absolute lymphocyte countOrd ered By: Dr. Diehl on 10-20-2022 Lymphocytes Auto (Unsp spec) [#/Vol] 1.10 10*3/uL 0.83-4.51 [facility] Basophil percentageOrdered B y: Dr. Diehl on 10-20-2022 Basophils/100 WBC (Bld) 0.6 % 0-1 [facility] Bilirubin [Mass/Vol] 0.30 mg/dL 0.20-1.00 [facility] Comment on above: For patients on eltr ombopag therapy, use of [facility] [place] TBIL is not recommended. Chloride [Moles/Vol] 110 mmol/L 98-107 [facility] Eosinophils/100 WBC (Bld) 4.0 % 0-5 [facility] Glucose [Mass/Vol] 138 mg/dL 74-106 [facility] Comment on above: Fasting Glucose resu lt greater than or equal to 126 mg/dL suggests DIABETES MELLITUS per A.D.A. criteria. Neutrophils (Bld) [#/Vol] 5.2 10*3/uL 2.0-7.7 [facility] Neutrophils/100 WBC (Bld) 76.1 % 47-70 [facility] Potassium [Moles/Vol] 3.7 mmol/L 3.5-5.1 [facility] Protein [Mass/Vol] 7.0 g/dL 6.4-8.2 [facility] Sodium [Moles/Vol] 141 mmol/L 136-145 [facility] WBC (Bld) [#/Vol] 6.8 10*3/uL 4.4-11.0 [facility] Blood erythrocytes count (nu mber/volume)Ordered By: Dr. Diehl on 10-20-2022 RBC (Bld) [#/Vol] 3.63 10*6/uL 4.6-6.2 [facility] Blood hemoglobin measurement (mass/volume)Ordered By: Dr. Diehl on 10-20-2022 Hemoglobin (Bld) [Mass/Vol] 11.8 g/dL 13.0-16.5 [facility] Blood lymphocytes/100 leukoc ytesOrdered By: Dr. Diehl on 10-20-2022 Lymphocytes/100 WBC (Bld) 16.1 % 19-41 [facility] Blood monocytes/100 leukocyt esOrdered By: Dr. Diehl on 10-20-2022 Monocytes/100 WBC (Bld) 2.8 % 0-10 [facility] Blood platelet mean volumeOr dered By: Dr. Diehl on 10-20-2022 Platelet mean volume (Bld) [Entitic vol] 11.1 fL 6.2-12.0 [facility] Determination of erythrocyte mean corpuscular volume (MCV)Ordered By: Dr. Diehl on 10-20-2022 MCV (RBC) [Entitic vol] 101.9 fL 80-94 [facility] Hematocrit Auto (Bld) [Volum e fraction]Ordered By: Dr. Diehl on 10-20-2022 Hematocrit (Bld) [Volume fraction] 37.0 % 40-54 [facility] Laboratory - Chemistry and C hemistry - challengeOrdered By: Dr. Diehl on 10-20-2022 ALP [Catalytic activity/Vol] 77 U/L 45-117 [facility] ALT [Catalytic activity/Vol] 44 U/L 16-61 [facility] CO2 [Moles/Vol] 21.0 mmol/L 21.0-32.0 [facility] Globulin (S) [Mass/Vol] 3.5 g/dL 2.2-4.2 [facility] Urea nitrogen/Creatinine [Mass ratio] 20.6 mg/mg 10-20 [facility] Laboratory - Hematology and Cell countsOrdered By: Dr. Diehl on 10-20-2022 Erythrocyte distribution width (RBC) [Entitic vol] 53.4 fL 35.1-43.9 [facility] Erythrocyte distribution width (RBC) [Ratio] 14.3 % 11.6-14.6 [facility] Immature granulocytes/100 WBC (Bld) 0.400 % 0.0-0.9 [facility] Comment on above: IG% - Immature Granu locytes (promyelocytes, myelocytes and metamyelocytes) > 1% indicates that a LEFT SHIFT is Present. MCH (RBC) [Entitic mass] 32.5 pg 27.0-32.0 [facility] Nucleated RBC/100 WBC (Bld) [Ratio] 0 % 0-5 [facility] [facility] MCHC Auto (RBC) [Mass/Vol]Or dered By: Dr. Diehl on 10-20-2022 MCHC (RBC) [Mass/Vol] 31.9 g/dL 32-36 [facility] No Panel InformationOrdered By: Dr. Diehl on 10-20-2022 Estimated GFR (MDRD) Amer 73 mL/min >60 [facility] Comment on above: GFR Calc Estimated GFR (MDRD) Non-Af Amer 60 mL/min >60 [facility] Comment on above: Non- GFR Calc Platelets bldOrdered By: Dr. Diehl on 10-20-2022 Platelets (Bld) [#/Vol] 201 10*3/uL 150-450 [facility] Serum or plasma albumin alena urement (mass/volume)Ordered By: Dr. Diehl on 10-20-2022 Albumin [Mass/Vol] 3.5 g/dL 3.2-5.0 [facility] Serum or plasma albumin/glob ulin mass ratioOrdered By: Dr. Diehl on 10-20-2022 Albumin/Globulin [Mass ratio] 1.0 {ratio} 0.9-2.4 [facility] Serum or plasma calcium alena urement (mass/volume)Ordered By: Dr. Diehl on 10-20-2022 Calcium [Mass/Vol] 10.2 mg/dL 8.5-10.1 [facility] Serum or plasma creatinine m easurement (mass/volume)Ordered By: Dr. Diehl on 10-20-2022 Creatinine [Mass/Vol] 1.26 mg/dL 0.70-1.30 [facility] Comment on above: The validity of the calculated GFR & GFRAA in patients over 70 years has not been determined. Clinical correlation is essential. Serum or plasma urea nitroge n measurement (mass/volume)Ordered By: Dr. Diehl on 10-20-2022 Urea nitrogen [Mass/Vol] 26 mg/dL 7-18 [facility] Thin prep Papanicolaou smear with manual screeningOrdered By: Dr. Diehl on 10-20-2022 Thin prep Papanicolaou smear with manual screening 38 U/L 15-37 [facility] Thin prep Papanicolaou smear with manual screening 10 5-15 [facility] No Panel InformationOrdered By: Dr. Diehl on 07-29-2022 Parathyroid Hormone (Intact) 225.5 pg/mL 18.4-80.1 [facility] Absolute lymphocyte countOrd ered By: Dr. Diehl on 07-19-2022 Lymphocytes Auto (Unsp spec) [#/Vol] 1.76 10*3/uL 0.83-4.51 [facility] Basophil percentageOrdered B y: Dr. Diehl on 07-19-2022 Basophils/100 WBC (Bld) 1.0 % 0-1 [facility] Bilirubin [Mass/Vol] 0.50 mg/dL 0.20-1.00 [facility] Comment on above: For patients on eltr ombopag therapy, use of [facility] [place] TBIL is not recommended. Chloride [Moles/Vol] 112 mmol/L 98-107 [facility] Eosinophils/100 WBC (Bld) 8.5 % 0-5 [facility] Glucose [Mass/Vol] 86 mg/dL 74-106 [facility] Neutrophils (Bld) [#/Vol] 3.8 10*3/uL 2.0-7.7 [facility] Neutrophils/100 WBC (Bld) 56.0 % 47-70 [facility] Potassium [Moles/Vol] 3.8 mmol/L 3.5-5.1 [facility] Protein [Mass/Vol] 7.8 g/dL 6.4-8.2 [facility] Sodium [Moles/Vol] 142 mmol/L 136-145 [facility] WBC (Bld) [#/Vol] 6.8 10*3/uL 4.4-11.0 [facility] Blood erythrocytes count (nu mber/volume)Ordered By: Dr. Diehl on 07-19-2022 RBC (Bld) [#/Vol] 3.91 10*6/uL 4.6-6.2 [facility] Blood hemoglobin measurement (mass/volume)Ordered By: Dr. Diehl on 07-19-2022 Hemoglobin (Bld) [Mass/Vol] 12.4 g/dL 13.0-16.5 [facility] Blood lymphocytes/100 leukoc ytesOrdered By: Dr. Diehl on 07-19-2022 Lymphocytes/100 WBC (Bld) 25.8 % 19-41 [facility] Blood monocytes/100 leukocyt esOrdered By: Dr. Diehl on 07-19-2022 Monocytes/100 WBC (Bld) 8.4 % 0-10 [facility] Blood platelet mean volumeOr dered By: Dr. Diehl on 07-19-2022 Platelet mean volume (Bld) [Entitic vol] 11.0 fL 6.2-12.0 [facility] Determination of erythrocyte mean corpuscular volume (MCV)Ordered By: Dr. Diehl on 07-19-2022 MCV (RBC) [Entitic vol] 99.5 fL 80-94 [facility] Hematocrit Auto (Bld) [Volum e fraction]Ordered By: Dr. Diehl on 07-19-2022 Hematocrit (Bld) [Volume fraction] 38.9 % 40-54 [facility] Laboratory - Chemistry and C hemistry - challengeOrdered By: Dr. Diehl on 07-19-2022 ALP [Catalytic activity/Vol] 105 U/L 45-117 [facility] ALT [Catalytic activity/Vol] 36 U/L 16-61 [facility] CO2 [Moles/Vol] 22.0 mmol/L 21.0-32.0 [facility] Globulin (S) [Mass/Vol] 3.6 g/dL 2.2-4.2 [facility] Urea nitrogen/Creatinine [Mass ratio] 25.4 mg/mg 10-20 [facility] Laboratory - Hematology and Cell countsOrdered By: Dr. Diehl on 07-19-2022 Erythrocyte distribution width (RBC) [Entitic vol] 54.4 fL 35.1-43.9 [facility] Erythrocyte distribution width (RBC) [Ratio] 15.3 % 11.6-14.6 [facility] Immature granulocytes/100 WBC (Bld) 0.300 % 0.0-0.9 [facility] Comment on above: IG% - Immature Granu locytes (promyelocytes, myelocytes and metamyelocytes) > 1% indicates that a LEFT SHIFT is Present. MCH (RBC) [Entitic mass] 31.7 pg 27.0-32.0 [facility] Nucleated RBC/100 WBC (Bld) [Ratio] 0 % 0-5 [facility] MCHC Auto (RBC) [Mass/Vol]Or dered By: Dr. Diehl on 07-19-2022 MCHC (RBC) [Mass/Vol] 31.9 g/dL 32-36 [facility] No Panel InformationOrdered By: Dr. Diehl on 07-19-2022 Estimated GFR (MDRD) Amer 81 mL/min >60 [facility] Comment on above: GFR Calc Estimated GFR (MDRD) Non-Af Amer 67 mL/min >60 [facility] Comment on above: Non- GFR Calc Platelets bldOrdered By: Dr. Diehl on 07-19-2022 Platelets (Bld) [#/Vol] 253 10*3/uL 150-450 [facility] Serum or plasma albumin alena urement (mass/volume)Ordered By: Dr. Diehl on 07-19-2022 Albumin [Mass/Vol] 4.2 g/dL 3.2-5.0 [facility] Serum or plasma albumin/glob ulin mass ratioOrdered By: Dr. Diehl on 07-19-2022 Albumin/Globulin [Mass ratio] 1.2 {ratio} 0.9-2.4 [facility] Serum or plasma calcium alena urement (mass/volume)Ordered By: Dr. Diehl on 07-19-2022 Calcium [Mass/Vol] 10.5 mg/dL 8.5-10.1 [facility] Serum or plasma creatinine m easurement (mass/volume)Ordered By: Dr. Diehl on 07-19-2022 Creatinine [Mass/Vol] 1.14 mg/dL 0.70-1.30 [facility] Comment on above: The validity of the calculated GFR & GFRAA in patients over 70 years has not been determined. Clinical correlation is essential. Serum or plasma urea nitroge n measurement (mass/volume)Ordered By: Dr. Diehl on 07-19-2022 Urea nitrogen [Mass/Vol] 29 mg/dL 7-18 [facility] Thin prep Papanicolaou smear with manual screeningOrdered By: Dr. Diehl on 07-19-2022 Thin prep Papanicolaou smear with manual screening 27 U/L 15-37 [facility] Thin prep Papanicolaou smear with manual screening 8 5-15 [facility] Absolute lymphocyte countOrd ered By: Dr. Diehl on 04-27-2022 Lymphocytes Auto (Unsp spec) [#/Vol] 1.57 10*3/uL 0.83-4.51 [facility] Basophil percentageOrdered B y: Dr. Diehl on 04-27-2022 Basophils/100 WBC (Bld) 1.4 % 0-1 [facility] Bilirubin [Mass/Vol] 0.20 mg/dL 0.20-1.00 [facility] Comment on above: For patients on eltr ombopag therapy, use of [facility] [place] TBIL is not recommended. Chloride [Moles/Vol] 109 mmol/L 98-107 [facility] Eosinophils/100 WBC (Bld) 12.5 % 0-5 [facility] Glucose [Mass/Vol] 88 mg/dL 74-106 [facility] Neutrophils (Bld) [#/Vol] 3.5 10*3/uL 2.0-7.7 [facility] Neutrophils/100 WBC (Bld) 54.9 % 47-70 [facility] Potassium [Moles/Vol] 4.0 mmol/L 3.5-5.1 [facility] Protein [Mass/Vol] 7.2 g/dL 6.4-8.2 [facility] Sodium [Moles/Vol] 142 mmol/L 136-145 [facility] WBC (Bld) [#/Vol] 6.4 10*3/uL 4.4-11.0 [facility] Blood erythrocytes count (nu mber/volume)Ordered By: Dr. Diehl on 04-27-2022 RBC (Bld) [#/Vol] 3.81 10*6/uL 4.6-6.2 [facility] Blood hemoglobin measurement (mass/volume)Ordered By: Dr. Diehl on 04-27-2022 Hemoglobin (Bld) [Mass/Vol] 12.2 g/dL 13.0-16.5 [facility] Blood lymphocytes/100 leukoc ytesOrdered By: Dr. Diehl on 04-27-2022 Lymphocytes/100 WBC (Bld) 24.6 % 19-41 [facility] Blood monocytes/100 leukocyt esOrdered By: Dr. Diehl on 04-27-2022 Monocytes/100 WBC (Bld) 6.3 % 0-10 [facility] Blood platelet mean volumeOr dered By: Dr. Diehl on 04-27-2022 Platelet mean volume (Bld) [Entitic vol] 11.5 fL 6.2-12.0 [facility] Determination of erythrocyte mean corpuscular volume (MCV)Ordered By: Dr. Diehl on 04-27-2022 MCV (RBC) [Entitic vol] 97.1 fL 80-94 [facility] Hematocrit Auto (Bld) [Volum e fraction]Ordered By: Dr. Diehl on 04-27-2022 Hematocrit (Bld) [Volume fraction] 37.0 % 40-54 [facility] Laboratory - Chemistry and C hemistry - challengeOrdered By: Dr. Diehl on 04-27-2022 ALP [Catalytic activity/Vol] 105 U/L 45-117 [facility] ALT [Catalytic activity/Vol] 21 U/L 16-61 [facility] CO2 [Moles/Vol] 24.0 mmol/L 21.0-32.0 [facility] Globulin (S) [Mass/Vol] 3.5 g/dL 2.2-4.2 [facility] Urea nitrogen/Creatinine [Mass ratio] 24.8 mg/mg 10-20 [facility] Laboratory - Hematology and Cell countsOrdered By: Dr. Diehl on 04-27-2022 Erythrocyte distribution width (RBC) [Entitic vol] 49.8 fL 35.1-43.9 [facility] Erythrocyte distribution width (RBC) [Ratio] 14.0 % 11.6-14.6 [facility] Immature granulocytes/100 WBC (Bld) 0.300 % 0.0-0.9 [facility] Comment on above: IG% - Immature Granu locytes (promyelocytes, myelocytes and metamyelocytes) > 1% indicates that a LEFT SHIFT is Present. MCH (RBC) [Entitic mass] 32.0 pg 27.0-32.0 [facility] Nucleated RBC/100 WBC (Bld) [Ratio] 0 % 0-5 [facility] MCHC Auto (RBC) [Mass/Vol]Or dered By: Dr. Diehl on 04-27-2022 MCHC (RBC) [Mass/Vol] 33.0 g/dL 32-36 [facility] No Panel InformationOrdered By: Dr. Diehl on 04-27-2022 Estimated GFR (MDRD) Amer 99 mL/min >60 [facility] Comment on above: GFR Calc Estimated GFR (MDRD) Non-Af Amer 82 mL/min >60 [facility] Comment on above: Non- GFR Calc Prostate Specific Antigen Screen 1.24 ng/mL 0.00-4.00 [facility] Comment on above: This test was perfor med using the TPSA assay method for the[employer] chemistry system. Values obtained with differentassay methods cannot be used interchangably.When changing PSA assays in the course of monitoring apatient, additional sequential testing should be carriedout to confirm baseline values. Platelets bldOrdered By: Dr. Diehl on 04-27-2022 Platelets (Bld) [#/Vol] 240 10*3/uL 150-450 [facility] Serum or plasma albumin alena urement (mass/volume)Ordered By: Dr. Diehl on 04-27-2022 Albumin [Mass/Vol] 3.7 g/dL 3.2-5.0 [facility] Serum or plasma albumin/glob ulin mass ratioOrdered By: Dr. Diehl on 04-27-2022 Albumin/Globulin [Mass ratio] 1.1 {ratio} 0.9-2.4 [facility] Serum or plasma calcium alena urement (mass/volume)Ordered By: Dr. Diehl on 04-27-2022 Calcium [Mass/Vol] 10.0 mg/dL 8.5-10.1 [facility] Serum or plasma creatinine m easurement (mass/volume)Ordered By: Dr. Diehl on 04-27-2022 Creatinine [Mass/Vol] 0.97 mg/dL 0.70-1.30 [facility] Comment on above: The validity of the calculated GFR & GFRAA in patients over 70 years has not been determined. Clinical correlation is essential. Serum or plasma urea nitroge n measurement (mass/volume)Ordered By: Dr. Diehl on 04-27-2022 Urea nitrogen [Mass/Vol] 24 mg/dL 7-18 [facility] Thin prep Papanicolaou smear with manual screeningOrdered By: Dr. Diehl on 04-27-2022 Thin prep Papanicolaou smear with manual screening 21 U/L 15-37 [facility] Thin prep Papanicolaou smear with manual screening 9 5-15 [facility] Medicare Annual Wellness Vis iton 03-17-2022 Medicare Annual Wellness Visit *Chief Complaint mdck and AWV History of Present Illness The patient is being seen for the subsequent annual wellness visit. Past Medical, Surgical and Family History: reviewed and updated in chart. Medications and Supplements: Review of all medications by a prescribing practitioner or clinical pharmacist (such as prescriptions, OTCs, herbal therapies and supplements) documented in the medical record. Yes, the patient is using opioids. Patient Self Assessment of Health Status: good. Tobacco use: Non-User Alcohol use: Non-User Illicit drug use: Non-User Current diet: does consume caffeine. Exercise Frequency: the patient does not exercise. Depression/Suicide Screening: . During the past 2 weeks, the patient has not felt down, depressed or hopeless. During the past 2 weeks, the patient has not felt little interest or pleasure in doing things. Hearing Impairment: none. Cognitive Impairment: No cognitive impairment observed. clock correct. Bathing: performs independently. Dressing: performs independently. Walking: needs assistance. Bladder: continent. Managing Finances: performs independently. Shopping: performs independently. Managing Medications: performs independently. Housework / Basic Home Maintenance: performs independently. Falls Risk Screening:. FRANCHESKA has fallen in the last 6 months. His fall did not result in injury. Fall risk factors: polypharmacy and mobility impairment, but no sedative use, no urinary incontinence, no visual impairment, no alcohol use, no deconditioning, no cognitive impairment, no antihypertensive use, no postural hypotension, up and go test was normal and no antidepressant use. Care Plan Low/Moderate Risk: Regular physical activity such as walking, water aerobics or susu chi to improve strength, balance, coordination and flexibility. Wear appropriate, sensible shoe wear. Remove fall hazards at home such as loose rugs, obstacles, use non-slip surface in bath or shower. Keep living space well lit. Home safety risk factors: loose rugs. Advance directives:. Advanced Care Planning discussed and [...] patient's end of life decisions: Full code. 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 Left THR 2019 RhA - Rheumatoid arthritis per Dr Diehl stopped med 2 weeks prior to surgrey labs per Dr Diehl left knee revision 2017 Lum[facility] 2018 h.o discectomy 2004 walker insufficient when not using leg wheelchair adl s in house outside shopping are self propel no h/o [place], CHF, CVA, TIA no cp no sob no cough usles albuterol for uri no nocturia 2019 pt had undetected left mandibular fx which has now been fixed *Active Problems Body mass index (BMI) of 26.0 to 26.9 in adult (V85.22) (Z68.26) Encounter for immunization (V03.89) (Z23) Encounter for Medicare annual wellness exam (V70.0) (Z00.00) Low back pain (724.2) (M54.50) Osteoporosis (733.00) (M81.0) Screening for prostate cancer (V76.44) (Z12.5) Surgical History History of Carpal tunnel surgery History of Knee replacement History of Lower extremity amputation History of Shoulder replacement Social History Former smoker (V15.82) (Z87.891) No recent foreign travel *Allergies No Known Drug Allergies Recorded By: Rola Olson; 10/22/2019 11:22:37 AM *Current Meds Medication NameInstruction Folic Acid CAPS Gabapentin 800 MG Oral TabletTake 1 tablet twice daily Hydroxychloroquine Sulfate 200 MG Oral Tablet Iron TABS Meloxicam 15 MG Oral Tablet Methotrexate 2.5 MG Oral Tablet predniSONE 10 MG Oral Tablettake PRN traMADol HCl - 50 MG Oral Tablet Ventolin HFA 108 (90 Base) MCG/ACT Inhalation Aerosol Solution Immunizations FLU --- Series1: -Feb-2019 Influenza --- Series1: Mar 14 2017 12:00AM; Series2: Mar 23 2018 12:00AM; Series3: Mar 11 2020 12:00AM; Series4: Mar 09 2021 12:00AM Moderna COVID-19 Vaccine 100 MCG/0.5ML Intramuscular Suspension --- Series1: Aug 19 2020 12:00AM; Series2: Sep 17 2020 12:00AM; Series3: May 04 2021 12:00AM; Series4: Sep 23 2021 12:00AM PCV --- Series1: Jul 10 2018 12:00AM PPSV --- Series1: 28-Oct-2019 Zoster --- Series1: 06-Sep-2017; Series2: 10-Jan-2018 Patient Care Team Care Team MemberRoleSpecialtyOffice Number Deidre MYERS, [facility] Care Provider[phone] Mahi Whitten [phone] Rachel Giron [phone] Vitals Vital Signs Recorded: 17Mar2022 02:23PM Heart Rate99 Almuvabg399, LUE, Sitting Sbarhoief86, LUE, Sitting Kmmycw830.86 cm Owmuml84.05 kg BM (more content not included)... Normal [facility] Tobacco Screening.on 022 Adult depression screening assessment No [facility] Work Phone: Fall risk assessment b) One or more fall s in the last year [facility] Work Phone: Tobacco use status CPHS b) No [facility] Work Phone: Absolute lymphocyte counton 01-28-2022 Lymphocytes Auto (Unsp spec) [#/Vol] 1.87 10*3/uL 0.83-4.51 [facility] Work Phone: Basophil percentageon 2021 Basophils/100 WBC (Bld) 0.9 % 0-1 [facility] Work Phone: Bilirubin [Mass/Vol] 0.30 mg/dL 0.20-1.00 [facility] Work Phone: Comment on above: For patients on eltr ombopag therapy, use of [facility] [place] TBIL is not recommended. Chloride [Moles/Vol] 108 mmol/L 98-107 [facility] Work Phone: Eosinophils/100 WBC (Bld) 11.7 % 0-5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 Jiang Work Phone: [facility] 11-18-2022 14:11-0400 Systolic blood pressure 136 mm[Hg] Dr. Oz Jiang Work Phone: [facility] 03-17-2022 14:23-0400 Body height 149.86 cm Oz Jiang Work Phone: [facility] Work Phone: 03-17-2022 14:23-0400 Body mass index (BMI) [Ratio] 26.3 kg/m2 Oz Jiang Work Phone: [facility] Work Phone: 03-17-2022 14:23-0400 Body surface area Derived from formula 1.54 m2 Oz Jiang Work Phone: [facility] Work Phone: 03-17-2022 14:23-0400 Body weight 59.05 kg Oz Ayouber Work Phone: [facility] Work Phone: 03-17-2022 14:23-0400 Diastolic blood pressure 88 mm[Hg] Oz Ayouber Work Phone: [facility] Work Phone: 03-17-2022 14:23-0400 Heart rate 99 /min Oz Jiang Work Phone: [facility] Work Phone: 03-17-2022 14:23-0400 SaO2% (BldA) [Mass fraction] 98 % Oz Ayouber Work Phone: [facility] Work Phone: 03-17-2022 14:23-0400 Systolic blood pressure 128 mm[Hg] Oz Ayouber Work Phone: [facility] Work Phone: NEGATED: Highlighted [id number] 13:06-0400 Body height 149.86 cm Kimberly Savanah AT [facility] Work Phone: NEGATED: Highlighted [id number] 13:06-0400 Body height 150 cm Kimberly Savanah AT [facility] Work Phone: NEGATED: Highlighted [id number] 13:06-0400 Body mass index (BMI) [Ratio] 25.14 kg/m2 Kimberly Savanah AT [facility] Work Phone: NEGATED: Highlighted [id number] 13:06-0400 Body weight 56.25 kg Kimberly Savanah AT [facility] Work Phone: NEGATED: Highlighted [id number] 13:06-0400 Body weight 56 kg Kimberly Pavon AT [facility] Work Phone: NEGATED: Highlighted [id number] 14:13-0500 Body height 149.86 cm Stefanie Collins AT [facility] Work Phone: NEGATED: Highlighted [id number] 14:13-0500 Body height 150 cm Stefanie Collins AT [facility] Work Phone: NEGATED: Highlighted [id number] 14:13-0500 Body mass index (BMI) [Ratio] 27.57 kg/m2 Stefanie Collins AT [facility] Work Phone: NEGATED: Highlighted [id number] 14:13-0500 Body weight 61.69 kg Stefanie Collins AT [facility] Work Phone: NEGATED: Highlighted [id number] 14:13-0500 Body weight 62 kg Stefanie Collins AT [facility] Work Phone: NEGATED: Highlighted [id number] 14:13-0500 Diastolic blood pressure 82 mm[Hg] Stefanie Collins AT [facility] Work Phone: NEGATED: Highlighted [id number] 14:13-0500 Heart rate 92 /min Stefanie Collins AT [facility] Work Phone: NEGATED: Highlighted [id number] 14:13-0500 Systolic blood pressure 122 mm[Hg] Stefanie Collins AT [facility] Work Phone: NEGATED: Highlighted [id number] 14:43-0500 Body height 149.86 cm Radha Chahal LPN [facility] Work Phone: NEGATED: Highlighted [id number] 14:43-0500 Body height 150 cm Radha Chahal LPN [facility] Work Phone: NEGATED: Highlighted [id number] 14:43-0500 Body mass index (BMI) [Ratio] 27.57 kg/m2 Radha Chahal LPN [facility] Work Phone: NEGATED: Highlighted [id number] 14:43-0500 Body weight 61.69 kg Radha Chahal LPN [facility] Work Phone: NEGATED: Highlighted [id number] 14:43-0500 Body weight 62 kg Radha Chahal LPN [facility] Work Phone: NEGATED: Highlighted [id number] 14:43-0500 Diastolic blood pressure 81 mm[Hg] Radha Chahal LPN [facility] Work Phone: NEGATED: Highlighted [id number] 14:43-0500 Heart rate 74 /min Radha Chahal LPN [facility] Work Phone: NEGATED: Highlighted [id number] 14:43-0500 Systolic blood pressure 129 mm[Hg] Radha Chahal LPN [facility] Work Phone: NEGATED: Highlighted [id number] 15:07-0400 Body height 149.86 cm Luisito Andrews AT [facility] Work Phone: NEGATED: Highlighted [id number] 15:07-0400 Body height 150 cm Luisito Andrews AT [facility] Work Phone: NEGATED: Highlighted [id number] 15:07-0400 Body mass index (BMI) [Ratio] 27.57 kg/m2 Luisito Andrews AT [facility] Work Phone: NEGATED: Highlighted [id number] 15:070400 Body weight 61.69 kg Luisito Juliana AT [facility] [place] [facility] Work Phone: NEGATED: Highlighted [id number] 15:07-0400 Body weight 62 kg Luisito Juliana AT [facility] [place] [facility] Work Phone: NEGATED: Highlighted [id number] 15:07-0400 Diastolic blood pressure 76 mm[Hg] Luisito Andrews AT [facility] [place] [facility] Work Phone: NEGATED: Highlighted [id number] 15:07-0400 Heart rate 103 /min Luisito ReillyJuliana AT [facility] [place] [facility] Work Phone: NEGATED: Highlighted [id number] 15:07-0400 Systolic blood pressure 116 mm[Hg] Luisito Andrews AT [facility] [place] [facility] Work Phone: NEGATED: Highlighted [id number] 13:11-0400 Body height 150 cm Kimberly Savanah AT [facility] [place] [facility] Work Phone: NEGATED: Highlighted [id number] 13:11-0400 Body height 149.86 cm Kimberly Savanah AT [facility] [place] [facility] Work Phone: NEGATED: Highlighted [id number] 13:11-0400 Body mass index (BMI) [Ratio] 27.57 kg/m2 Kimberly Savanah AT [facility] [place] [facility] Work Phone: NEGATED: Highlighted [id number] 13:11-0400 Body weight 62 kg Kimberly Savanah AT [facility] [place] [facility] Work Phone: NEGATED: Highlighted [id number] 13:11-0400 Body weight 61.69 kg Kimberly Savanah AT [facility] [place] [facility] Work Phone: NEGATED: Highlighted [id number] 13:11-0400 Diastolic blood pressure 83 mm[Hg] Kimberly Savanah AT [facility] [place] [facility] Work Phone: NEGATED: Highlighted [id number] 13:11-0400 Heart rate 102 /min Kimberly Savanah AT [facility] [place] [facility] Work Phone: NEGATED: Highlighted [id number] 13:11-0400 Systolic blood pressure 129 mm[Hg] Kimberly Savanah AT [facility] [place] [facility] Work Phone: NEGATED: Highlighted [id number] 15:13-0400 Body height 149.86 cm Kimberly Savanah AT [facility] [place] [facility] Work Phone: NEGATED: Highlighted [id number] 15:13-0400 Body height 150 cm Kimberly Savanah AT [facility] [place] [facility] Work Phone: NEGATED: Highlighted [id number] 15:13-0400 Body mass index (BMI) [Ratio] 25.95 kg/m2 Kimberly Savanah AT [facility] [place] [facility] Work Phone: NEGATED: Highlighted [id number] 15:13-0400 Body weight 58.06 kg Kimberly Savanah AT [facility] [place] [facility] Work Phone: NEGATED: Highlighted [id number] 15:13-0400 Body weight 58 kg Kimberly Savanah AT [facility] [place] [facility] Work Phone: NEGATED: Highlighted [id number] 15:13-0400 Diastolic blood pressure 90 mm[Hg] Kimberly Savanah AT [facility] [place] [facility] Work Phone: NEGATED: Highlighted [id number] 15:13-0400 Diastolic blood pressure 85 mm[Hg] Ikmberly Savanah AT [facility] [place] [facility] Work Phone: NEGATED: Highlighted [id number] 15:13-0400 Heart rate 92 /min Kimberly Pavon AT [facility] Work Phone: NEGATED: Highlighted [id number] 15:13-0400 Systolic blood pressure 129 mm[Hg] Kimberly Pavon AT [facility] Work Phone: NEGATED: Highlighted [id number] 15:13-0400 Systolic blood pressure 125 mm[Hg] Kimberly Pavon AT [facility] Work Phone: NEGATED: Highlighted [id number] 12:48-0400 Body height 149.86 cm [facility] [address] [facility] Work Phone: NEGATED: Highlighted [id number] 12:48-0400 Body height 150 cm [facility] Nakina [facility] Work Phone: NEGATED: Highlighted [id number] 12:48-0400 Body mass index (BMI) [Ratio] 26.35 kg/m2 Kiana Nakina LEAN MANAGER [facility] Work Phone: NEGATED: Highlighted [id number] 12:48-0400 Body weight 58.97 kg Kiana Carl LEAN MANAGER [facility] Work Phone: NEGATED: Highlighted [id number] 12:48-0400 Body weight 59 kg Kiana Carl LEAN MANAGER [facility] Work Phone: NEGATED: Highlighted [id number] 12:48-0400 Diastolic blood pressure 75 mm[Hg] Kiana Carl LEAN MANAGER [facility] Work Phone: NEGATED: Highlighted [id number] 12:48-0400 Heart rate 93 /min [facility] Carl LEAN MANAGER [facility] Work Phone: NEGATED: Highlighted [id number] 12:48-0400 Systolic blood pressure 111 mm[Hg] Kiana Henry LEAN MANAGER [facility] Work Phone: NEGATED: Highlighted [id number] 10:35-0400 Body height 149.86 cm Kimberly Savanah AT [facility] Work Phone: NEGATED: Highlighted [id number] 10:35-0400 Body height 150 cm Kimberly Savanah AT [facility] Work Phone: NEGATED: Highlighted [id number] 10:35-0400 Body mass index (BMI) [Ratio] 26.35 kg/m2 Kimberly Hiltoner AT [facility] Work Phone: NEGATED: Highlighted [id number] 10:35-0400 Body weight 58.97 kg Kimberly Savanah AT [facility] Work Phone: NEGATED: Highlighted [id number] 10:35-0400 Body weight 59 kg Kimberly Savanah AT [facility] Work Phone: NEGATED: Highlighted [id number] 10:35-0400 Diastolic blood pressure 64 mm[Hg] Kimberly Savanah AT [facility] Work Phone: NEGATED: Highlighted [id number] 10:35-0400 Heart rate 82 /min Kimberly Savanah AT [facility] Work Phone: NEGATED: Highlighted [id number] 10:35-0400 Systolic blood pressure 105 mm[Hg] Kimberly Savanah AT [facility] Work Phone: Encounters Encounter Date Encounter Type Care Provider Facility Start: 11-28-2024 End: 11-28-2024 Office outpatient visit 25 minutes Oz Jiang MD Work Phone: [facility] Comment on above: Hyperparathyroidism (Multi) (Primary Dx); Anemia, unspecified type; Rheumatoid arthritis, involving unspecified site, unspecified whether rheumatoid factor present (Multi) Start: 11-28-2024 End: 11-28-2024 ambulatory [facility] Start: 10-28-2024 End: 10-28-2024 Office outpatient visit 15 minutes Travis Cespedes MD Work Phone: [facility] Comment on above: Internal hemorrhoid (Primary Dx); Diverticulosis; Anemia, chronic disease Start: 10-28-2024 End: 10-28-2024 ambulatory [facility] Start: 10-22-2024 End: 10-22-[address] Oz Jiang MD Work Phone: [facility] Work Phone: Start: 10-22-2024 End: 10-22-[address] Genoveva Diehl MD -Laboratory [facility] Work Phone: Start: 10-22-2024 End: 10-22-2024 ambulatory [facility] Facility:[facility] Start: 10-17-2024 End: 10-17-2024 Subsequent hospital visit by physician Travis Cespedes MD Work Phone: [facility] [place] Comment on above: Anemia, unspecified type Start: 10-17-2024 End: 10-17-2024 ambulatory [facility] Start: 10-14-2024 End: 10-14-[address] Oz Jiang MD Work Phone: [facility] Work Phone: Start: 10-14-2024 End: 10-14-[address] Dave Carpenter MD -Laboratory, [employer] [employer] Work Phone: Start: 10-14-2024 End: 10-14-2024 ambulatory Dave Carpenter Facility:[facility] Start: 09-10-2024 End: 09-10-2024 Office outpatient new 30 minutes Travis Cespedes MD Work Phone: [facility] Comment on above: Anemia, unspecified type (Primary Dx) Start: 09-10-2024 End: 09-10-2024 ambulatory [facility] Start: 08-21-2024 End: 08-21-2024 Office outpatient visit 25 minutes Hien K Patten VISUAL ARTS TEACHER-ELECTRON BEAM MACHINE WELDER SETTER Work Phone: [facility] Comment on above: Low vitamin D level (Primary Dx); Anemia, unspecified type; Age-related osteoporosis without current pathological fracture; Hyperparathyroidism (Multi) Start: 08-21-2024 End: 08-21-2024 ambulatory [facility] Ambulatory Start: 07-24-2024 End: 07-24-[address] Genoveva Diehl MD -Laboratory, [place] Work Phone: Start: 07-24-2024 End: 07-24-2024 ambulatory [facility] Facility:[facility] Start: 07-23-2024 Encounter for genera l adult medical examination without abnormal findings Oz Jiang [facility] Start: 05-22-2024 End: 05-22-2024 ambulatory Oz Jiang Facility:[facility] Start: 04-30-2024 End: 04-30-2024 ambulatory [facility] Facility:[facility] Start: 03-27-2024 End: 03-27-2024 ambulatory [facility] Facility:[facility] Start: 03-21-2024 End: 03-21-2024 Assay of hemosiderin, quant Oz Jiang MD Work Phone: [facility] Work Phone: Start: 03-21-2024 End: 03-21-2024 Patient encounter procedure Oz Jiang MD Work Phone: [facility] Comment on above: Routine general medi verito examination at health care facility (Primary Dx); Asthma, unspecified asthma severity, unspecified whether complicated, unspecified whether persistent ([facility]); Encounter for screening for malignant neoplasm of prostate; Healthcare maintenance; Colon cancer screening; Rheumatoid arthritis, involving unspecified site, unspecified whether rheumatoid factor present (Multi) Start: 03-21-2024 End: 03-21-2024 Patient encounter status Oz Jiang MD Work Phone: [facility] Work Phone: Start: 03-21-2024 End: 03-21-2024 ambulatory [facility] Start: 03-21-2024 End: 03-21-2024 Encounter for general adult medical examination without abnormal findings [facility] Start: 02-16-2024 ambulatory [facility] Facility:[facility] Start: 01-15-2024 End: 01-15-2024 ambulatory [facility] Facility:[facility] Start: 01-15-2024 End: 01-15-2024 ambulatory [facility] Start: 01-12-2024 End: 01-12-2024 ambulatory [facility] Start: 01-12-2024 End: 01-12-2024 Encounter for other preprocedural examination [facility] Start: 12-18-2023 End: 12-18-[address] [facility] Start: 09-15-2023 End: 09-15-2023 ambulatory [facility] Work Phone: Start: 09-15-2023 End: 09-15-[address] [facility] Work Phone: Start: 08-17-2023 End: 08-17-2023 ambulatory [facility] Work Phone: Start: 08-17-2023 End: 08-17-2023 Patient encounter procedure [facility] Work Phone: Start: 06-21-2023 End: 06-21-[address] [facility] Work Phone: Start: 05-15-2023 End: 05-15-[address] [facility] Work Phone: Start: 03-22-2023 End: 03-22-2023 ambulatory [facility] Work Phone: Start: 03-22-2023 End: 03-22-[address] [facility] Work Phone: Start: 03-20-2023 End: 03-20-2023 Assay of hemosiderin, quant Oz Jiang MD Work Phone: [facility] Work Phone: Start: 03-20-2023 End: 03-20-2023 Patient encounter procedure Oz Jiang MD Work Phone: [facility] Comment on above: Routine general medi verito examination at health care facility (Primary Dx); Asthma, unspecified asthma severity, unspecified whether complicated, unspecified whether persistent; Encounter for screening for malignant neoplasm of prostate; Healthcare maintenance; Age-related osteoporosis without current pathological fracture; Rheumatoid arthritis, involving unspecified site, unspecified whether rheumatoid factor present ([facility]) Start: 03-20-2023 End: 03-20-2023 Patient encounter status Oz Jiang MD Work Phone: [facility] Work Phone: Start: 02-17-2023 End: 02-17-2023 Online digital e/m svc est pt <7 d 5-10 minutes Ward Morris VISUAL ARTS TEACHER-ELECTRON BEAM MACHINE WELDER SETTER Work Phone: [facility] Comment on above: COVID-19 (Primary Dx ) Start: 02-16-2023 End: 02-16-[address] Oz Jiang Work Phone: [facility] Work Phone: Start: 02-16-2023 End: 02-16-[address] Oz Jiang Work Phone: [facility] Work Phone: Start: 02-07-2023 End: 02-07-2023 Office outpatient visit 15 minutes Oz Jiang MD Work Phone: [facility] Comment on above: Strain of neck muscl e, initial encounter (Primary Dx) Start: 01-05-2023 End: 01-05-[address] Oz Jiang Work Phone: [facility] Work Phone: Start: 01-05-2023 End: 01-05-[address] Oz Jiang Work Phone: [facility] Work Phone: Start: 12-23-2022 End: 12-23-[address] Oz Jiang Work Phone: [facility] Work Phone: Start: 12-23-2022 End: 12-23-[address] Oz Jiang Work Phone: [facility] Work Phone: Start: 11-18-2022 End: 11-18-[address] Oz Jiang Work Phone: [facility] Work Phone: Start: 11-18-2022 End: 11-18-[address] Oz Jiang Work Phone: [facility] Start: 11-18-2022 End: 11-18-[address] Oz Jiang Work Phone: [facility] Start: 10-20-2022 End: 10-20-[address] Oz Jiang Work Phone: [facility] Start: 09-05-2022 Non-patient / Non-visit Dr. Grant Work Phone: [facility] Start: 07-29-2022 End: 07-29-2022 ambulatory [facility] Work Phone: Start: 07-29-2022 End: 07-29-2022 Patient encounter procedure [facility] Start: 07-19-2022 End: 07-19-2022 ambulatory [facility] Work Phone: Start: 07-19-2022 End: 07-19-2022 Patient encounter procedure [facility] Start: 04-27-2022 End: 04-27-2022 ambulatory [facility] Work Phone: Start: 04-27-2022 End: 04-27-2022 Patient encounter procedure [facility] Schum[facility] Start: 03-17-2022 Adv care pln tlkd & alt dcsn maker docd Oz Jiang Work Phone: [facility] Work Phone: Start: 03-17-2022 ambulatory OZ JIANG Facil [id number] Start: 01-28-2022 End: 01-28-2022 ambulatory [facility] Work Phone: Start: 01-28-2022 End: 01-28-2022 Patient encounter procedure Flaco Schumacher [facility] Start: 11-01-2021 End: 11-01-2021 Patient encounter procedure Flaco Schumacher [facility] Start: 04-09-2019 [facility] Work Phone: Start: 04-04-2019 Patient encounter [facility] Work Phone: Start: 04-02-2019 Patient [facility] Work Phone: Start: 03-28-2019 Patient encounter procedure Lavonne hull Abiliojoe [facility] Work Phone: Start: 03-26-2019 Patient encounter procedure Uche atkinson [facility] Work Phone: Start: 03-21-2019 Patient encounter procedure Lavonne Martinez [facility] Work Phone: Start: 03-19-2019 Patient encounter procedure Yara cadena [facility] Work Phone: Start: 03-14-2019 Patient encounter procedure Uche atkinson [facility] Work Phone: Start: 03-12-2019 Patient encounter procedure [facility]che atkinson [facility] Work Phone: Start: 02-21-2019 End: 02-21-2019 Pt evaluation Rachel Giron VISUAL ARTS TEACHER-ELECTRON BEAM MACHINE WELDER SETTER Work Phone: [facility] Work Phone: Start: 11-13-2018 End: 11-13-2018 Pt evaluation Jenn Elliott VISUAL ARTS TEACHER-ELECTRON BEAM MACHINE WELDER SETTER Work Phone: [facility] Work Phone: Start: 11-02-2017 End: 11-02-2017 Pt evaluation Rachel Giron VISUAL ARTS TEACHER-ELECTRON BEAM MACHINE WELDER SETTER Work Phone: [facility] Work Phone: Patient encounter procedure Jalen Jiang Work Phone: [facility] Work Phone: Procedures Date Procedure Procedure Detail Performing Clinician Start: 10-17-2024 Colonoscopy flx dx w/collj spec when pfrmd Travis Cespedes MD Work Phone: Start: 10-17-2024 PULSE OXIMETRY, SPOT Me evelyn Cespedes MD Work Phone: Start: 10-17-2024 Colonoscopy Nick 04 Start: 10-14-[address] Oz Jiang MD Work Phone: Start: 10-14-2024 Vitamin D, 25-hydrox y measurement Dr. Oz Jiang MD Work Phone: Comment on above: Vitamin D StatusDefi ciency: <20 ng/mL (50nmol/L)Insufficiency: 20-30 ng/mL (50-75 nmol/L)Sufficiency: 30-100 ng/mL (75-250 nmol/L)Toxicity: >100 ng/mL (>250 nmol/L) Start: 07-24-[address] Oz Jiang MD Work Phone: Start: 07-24-2024 Measurement of renal function Dr. Oz Jiang MD Work Phone: Comment on above: GFR Calc Start: 05-16-2024 Lipid 1996 panel - S caryn or Plasma Hien Patten VISUAL ARTS TEACHER-ELECTRON BEAM MACHINE WELDER SETTER Work Phone: Start: 01-05-2023 Dual energy X-ray absorptiometry Dr. Oz Jiang Work Phone: Start: 02-11-2020 End: 02-11-2020 BP scrn no perf at interval Rachel Giron VISUAL ARTS TEACHER-ELECTRON BEAM MACHINE WELDER SETTER Work Phone: Start: 02-11-2020 End: 02-11-2020 Calc BMI abv up jayashree f/u Rachel garcia VISUAL ARTS TEACHER-ELECTRON BEAM MACHINE WELDER SETTER Work Phone: Start: 02-11-2020 End: 02-11-2020 Current tobacco non-user cad cap copd pv dm Rachel Giron VISUAL ARTS TEACHER-ELECTRON BEAM MACHINE WELDER SETTER Work Phone: Start: 02-11-2020 End: 02-11-2020 Docrev cur meds by toby Giron VISUAL ARTS TEACHER-ELECTRON BEAM MACHINE WELDER SETTER Work Phone: Start: 02-11-2020 End: 02-11-2020 Falls plan of care documented Rachel Giron VISUAL ARTS TEACHER-ELECTRON BEAM MACHINE WELDER SETTER Work Phone: Start: 02-11-2020 End: 02-11-2020 Falls risk assessment documented Rachel Giron VISUAL ARTS TEACHER-ELECTRON BEAM MACHINE WELDER SETTER Work Phone: Start: 02-11-2020 End: 02-11-2020 Pain doc pos and plan Rachel Giron VISUAL ARTS TEACHER-ELECTRON BEAM MACHINE WELDER SETTER Work Phone: Start: 02-11-2020 End: 02-11-2020 Patient encounter procedure Rachel Giron VISUAL ARTS TEACHER-ELECTRON BEAM MACHINE WELDER SETTER Work Phone: Start: 02-11-2020 End: 02-11-2020 Pt falls assess docd 2/> falls/fall w/injury/yr Rachel Garibaydamienjose VISUAL ARTS TEACHER-ELECTRON BEAM MACHINE WELDER SETTER Work Phone: Start: 08-06-2019 End: 08-12-2019 BP scrn perf rec interval Pavan Leo Hunt DO Work Phone: Start: 08-06-2019 End: 08-12-2019 Calc BMI abv up jayashree f/u Pavan Leo Hunt DO Work Phone: Start: 08-06-2019 End: 08-12-2019 Current tobacco non-user cad cap copd pv dm Pavan Leo Hunt DO Work Phone: Start: 08-06-2019 End: 08-12-2019 Docrev cur meds by toby Leo Hunt DO Work Phone: Start: 08-06-2019 End: 08-12-2019 Falls plan of care documented Pavan Leo Hunt DO Work Phone: Start: 08-06-2019 End: 08-12-2019 Falls risk assessment documented Pavan Leo Hunt DO Work Phone: Start: 08-06-2019 End: 08-12-2019 Pain doc pos and plan Pavan D Hunt DO Work Phone: Start: 08-06-2019 End: 08-12-2019 Patient encounter procedure Pavan Leo Hunt DO Work Phone: Start: 08-06-2019 End: 08-12-2019 Pt falls assess docd 2/> falls/fall w/injury/yr Pavan Leo Hunt DO Work Phone: Start: 08-06-2019 End: 08-08-2019 Radex spine lumbosacral minimum 4 views Scot D Hunt DO Work Phone: Start: 04-22-2019 End: 04-24-2019 BP scrn perf rec interval Jenn Hernández ield VISUAL ARTS TEACHER-ELECTRON BEAM MACHINE WELDER SETTER Work Phone: Start: 04-22-2019 End: 04-24-2019 Calc BMI abv up jayashree f/u Jenn Hernández ield VISUAL ARTS TEACHER-ELECTRON BEAM MACHINE WELDER SETTER Work Phone: Start: 04-22-2019 End: 04-24-2019 Current tobacco non-user cad cap copd pv dm Jenn Elliott VISUAL ARTS TEACHER-ELECTRON BEAM MACHINE WELDER SETTER Work Phone: Start: 04-22-2019 End: 04-24-2019 Docrev cur meds by [facility] Jenn Elliott VISUAL ARTS TEACHER-ELECTRON BEAM MACHINE WELDER SETTER Work Phone: Start: 04-22-2019 End: 04-24-2019 Pain neg no plan Jenn Elliott VISUAL ARTS TEACHER-ELECTRON BEAM MACHINE WELDER SETTER Work Phone: Start: 04-22-2019 End: 04-24-2019 Patient encounter procedure Jenn Elliott VISUAL ARTS TEACHER-ELECTRON BEAM MACHINE WELDER SETTER Work Phone: Start: 04-22-2019 End: 04-22-2019 Radex spine lumbosacral 2/3 views Jenn Elliott VISUAL ARTS TEACHER-ELECTRON BEAM MACHINE WELDER SETTER Work Phone: Start: 02-21-2019 End: 02-21-2019 BP scrn perf rec interval Rachelglenda garcia VISUAL ARTS TEACHER-ELECTRON BEAM MACHINE WELDER SETTER Work Phone: Start: 02-21-2019 End: 02-21-2019 Calc BMI out nrm jayashree nof/u aRchel Giron VISUAL ARTS TEACHER-ELECTRON BEAM MACHINE WELDER SETTER Work Phone: Start: 02-21-2019 End: 02-21-2019 Current tobacco non-user cad cap copd pv dm Rachel Giron VISUAL ARTS TEACHER-ELECTRON BEAM MACHINE WELDER SETTER Work Phone: Start: 02-21-2019 End: 02-21-2019 Docrev cur meds by [facility] clin Rachel Garibayitjose VISUAL ARTS TEACHER-ELECTRON BEAM MACHINE WELDER SETTER Work Phone: Start: 02-21-2019 End: 02-21-2019 Pain doc pos and plan Rachel Giron VISUAL ARTS TEACHER-ELECTRON BEAM MACHINE WELDER SETTER Work Phone: Start: 02-21-2019 End: 02-21-2019 Patient encounter procedure Rachel Giron VISUAL ARTS TEACHER-ELECTRON BEAM MACHINE WELDER SETTER Work Phone: Start: 12-27-2018 End: 01-02-2019 BP scrn perf rec interval Pavan Leo Hunt DO Work Phone: Start: 12-27-2018 End: 01-02-2019 Calc BMI abv up jayashree f/u Scot D Hunt DO Work Phone: Start: 12-27-2018 End: 01-02-2019 Current tobacco non-user cad cap copd pv dm Pavan D Hunt DO Work Phone: Start: 12-27-2018 End: 01-02-2019 Docrev cur meds by toby cardenas Pavan Hunt DO Work Phone: Start: 12-27-2018 End: 01-02-2019 Falls plan of care documented Pavan Leo Hunt DO Work Phone: Start: 12-27-2018 End: 01-02-2019 Falls risk assessment documented Pavan Hunt DO Work Phone: Start: 12-27-2018 End: 01-02-2019 Pain doc pos and plan Pavan D Hunt DO Work Phone: Start: 12-27-2018 End: 01-02-2019 Patient encounter procedure Pavan Leo Hutn DO Work Phone: Start: 12-27-2018 End: 01-02-2019 Pt falls assess docd 2/> falls/fall w/injury/yr Scot D Hunt DO Work Phone: Start: 11-13-2018 End: 11-15-2018 Calc BMI abv up jayashree f/u Jenn gomez VISUAL ARTS TEACHER-ELECTRON BEAM MACHINE WELDER SETTER Work Phone: Start: 11-13-2018 End: 11-15-2018 Current tobacco non-user cad cap copd pv dm Jenn Elliott VISUAL ARTS TEACHER-ELECTRON BEAM MACHINE WELDER SETTER Work Phone: Start: 11-13-2018 End: 11-15-2018 Docrev cur meds by toby cardenas Jenn Elliott APRN-ELECTRON BEAM MACHINE WELDER SETTER Work Phone: Start: 11-13-2018 End: 11-15-2018 Falls plan of care documented Jenn Elliott APRN-ELECTRON BEAM MACHINE WELDER SETTER Work Phone: Start: 11-13-2018 End: 11-15-2018 Falls risk assessment documented Jenn Elliott APRN-ELECTRON BEAM MACHINE WELDER SETTER Work Phone: Start: 11-13-2018 End: 11-15-2018 Pain doc pos and plan Jenn Elliott VISUAL ARTS TEACHER-ELECTRON BEAM MACHINE WELDER SETTER Work Phone: Start: 11-13-2018 End: 11-15-2018 Patient encounter procedure Jenn Elliott APRN-ELECTRON BEAM MACHINE WELDER SETTER Work Phone: Start: 11-13-2018 End: 11-15-2018 Pt falls assess docd 2/> falls/fall w/injury/yr Jenn Elliott APRN-ELECTRON BEAM MACHINE WELDER SETTER Work Phone: Start: 11-13-2018 End: 11-13-2018 Radex spine lumbosacral minimum 4 views Jenn Elliott APRN-ELECTRON BEAM MACHINE WELDER SETTER Work Phone: Start: 03-20-2018 End: 03-20-2018 [...] BP scrn perf rec interval Rachel garcia VISUAL ARTS TEACHER-ELECTRON BEAM MACHINE WELDER SETTER Work Phone: Start: 11-02-2017 End: 11-02-2017 Calc BMI abv up jayashree f/u Rachel garcia VISUAL ARTS TEACHER-ELECTRON BEAM MACHINE WELDER SETTER Work Phone: Start: 11-02-2017 End: 11-02-2017 Current tobacco non-user cad cap copd pv dm Rachel Giron VISUAL ARTS TEACHER-ELECTRON BEAM MACHINE WELDER SETTER Work Phone: Start: 11-02-2017 End: 11-02-2017 Docrev cur meds by toby Giron VISUAL ARTS TEACHER-ELECTRON BEAM MACHINE WELDER SETTER Work Phone: Start: 11-02-2017 End: 11-02-2017 Falls plan of care documented Rachel Giron APRN-ELECTRON BEAM MACHINE WELDER SETTER Work Phone: Start: 11-02-2017 End: 11-02-2017 Falls risk assessment documented Rachel Giron VISUAL ARTS TEACHER-ELECTRON BEAM MACHINE WELDER SETTER Work Phone: Start: 11-02-2017 End: 11-02-2017 Pain doc pos and plan Rachel Giron VISUAL ARTS TEACHER-ELECTRON BEAM MACHINE WELDER SETTER Work Phone: Start: 11-02-2017 End: 11-02-2017 Patient encounter procedure Rachel Giron VISUAL ARTS TEACHER-ELECTRON BEAM MACHINE WELDER SETTER Work Phone: Start: 11-02-2017 End: 11-02-2017 Pt falls assess docd 2/> falls/fall w/injury/yr Rachel Giron VISUAL ARTS TEACHER-ELECTRON BEAM MACHINE WELDER SETTER Work Phone: Start: 05-19-2014 Chandler brothers MD Work Phone: Amputation of lower [...] 03-20-2018 Documentation of current medications Kiana Carl SINGH NEGATED: Highlighted rowStart: 11-02-2017 End: 11-02-2017 Documentation of current medications Kimberly Pavon AT Plan of Treatment Date Care Activity Detail Author Start: 10-17-2034 Screening for malignant neoplasm of colon [facility] Start: 05-16-2029 Lipid panel Lipid Panel [facility] Start: 04-25-2027 Screening for malignant neoplasm of colon [facility] Start: 03-22-2025 Medicare Annual Wellness Visit Medicare Annual Wellness Visit (AWV) [facility] Start: 03-21-2025 End: 03-21-2025 Patient encounter procedure 03/21/2025 1:00 PM EDT Off ice Visit [facility] [address] [place] [id number] Oz Jiang MD [address] [facility] [place] [address] [facility] Start: 11-28-2024 End: 11-28-2024 Patient encounter procedure 11/28/2024 4:00 PM EDT Off ice Visit [facility] [address] [facility] [address] [place] [phone] Oz Jiang MD [address] [facility] [place] [address] [facility] Start: 11-28-2024 End: 11-28-2025 Helicobacter pylori [Presence] in Stomach by urea breath test H. Pylori Breath Test Lab Routine Anemia, unspecified type Expected: 11/28/2024 (Approximate), Expires: 11/28/2025 [facility] Service Area Work Phone: Comment on above: Expected: 11/28/2024 (Approximate), Expi res: 11/28/2025 Start: 11-21-2024 End: 11-21-2024 Patient encounter procedure 11/21/2024 4:00 PM EDT Off ice Visit [facility] [address] [facility] [address] [place] [phone] Oz Jiang MD [address] [facility] [address] [place] [address] [facility] Start: 10-28-2024 End: 10-28-2024 Patient encounter procedure 10/28/2024 2:00 PM EDT Off ice Visit [facility] [address] [facility] [place] [id number] Travis Cespedes MD [address] [facility] [place] [address] [facility] Start: 10-17-2024 End: 10-17-2024 Patient encounter procedure 10/17/2024 12:50 PM EDT Appointment [facility] [address] [facility] [address] [place] [phone] Travis Cespedes MD [address] [facility] [place] [address] [facility] Start: 09-24-2024 COVID-19 Vaccine ( season) COVID-19 Vaccine ( season) [facility] Start: 09-10-2024 End: 09-10-2025 Colonoscopy study Colonoscopy Diagnostic Endoscopy Routine Anemia, unspecified type Expected: 09/10/2024 (Approximate), Expires: 09/10/2025 [facility] Service Area Work Phone: Comment on above: Expected: 09/10/2024 (Approximate), Expi res: 09/10/2025 Start: 09-10-2024 End: 09-10-2025 Esophagogastroduodenoscopy Esophagogastroduodenoscopy (EGD) Endoscopy Routine Anemia, unspecified type Expected: 09/10/2024 (Approximate), Expires: 09/10/2025 [facility] Work Phone: Comment on above: Expected: 09/10/2024 (Approximate), Expi res: 09/10/2025 Start: 08-21-2024 End: 08-21-2025 25-hydroxyvitamin D3 [Mass/volume] in Serum or Plasma Vitamin D 25-Hydroxy,Total (for eval of Vitamin D levels) Lab Routine Low vitamin D level Age-related osteoporosis without current pathological fracture Expected: 08/21/2024 (Approximate), Expires: 08/21/2025 [facility] Work Phone: Comment on above: Expected: 08/21/2024 (Approximate), Expi res: 08/21/2025 Start: 08-21-2024 End: 08-21-2025 Cobalamin (Vitamin B12) [Mass/volume] in Serum or Plasma Vitamin B12 Lab Routine Anemia, unspecified type Expected: 08/21/2024 (Approximate), Expires: 08/21/2025 [facility] Work Phone: Comment on above: Expected: 08/21/2024 (Approximate), Expi res: 08/21/2025 Start: 08-21-2024 End: 08-21-2025 Colonoscopy study Colonoscopy Diagnostic Endoscopy Routine Anemia, unspecified type Expected: 08/21/2024, Expires: 08/21/2025 [facility] Work Phone: Comment on above: Expected: 08/21/2024, Expires: Start: 08-21-2024 End: 08-21-2025 Ferritin [Mass/volume] in Serum or Plasma Ferritin Lab Routine Anemia, unspecified type Expected: 08/21/2024 (Approximate), Expires: 08/21/2025 [facility] Work Phone: Comment on above: Expected: 08/21/2024 (Approximate), Expi res: 08/21/2025 Start: 08-21-2024 End: 08-21-2025 Folate [Mass/volume] in Serum or Plasma Folate Lab Routine Anemia, unspecified type Expected: 08/21/2024 (Approximate), Expires: 08/21/2025 [facility] Work Phone: Comment on above: Expected: 08/21/2024 (Approximate), Expi res: 08/21/2025 Start: 08-21-2024 End: 08-21-2025 Iron and Iron binding capacity panel - Serum or Plasma Iron and TIBC Lab Routine Anemia, unspecified type Expected: 08/21/2024 (Approximate), Expires: 08/21/2025 [facility] Service Area Work Phone: Comment on above: Expected: 08/21/2024 (Approximate), Expi res: 08/21/2025 Start: 05-19-2024 Screening for malignant neoplasm of colon [facility] Start: 03-21-2024 End: 03-21-2025 Cologuard colon cancer screening Cologuard colon cancer screening Lab Routine Colon cancer screening Expected: 03/21/2024 (Approximate), Expires: 03/21/2025 [facility] Work Phone: Comment on above: Expected: 03/21/2024 (Approximate), Expi res: 03/21/2025 Start: 03-21-2024 End: 03-21-2025 Prostate specific Ag [Mass/volume] in Serum or Plasma Prostate Specific Antigen, Screen Lab Routine Encounter for screening for malignant neoplasm of prostate Healthcare maintenance Expected: 03/21/2024 (Approximate), Expires: 03/21/2025 [facility] Work Phone: Comment on above: Expected: 03/21/2024 (Approximate), Expi res: 03/21/2025 Start: 02-11-2024 COVID-19 Vaccine () COVID-19 Vaccine ( season) [facility] Start: 02-11-2024 Influenza vaccination Influenza Vaccine (#1) [facility] Start: 03-20-2023 FUV, Provider: Oz Jiang, Status: Pen, Time: 1:00 PM FUV, Provider: Oz Jiang, Status: Pen, Time: 1:00 PM [facility] Work Phone: Start: 03-20-2023 End: 03-20-2024 Prostate specific Ag [Mass/volume] in Serum or Plasma Prostate Specific Antigen, Screen Lab Routine Encounter for screening for malignant neoplasm of prostate Healthcare maintenance Expected: 03/20/2023 (Approximate), Expires: 03/20/2024 [facility] Service Area Work Phone: Comment on above: Expected: 03/20/2023 (Approximate), Expi res: 03/20/2024 Start: 03-20-2023 End: 03-20-2023 Patient encounter procedure 03/20/2023 1:00 PM EDT Off ice Visit [facility] [address] [place] [phone] Oz Jiang MD [address] [facility] [address] [place] [address] [facility] Start: 02-10-2023 Influenza vaccination Influenza Vaccine (#1) [facility] Start: 08-02-2022 COVID-19 Vaccine (5 - Moderna series) COVID-19 Vaccine (5 - Moderna series) [facility] Start: 07-29-2022 [facility] Start: 02-11-2020 End: 02-11-2020 Patient encounter procedure Appointment [facility] Work Phone: Start: 02-11-2020 End: 02-11-2020 Mri spinal canal lumbar w/o & w/contr matrl MRI lumbar with and without contrast [facility] Work Phone: Start: 02-11-2020 End: 02-11-2020 Radex spine lumbosacral minimum 4 views XR LUMBAR 4VWS FLEX/EX [facility] Work Phone: Start: 07-30-2019 End: 07-30-2019 Patient encounter procedure Appointment [facility] Work Phone: Start: 04-22-2019 End: 04-22-2019 Patient encounter procedure Appointment [facility] Work Phone: Start: 02-21-2019 End: 02-21-2019 Patient encounter procedure Appointment [facility] Work Phone: Start: 02-21-2019 End: 02-21-2019 Radex spine lumbosacral 2/3 views XR LUMBAR 2-3 VWS AP/LAT [facility] Work Phone: Start: 02-08-2019 End: 02-08-2019 Patient encounter procedure Appointment [facility] Work Phone: Start: 04-17-2018 End: 04-17-2018 Patient encounter procedure Appointment [facility] Work Phone: Start: 03-20-2018 End: 03-20-2018 Patient encounter procedure Appointment [facility] Work Phone: Start: 03-20-2018 End: 03-20-2018 Radex hip unilateral with pelvis 2-3 views XR PELVIS W HIP 2-3 VWS-LT [facility] Work Phone: Start: 11-02-2017 End: 11-02-2017 Patient encounter procedure Appointment [facility] Work Phone: Start: 11-02-2017 End: 11-02-2017 Radex spine lumbosacral 2/3 views XR LUMBAR 2-3 VWS AP/LAT [facility] Work Phone: Start: 2016 Abdominal aortic aneurysm screening Abdominal Aortic Aneurysm (AAA) Screening [facility] Start: 2011 RSV High Risk: (Elderly (60+) or Population) (1 - Risk 60-74 years 1-dose series) RSV High Risk: (Elderly (60+) or Population) (1 - Risk 60-74 years 1-dose series) [facility] Start: 2011 RSV patients and/or patients aged 60+ years (1 - 1-dose 60+ series) RSV patients and/or patients aged 60+ years (1 - 1-dose 60+ series) [facility] Start: 1973 DTaP/Tdap/Td Vaccines (1 - Tdap) DTaP/Tdap/Td Vaccines (1 - Tdap) [facility] Start: 1969 Hepatitis C screening Hepatitis C Screening [facility] Start: 1951 Lipid panel Lipid Panel [facility] Start: 1950 Medicare Annual Wellness Visit Medicare Annual Wellness Visit (AWV) [facility] Start: 1950 Screening for malignant neoplasm of colon [facility] Start: 1950 Screening for osteoporosis Bone Density Scan [facility] End: 10-17-2024 Blood type and Indirect antibody screen panel - Blood Type And Screen Lab Timed As needed (Lab) until discontinued starting 10/17/2024 [facility] Service Area Work Phone: Comment on above: As needed (Lab) until discontinued start ing 10/17/2024 End: 10-17-2024 Moderate Sedation Moderate Sedation Procedures Routine Once for 1 Occurrences starting 10/17/2024 until 10/17/2024 [facility] Work Phone: Comment on above: Once for 1 Occurrences starting 10/18/19 until 10/17/2024 Patient Education [facility] Work Phone: Patient Education \cps-[email or web address]\CPS_ PtEducation\CDC _[email or web address].pdf [facility] Work Phone: [facility] [place] Work Phone: NEGATED: Highlighted row has been ruled out! Planned Goals not documented [facility] Work Phone: Immunizations Immunization Date Immunization Notes Care Provider Mario nava 03-26-2024 Moderna COVID-19 vaccine, 12 years and older (50mcg/0.5mL)(Spikevax) Hien Patten VISUAL ARTS TEACHER-ELECTRON BEAM MACHINE WELDER SETTER Work Phone: [facility] 03-21-2024 influenza, high dose seasonal, preservative-free Hien Patten VISUAL ARTS TEACHER-ELECTRON BEAM MACHINE WELDER SETTER Work Phone: [facility] Work Phone: 03-23-2023 zoster vaccine recombinant Oz Jiang MD Work Phone: [facility] Work Phone: 03-20-2023 Flu vaccine, quadrivalent, high-dose, preservative free, age 65y+ (FLUZONE) Oz Jiang MD Work Phone: [facility] 03-20-2023 influenza virus vacc ine, unspecified formulation Oz Jiang MD Work Phone: [facility] Work Phone: 04-02-2022 Pneumococcal conjuga te vaccine, 20-valent (PREVNAR 20) Oz Jiang MD Work Phone: [facility] Work Phone: 03-17-2022 Fluzone High-Dose Quadrivalent 0.7 ML Intramuscular Suspension Prefilled Syringe; Translations: [Fluzone High-Dose Quadrivalent 0.7 ML Intramuscular Suspension Prefilled Syringe] Oz Jiang Work Phone: [facility] Work Phone: Comment on above: Series: 09-23-2021 Moderna COVID-19 Vac cine 100 MCG/0.5ML Intramuscular Suspension Oz Deidre Work Phone: [facility] Work Phone: 05-04-2021 Moderna COVID-19 Vac cine 100 MCG/0.5ML Intramuscular Suspension Oz Deidre Work Phone: [facility] Work Phone: 03-09-2021 Fluzone High-Dose Quadrivalent 0.7 ML Intramuscular Suspension Prefilled Syringe Oz Jiang Work Phone: [facility] Work Phone: 03-09-2021 influenza virus vacc ine, unspecified formulation Oz Jiang MD Work Phone: [facility] Work Phone: 09-17-2020 Moderna COVID-19 Vac cine 100 MCG/0.5ML Intramuscular Suspension Oz Jiang Work Phone: [facility] Work Phone: 08-19-2020 Moderna COVID-19 Vac cine 100 MCG/0.5ML Intramuscular Suspension Oz Jiang Work Phone: [facility] Work Phone: 03-11-2020 Fluad Quadrivalent 0 .5 ML Intramuscular Prefilled Syringe Oz Barnes Deidre Work Phone: [facility] Work Phone: 10-28-2019 pneumococcal polysaccharide vaccine, 23 valent; Translations: [Pneumococcal polysaccharide vaccine, 23 valent] Ozdajuan Jiang Work Phone: [facility] Work Phone: Comment on above: Series: 03-08-2019 influenza, high dose seasonal, preservative-free Oz Barnes Deidre Work Phone: [facility] Work Phone: Comment on above: Series: 07-10-2018 pneumococcal conjuga te vaccine, 13 valent Oz Jiang Work Phone: [facility] Work Phone: 03-23-2018 influenza, high dose seasonal, preservative-free Oz Jiang Work Phone: [facility] Work Phone: 01-10-2018 zoster vaccine recombinant Oz Jiang MD Work Phone: [facility] Work Phone: 01-10-2018 zoster vaccine, live zO Jiang Work Phone: [facility] Work Phone: Comment on above: Series: 09-06-2017 zoster vaccine recombinant Oz Jiang MD Work Phone: [facility] Work Phone: 09-06-2017 zoster vaccine, live Oz Jiang Work Phone: [facility] Work Phone: Comment on above: Series: 03-14-2017 influenza, high dose seasonal, preservative-free Oz Jiang Work Phone: [facility] Work Phone: 03-12-2017 Influenza virus vaccine [facility] 03-24-2015 influenza, injectabl e, quadrivalent, preservative free Dr. Oz Jiang Work Phone: [facility] 03-24-2015 influenza, seasonal, injectable [facility] Payers Date Payer Category Payer Self-pay [id number] 2023 Medicare (Managed Care) [facility] [id number] 2023 Medicare [id number] 2016 Medicare [id number] 2016 Medicare [id number] 2014 Unknown [id number] 1951 Unknown [id number] [id number]. 356 1951 Unknown [id number] 2.16.840.1.412554.3.579.2. 1243 1951 Unknown [id number] 2.16.840.1.277318.3.579.2. 1244 1951 Unknown [id number] 2.16.840.1.961063.3.579.2. 1244 1951 Unknown [id number] 2.16.840.1.073315.3.579.2. 1244 1951 Unknown [id number] 2.16.840.1.269802.3.579.2. 1244 1951 Unknown [id number] 2.16.840.1.682960.3.579.2. 1244 1951 Unknown [id number] 2.16.840.1.567606.3.579.2. 1244 1951 Unknown [id number] 2.16.840.1.578892.3.579.2. 1244 Unknown Unknown [id number] 2.16.840.1.526119.3.579.2. 462 Unknown [id number] 2.16.840.1.853039.3.579.2. 462 Unknown [id number] 2.16.840.1.176023.3.579.2. 462 Unknown [id number] 2.16.840.1.758603.3.579.2. 462 Unknown [id number] 2.16.840.1.562520.3.579.2. 462 Unknown [id number] 2.16.840.1.329567.3.579.2. 462 Unknown [id number] 2.16.840.1.288812.3.579.2. 462 Unknown [id number] 2.16.840.1.921998.3.579.2. 462 Unknown [id number] 2.16.840.1.791198.3.579.2. 462 Social History Date Type Detail Facility Assertion Unknown if ever smoked [facility] Work Phone: Start: 07-26-2018 End: 11-18-2022 Assertion Unknown if ever smoked [facility] Work Phone: Start: 12-11-2015 Occasional [facility] Start: 12-11-2015 None [facility] Start: 12-11-2015 Spouse/ Signif icant Other [facility] Start: 01-11-2016 Non-smoker [facility] Start: 1950 Sex Assigned At Male [facility] Start: 02-07-2023 End: 10-28-2024 No recent foreign travel No recent foreign travel [facility] Work Phone: Start: 02-07-2023 [facility] Work Phone: History of tobacco use Current smoker [facility] Work Phone: History of tobacco use Cigarette Smoker [facility] Work Phone: Start: 02-07-2023 Tobacco use and exposure Smokeless tobacco non-user [facility] Work Phone: Start: 02-07-2023 End: 10-28-2024 Tobacco use panel [facility] Work Phone: Start: 1950 Sex Assigned At Not on file [facility] Work Phone: Start: 03-20-2023 End: 11-28-2024 Alcohol intake Lifetime non-drinker (finding) [facility] Work Phone: Start: 03-10-2023 End: 10-28-2024 Exposure to SARS-CoV-2 (event) Not sure [facility] Start: 11-18-2022 Tobacco smoking stat us SDIS Never smoked tobacco (finding) [facility] Medical Equipment Procedure Code Equipment Code Equipment Origin al Text Equipment Identifier Dates 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 Low Pro Hex Screw FDA Start: 07-25-2018 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 Low Pro Hex Screw FDA Start: 07-25-2018 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 by anterior approach CERAMIC Femoral Head FDA Start: 07-25-2018 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 by anterior approach Clusterhole Acetabular Shell FDA Start: 07-25-2018 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 by anterior approach Neck Angle Hip Stem FDA Start: 07-25-2018 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 by anterior approach Polyethylene Insert FDA Start: 07-25-2018 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 Low Pro Hex Screw FDA Start: 07-25-2018 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 Low Pro Hex Screw FDA Start: 07-25-2018 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 by anterior approach CERAMIC Femoral Head FDA Start: 07-25-2018 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 by anterior approach Clusterhole Acetabular Shell FDA Start: 07-25-2018 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 by anterior approach Neck Angle Hip Stem FDA Start: 07-25-2018 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 by anterior approach Polyethylene Insert FDA Start: 07-25-2018 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 Low Pro Hex Screw FDA Start: 07-25-2018 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 Low Pro Hex Screw FDA Start: 07-25-2018 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 by anterior approach CERAMIC Femoral Head FDA Start: 07-25-2018 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 by anterior approach Clusterhole Acetabular Shell FDA Start: 07-25-2018 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 by anterior approach Neck Angle Hip Stem FDA Start: 07-25-2018 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 by anterior approach Polyethylene Insert FDA Start: 07-25-2018 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 Low Pro Hex Screw FDA Start: 07-25-2018 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 Low Pro Hex Screw FDA Start: 07-25-2018 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 by anterior approach CERAMIC Femoral Head FDA Start: 07-25-2018 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 by anterior approach Clusterhole Acetabular Shell FDA Start: 07-25-2018 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 by anterior approach Neck Angle Hip Stem FDA Start: 07-25-2018 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 by anterior approach Polyethylene Insert FDA Start: 07-25-2018 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 Low Pro Hex Screw FDA Start: 07-25-2018 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 Low Pro Hex Screw FDA Start: 07-25-2018 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 by anterior approach CERAMIC Femoral Head FDA Start: 07-25-2018 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 by anterior approach Clusterhole Acetabular Shell FDA Start: 07-25-2018 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 by anterior approach Neck Angle Hip Stem FDA Start: 07-25-2018 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 by anterior approach Polyethylene Insert FDA Start: 07-25-2018 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 Low Pro Hex Screw FDA Start: 07-25-2018 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 Low Pro Hex Screw FDA Start: 07-25-2018 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 by anterior approach CERAMIC Femoral Head FDA Start: 07-25-2018 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 by anterior approach Clusterhole Acetabular Shell FDA Start: 07-25-2018 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 by anterior approach Neck Angle Hip Stem FDA Start: 07-25-2018 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 by anterior approach Polyethylene Insert FDA Start: 07-25-2018 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 Low Pro Hex Screw FDA Start: 07-25-2018 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 Low Pro Hex Screw FDA Start: 07-25-2018 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 by anterior approach CERAMIC Femoral Head FDA Start: 07-25-2018 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 by anterior approach Clusterhole Acetabular Shell FDA Start: 07-25-2018 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 by anterior approach Neck Angle Hip Stem FDA Start: 07-25-2018 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 by anterior approach Polyethylene Insert FDA Start: 07-25-2018 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 Low Pro Hex Screw FDA Start: 07-25-2018 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 Low Pro Hex Screw FDA Start: 07-25-2018 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 by anterior approach CERAMIC Femoral Head FDA Start: 07-25-2018 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 by anterior approach Clusterhole Acetabular Shell FDA Start: 07-25-2018 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 by anterior approach Neck Angle Hip Stem FDA Start: 07-25-2018 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 by anterior approach Polyethylene Insert FDA Start: 07-25-2018 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 Low Pro Hex Screw FDA Start: 07-25-2018 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 Low Pro Hex Screw FDA Start: 07-25-2018 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 by anterior approach CERAMIC Femoral Head FDA Start: 07-25-2018 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 by anterior approach Clusterhole Acetabular Shell FDA Start: 07-25-2018 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 by anterior approach Neck Angle Hip Stem FDA Start: 07-25-2018 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 by anterior approach Polyethylene Insert FDA Start: 07-25-2018 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 Low Pro Hex Screw FDA Start: 07-25-2018 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 Low Pro Hex Screw FDA Start: 07-25-2018 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 by anterior approach CERAMIC Femoral Head FDA Start: 07-25-2018 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 by anterior approach Clusterhole Acetabular Shell FDA Start: 07-25-2018 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 by anterior approach Neck Angle Hip Stem FDA Start: 07-25-2018 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 by anterior approach Polyethylene Insert FDA Start: 07-25-2018 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 Low Pro Hex Screw FDA Start: 07-25-2018 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 Low Pro Hex Screw FDA Start: 07-25-2018 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 by anterior approach CERAMIC Femoral Head FDA Start: 07-25-2018 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 by anterior approach Clusterhole Acetabular Shell FDA Start: 07-25-2018 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 by anterior approach Neck Angle Hip Stem FDA Start: 07-25-2018 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 by anterior approach Polyethylene Insert FDA Start: 07-25-2018 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 Low Pro Hex Screw FDA Start: 07-25-2018 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 Low Pro Hex Screw FDA Start: 07-25-2018 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 by anterior approach CERAMIC Femoral Head FDA Start: 07-25-2018 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 by anterior approach Clusterhole Acetabular Shell FDA Start: 07-25-2018 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 by anterior approach Neck Angle Hip Stem FDA Start: 07-25-2018 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 by anterior approach Polyethylene Insert FDA Start: 07-25-2018 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 Low Pro Hex Screw FDA Start: 07-25-2018 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 Low Pro Hex Screw FDA Start: 07-25-2018 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 by anterior approach CERAMIC Femoral Head FDA Start: 07-25-2018 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 by anterior approach Clusterhole Acetabular Shell FDA Start: 07-25-2018 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 by anterior approach Neck Angle Hip Stem FDA Start: 07-25-2018 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 by anterior approach Polyethylene Insert FDA Start: 07-25-2018 TRIATHLON X3 STA BARBER TIB INSRT FDA Start: 05-16-2017 TRIATHLON X3 STA BARBER TIB INSRT FDA Start: 05-16-2017 TRIATHLON X3 STA BARBER TIB INSRT FDA Start: 05-16-2017 TRIATHLON X3 STA BARBER TIB INSRT FDA Start: 05-16-2017 TRIATHLON X3 STA BARBER TIB INSRT FDA Start: 05-16-2017 TRIATHLON X3 STA BARBER TIB INSRT FDA Start: 05-16-2017 TRIATHLON X3 STA BARBER TIB INSRT FDA Start: 05-16-2017 TRIATHLON X3 STA BARBER TIB INSRT FDA Start: 05-16-2017 TRIATHLON X3 STA BARBER TIB INSRT FDA Start: 05-16-2017 TRIATHLON X3 STA BARBER TIB INSRT FDA Start: 05-16-2017 TRIATHLON X3 STA BARBER TIB INSRT FDA Start: 05-16-2017 TRIATHLON X3 STA BARBER TIB INSRT FDA Start: 05-16-2017 TRIATHLON X3 STA BARBER TIB INSRT FDA Start: 05-16-2017 Functional Status Date Assessment Result Facility 10-28-2024 Patient Health Questionnaire 2 item (PHQ-2) [Reported] [facility] Work Phone: 10-17-2024 [place] - 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 - recent [C-SSRS] [facility] Work Phone: NEGATED: Highlighted row Functional performance Functional status health issues are not documented [facility] Work Phone: Mental Status Date Assessment Result Facility 02-16-2023 Cognitive function Voice/Name [facility] Work Phone: NEGATED: Highlighted row Cognitive function [Interpretation] Cognitive status health issues are not documented [facility] Work Phone: Clinical Notes 01-02-2019 to 11-28-2024 Oz Jiang MD - 11/28/2024 4:00 PM Steve Cespedes MD - 10/28/2024 2:00 PM Steve Cespedes MD - 10/17/2024 10:50 AM Steve Cespedes MD - 10/17/2024 10:50 AM EDT Note Date & Type Note Facility 11-28-2024 History of Present illness Narrative Subjective Patient ID: Francheska Harmon is a 74 y.o. male who presents for Anemia (3 mo) and Low Vitamin D level (3 mo). HPI No data recorded Labs reviewed vitamin D level 3 months ago was 29 with supplementation October 2024 Vti d now 35 Anemia macrocytic with normal b12 and folate and iron studies DR Yi performed colonsocopy was normal with no active bleeding Dr Polk does labs every 3 months for patient's rheumatoid arthritis. Hs EGD approved through end of the year will consider if anemia does not improve CG neg 2023 No black tarry stools H/o bleeding ulcer 1979 H pylori was positive then and treated Had hematemesis No gas bloating no heart burn now Hyperparathyroid with borderline high normal calcium 10.1 Was eval by endo Objective Visit Vitals BP 110/78 Pulse 92 Wt 53.8 kg (118 lb 11.2 oz) SpO2 96% BMI 23.97 kg/m Smoking Status Former BSA 1.5 m Physical Exam Vitals reviewed. Constitutional: General: He is not in acute distress. Appearance: Normal appearance. HENT: Head: Normocephalic and atraumatic. Eyes: Conjunctiva/sclera: Conjunctivae normal. Cardiovascular: Rate and Rhythm: Normal rate and regular rhythm. Heart sounds: No murmur heard. Pulmonary: Effort: Pulmonary effort is normal. Breath sounds: Normal breath sounds. Abdominal: General: Abdomen is flat. Bowel sounds are normal. Palpations: Abdomen is soft. There is no mass. Lymphadenopathy: Cervical: No cervical adenopathy. Skin: General: Skin is warm and dry. Neurological: General: No focal deficit present. Mental Status: He is alert and oriented to person, place, and time. Psychiatric: Mood and Affect: Mood normal. Judgment: Judgment normal. Assessment/Plan Diagnoses and all orders for this visit: Hyperparathyroidism (Multi) Anemia, unspecified type - Follow Up In Primary Care - Established - H. Pylori Breath Test; Future Rheumatoid arthritis, involving unspecified site, unspecified whether rheumatoid factor present (Multi) Also recommend taking vitamin B12 1000 mcg daily for the next 6 months. Oz Jiang MD 11/28/24 4:33 PM documented in this encounter [facility] Work Phone: 10-28-2024 History of Present illness Narrative Subjective Patient ID: Francheska Harmon is a 74 y.o. male who presents for Follow-up (Fu colonoscopy). Here after colonoscopy Feels fine EGD denied by his INS Review of Systems Constitutional: Negative. Negative for chills and fever. HENT: Negative. Negative for congestion. Eyes: Negative. Negative for discharge. Respiratory: Negative. Negative for cough, shortness of breath and wheezing. Cardiovascular: Negative. Negative for chest pain, palpitations and leg swelling. Gastrointestinal: Negative. Negative for abdominal distention, abdominal pain, constipation, diarrhea, nausea and vomiting. Endocrine: Negative. Genitourinary: Negative. Negative for dysuria and urgency. Musculoskeletal: Negative. Negative for back pain, joint swelling and neck stiffness. Skin: Negative. Negative for rash. Allergic/Immunologic: Negative. Negative for immunocompromised state. Neurological: Negative. Negative for light-headedness, numbness and headaches. Hematological: Negative. Negative for adenopathy. Psychiatric/Behavioral: Negative. Negative for agitation, behavioral problems and confusion. All other systems reviewed and are negative. Objective Physical Exam Vitals reviewed. Constitutional: General: He is not in acute distress. Appearance: Normal appearance. HENT: Head: Normocephalic and atraumatic. Nose: Nose normal. Eyes: Conjunctiva/sclera: Conjunctivae normal. Pupils: Pupils are equal, round, and reactive to light. Neck: Vascular: No carotid bruit. Cardiovascular: Rate and Rhythm: Normal rate and regular rhythm. Pulses: Normal pulses. Heart sounds: No gallop. Pulmonary: Effort: Pulmonary effort is normal. No respiratory distress. Breath sounds: Normal breath sounds. No wheezing. Abdominal: General: Bowel sounds are normal. Palpations: Abdomen is soft. Tenderness: There is no abdominal tenderness. Musculoskeletal: General: Normal range of motion. Cervical back: Normal range of motion. No rigidity. Lymphadenopathy: Cervical: No cervical adenopathy. Skin: General: Skin is warm. Findings: No rash. Neurological: General: No focal deficit present. Mental Status: He is alert and oriented to person, place, and time. Psychiatric: Mood and Affect: Mood normal. Behavior: Behavior normal. BP 111/75 (BP Location: Right arm, Patient Position: Sitting) Pulse (!) 112 Ht 1.499 m (4' 11) Wt 54 kg (119 lb) BMI 24.04 kg/m No results found for: CBCDIF, CMPLAS, PSA, LASA, HGBA1C Assessment/Plan Problem List Items Addressed This Visit None Visit Diagnoses Internal hemorrhoid - Primary Diverticulosis Anemia, chronic disease Colonoscopy dw pt Pt would like to wait on EGD, wants to monitor CBC by his PMD for now, if hg drops will call and set up, for now fu ith me PRN Fu with pmd documented in this encounter [facility] Work Phone: 10-17-2024 History and physical note Pre procedure H&P Pt feels fine , no complaint General appearance: Comfortable, no distress ROS: No SOB Medications reviewed Head: Normal Neck: Soft Heart: Regular Lungs: Clear Abdomen: soft Impression: clinically doing fine, proceed with procedure Problem List Items Addressed This Visit Anemia Relevant Orders Colonoscopy Diagnostic [facility] Work Phone: 10-17-2024 History and physical note Pre procedure H&P Pt feels fine , no complaint General appearance: Comfortable, no distress ROS: No SOB Medications reviewed Head: Normal Neck: Soft Heart: Regular Lungs: Clear Abdomen: soft Impression: clinically doing fine, proceed with procedure Problem List Items Addressed This Visit Anemia Relevant Orders Colonoscopy Diagnostic documented in this encounter [facility] Work Phone: 10-17-2024 Hospital Discharge instructions Gina Rodriguez RN - 10/17/2024 10:47 AM EDT Patient Instructions after a Colonoscopy The anesthetics, sedatives or narcotics which were given to you today will be acting in your body for the next 24 hours, so you might feel a little sleepy or groggy. This feeling should slowly wear off. Carefully read and follow the instructions. You received sedation today: - Do not drive or operate any machinery or power tools of any kind. - No alcoholic beverages today, not even beer or wine. - Do not make any important decisions or sign any legal documents. - No over the counter medications that contain alcohol or that may cause drowsiness. - Do not make any important decisions or sign any legal documents. - Make sure you have someone with you for first 24 hours. While it is common to experience mild to moderate abdominal distention, gas, or belching after your procedure, if any of these symptoms occur following discharge from the GI Lab or within one week of having your procedure, call the [facility] to be advised whether a visit to your nearest Urgent Care or Emergency Department is indicated. Take this paper with you if you go. - If you develop an allergic reaction to the medications that were given during your procedure such as difficulty breathing, rash, hives, severe nausea, vomiting or lightheadedness. - If you experience chest pain, shortness of breath, severe abdominal pain, fevers and chills. -If you develop signs and symptoms of bleeding such as blood in your spit, if your stools turn black, tarry, or bloody - If you have not urinated within 8 hours following your procedure. - If your IV site becomes painful, red, inflamed, or looks infected. If you received a biopsy/polypectomy/sphincterotom y the following instructions apply below: __ Do not use Aspirin containing products, non-steroidal medications or anti-coagulants for one week following your procedure. (Examples of these types of medications are: Advil, Arthrotec, Aleve, Coumadin, Ecotrin, Heparin, Ibuprofen, Indocin, Motrin, Naprosyn, Nuprin, Plavix, Vioxx, and Voltarin, or their generic forms. This list is not all-inclusive. Check with your physician or pharmacist before resuming medications.) __ Eat a soft diet today. Avoid foods that are poorly digested for the next 24 hours. These foods would include: nuts, beans, lettuce, red meats, and fried foods. Start with liquids and advance your diet as tolerated, gradually work up to eating solids. __ Do not have a Barium Study or Enema for one week. Your physician recommends the additional following instructions: -You have a contact number available for emergencies. The signs and symptoms of potential delayed complications were discussed with you. You may return to normal activities tomorrow. -Resume your previous diet. -Continue your present medications. -We are waiting for your pathology results. -Your physician has recommended a repeat colonoscopy (date to be determined after pending pathology results are reviewed) for surveillance based on pathology results. -The findings and recommendations have been discussed with you. -The findings and recommendations were discussed with your family. - Please see Medication Reconciliation Form for new medication/medications prescribed. If you experience any problems or have any questions following discharge from the GI Lab, please call: Nurse Signature Date Patient/Responsible Alliance Party Signature Date documented in this encounter [facility] Work Phone: 09-10-2024 History of Present illness Narrative Subjective Patient ID: Francheska Harmon is a 74 y.o. male who presents for Follow-up (Pt here for colonoscopy consult ). Here for colonoscopy consult because of anemia Feels fine Review of Systems Constitutional: Negative. Negative for chills and fever. HENT: Negative. Negative for congestion. Eyes: Negative. Negative for discharge. Respiratory: Negative. Negative for cough, shortness of breath and wheezing. Cardiovascular: Negative. Negative for chest pain, palpitations and leg swelling. Gastrointestinal: Negative. Negative for abdominal distention, abdominal pain, constipation, diarrhea, nausea and vomiting. Endocrine: Negative. Genitourinary: Negative. Negative for dysuria and urgency. Musculoskeletal: Positive for arthralgias. Negative for back pain, joint swelling and neck stiffness. Skin: Negative. Negative for rash. Allergic/Immunologic: Negative. Negative for immunocompromised state. Neurological: Negative. Negative for light-headedness, numbness and headaches. Hematological: Negative. Negative for adenopathy. Psychiatric/Behavioral: Negative. Negative for agitation, behavioral problems and confusion. All other systems reviewed and are negative. Objective Physical Exam Vitals reviewed. Constitutional: General: He is not in acute distress. Appearance: Normal appearance. HENT: Head: Normocephalic and atraumatic. Nose: Nose normal. Eyes: Conjunctiva/sclera: Conjunctivae normal. Pupils: Pupils are equal, round, and reactive to light. Neck: Vascular: No carotid bruit. Cardiovascular: Rate and Rhythm: Normal rate and regular rhythm. Pulses: Normal pulses. Heart sounds: No gallop. Pulmonary: Effort: Pulmonary effort is normal. No respiratory distress. Breath sounds: Normal breath sounds. No wheezing. Abdominal: General: Bowel sounds are normal. Palpations: Abdomen is soft. Tenderness: There is no abdominal tenderness. Musculoskeletal: General: Deformity (hands) present. Normal range of motion. Cervical back: Normal range of motion. No rigidity. Comments: Right AKA Lymphadenopathy: Cervical: No cervical adenopathy. Skin: General: Skin is warm. Findings: No rash. Neurological: General: No focal deficit present. Mental Status: He is alert and oriented to person, place, and time. Psychiatric: Mood and Affect: Mood normal. Behavior: Behavior normal. BP 137/82 (BP Location: Right arm, Patient Position: Sitting) Pulse 84 Ht 1.499 m (4' 11) Wt 55.8 kg (123 lb) BMI 24.84 kg/m No results found for: CBCDIF, CMPLAS, PSA, LASA, HGBA1C Assessment/Plan Problem List Items Addressed This Visit Anemia - Primary Relevant Orders Colonoscopy Diagnostic Esophagogastroduodenoscopy (EGD) Labs reviewed with pt Fu after scopes documented in this encounter [facility] Work Phone: 08-21-2024 History of Present illness Narrative Subjective Patient ID: Francheska Harmon is a 74 y.o. male who presents for Low blood count. 74 yo male patient presents for review of lab work. Reports brick sorter noted low RBC. Patient denies being symptomatic. Denies fatigue, appetite chg, or weight, cp, sob, abd. Pain, n/v or heartburn. Denies blood in stool. Review of Systems Constitutional: Negative for appetite change, chills, fatigue, fever and unexpected weight change. Respiratory: Negative for cough, shortness of breath and wheezing. Cardiovascular: Negative for chest pain and palpitations. Gastrointestinal: Negative for abdominal distention, abdominal pain, anal bleeding, blood in stool, constipation, diarrhea, nausea and vomiting. Genitourinary: Negative. Neurological: Negative for dizziness, syncope and weakness. Objective Physical Exam Vitals and nursing note reviewed. Constitutional: General: He is not in acute distress. Neck: Vascular: No carotid bruit. Cardiovascular: Rate and Rhythm: Normal rate and regular rhythm. Pulses: Normal pulses. Heart sounds: Normal heart sounds. No murmur heard. No friction rub. No gallop. Pulmonary: Effort: Pulmonary effort is normal. Breath sounds: Normal breath sounds. No wheezing, rhonchi or rales. Abdominal: General: Bowel sounds are normal. There is no distension. Tenderness: There is no abdominal tenderness. There is no guarding. Musculoskeletal: Right lower leg: No edema. Left lower leg: No edema. Skin: General: Skin is warm and dry. Neurological: Mental Status: He is alert. Psychiatric: Mood and Affect: Mood normal. BP 119/79 Pulse 77 Ht 1.499 m (4' 11) Wt 55.3 kg (122 lb) SpO2 96% BMI 24.64 kg/m Current Outpatient Medications: albuterol 90 mcg/actuation inhaler, Inhale 2 puffs 4 times a day., Disp: 18 g, Rfl: 2 ferrous gluconate 236 mg (27 mg iron) tablet, Take by mouth., Disp: , Rfl: folic acid (Folvite) 1 mg tablet, Take 1 tablet (1 mg) by mouth once daily., Disp: , Rfl: gabapentin (Neurontin) 800 mg tablet, Take 1 tablet (800 mg) by mouth twice a day., Disp: , Rfl: hydroxychloroquine (Plaquenil) 200 mg tablet, Take 1 tablet (200 mg) by mouth once daily., Disp: , Rfl: meloxicam (Mobic) 15 mg tablet, Take 1 tablet (15 mg) by mouth once daily as needed., Disp: , Rfl: methotrexate (Trexall) 2.5 mg tablet, Take 6 tablets (15 mg total) by mouth 1 (one) time per week., Disp: , Rfl: predniSONE (Deltasone) 10 mg tablet, TAKE 1 TABLET BY MOUTH NEEDED FOR 3-5 DAYS WITH A FLARE., Disp: , Rfl: traMADol (Ultram) 50 mg tablet, 1 tablet (50 mg)., Disp: , Rfl: denosumab (PROLIA SUBQ), Inject under the skin. (Patient not taking: Reported on 08/21/2024), Disp: , Rfl: History reviewed. No pertinent past medical history. Past Surgical History: Procedure Laterality Date HIP ARTHROPLASTY Left 2019 LAMINECTOMY OTHER SURGICAL HISTORY 10/22/2019 Knee replacement OTHER SURGICAL HISTORY 10/22/2019 Lower extremity amputation OTHER SURGICAL HISTORY 10/22/2019 Shoulder replacement OTHER SURGICAL HISTORY 10/22/2019 Carpal tunnel surgery OTHER SURGICAL HISTORY 01/22/2024 lumbar fusion x3 Family History Problem Relation Name Age of Onset Heart failure Mother Brain cancer Father Assessment/Plan Problem List Items Addressed This Visit Osteoporosis Relevant Orders Vitamin D 25-Hydroxy,Total (for eval of Vitamin D levels) Hyperparathyroidism (Multi) Other Visit Diagnoses Low vitamin D level - Primary Relevant Orders Vitamin D 25-Hydroxy,Total (for eval of Vitamin D levels) Anemia, unspecified type Relevant Orders Iron and TIBC Ferritin Vitamin B12 Folate Colonoscopy Diagnostic Patient states 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 Has not had colonoscopy since 2013. Cologuard was negative . Will refer to Dr. Cespedes for colonoscopy. Get labs today. Follow up with pcp in 3 mo. documented in this encounter [facility] Work Phone: 03-21-2024 Evaluation + Plan note Associated Problem(s): Rheumatoid arthritis [facility] Work Phone: 03-21-2024 History of Present illness Narrative Subjective Reason for Visit: Francheska Harmon is an 73 y.o. male here for a Medicare Wellness [...] patient's end of life decisions: Full code. PSA 05/15/2023 no urinary changes Done through [facility] Colon cancer screen no bowel changes Neg fxhx of colon cancer witll do CG Allergic asthma around cats uses albueterol Preop appointment for posterior lumbar fusion L4-5 and explore L3-4. Surgeon Dr. Ran Hunt. 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 Shingles Vaccine: Shingles vaccine was recommended Prostate cancer screening: Screening ordered. Colorectal Cancer Screening: screening is current and 05/19/14. Abdominal Aortic Aneurysm screening: screening is current and 2019. Patient Care Team: Oz Jiang MD as PCP - General Oz Jiang MD as PCP - O Medicare Advantage PCP Review of Systems Objective Vitals: BP 120/78 Pulse 83 Wt 56.9 kg (125 lb 8 oz) SpO2 96% BMI 25.35 kg/m Physical Exam Vitals reviewed. Constitutional: Appearance: Normal appearance. HENT: Head: Normocephalic and atraumatic. Eyes: Conjunctiva/sclera: Conjunctivae normal. Cardiovascular: Rate and Rhythm: Normal rate and regular rhythm. Pulmonary: Effort: Pulmonary effort is normal. Breath sounds: Normal breath sounds. Musculoskeletal: Cervical back: Neck supple. Comments: Right leg prosthesis Skin: General: Skin is warm and dry. Neurological: General: No focal deficit present. Mental Status: He is alert and oriented to person, place, and time. Psychiatric: Mood and Affect: Mood normal. Behavior: Behavior normal. Thought Content: Thought content normal. Judgment: Judgment normal. Assessment & Plan Asthma, unspecified asthma severity, unspecified whether complicated, unspecified whether persistent ([facility]) Orders: albuterol 90 mcg/actuation inhaler; Inhale 2 puffs 4 times a day. Routine general medical examination at health care facility Orders: 1 Year Follow Up In Primary Care - Wellness Exam; Future Encounter for screening for malignant neoplasm of prostate Orders: Prostate Specific Antigen, Screen; Future Healthcare maintenance Orders: Prostate Specific Antigen, Screen; Future Colon cancer screening Orders: Cologuard colon cancer screening; Future Cologuard colon cancer screening Rheumatoid arthritis, involving unspecified site, unspecified whether rheumatoid factor present (Multi) documented in this encounter [facility] Work Phone: 03-21-2024 Miscellaneous Notes Associated Problem(s): Rheumatoid arthritis documented in this encounter [facility] Work Phone: 03-20-2023 History of Present illness Narrative Subjective Reason for Visit: Francheska Harmon is an 72 y.o. male here [...] Aortic Aneurysm screening: screening is current and Jjun2019. Patient Care Team: Oz Jiang MD as PCP - General Oz Jiang MD as PCP - [facility] Attributed Provider Review of Systems Objective Vitals: BP 120/80 Pulse 108 Ht 1.499 m (4' 11) Wt 60.6 kg (133 lb 8 oz) [...] prevention instructions provided. documented in this encounter [facility] Work Phone: 03-20-2023 Instructions Oz Jiang MD [...] your healthcare team if you have questions [facility], 2021 documented in this encounter [facility] Work Phone: 02-17-2023 History of Present illness Narrative Subjective Patient ID: Francheska Harmon is a 72 y.o. male who [...] quarantine and masking. documented in this encounter [facility] Work Phone: 02-07-2023 History of Present illness Narrative Subjective Patient ID: Francheska Harmon is a 72 y.o. male who presents for Neck Pain (Pt. C/o neck pain x 1 week.). 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 He has right neck stiffness. Has had right shoulder replacement history of rheumatoid arthritis on multiple rheumatological medications. He is tried ice heat. He has tried home exercises. Review of Systems Objective BP 130/82 Pulse 102 Ht 1.499 m (4' 11) Wt 60.4 kg (133 lb 3.2 oz) [...] for muscle spasms. documented in this encounter [facility] Work Phone: 02-11-2020 Instructions CompletedPatient advised to follow-up with Primary Care Physician for BMI management. [facility] Work Phone: [phone] 876-362803-02-2020 Instructions* Instruction Description Start Date CompletedPatient advised to follow-up with Primary Care Physician for BMI management. [facility] Work Phone: [phone]) 399-402909-12-2019 Instructions* Instruction Description Start Date Completed [facility] Work Phone: [phone]) 821-857507-24-2019 Instructions* Instruction Description Start Date CompletedPatient advised to follow-up with Primary Care Physician for BMI management. [facility] Work Phone: Evaluation noteThere may be information available, but it has not been provided by the sender.[facility] Work Phone: Evaluation noteNo assessment information available [facility] Work Phone: Evaluation note* Diagnosis Onset Date Resolution Status Hyperparathyroidism acute [facility] Work Phone: Evaluation note* Diagnosis Strain of neck muscle, initial encounter- Primary documented in this encounter [facility] Work Phone: Evaluation note* Diagnosis COVID-19- Primary documented in this encounter [facility] Work Phone: Evaluation note* Diagnosis Routine general medical examination at health care facility- Primary Routine general medical examination at a health care facility Asthma, unspecified asthma severity, unspecified whether complicated, unspecified whether persistent Encounter for screening for malignant neoplasm of prostate Healthcare maintenance Age-related osteoporosis without current pathological fracture Rheumatoid arthritis, involving unspecified site, unspecified whether rheumatoid factor present ([facility]) documented in this encounter [facility] Work Phone: Evaluation note* Diagnosis Routine general medical examination at health care facility- Primary Routine general medical examination at a health care facility Asthma, unspecified asthma severity, unspecified whether complicated, unspecified whether persistent ([facility]) Encounter for screening for malignant neoplasm of prostate Healthcare maintenance Colon cancer screening Special screening for malignant neoplasms, colon Rheumatoid arthritis, involving unspecified site, unspecified whether rheumatoid factor present (Multi) documented in this encounter [facility] Work Phone: Evaluation note* Diagnosis Routine general medical examination at health care facility- Primary Routine general medical examination at a health care facility Asthma, unspecified asthma severity, unspecified whether complicated, unspecified whether persistent ([facility]) Encounter for screening for malignant neoplasm of prostate Healthcare maintenance Colon cancer screening Special screening for malignant neoplasms, colon Rheumatoid arthritis, involving unspecified site, unspecified whether rheumatoid factor present (Multi) Encounter for administration of vaccine Low vitamin D level- Primary Anemia, unspecified type Age-related osteoporosis without current pathological fracture Hyperparathyroidism (Multi) Hyperparathyroidism, unspecified documented in this encounter [facility] Work Phone: Evaluation note* Diagnosis Routine general medical examination at health care facility- Primary Routine general medical examination at a health care facility Asthma, unspecified asthma severity, unspecified whether complicated, unspecified whether persistent ([facility]) Encounter for screening for malignant neoplasm of prostate Healthcare maintenance Colon cancer screening Special screening for malignant neoplasms, colon Rheumatoid arthritis, involving unspecified site, unspecified whether rheumatoid factor present (Multi) Encounter for administration of vaccine Anemia, unspecified type- Primary documented in this encounter [facility] Work Phone: Evaluation note* Diagnosis Routine general medical examination at health care facility- Primary Routine general medical examination at a health care facility Asthma, unspecified asthma severity, unspecified whether complicated, unspecified whether persistent ([facility]) Encounter for screening for malignant neoplasm of prostate Healthcare maintenance Colon cancer screening Special screening for malignant neoplasms, colon Rheumatoid arthritis, involving unspecified site, unspecified whether rheumatoid factor present (Multi) Encounter for administration of vaccine Anemia, unspecified type documented in this encounter [facility] Work Phone: Evaluation note* Diagnosis Routine general medical examination at health care facility- Primary Routine general medical examination at a health care facility Asthma, unspecified asthma severity, unspecified whether complicated, unspecified whether persistent ([facility]) Encounter for screening for malignant neoplasm of prostate Healthcare maintenance Colon cancer screening Special screening for malignant neoplasms, colon Rheumatoid arthritis, involving unspecified site, unspecified whether rheumatoid factor present (Multi) Encounter for administration of vaccine Internal hemorrhoid- Primary Internal hemorrhoids without mention of complication Diverticulosis Diverticulosis of colon (without mention of hemorrhage) Anemia, chronic disease Anemia of other chronic disease documented in this encounter [facility] Work Phone: Evaluation note* Diagnosis Routine general medical examination at health care facility- Primary Routine general medical examination at a health care facility Asthma, unspecified asthma severity, unspecified whether complicated, unspecified whether persistent ([facility]) Encounter for screening for malignant neoplasm of prostate [facility] maintenance Colon cancer screening Special screening for malignant neoplasms, colon Rheumatoid arthritis, involving unspecified site, unspecified whether rheumatoid factor present (Multi) Encounter for administration of vaccine Hyperparathyroidism (Multi)- Primary Hyperparathyroidism, unspecified Anemia, unspecified type Rheumatoid arthritis, involving unspecified site, unspecified whether rheumatoid factor present (Multi) documented in this encounter [facility] Work Phone: History of Present illness Narrative* [...] Maintenance: performs independently. * Falls Risk Screening:. FRANCHESKA has fallen in the last 6 months. [...] left knee revision 2016 * Lumbar fusion [facility] 2017 * h.o discectomy 2003 * walker insufficient when not using leg * wheelchair adl s in house * outside shopping are self propel * no h/o [place], CHF, CVA, TIA * no cp no sob no cough * usles albuterol for uri * no nocturia * 2019 pt had undetected left mandibular fx which has now been fixed [facility] Work Phone: Instructions* Instruction Description Start Date CompletedPatient advised to follow-up with Primary Care Physician for BMI management. [facility] Work Phone: Instructions* Instruction Description Start Date CompletedPatient advised to follow-up with Primary Care Physician for BMI management. [facility] Work Phone: Instructions* Instruction Description Start Date CompletedPlease follow-up wi Primary Care Physician or Portable Sawyer for treatment or adjustment of medication regarding elevated blood pressure.Patient advised to follow-up with Primary Care Physician for BMI management. [facility] Work Phone: Instructions* Instruction Description Start Date CompletedPatient advised to follow-up with Primary Care Physician for BMI management. [facility] Work Phone: Reason for referral (narrative)* Consultation (Routine) - Authorized Specialty Diagnoses / Procedures Referred By Contac t Referred To Contact Primary Care Diagnoses Routine general medical examination at health care facility Procedures 1 Year Follow Up In Primary Care - Wellness Exam Oz Jiang MD [address] [facility] [place] [place] [address] Referral ID Status Reason Start Date Expiration Date V isits Requested Visits Authorized [id number] Authorized 03/21/2024 03/21/2025 1 1 [facility] Work Phone: Reason for referral (narrative)No reason for referral information availableWParkwood [facility] Work Phone: Reason for visit Narrative* Endoscopy (Routine) - Authorized Specialty Diagnoses / Procedures Referred By Contac t Referred To Contact Gastroenterology Diagnoses Anemia, unspecified type Procedures Colonoscopy Diagnostic MS COLONOSCOPY FLX DX W/COLLJ SPEC WHEN PFRMD MS COLONOSCOPY W/BIOPSY SINGLE/MULTIPLE MS COLSC FLX W/RMVL OF TUMOR POLYP LESION SNARE TQ MS COLSC FLX W/REMOVAL LESION BY HOT BX FORCEPS Travis Cespedes MD [address] [place] [address] Phone: tel: fax: Referral ID Status Reason Start Date Expiration Date V isits Requested Visits Authorized [id number] Authorized 09/10/2024 09/10/2025 1 1 [facility] Work Phone: Summary Purpose Family History No Family History Records Found Relationship Condition Age at Onset Recorded Date/T monica Unknown Family History?No pe rtinent history Unknown July 25, 2018 9:44pm Family History?No pe rtinent history Unknown July 25, 2018 9:44pm Relationship Condition Age at Onset Recorded Date/T monica Unknown Family History?No pe rtinent history Unknown July 25, 2018 8:44pm Family History?No pe rtinent history Unknown July 25, 2018 8:44pm Relationship Condition Age at Onset Recorded Date/T monica father Malignant neoplasm Unknown brother Malignant neoplasm Unknown sister Malignant neoplasm Unknown Advance Directives No Advanced Directives Records Found Advance Directive Response Recorded Date/ Time Advance Directives No December 27 10:30am Living Will No July 25 019 4:52pm Power of Electronic Video Games Servicer No July 25, 2018 4:52pm Advance Directive Response Recorded Date/ Time Advance Directives No December 27 9:30am Living Will No July 25 019 3:52pm Power of Electronic Video Games Servicer No July 25, 2018 3:52pm Advance Directive Response Recorded Date/ Time Advance Directives No December 27 10:30am Chief Complaint Chief Complaint Description Start Date [...] by the author as of Chief Complaint and Reason for Visit Chief Complaint PAIN- COPY PCP Chief Complaint PAIN- COPY PCP PAIN- COPY PCP Chief Complaint PAIN- COPY PCP Amb Documentation PAIN- COPY PCP Elevated PTH/Hypercalcemia EORDER Reason for Visit Hyperparathyroidism Chief Complaint Amb Documentation PAIN- COPY PCP Elevated PTH/Hypercalcemia EORDER PAIN- COPY PCP Reason for Visit Hyperparathyroidism Chief Complaint PAIN- COPY PCP Elevated PTH/Hypercalcemia EORDER PAIN- COPY PCP HYPERPARATHYROIDISM Reason for Visit Hyperparathyroidism Chief Complaint PAIN- COPY PCP Elevated PTH/Hypercalcemia EORDER PAIN- COPY PCP HYPERPARATHYROIDISM PROLIA Reason for Visit Hyperparathyroidism Chief Complaint PAIN- COPY PCP HYPERPARATHYROIDISM PROLIA NEED ORDER FROM DR DAVE CARPENTER ALSO Chief Complaint PROLIA Chief Complaint PROLIA PAIN- COPY PCP Chief Complaint Admit Date PAIN- COPY PCP July 24, 2024 11:51am EO AND ADDT. LABS October 14 10:49am Chief Complaint Admit Date PAIN- COPY PCP July 24, 2024 11:51am EORDER- AND ADDT. LABS October 14 10:49am PAIN- COPY PCP October 22, 2024 12:57 pm Additional Source Comments (unrecognized sect ion and content) No Status Records FoundNo Status Records FoundNo Status Records FoundNo Status Records FoundNo Status Records FoundNo Status Records FoundNo Status Records Found INFORMATION SOURCE (unrecogn ized section and content) DATE CREATED AUTHOR 05/12/2020 [facility] DATE CREATED AUTHOR AUTHOR'S ORGANIZ ATION 03/18/2022 [facility] DATE CREATED AUTHOR AUTHOR'S ORGANIZ ATION 03/18/2022 [employer] DATE CREATED AUTHOR AUTHOR'S ORGANIZ ATION 10/19/2024 [facility] DATE CREATED AUTHOR AUTHOR'S ORGANIZ ATION 10/29/2024 [facility] DATE CREATED AUTHOR AUTHOR'S ORGANIZ ATION 12/01/2024 [facility] DATE CREATED AUTHOR AUTHOR'S ORGANIZ ATION 12/04/2024 [facility] Reason for Visit (unrecogniz ed section and content) Reason For Visit Description Postop - 1st visit Preliminary reason f or visit data, not yet signed by the author as of lower back post Posterolater al fusion L1-3 on 10/23/2017 Reason For Visit Description Start Date New/Est [...] Wellness Visit Subsequen t 1 year mdck. 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 [address] [place] [address] Phone: tel: fax: Referral ID Status Reason Start Date Expiration Date V isits Requested Visits Authorized [id number] Authorized 08/21/2024 08/21/2025 1 1 Goals (unrecognized section and content) Goals may be documented in a n alternate sectionGoals may be documented in an alternate sectionGoals may be documented in an alternate sectionGoals may be documented in an alternate sectionGoals may be documented in an alternate sectionGoals may be documented in an alternate sectionGoals may be documented in an alternate sectionGoals may be documented in an alternate sectionGoals may be documented in an alternate sectionGoals may be documented in an alternate sectionGoals may be documented in an alternate sectionGoals may be documented in an alternate sectionGoals may be documented in an alternate section Care Teams (unrecognized sec tion and content) Team Status: Active Member Role Status Dates Dr. Oz Jiang MD Family Provider Active Dr. Oz Jiang MD Primary Care Provider Active Team Status: Inactive Member Role Status Dates Dr. Oz Jiang MD Primary Care Provider Active Dr. Genoveva Diehl MD Attending Provider, Referring Provider Active Team Status: Active Member Role Status Dates Dr. Oz Jiang MD Primary Care Provider Active Dr. Genoveva Diehl MD Attending Provider, Referring Provider Active Team Status: Inactive Member Role Status Dates Dr. Oz Jiang MD Primary Care Provider, Referrin g Provider Active Dr. Dave Carpenter MD Attending Provider Active Team Status: Active Member Role Status Dates Dr. Oz Jiang MD Primary Care Provider Active José Miguel Moore Attending Provider Active Team Status: Inactive Member Role Status Dates Dr. Oz Jiang MD Primary Care Provider Active Dr. Dave Carpenter MD Attending Provider, Referring Provi munir Active Marine Specialist Relationship Specialty Start Date End Date Oz Jiang MD [address] [facility], [place] [address] [place] [id number] PCP - General 10/22/19 Oz Jiang MD [address] [facility], [place] [address] [place] [address] PCP - MSSP ACO Attributed Provider 03/12/22 Marine Specialist Relationship Specialty Start Date End Date Oz Jiang MD [address] [facility] [place] [address] [place] [address] PCP - General 10/22/19 Oz Jiang MD [address] [facility] [place] [address] PCP - MSSP ACO Attributed Provider 03/12/22 Marine Specialist Relationship Specialty Start Date End Date Oz Jiang MD [address] [facility], [place] [address] [place] [address] PCP - General 10/22/19 Oz Jiang MD [address] [facility], [address] [place] [address] PCP - MSSP ACO Attributed Provider 03/12/22 Team Status: Inactive Member Role Status Dates Dr. Oz Jiang MD Primary Care Provider Active Dr. Genoveva Diehl MD Attending Provider, Referring Provider Active Dr. Dave Carpenter MD Other Provider Active Team Status: Inactive Member Role Status Dates Dr. Oz Jiang MD Primary Care Prov ider, Attending Provider, Referring Provider Active Marine Specialist Relationship Specialty Start Date End Date Oz Jiang MD [address] [facility], [place] [address] [place] [address] PCP - General 10/22/19 Oz Jiang MD [address] [facility], [place] [address] [place] [address] PCP - MMO Medicare Advantage PCP 06/12/23 Marine Specialist Relationship Specialty Start Date End Date Oz Jiang MD [address] [facility], [place] [address] [place] [address] PCP - General 10/22/19 Oz Jiang MD [address] [facility], [place] [address] [place] [address] PCP - MMO Medicare Advantage PCP 06/12/23 Marine Specialist Relationship Specialty Start Date End Date Oz Jiang MD [address] [facility], [place] [address] [place] [address] PCP - General 10/22/19 Oz Jiang MD [address] [facility], [place] [place] [address] PCP - MMO Medicare Advantage PCP 06/12/23 Team Status: Inactive Member Role Status Dates Dr. Oz Jiang MD Primary Care Provider Active Start: July 24, 2024 End: July 24, 2024 Dr. Genoveva Diehl MD Attending Provider Active Start: July 24, 2024 End: July 24, 2024 Dr. Genoveva Diehl MD Referring Provider Active Start: July 24, 2024 End: July 24, 2024 Team Status: Inactive Member Role Status Dates Dr. Oz Jiang MD Primary Care Provider Active Start: October 14, 2024 End: October 14, 2024 Dr. Oz Jiang MD Other Provider Active Sta rt: October 14, 2024 End: October 14, 2024 Dr. Dave Carpenter MD Attending Provider Active Sta rt: October 14, 2024 End: October 14, 2024 Dr. Dave Carpenter MD Referring Provider Active Sta rt: October 14, 2024 End: October 14, 2024 Marine Specialist Relationship Specialty Start Date End Date Oz Jiang MD [address] [facility], [place] [place] [address] PCP - General 10/22/19 Oz Jiang MD [address] [facility], [place] [address] [place], [place] [id number] PCP - MMO Medicare Advantage PCP 06/12/23 Team Status: Inactive Member Role Status Dates Dr. Oz Jiang MD Primary Care Provider Active Start: October 22, 2024 End: October 22, 2024 Dr. Genoveva Diehl MD Attending Provider Active Start: October 22, 2024 End: October 22, 2024 Dr. Genoveva Diehl MD Referring Provider Active Start: October 22, 2024 End: October 22, 2024 Marine Specialist Relationship Specialty Start Date End Date Oz Jiang MD [address] [facility] [place] [place] [address] PCP - General 10/22/19 Oz Jiang MD [address] [facility], [address] [place] [address] PCP - MMO Medicare Advantage PCP 06/12/23 Marine Specialist Relationship Specialty Start Date End Date Oz Jiang MD [address] [facility] [place] [place] [address] PCP - General 10/22/19 Oz Jiang MD [address] [facility], [place] [place] [address] PCP - MMO Medicare Advantage PCP 06/12/23 FOR RECORDS PERTAINING TO PATIENTS WHO ARE [...] BE BASED ON THE PRIMARY CLINICAL RECORDS. [employer] provides no warranty or guarantee of the accuracy or completeness of information in this document.
== END | disposition home or self-care (01) ==
LOC: MTLAB 14:20
PROVIDERS: PCP Family Medicine; Referring Provider Internal Medicine Rheumatology; Visit Provider Internal Medicine Rheumatology
DX: M06.00 Rheumatoid arthritis without rheumatoid factor, unspecified site (principal); Z79.899 Other long term (current) drug therapy
CPT/HCPCS: 36415; 80053; 85025

== ENCOUNTER → 2025-02-26 | Outpatient (CLI) | payer MEDICARE, SELFPAY ==
--- NOTE | 2025-02-26 10:27 | US_ITS ---
PROCEDURE: ABDOMEN LIMITED 02/26/2025 REASON FOR EXAM: ELEVATED LI ENZYMES TECHNIQUE: Procedure Code: USABDL Modality: US Procedure: ABDOMEN LIMITED FINDINGS: Liver: Measures 10.2 cm. Echotexture is heterogeneous, which may represent a fibrophytic process. No focal hepatic masses identified. Hepatic color flow is normal and hepatopetal. Biliary system: Common bile duct measures 3 mm. No intrahepatic biliary dilatation. Gallbladder: Measures 9.0 cm. Wall thickness 2 mm. No gallstones, sludge, or pericholecystic fluid. Negative sonographic Irwin's sign. Pancreas: Visualized portions unremarkable. Right Kidney: Measures 10.4 x 4.1 x 5.5 cm. Cortical thickness 1.9 cm. No calculi. Moderate hydronephrosis versus parapelvic cysts. A cystic area is noted measuring 3.9 x 2.4 x 1.9 cm. US/Abdomen Limited IMPRESSION: *Heterogeneous liver echotexture, which may represent a fibrophytic process. *Moderate right hydronephrosis versus parapelvic cyst Reading Location: [id number]
== END | disposition home or self-care (01) ==
PROVIDERS: PCP Family Medicine; Referring Provider Internal Medicine Rheumatology; Visit Provider Internal Medicine Rheumatology
DX: M06.00 Rheumatoid arthritis without rheumatoid factor, unspecified site (principal); Z79.899 Other long term (current) drug therapy
CPT/HCPCS: 76705

== ENCOUNTER → 2025-02-28 | Outpatient (CLI) | payer MEDICARE, SELFPAY ==
[2025-02-28 13:06] LABS: AST(SGOT) 37 U/L (<=37); Alanine Aminotransfer ALT/SGPT 30 U/L (<=46); Albumin, Serum 4.3 g/dL (3.4-4.8); Alkaline Phosphatase 115 U/L (40-129); Anion Gap 13 (5-15); BUN 25 mg/dL (4-19); BUN/Creat Ratio 19.7 RATIO (10-20); Calcium,Total 10.4 mg/dL (7.6-11.0); Carbon Dioxide 22.9 mmol/L (21.0-32.0); Chloride 107 mmol/L (98-108); Globulin 2.9 g/dL (2.2-4.2); Glucose 95 mg/dL (70-99); Potassium 3.8 mmol/L (3.3-5.1)
== END | disposition home or self-care (01) ==
LOC: MTLAB 10:02
PROVIDERS: PCP Family Medicine; Referring Provider Internal Medicine Rheumatology; Visit Provider Internal Medicine Rheumatology
DX: M06.00 Rheumatoid arthritis without rheumatoid factor, unspecified site (principal); Z79.899 Other long term (current) drug therapy
CPT/HCPCS: 36415; 80053

== ENCOUNTER → 2025-04-25 | Outpatient (CLI) | payer MEDICARE, SELFPAY ==
[2025-04-25 12:39] LABS: Hematocrit 32.9 % (40-54); Hemoglobin 10.8 g/dL (13.0-16.5); Immature Granulocytes Count 0.020 X10^3/uL (0.0-0.0); Mean Corp Hgb Conc 32.8 g/dL (32-36); Mean Corpuscular Volume 99.7 fL (80-94); Mean Platelet Vol. 11.1 fl (6.2-12.0); NRBC Flagged by Analyzer 0 % (0-5); Platelet Count 234 K/mm3 (150-450); RBC Distribution Width CV 14.0 % (11.6-14.6); RBC Distribution Width SD 50.0 fl (35.1-43.9); Red Blood Count 3.30 M/mm3 (4.6-6.2); White Blood Count 6.6 K/mm3 (4.4-11.0)
[2025-04-25 12:43] LABS: AST(SGOT) 31 U/L (<=37); Alanine Aminotransfer ALT/SGPT 30 U/L (<=46); Albumin, Serum 4.1 g/dL (3.4-4.8); Alkaline Phosphatase 104 U/L (40-129); Anion Gap 10 (5-15); BUN 30 mg/dL (4-19); BUN/Creat Ratio 26.4 RATIO (10-20); Calcium,Total 10.4 mg/dL (7.6-11.0); Carbon Dioxide 23.4 mmol/L (21.0-32.0); Chloride 105 mmol/L (98-108); Globulin 2.6 g/dL (2.2-4.2); Glucose 93 mg/dL (70-99); Potassium 3.7 mmol/L (3.3-5.1)
== END | disposition home or self-care (01) ==
LOC: MTLAB 10:53
PROVIDERS: PCP Family Medicine; Referring Provider Internal Medicine Rheumatology; Visit Provider Internal Medicine Rheumatology
DX: I25.119 Atherosclerotic heart disease of native coronary artery with unspecified angina pectoris (principal); I50.22 Chronic systolic (congestive) heart failure; I48.0 Paroxysmal atrial fibrillation; I10 Essential (primary) hypertension; R06.09 Other forms of dyspnea
CPT/HCPCS: 36415; 80053; 85025

== ENCOUNTER → 2025-05-29 | Outpatient (CLI) | payer MEDICARE, SELFPAY ==
[2025-05-29 16:13] LABS: PSA,Total - Annual Screen 3.00 ng/mL (0.02-4.00)
== END | disposition home or self-care (01) ==
LOC: MTLAB 11:35
PROVIDERS: PCP Family Medicine; Referring Provider Family Medicine; Visit Provider Family Medicine
DX: Z00.00 Encounter for general adult medical examination without abnormal findings (principal); Z12.5 Encounter for screening for malignant neoplasm of prostate
CPT/HCPCS: 36415; 84153; G0103